=== PATIENT | female | born 1940 | race Caucasian/White ===

== ENCOUNTER 2024-12-28 11:28 | Emergency (ER) | payer MEDICARE, BC, SELFPAY ==
[2024-12-28 11:41] VITALS: BP 143/84; PULSE 68; RESP 22; TEMP 36.8; O2SAT 98; BMI 24.0
--- NOTE | 2024-12-28 11:47 | XR_ITS ---
Examination: CT brain head without contrast. 2-D sagittal coronal reconstructions Date and time of exam:December 28, 2024 1306 hrs. Indications: Patient fell out of bed yesterday with injury to the head, head pain CTDI: vol (mGy):4.47 DLP: (mGycm):870 Technique: Multiple CT axial sections of the brain have been obtained, 5 mm slice thickness. Contrast has not been administered. 2-D sagittal, coronal reconstructions have been obtained Low dose protocols were performed. One or more of the following dose reduction techniques were used; automated exposure control, adjustment of the mA and/or KV according to patient size, use of iterative reconstruction technique. Findings: No significant ventricular enlargement. 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 No mass effect or midline shift Basal cisterns are not remarkable. Fourth ventricle is midline. Cranial vault intact. 13 mm calcified mass contiguous with the right cerebellar tentorium, coronal image 39, axial image 29 Impression: Negative for acute hemorrhage, mass effect or midline shift 13 x 12 mm calcified mass contiguous with the right cerebellar tentorium, most consistent with meningioma Brain MRI follow-up, pre and postcontrast, would confirm this diagnosis
--- NOTE | 2024-12-28 11:47 | XR_ITS ---
Examination:Right hip AP, lateral, AP pelvis 3 views Technique: Hip AP lateral, AP pelvis, 3 views Exam date and time: December 28, 2024 1250 hrs. Indications: Patient fell today with injury to the right hip, right hip pain Findings: No right hip fracture or dislocation Left hip bones of the pelvis intact Impression: No acute right hip fracture or dislocation Repeat this study short-term as clinically warranted
--- NOTE | 2024-12-28 11:47 | EKG_ITS ---
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
--- NOTE | 2024-12-28 11:47 | XR_ITS ---
Examination: CT cervical spine without contrast 2-D sagittal reconstructions 2-D coronal reconstructions 3-D reconstructions. Exam date and time:December 28, 2024 at 1306 hrs. Indications: Patient fell out of bed yesterday with injury to the neck, neck pain CTDI:vol (mGy) 7.02 DLP: (mGycm) 140 Technique: Multiple 2 mm axial sections of the cervical spine have been obtained. The coronal and sagittal reconstructions have been obtained. 3-D reconstructions have been obtained. Low dose protocols were performed. One or more of the following dose reduction techniques were used; automated exposure control, adjustment of the mA and/or KV according to patient size, use of iterative reconstruction technique. Findings: Axial sections demonstrate intact base of the skull. Cervical fusion C5-C7 with anatomic alignment Moderate disc narrowing C7-T1 C1 exhibit satisfactory relationship to the odontoid. No acute cervical vertebral body fracture seen. Alignment posterior spinous processes satisfactory. Impression: No acute cervical fracture.
--- NOTE | 2024-12-28 11:48 | XR_ITS ---
Examination: AP chest single view Technique one AP portable upright chest single view Exam date and time: December 28, 2024 1221 hrs. Comparison 08/04/2017 Indications: Coughing shortness of breath today. Findings: Mild prominence left ventricle No pneumonia or pulmonary edema Prominent osteopenia Impression: No pneumonia or pulmonary edema
--- NOTE | 2024-12-28 11:49 | PD.EDRME ---
Rapid Medical Screening Exam RME Arrival date/time: 12/28/24 11:28 84-year-old female presents to the emergency department complains of generalized weakness patient reports recent fall hitting the side of her head patient reports that she cannot get up for more than 2 hours Chief Complaint: General Adult/Misc Complain Time Seen by Provider: 12/28/24 13:05 Vital signs: Vital Signs Temperature 98.2 F 12/28/24 11:41 Pulse Rate 68 12/28/24 11:41 Respiratory Rate 22 H 12/28/24 11:41 Blood Pressure 143/84 H 12/28/24 11:41 Pulse Oximetry (%) 98 12/28/24 11:41 Oxygen Delivery Method Room Air 12/28/24 11:41
[2024-12-28 12:28] LABS: Basophils % (Auto) 0 % (0-2.5); Eosinophils # (Auto) 0.1 Thou/mm3 (0.0-0.5); Eosinophils % (Auto) 1 % (0-10); Hematocrit 38.8 % (36.0-46.0); Hemoglobin 13.3 g/dL (12.0-16.0); Immature Granulocytes % (Auto) 0 % (0-0); Immature Granulocytes Auto 0.04 Thou/mm3 (0.00-0.00); Lymphocytes # (Auto) 1.2 Thou/mm3 (1.0-4.8); Lymphocytes % (Auto) 12 % (10-50); Mean Corpuscular HGB Conc 34.3 g/dl (31.0-37.0); Mean Corpuscular Hemoglobin 29.2 pg (25.0-35.0); Mean Corpuscular Volume 85 fL (80-100); Monocytes % (Auto) 10 % (0-12); Neutrophils # (Auto) 7.8 Thou/mm3 (1.8-7.7); Neutrophils % (Auto) 77 % (37-80); Nucleated Red Blood Cell % 0 /100 WBC (0); Platelet Count 230 Thou/mm3 (140-440); RDW Standard Deviation 41.1 fL (36.4-46.3); Red Blood Count 4.55 Miln/mm3 (4.00-5.20); White Blood Count 10.1 Thou/mm3 (3.6-11.0)
[2024-12-28 12:45] LABS: Partial Thromboplastin Time 27.1 Seconds (22.0-36.0); Prothrombin Time 10.7 Seconds (9.0-12.2)
[2024-12-28 12:48] LABS: B-Type Natriuretic Peptide 158 pg/mL (0-100)
[2024-12-28 12:50] LABS: Alanine Aminotransferase 35 U/L (10-49); Albumin, Serum 3.9 gm/dL (3.4-4.8); Albumin/Globulin Ratio 1.3 (1.2-2.2); Alkaline Phosphatase 83 U/L (46-116); Anion Gap 10 (7-16); Aspartate Amino Transferase 17 U/L (0-34); BUN/Creatinine Ratio 19 Ratio (12-20); Bilirubin,Total 0.9 mg/dL (0.3-1.2); Blood Urea Nitrogen 21 mg/dL (9-23); Calcium 9.6 mg/dL (8.3-10.6); Calcium (Corrected) 9.7 mg/dL (8.5-10.1); Carbon Dioxide 19.8 mMol/L (20.0-31.0); Chloride 99 mMol/L (98-107); Creatinine (Component) 1.1 mg/dL (0.6-1.3); Estimated Creatinine Clearance 30.4 mL/min (>60); Globulin 2.9 gm/dL (2.3-3.5); Glucose 364 mg/dL (74-106); Osmolality,Calculated 276 (275-295); Potassium 4.1 mMol/L (3.4-5.1); Sodium 129 mMol/L (136-145); Total Protein 6.8 gm/dL (5.7-8.2); Troponin I 0.031 ng/mL (0.0-0.045); eGFR 49 See Note
--- NOTE | 2024-12-28 13:26 | PD.EDADULT ---
ED General RME/HPI General Chief complaint: General Adult/Misc Complain Stated complaint: SOB, COLD, ABD PAIN Time Seen by Provider: 12/28/24 13:05 Arrival date/time: 12/28/24 11:28 This is an 84-year-old female that is brought in by family member with complaints of weakness and hitting head on dresser. Patient states that she fell after hitting her head on the dresser but reports that she did not pass out. Patient states she just felt weak. Patient has a history of diabetes, high blood pressure, hyperlipidemia, and depression. Patient denies fever chills, cough, runny nose, nausea, vomiting, diarrhea. Patient reports some back pain and some dysuria. Patient has had UTIs in the past. RME / HPI RME / HPI narrative: 12/28/24 11:28 84-year-old female presents to the emergency department complains of generalized weakness patient reports recent fall hitting the side of her head patient reports that she cannot get up for more than 2 hours Related Data Home Medications ?Medication ?Instructions ?Recorded ?Confirmed metoprolol succinate 25 mg 25 mg PO BID ##0 08/04/17 09/12/23 tablet,extended release 24 hr (Toprol XL) metformin 500 mg tablet 500 mg PO BID 03/28/23 09/12/23 donepezil 5 mg tablet 5 mg PO HS 09/12/23 09/12/23 pravastatin 10 mg tablet 10 mg PO DAILY 09/12/23 09/12/23 vitamin B complex-vitamin C-folic 1 tab PO DAILY 09/12/23 09/12/23 acid 0.8 mg tablet (Renuka-Casey) Previous Rx's ?Medication ?Instructions ?Recorded ondansetron 4 mg disintegrating 4 mg PO Q6H PRN nausea and 12/28/24 tablet vomiting #5 tabs Allergies Allergy/AdvReac Type Severity Reaction Status Date / Time No Known Allergies Allergy Verified 12/28/24 11:32 Review of Systems Review of Systems Systems Reviewed: All systems reviewed, normal except as documented Past Medical History Past Medical History Comments PMH COMMENT: see hpi ED Exam General General appearance: Present alert and in no apparent distress Head Head exam: Present atraumatic Eye Eye exam: Present normal appearance, PERRL and EOMI ENT ENT exam: Present normal exam, normal oropharynx and mucous membranes moist Neck Neck exam: Present normal inspection, full ROM and trachea midline Chest Chest inspection: Present normal inspection and symmetric chest wall rise Respiratory Respiratory exam: Present normal lung sounds bilaterally Cardiovascular Cardiovascular exam: Present regular rate, normal rhythm and normal heart sounds Abdominal Exam Abdominal exam: Present soft Extremities Exam Extremities exam: Present normal inspection and full ROM Back Exam Back exam: Present normal inspection and full ROM Neurological Exam Neurological exam: Present alert, oriented X3 and CN II-XII intact Psychiatric Psychiatric exam: Present normal affect and normal mood Skin Skin exam: Present warm, dry, intact and normal color Course Quality Measures none Orders Category Date Time Status Ambulate in Room PRN Care 12/28/24 16:05 Completed Bedside COVID-19 Antigen Test NOW Care 12/28/24 11:48 Completed Bedside Influenza A&B Antigen Test NOW Care 12/28/24 11:48 Completed EKG (ED ONLY) *Do not use* NOW Care 12/28/24 11:47 Completed Glucose [Bedside Blood Glucose] NOW Care 12/28/24 15:31 Completed IV [Insert IV] STAT Care 12/28/24 13:[address] cervical spine wo con Stat Exams 12/28/24 11:[address] head/brain wo con Stat Exams 12/28/24 11:47 Completed EKG (ED Only) Stat Exams 12/28/24 11:47 Draft XR chest 1V portable Stat Exams 12/28/24 11:48 Completed XR hip RT w pelvis 2-3V Stat Exams 12/28/24 11:47 Completed B-Type Natriuretic Peptide Stat Lab 12/28/24 12:02 Completed CBC Stat Lab 12/28/24 12:02 Completed Comprehensive Metabolic Panel Stat Lab 12/28/24 12:02 Completed Partial Thromboplastin Time Stat Lab 12/28/24 12:02 Completed Prothrombin Time with INR Stat Lab 12/28/24 12:02 Completed Troponin I Stat Lab 12/28/24 12:02 Completed UA, C/S IF [Urinalysis, C/S if Indicated] Stat Lab 12/28/24 14:34 Completed Urine Culture Stat Lab 12/28/24 14:34 Completed Acetaminophen Tab [Tylenol ES Tab] Med 12/28/24 16:34 Discontinued 1,000 mg PO X1 ONE Ibuprofen Tab [Motrin Tab] Med 12/28/24 16:34 Discontinued 600 mg PO X1 ONE Sodium Chloride 0.9% 250 ml [Ns] 250 ml Med 12/28/24 13:54 Discontinued IV 999 mls/hr cefTRIAXone [Rocephin] 1,000 mg Med 12/28/24 15:30 Discontinued Lidocaine 1% 20 ml [Xylocaine 1% 20 ML] 2.1 ml IM X1 Vital Signs Vital signs: Vital Signs Temperature 98.2 F 12/28/24 11:41 Pulse Rate 68 12/28/24 11:41 Respiratory Rate 22 H 12/28/24 11:41 Blood Pressure 143/84 H 12/28/24 11:41 Pulse Oximetry (%) 98 12/28/24 11:41 Oxygen Delivery Method Room Air 12/28/24 11:41 Procedures -ED EKG Interpretation #1: Date of EK12/28/24 Time of EK:49 Rate: 68 Interpretation: Interpreted by me (sinus rhythm ) EKG Impression: No ectopy, Normal QRS and Normal intervals MDM Patient data External records reviewed:: [facility] previous records Clinical information provided by:: patient Social determinants that could affect healthcare access:: none Patient has the following chronic illnesses:: see hpi How is presenting disease/condition affected by chronic disease/condition?: exacerbated by Evaluation data The following diagnostics were reviewed and interpreted by me:: lab results, radiology exam(s) and EKG tracing(s) Lab and/or radiology exams considered but not ordered:: none Interpretation Summary: see note Medications Medications considered but not ordered:: none Medication administrations:: Medication Administration History Discontinued Medications Acetaminophen (Acetaminophen 500 Mg Tablet) 1,000 mg PO X1 ONE Stop: 12/28/24 16:35 Last Admin: 12/28/24 16:41 Dose: 1,000 mg Documented By: AM Ceftriaxone Sodium 1,000 mg/ (Lidocaine HCl 2.1 ml) 0 mg IM X1 ONE Stop: 12/28/24 15:31 Last Admin: 12/28/24 15:42 Dose: 1,000 mg Documented By: AM Sodium Chloride (Ns) 250 mls @ 999 mls/hr IV .Q16M ONE Stop: 12/28/24 14:09 Last Infusion: 12/28/24 14:55 Dose: Infused Documented By: Admin: 12/28/24 14:23 Dose: 999 mls/hr Documented By: AM Ibuprofen (Ibuprofen Tab 600 Mg Tablet) 600 mg PO X1 ONE Stop: 12/28/24 16:35 Last Admin: 12/28/24 16:40 Dose: 600 mg Documented By: AM see mar Consultations Consultation(s) initiated? (list below): No Diagnosis Differential Diagnosis ED Complaint MDM: uti, brain bleed, dehydration, pneumonia Most likely diagnosis given after review of the tests above:: uti Admission Indicated Admission indicated?: not indicated Explain why admission is indicated or not indicated:: not needed Admission Request Was there a request for admission?: No Disposition Plan Disposition Plan: Discharge Discharge Attestation Discharge Attestation: The patient and all family members were given an opportunity to ask questions and understood the discharge instructions. Discharge instructions specifically effects, indications for sooner follow up or return to the emergency department, and the expected course of current diagnosis. Patient condition: Stable Medical Decision Making MDM Narrative MDM Narrative: CT neck Findings: Axial sections demonstrate intact base of the skull. Cervical fusion C5-C7 with anatomic alignment Moderate disc narrowing C7-T1 C1 exhibit satisfactory relationship to the odontoid. No acute cervical vertebral body fracture seen. Alignment posterior spinous processes satisfactory. Impression: No acute cervical fracture. ct head: Findings: No significant ventricular enlargement. 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 No mass effect or midline shift Basal cisterns are not remarkable. Fourth ventricle is midline. Cranial vault intact. 13 mm calcified mass contiguous with the right cerebellar tentorium, coronal image 39, axial image 29 Impression: Negative for acute hemorrhage, mass effect or midline shift 13 x 12 mm calcified mass contiguous with the right cerebellar tentorium, most consistent with meningioma Brain MRI follow-up, pre and postcontrast, would confirm this diagnosis Hip x ray: Findings: No right hip fracture or dislocation Left hip bones of the pelvis intact Impression: No acute right hip fracture or dislocation Repeat this study short-term as clinically warranted Chest x ray: Findings: Mild prominence left ventricle No pneumonia or pulmonary edema Prominent osteopenia Impression: No pneumonia or pulmonary edema Labs show: cbc unremarkable. CMP shows sodium of 129, bicarb 19.8, bnp 158, glucose 364, urine positive for uti. Will send a urine culture. Glucose rechecked and better. Pt given tylenol and ibuprofen for pain. Pt given IV fluids to help sodium and possible dehydration. Pt feels better. I spoke to patient about labs and radiology studies. I let her know about her menigioma. Pt told to follow up with primary provider in 1-2 days. Come back to ED if symptoms change or worsen. Pt given rocephin for uti and will place on antibiotics at home. Differential Diagnosis Differential Diagnosis: uti, brain bleed, dehydration, pneumonia Lab Data 12/28/24 12:02 12/28/24 12:02 Labs: Lab Results 12/28/24 12/28/24 Range/Units 12:02 14:34 WBC 10.1 (3.6-11.0) Thou/mm3 RBC 4.55 (4.00-5.20) Miln/mm3 Hgb 13.3 (12.0-16.0) g/dL Hct 38.8 (36.0-46.0) % MCV 85 (80-100) fL MCH 29.2 (25.0-35.0) pg MCHC 34.3 (31.0-37.0) g/dl RDW Std Deviation 41.1 (36.4-46.3) fL Plt Count 230 (140-440) Thou/mm3 Neut % (Auto) 77 (37-80) % Lymph % (Auto) 12 (10-50) % [place] % (Auto) 10 (0-12) % Eos % (Auto) 1 (0-10) % Baso % (Auto) 0 (0-2.5) % Neut # (Auto) 7.8 H (1.8-7.7) Thou/mm3 Lymph # (Auto) 1.2 (1.0-4.8) Thou/mm3 [place] # (Auto) 1.0 H (0.0-0.8) Thou/mm3 Eos # (Auto) 0.1 (0.0-0.5) Thou/mm3 Baso # (Auto) 0.0 (0.0-0.2) Thou/mm3 Immature Gran # (Auto) 0.04 H (0.00-0.00) Thou/mm3 Absolute Nucleated RBC 0.00 (0.00-0.00) Thou/mm3 Immature Gran % 0 (0-0) % Nucleated RBC % 0 (0) /100 WBC PT 10.7 (9.0-12.2) Seconds INR 1.0 (0.9-1.3) APTT 27.1 (22.0-36.0) Seconds Sodium 129 L (136-145) mMol/L Potassium 4.1 (3.4-5.1) mMol/L Chloride 99 (98-107) mMol/L Carbon Dioxide 19.8 L (20.0-31.0) mMol/L Anion Gap 10 (7-16) BUN 21 (9-23) mg/dL Creatinine 1.1 (0.6-1.3) mg/dL Estim Creat Clear Calc 30.4 L (>60) mL/min eGFR 49 L (60 - ) See Note BUN/Creatinine Ratio 19 (12-20) Ratio Glucose 364 H (74-106) mg/dL Calculated Osmolality 276 (275-295) Calcium 9.6 (8.3-10.6) mg/dL Corrected Calcium 9.7 (8.5-10.1) mg/dL Total Bilirubin 0.9 (0.3-1.2) mg/dL AST 17 (0-34) U/L ALT 35 (10-49) U/L Alkaline Phosphatase 83 (46-116) U/L Troponin I 0.031 (0.0-0.045) ng/mL B-Natriuretic Peptide 158 H (0-100) pg/mL Total Protein 6.8 (5.7-8.2) gm/dL Albumin 3.9 (3.4-4.8) gm/dL Globulin 2.9 (2.3-3.5) gm/dL Albumin/Globulin Ratio 1.3 (1.2-2.2) Ur Collection Type Clean Catch Urine Color Yellow (Lt Yel-Yel) Urine Clarity Turbid A (Clear/Hazy) Urine pH 6.0 (5.0-7.0) Ur Specific [place] 1.013 (1.001-1.035) Urine Protein 2+ A (Neg - Trace) Urine Glucose (UA) 3+ A (Negative) Urine Ketones 1+ A (Negative) Urine Blood 2+ A (Negative) Urine Nitrite Positive (Negative) Urine Bilirubin Negative (Negative) Urine Urobilinogen (Auto) Negative (0.0-1.0) mg/dL Ur Leukocyte Esterase Positive (Negative) Urine RBC 18 H (0-3) /hpf Urine WBC 2654 H (0-5) /hpf Ur Squamous Epith Cells 7 H (0-5) /hpf Urine Bacteria 4+ A (None) Ur Culture Indicated? Yes Discharge Plan Plan Patient Disposition: HOME (Self Care) Patient condition on transfer: Stable Prescriptions/Referrals Prescriptions/Med Rec: New ondansetron 4 mg tablet,disintegrating 4 mg PO Q6H PRN (Reason: nausea and vomiting) Qty: 5 0RF No Action metformin 500 mg tablet 500 mg PO BID metoprolol succinate [Toprol XL] 25 MG tablet extended release 24 hr 25 mg PO BID Qty: 0 donepezil 5 mg tablet 5 mg PO HS Patient Comments: TAKE 1 TABLET BY MOUTH EVERY DAY AT BEDTIME 30 DAYS pravastatin 10 mg tablet 10 mg PO DAILY Patient Comments: TAKE 1 TABLET BY MOUTH EVERY DAY Renuka-Casey 0.8 mg tablet 1 tab PO DAILY Patient Comments: TAKE 1 TABLET BY MOUTH EVERY DAY Referrals: Lissette Garcia MD [Primary Care Provider] - In 1 week Problem List Clinical Impression: Acute UTI, Weakness, Acute hyponatremia, Uncontrolled diabetes mellitus, Meningioma Patient/Caregiver Discharge Instructions Discharge Activity: activity as tolerated Education Materials: ED Hyponatremia, ED CYSTITIS Female Adult Additional Instructions: Please drink plenty of fluids. Take antibiotics as prescribed. Follow-up with primary provider in 1 to 2 days. Come back to the emergency room if symptoms change or worsen. Print Language: Venezuelan Stand Alone Forms: Letty Award Info., Patient Portal Info Letter ROWENA/TAMARA Supervising Physician ROWENA/TAMARA Supervising Physician: chaz
[2024-12-28] MEDS: SODIUM CHLORIDE 0.9% 250 ML 250 ML 999 ML IV (14:23)
[2024-12-28 14:39] VITALS: BP 179/64; PULSE 71; RESP 22; TEMP 36.9; O2SAT 98
[2024-12-28 15:08] LABS: Collection Type, Urine Clean Catch
[2024-12-28 15:16] LABS: Bacteria,Urine 4+; Bilirubin,Urine Negative (Negative); Blood,Urine 2+ (Negative); Glucose, Urine 3+ (Negative); Ketones,Urine 1+ (Negative); Leukocyte Esterase,Urine Positive (Negative); Nitrite,Urine Positive (Negative); Protein,Urine 2+ (Neg - Trace); RBC,Urine 18 /hpf (0-3); Specific Gravity,Urine 1.013 (1.001-1.035); Squamous Epithelial Cell,Urine 7 /hpf (0-5); Urobilinogen,Urine Negative mg/dL (0.0-1.0); WBC,Urine 2654 /hpf (0-5)
[2024-12-28 15:18] LABS: Clarity,Urine Turbid (Clear/Hazy); Color,Urine Yellow (Lt Yel-Yel); Culture Indicated,Urine Yes
[2024-12-28] MEDS: cefTRIAXone 1,000 MG, LIDOCAINE 1% 20 ML 2.1 ML IM (15:42)
[2024-12-28 16:37] VITALS: BP 222/101; PULSE 69; RESP 20; TEMP 36.9; O2SAT 99
[2024-12-28] MEDS: IBUPROFEN TAB 600 MG TABLET PO (16:40)
[2024-12-28] MEDS: ACETAMINOPHEN 500 MG TABLET 1000 MG PO (16:41)
[2024-12-28 17:38] VITALS: BP 165/77; PULSE 72; RESP 20; TEMP 36.7; O2SAT 100
== END 2024-12-28 17:41 | disposition home or self-care (01) ==
PROVIDERS: Nurse Practitioner Primary Care; Emergency Provider Emergency Medicine; PCP Family Medicine
DX: N39.0 Urinary tract infection, site not specified (principal); E87.1 Hypo-osmolality and hyponatremia; E11.65 Type 2 diabetes mellitus with hyperglycemia; D32.9 Benign neoplasm of meninges, unspecified
CPT/HCPCS: 36415; 70450; 71045; 72125; 73502; 80053; 81001; 83880; 84484; 85025; 85610; 85730; 87077; 87086; 87186; 87400; 87811; 93005; 96372; 99284; J0696; J3490; J7050; A9270

== ENCOUNTER 2025-02-17 16:11 | Inpatient (IN) | payer MEDICARE, BC, SELFPAY ==
[2025-02-17 16:26] VITALS: BP 91/59; PULSE 77; RESP 18; TEMP 36.4; O2SAT 95
--- NOTE | 2025-02-17 16:36 | EKG_ITS ---
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
--- NOTE | 2025-02-17 16:36 | XR_ITS ---
Examination: PA lateral chest 2 views TECHNIQUE: Upright PA lateral chest 2 views Exam date and time: February 17, 2025 1652 hours Comparison December 28, 2024 INDICATIONS: Onset chest pain today. FINDINGS: Normal heart size Accentuation basilar bronchovascular markings Ectatic thoracic aorta Lower cervical plate No lobar pneumonia IMPRESSION: Basilar bronchitis pattern
--- NOTE | 2025-02-17 16:37 | PD.EDRME ---
Rapid Medical Screening Exam [facility] Arrival date/time: 02/17/25 16:11 84-year-old female with a history of type 2 diabetes, hypertension, hyperlipidemia presents to the emergency room with a chief complaint of cough, fevers, lower abdominal pain. According to family member at bedside the patient is also not at her mental baseline. I have greeted and performed a focused initial assessment of this patient. A comprehensive ED assessment and evaluation of the patient, analysis of all test results, and completion of the medical decision making process will be conducted by additional ED providers. Chief Complaint: Shortness of Breath/Dyspnea Time Seen by Provider: 02/17/25 16:17 Vital signs: Vital Signs Temperature 97.6 F 02/17/25 16:26 Pulse Rate 77 02/17/25 16:26 Respiratory Rate 18 02/17/25 16:26 Blood Pressure 91/59 L 02/17/25 16:26 Pulse Oximetry (%) 95 02/17/25 16:26 Oxygen Delivery Method Room Air 02/17/25 16:26 Vital signs reviewed by provider: Yes
[2025-02-17 17:38] LABS: Basophils # (Auto) 0.1 Thou/mm3 (0.0-0.2); Basophils % (Auto) 1 % (0-2.5); Eosinophils % (Auto) 0 % (0-10); Hematocrit 44.6 % (36.0-46.0); Hemoglobin 14.6 g/dL (12.0-16.0); Immature Granulocytes % (Auto) 4 % (0-0); Immature Granulocytes Auto 1.25 Thou/mm3 (0.00-0.00); Lymphocytes # (Auto) 0.8 Thou/mm3 (1.0-4.8); Lymphocytes % (Auto) 3 % (10-50); Mean Corpuscular HGB Conc 32.7 g/dl (31.0-37.0); Mean Corpuscular Hemoglobin 28.7 pg (25.0-35.0); Mean Corpuscular Volume 88 fL (80-100); Monocytes # (Auto) 2.3 Thou/mm3 (0.0-0.8); Monocytes % (Auto) 8 % (0-12); Neutrophils # (Auto) 25.1 Thou/mm3 (1.8-7.7); Neutrophils % (Auto) 85 % (37-80); Nucleated Red Blood Cell % 0 /100 WBC (0); Platelet Count 134 Thou/mm3 (140-440); RDW Standard Deviation 42.9 fL (36.4-46.3); Red Blood Count 5.09 Miln/mm3 (4.00-5.20); White Blood Count 29.5 Thou/mm3 (3.6-11.0)
[2025-02-17 17:53] LABS: INR 1.2 (0.9-1.3); Partial Thromboplastin Time 33.1 Seconds (22.0-36.0); Prothrombin Time 12.7 Seconds (9.0-12.2)
[2025-02-17 17:58] LABS: Alanine Aminotransferase 49 U/L (10-49); Albumin, Serum 3.9 gm/dL (3.4-4.8); Albumin/Globulin Ratio 1.3 (1.2-2.2); Alkaline Phosphatase 131 U/L (46-116); Anion Gap 19 (7-16); Aspartate Amino Transferase 40 U/L (0-34); BUN/Creatinine Ratio 11 Ratio (12-20); Blood Urea Nitrogen 23 mg/dL (9-23); Calcium 9.3 mg/dL (8.3-10.6); Calcium (Corrected) 9.4 mg/dL (8.5-10.1); Chloride 99 mMol/L (98-107); Creatinine (Component) 2.1 mg/dL (0.6-1.3); Globulin 2.9 gm/dL (2.3-3.5); Glucose 239 mg/dL (74-106); Magnesium 1.7 mg/dL (1.6-2.6); Osmolality,Calculated 272 (275-295); Potassium 3.5 mMol/L (3.4-5.1); Sodium 130 mMol/L (136-145); Total Protein 6.8 gm/dL (5.7-8.2); Troponin I 0.022 ng/mL (0.0-0.045); eGFR 23 See Note
[2025-02-17 18:01] LABS: B-Type Natriuretic Peptide 901 pg/mL (0-100)
[2025-02-17 18:04] LABS: Carbon Dioxide 12.3 mMol/L (20.0-31.0)
--- NOTE | 2025-02-17 19:29 | EDNOTE_ITS ---
ED SOB =RME/HPI General Chief Complaint: Shortness of Breath/Dyspnea Stated Complaint: SOB, FEVER, LEG WEAKNESS, PAIN RLQ ABD SINCE AM Time Seen by Provider: 02/17/25 16:17 Arrival date/time: 02/17/25 16:11 RME / HPI RME / HPI Narrative: 02/17/25 16:11 84-year-old female with a history of type 2 diabetes, hypertension, hyperlipidemia presents to the emergency room with a chief complaint of cough, fevers, lower abdominal pain. According to family member at bedside the patient is also not at her mental baseline. I have greeted and performed a focused initial assessment of this patient. A comprehensive ED assessment and evaluation of the patient, analysis of all test results, and completion of the medical decision making process will be conducted by additional ED providers. This section includes all my notes and documentations, including HPI, PE, and ED course. Justen Guido MD HPI: 84-year-old female here to be evaluated with several days of generalized malaise and fatigue. And worsening confusion and disorientation compared to her baseline. Equivocal subjective fever and slight cough and lower abdominal pain. Daughter also noted breathing difficulty. No other complaints. ROS: All negative except as documented in HPI. Physical Exam: General: Alert and oriented X 1. Breathing difficulty noted. Eyes: Conjunctivae and lids clear. PERRL. EOMI. ENT: No nasal congestion. Neck: Supple. Heart: RRR. Lungs: Mild respiratory distress. Good air movement with bibasilar Rales. Abdomen: Soft and nontender. Legs: No clubbing, cyanosis, edema. Skin: Warm and dry. Neuro: Alert and oriented X 1. Cranial nerves II through XII grossly normal. No peripheral motor deficits. I reviewed all diagnostic test results. My interpretation of the EKG is sinus rhythm with no acute ST?T changes. My interpretation of the chest x-ray is no acute findings. My review of the head CT report is no acute findings. My review of the chest CT report is no PE. My review of the abdominal CT report is pyelonephritis. Blood tests remarkable for WBC 29.5, D-dimer > 3820, CO2 12.3, anion gap 19, Cr 2.1, lactic acid 7.1, CRP 23.6, BNP 901, procalcitonin 110.12. UA showed ketones, leukocyte esterase, WBC. At this point, diagnoses include sepsis, pyelonephritis, metabolic acidosis. Treatment here included IV fluid, Duoneb, Rocephin, and Solumedrol. Significant improvement not noted. I discussed the case with our hospitalist. About the presentation and exam and diagnostics and treatments here. And need of further care in the hospital. Will accept the patient. Justen Guido MD Related Data Home Medications ?Medication ?Instructions ?Recorded ?Confirmed metoprolol succinate 25 mg 25 mg PO BID ##0 08/04/17 1 tablet,extended release 24 hr (Toprol XL) metformin 500 mg tablet 500 mg PO BID 03/28/2309/12 donepezil 5 mg tablet 5 mg PO HS 09/12/23 09/12/23 pravastatin 10 mg tablet 10 mg PO DAILY 09/12/2308/27 vitamin B complex-vitamin C-folic 1 tab PO DAILY 09/1209/12/23 acid 0.8 mg tablet (Renuka-Casey) Previous Rx's ?Medication ?Instructions ?Recorded ondansetron 4 mg disintegrating 4 mg PO Q6H PRN nausea and 12/28/24 tablet vomiting #5 tabs Allergies Allergy/AdvReac Type Severity Reaction Status Date / Time No Known Allergies Allergy Verified 02/17/25 16:16 Review of Systems Review of Systems Systems Reviewed: All systems reviewed, normal except as documented Past Medical History Past Medical History NEUROLOGIC: Positive Dementia; Negative Neurological Disorders or Seizures CARDIAC: Positive Cardiac Disorders, Hypercholesterolemia and Hypertension; Negative Myocardial Infarction, Cardiac Arrhythmia, Atrial Fibrillation, Angina, Heart Murmur, Coronary Artery Disease, Atherosclerotic Heart Disease, Peripheral Vascular Disease, Aneurysm, Congestive Heart Failure, Congenital Heart Disease, Valvular Heart Disease, Rheumatic Fever, Cardiomyopathy, Edema, Pericarditis, Cellulitis, Deep Vein Thrombosis, Hypotension or Varicose Veins RESPIRATORY: Negative Chronic Obstructive Pulmonary Disease (COPD) or Asthma GASTROINTESTINAL: Positive Gastroesophageal Reflux Disease; Negative Gastrointestinal Disorders, Hepatitis, Cirrhosis, Pancreatitis, Celiac Disease, Gall Bladder Disease, Gastrointestinal Bleed, Esophageal Varices, Stern's Esophagus, Colitis, Ulcerative Colitis, Diverticulitis, Diverticulosis, Ulcer, Colorectal Cancer, Irritable Bowel, Crohn's Disease, Obstructive Bowel, Hiatal Hernia, Hemorrhoids or Obesity GENITOURINARY: Negative Genitourinary Disorders, Renal Disease or Prostate Cancer REPRODUCTIVE: Negative Breast Cancer, Endometriosis, Genital Herpes, Gonorrhea, Pelvic Inflammatory Disease, Previous Pregnancies, Syphilis, Testicular Cancer or Uterine Prolapse MUSCULOSKELETAL: Positive Musculoskeletal Disorders (fracture left ankle and surgery) and Fractures; Negative Muscular Dystrophy, Myasthenia Gravis, Marfan's Syndrome, Bone Cancer, Arthritis, Rheumatoid Arthritis, Osteoporosis, Degenerative Disk Disease, Gout, Scoliosis, Carpal Tunnel Syndrome, Fibromyalgia, Degenerative Joint Disease, Osteomyelitis or Poliovirus ENT: Negative Cataracts ENDOCRINE: Positive Diabetes Mellitus Type 2; Negative Endocrine Disorders or Diabetes Mellitus Type 1 HEMATOLOGIC: Negative Blood Disorders, Sickle Cell Disease or Clotting Problems OTHER HISTORY: Positive Hospitalization (when she had hysterectomy), Falls (last year, fx left ankle) and Chicken Pox; Negative Autoimmune Disease, Down Syndrome, Developmental Delay, Shingles, Blood Transfusions, Anesthesia Reactions, Organ Transplant, Chemotherapy, Radiation Therapy, Hyperbaric Therapy, MRSA, VRSA, Vancomycin-Resistant Enterococci, Human Immunodeficiency Virus (HIV), Measles, Mumps, Rubella (Swedish Measles), Pertussis, Clostridium Difficile, Breast Cancer, Cervical Cancer, Colorectal Cancer, Lung Cancer, Ovarian Cancer, Prostate Cancer or Testicular Cancer Family History FAMILY HISTORY: Positive Family Cardiac Disorders and Family Cancer (unknown); Negative Family Psychiatric Problems, Family Respiratory Disorders, Family Gastrointestinal Problems, Family Surgery or Family Anesthesia Reaction Surgical History SURGICAL: Positive Hysterectomy; Negative Cardiac Surgery, Open Heart Surgery, Coronary Artery Bypass Graft, Va lve Replacement, Vascular Surgery, Coronary Stent, Cardiac Catheterization, Pacemaker, Angiogram, Auto Implanted Cardiovert Defib, Carotid Endarterectomy, Endocrine Surgery, Thyroidectomy, Ear Surgery, Tympanostomy Tube, Eye Surgery, Nose Surgery, Oral Surgery, Tonsillectomy, Adenoidectomy, Cochlear Implant, Corneal Transplant, Throat Surgery, Abdominal Surgery, Tracheostomy, Gastric Bypass Surgery, Gastrostomy, Bowel Surgery, Nephrectomy, Transurethral Resection, Joint Replacement, Amputation, Open Reduction Internal Fixation, Arthroscopy, Neurologic Surgery, Brain Shunt, Mastectomy, Lumpectomy, Tubal Ligation, Section, Vasectomy or Organ Transplant Social History SMOKING STATUS: Never smoker SECOND HAND EXPOSURE: No SUBSTANCE USE: does not use ED Exam Narrative Physical exam: As noted in HPI. Course Course Course Narrative: CXR is ordered for determining the etiology of shortness of breath. Quality Measures none Orders Category Date Time Status Admit to Inpatient Status Routine Admission 02/18/25 04:03 Active Patient Condition Routine Admission 02/18/25 04:03 Ordered Activity as Tolerated Routine Care 02/18/25 04:04 Ordered Bedside Blood Glucose ACHS Care 02/18/25 04:06 Active Bedside COVID-19 Antigen Test NOW Care 02/17/25 19:41 Active Bedside Influenza A&B Antigen Test NOW Care 02/17/25 19:41 Completed COVID-19 Screening Questionnaire NOW Care 02/18/25 04:[address] Screening NOW Care 02/17/25 19:[address] Screening NOW Care 02/17/25 23:03 Completed Decision to Admit X1 Care 02/18/25 04:03 Active EKG (ED ONLY) *Do not use* NOW Care 02/17/25 16:36 Completed MRI Screening NOW Care 02/18/25 04:05 Active Notify provider NEEDED Care 02/18/25 04:03 Active Saline [Insert IV] NOW Care 02/17/25 19:41 Active Straight [In and Out Catheter] X1 Care 02/17/25 19:41 Completed Diet Carbohydrate Consistent Diet 02/18/25 Breakfast Active CA echo doppler complete Routine Exams 02/18/25 04:[address] abdomen pelvis w con Stat Exams 02/17/25 23:[address] angio chest Stat Exams 02/17/25 19:[address] head/brain wo con Stat Exams 02/17/25 19:44 Taken EKG (ED Only) Stat Exams 02/17/25 16:36 Draft MR head/brain wo con Routine Exams 02/18/25 04:05 Ordered US carotid duplex Routine Exams 02/18/25 04:05 Ordered XR chest 2V Stat Exams 02/17/25 16:36 Completed A1C [Glycohemoglobin w (eAG)] AM DRAW Lab 02/18/25 05:00 Ordered B-Type Natriuretic Peptide Stat Lab 02/17/25 16:53 Completed Basic Metabolic Panel AM DRAW Lab 02/18/25 05:00 Ordered Basic Metabolic Panel AM DRAW Lab 02/19/25 05:00 Ordered Basic Metabolic Panel AM DRAW Lab 02/20/25 05:00 Ordered Blood Culture (Lab) Stat Lab 02/17/25 19:50 Received CBC AM DRAW Lab 02/18/25 05:00 Ordered CBC AM DRAW Lab 02/19/25 05:00 Ordered CBC AM DRAW Lab 02/20/25 05:00 Ordered CBC Stat Lab 02/17/25 16:53 Completed CRP [C-Reactive Protein] Stat Lab 02/17/25 19:57 Completed Comprehensive Metabolic Panel Stat Lab 02/17/25 16:53 Completed D-Dimer Stat Lab 02/17/25 19:57 Completed ESR [Sed Rate (ESR)] Stat Lab 02/17/25 19:57 Completed Ketone [Beta Hydroxybutyrate] Stat Lab 02/17/25 22:30 Completed Lactic Acid [Lactate (Lactic Acid)] Stat Lab 02/17/25 22:30 Completed Lactic Acid, 3 HR Stat Lab 02/18/25 02:15 Completed Lipid Panel AM DRAW Lab 02/18/25 05:00 Ordered Magnesium Stat Lab 02/17/25 16:53 Completed Partial Thromboplastin Time Stat Lab 02/17/25 16:53 Completed Procalcitonin Stat Lab 02/17/25 19:57 Completed Prothrombin Time with INR Stat Lab 02/17/25 16:53 Completed RSV [Respiratory Syncytial Virus Ag] Stat Lab 02/17/25 19:45 Ordered TSH [Thyroid Stimulating Hormone] Stat Lab 02/17/25 19:57 Completed Troponin I Stat Lab 02/17/25 16:53 Completed UA, C/S IF [Urinalysis, C/S if Indicated] Stat Lab 02/17/25 23:38 Completed Urinalysis Stat Lab 02/17/25 16:36 Ordered Urine Culture Stat Lab 02/17/25 23:38 Received Acetaminophen Tab [Tylenol Tab] Med 02/18/25 04:03 Ordered 650 mg PO Q6H PRN Albuterol/Ipratr Rt Nicole [Duoneb Rt Nicole] Med 02/17/25 19:43 Discontinued 3 ml INH X1 ONE Aspirin [Ecotrin] Med 02/18/25 09:00 Ordered 81 mg PO QDAY Dextrose 50% Syr [D50w Syringe Abboject] Med 02/18/25 04:06 Ordered 25 ml IV Q15MIN PRN Dextrose 50% Syr [D50w Syringe Abboject] Med 02/18/25 04:06 Ordered 50 ml IV Q15MIN PRN Donepezil HCl [Aricept] Med 02/18/25 21:00 Ordered 5 mg PO HS Glucagon Inj Med 02/18/25 04:06 Ordered 1 mg IM Q15MIN PRN Heparin Inj Med 02/18/25 06:00 Ordered 5,000 unit SC Q8HR INSULIN LISPRO (AdmeLOG) [HumaLOG] Med 02/18/25 07:30 Ordered See Protocol SC AC MethylPREDNISolone.* [SoluMEDROL Inj] Med 02/17/25 19:43 Discontinued 125 mg IVP X1 ONE Pravastatin Sodium [Pravachol] Med 02/18/25 21:00 Ordered 10 mg PO HS Sodium Chloride 0.9% 1000 ml [Ns] 1,000 ml Med 02/17/25 23:15 Active IV 125 mls/hr Sodium Chloride 0.9% 1000 ml [Ns] 1,000 ml Med 02/18/25 04:15 Ordered IV 75 mls/hr Sodium Chloride 0.9% 1000 ml [Ns] 1,000 ml Med 02/18/25 04:02 Ordered IV 999 mls/hr cefTRIAXone [Rocephin] 1,000 mg Med 02/18/25 09:00 Ordered SODIUM CHLORIDE 0.9% (Popper) [Ns 0.9% (P)] 50 ml IV QDAY cefTRIAXone [Rocephin] 1,000 mg Med 02/17/25 19:44 Discontinued SODIUM CHLORIDE 0.9% (Popper) [Ns 0.9% (P)] 50 ml IV X1 Code Status Routine Oth 02/18/25 04:03 Ordered Vital Signs Vital signs: Vital Signs Temperature 97.6 F 02/17/25 16:26 Pulse Rate 77 02/17/25 16:26 Respiratory Rate 18 02/17/25 16:26 Blood Pressure 91/59 L 02/17/25 16:26 Pulse Oximetry (%) 95 02/17/25 16:26 Oxygen Delivery Method Room Air 02/17/25 16:26 Shortness of Breath / Dyspnea Patient data External records reviewed:: [facility] previous records (Per chart review, patient was seen here on 12/28/24 for UTI.) Clinical information provided by:: patient Social determinants that could affect healthcare access:: none Patient has the following chronic illnesses:: dementia, HTN, DM, GERD How is presenting disease/condition affected by chronic disease/condition?: uneffected by Evaluation data The following diagnostics were reviewed and interpreted by me:: lab results, rad iology exam(s) and EKG tracing(s) Lab and/or radiology exams considered but not ordered:: none Interpretation Summary: Sepsis, pyelonephritis, metabolic acidosis Medications / Prescriptions Medications or Prescriptions considered but not ordered:: none Medication administrations:: Medication Administration History Acetaminophen (Acetaminophen 325 Mg Tablet) 650 mg PO Q6H PRN PRN Reason: Fever >101.5 Stop: 03/20/25 04:02 Aspirin (Aspirin Ec 81 Mg Tabec) 81 mg PO QDAY [facility] Stop: 03/20/25 08:59 Dextrose (Dextrose 50%-Water Inj 50 Ml Syringe) 25 ml IV Q15MIN PRN PRN Reason: BG 50-70 responsive npo pt Stop: 03/20/25 04:05 Dextrose (Dextrose 50%-Water Inj 50 Ml Syringe) 50 ml IV Q15MIN PRN PRN Reason: BG <50 OR BG <70 & pt unresponsive Stop: 03/20/25 04:05 Donepezil HCl (Donepezil Hcl 5 Mg Tablet) 5 mg PO HS [facility] Stop: 03/20/25 20:59 Glucagon (Glucagon Inj 1 Mg Vial) 1 mg IM Q15MIN PRN PRN Reason: BG <70, and no IV access Heparin Sodium (Porcine) (Heparin Sod Inj 5000 Unit/Ml Vial) 5,000 unit SC Q8HR [facility] Stop: 03/04/25 05:59 Sodium Chloride (Ns) 1,000 mls @ 125 mls/hr IV .Q8H ONE Stop: 02/18/25 07:14 Last Admin: 02/18/25 00:03 Dose: 125 mls/hr Documented By: EF Sodium Chloride (Ns) 1,000 mls @ 999 mls/hr IV .Q1H1M ONE Stop: 02/18/25 05:02 Sodium Chloride (Ns) 1,000 mls @ 75 mls/hr IV .[id number] GERHARD Stop: 03/20/25 04:14 Ceftriaxone Sodium 1,000 mg/ (Sodium Chloride) 50 mls @ 100 mls/hr IV QDAY [facility] Stop: 02/25/25 08:59 Insulin Human Lispro (Insulin Lispro (Admelog) 1 Unit/0.01 Ml Unit) 0 unit SC AC [facility]; Protocol Stop: 03/20/25 07:29 Pravastatin Sodium (Pravastatin Sodium 10 Mg Tablet) 10 mg PO HS [facility] Stop: 03/20/25 20:59 Discontinued Medications Albuterol/Ipratropium (Albuterol/Ipratropium (Duoneb) Rt Nicole 3 Ml Nebu) 3 ml INH X1 ONE Stop: 02/17/25 19:44 Ceftriaxone Sodium 1,000 mg/ (Sodium Chloride) 50 mls @ 100 mls/hr IV X1 ONE Stop: 02/17/25 20:13 Last Infusion: 02/17/25 22:12 Dose: Infused Documented By: Admin: 02/17/25 21:42 Dose: 100 mls/hr Documented By: EF Methylprednisolone Sodium Succinate (Methylprednisolone Sod Succ 62.5 Mg/Ml 2ml Vial) 125 mg IVP X1 ONE Stop: 02/17/25 19:44 Last Admin: 02/17/25 21:41 Dose: 125 mg Documented By: EF Duoneb, Rocephin, Solumedrol, IV fluid Consultations Consultation(s) initiated? (list below): No Diagnosis Shortness of Breath Differential Diagnosis: acute exacerbation of chronic obstructive airways disease, congestive heart failure, community acquired pneumonia, asthma with exacerbation, pulmonary embolism and other (Sepsis, UTI, pyelonephritis, dehydration, electrolyte abnormalities) Most likely diagnosis given after review of the tests above:: Sepsis, pyelonephritis, metabolic acidosis Admission Indicated Admission indicated?: indicated Explain why admission is indicated or not indicated:: Sepsis, pyelonephritis, metabolic acidosis Admission Request Was there a request for admission?: Yes Admission Attestation Admission request attestation: Discussed case with Hospitalist service regarding admission. Discussed patients ED course, exam findings, labs, and radiology results. The Hospitalist [agrees] to accept the patient for admission. Disposition Plan Disposition Plan: Admit Critical Care Time Critical Care Time Critical Care Time: Yes Total Critical Care Time (min.): 35 Attestation: Due to a high probability of clinically significant, life threatening deterioration, the patient required my highest level of preparedness to intervene emergently and I personally spent this critical care time directly and personally managing the patient. This critical care time included obtaining a history; examining the patient; ordering and review of studies; arranging urgent treatment with development of a management plan; evaluation of patient's response to treatment; frequent reassessment; and discussions with family and other providers. It was exclusive of separately billable procedures and treating other patients and teaching time. Justen Guido MD Discharge Plan Plan Patient Disposition: Admit Acute Care w/in Hospital Prescriptions/Referrals Prescriptions/Med Rec: No Action metformin 500 mg tablet 500 mg PO BID metoprolol succinate [Toprol XL] 25 MG tablet extended release 24 hr 25 mg PO BID Qty: 0 donepezil 5 mg tablet 5 mg PO HS Patient Comments: TAKE 1 TABLET BY MOUTH EVERY DAY AT BEDTIME 30 DAYS pravastatin 10 mg tablet 10 mg PO DAILY Patient Comments: TAKE 1 TABLET BY MOUTH EVERY DAY Renuka-Casey 0.8 mg tablet 1 tab PO DAILY Patient Comments: TAKE 1 TABLET BY MOUTH EVERY DAY ondansetron 4 mg tablet,disintegrating 4 mg PO Q6H PRN (Reason: nausea and vomiting) Qty: 5 0RF Referrals: No Primary/Family,Physician [Primary Care Provider] - In 1 week Problem List Clinical Impression: Sepsis, Pyelonephritis, Metabolic acidosis Patient/Caregiver Discharge Instructions Print Language: Ecuadorean Stand Alone Forms: Letty Award Info., Patient Portal Info Letter
--- NOTE | 2025-02-17 19:44 | XR_ITS ---
Examination: CTA chest with intravenous contrast 2-D reconstructions 3-D reconstructions, vascular Date and time of exam: February 18, 2025 0227 hours INDICATIONS: Shortness of breath fever chest pain beginning today CTDI: vol (mGy) 9.23 DLP: (mGycm) 331 Technique: Multiple axial sections of the thorax have been obtained. 3 mm slice thickness, from below the hemidiaphragms to above the apices of the lungs. Mediastinal and lung density settings have been obtained. 2-D sagittal and coronal reconstructions. 3-D angiographic renderings, 3-D volume renderings, 3D post processing, vascular maximum intensity projections obtained. Contrast administered is 60 cc Isovue-300. Low dose protocols were performed. One or more of the following dose reduction techniques were used; automated exposure control, adjustment of the mA and/or KV according to patient size, use of iterative reconstruction technique. Findings: No thoracic aortic aneurysm dilatation No pulmonary artery filling defects Mild enlargement cardiac contour Atelectasis in the lower lung zones No pneumonia or pulmonary edema Liver is mildly irregular in contour Spleen is not enlarged Partial visualization 5 mm calculus right renal pelvis IMPRESSION: Negative for pulmonary artery emboli Bibasilar subsegmental atelectasis
--- NOTE | 2025-02-17 19:44 | XR_ITS ---
Examination: CT brain head without contrast. 2-D sagittal coronal reconstructions Date and time of exam:February 18, 2025 0224 hours Comparison December 28, 2024 INDICATIONS: Onset right lower abdominal pain beginning this morning CTDI: vol (mGy):44.2 DLP: (mGycm):835 Technique: Multiple CT axial sections of the brain have been obtained, 5 mm slice thickness. Contrast has not been administered. 2-D sagittal, coronal reconstructions have been obtained Low dose protocols were performed. One or more of the following dose reduction techniques were used; automated exposure control, adjustment of the mA and/or KV according to patient size, use of iterative reconstruction technique. Findings: No significant ventricular enlargement. Intra-axial or extra-axial hemorrhage density is not seen. No mass effect or midline shift Basal cisterns are not remarkable. Fourth ventricle is midline. Cranial vault intact. Again noted left basal ganglia infarcts, depicted on the December 28, 2024 exam Again noted calcified mass 14 mm contiguous with the right cerebellar tentorium consistent with meningioma Impression: Negative for acute hemorrhage, mass effect or midline shift Left basal ganglia infarcts, visualized on the December 28, 2024 exam However, brain MRI follow-up would best assess for acute ischemic change
[2025-02-17 20:47] LABS: D-Dimer > 3820 ng/mL (<600)
[2025-02-17 20:50] LABS: Sed Rate (ESR) 22 mm/hr (0-30)
[2025-02-17 21:13] VITALS: BP 93/45; PULSE 81; RESP 19; TEMP 36.4; O2SAT 94
[2025-02-17] MEDS: MethylPREDNISolone SOD SUCC 62.5 MG/ML 2ML VIAL 125 MG IVP (21:41)
[2025-02-17] MEDS: cefTRIAXone 1,000 MG in SODIUM CHLORIDE 0.9% (Popper) 50 ML 100 MG IV (21:42)
[2025-02-17 21:54] LABS: Procalcitonin 110.12 ng/ml (0.0-0.49); Thyroid Stimulating Hormone 3.39 uIU/mL (0.55-4.78)
[2025-02-17 22:20] LABS: C-Reactive Protein 23.6 mg/dL (0.0-0.9)
[2025-02-17 22:57] LABS: Beta Hydroxybutyrate 0.3 mmol/L (<0.6)
--- NOTE | 2025-02-17 23:03 | XR_ITS ---
Examination: CT abdomen with intravenous contrast CT pelvis with intravenous contrast 2-D coronal reconstructions 2-D sagittal reconstructions Date and time of exam:February 18, 2025 0227 hours Comparison 08/25/2022 INDICATIONS: Fever right lower abdominal pain today. CTDI: vol (mGy) 8.86 DLP: (mGycm) 5 Technique: Multiple axial sections of the abdomen and pelvis have been obtained. 64 slice high-resolution scanner used. 3 mm axial sections have been obtained, post intravenous injection 60 cc Isovue-370 2-D sagittal, coronal reconstructions obtained. Low dose protocols were performed. One or more of the following dose reduction techniques were used; automated exposure control, adjustment of the mA and/or KV according to patient size, use of iterative reconstruction technique. Findings: No focal liver or splenic lesions No gallstones No pancreatic mass 9 mm calculus in the right renal pelvis without significant hydronephrosis Wall thickening right ureter and right pelvicalyceal system with perinephric stranding No bowel obstruction Minimal thickening urinary bladder wall Moderate stool in the rectum Prominent osteopenia grade 1 anterolisthesis L3 on L4 IMPRESSION: Right pyelonephritis pattern 9 mm calculus in the right renal pelvis without significant hydronephrosis Cystitis pattern
[2025-02-17 23:12] LABS: Lactate (Lactic Acid) 7.7 mMol/L (0.4-2.0)
[2025-02-17 23:34] VITALS: BP 107/52; PULSE 90; RESP 18; TEMP 36.7; O2SAT 98
[2025-02-17 23:45] LABS: Collection Type, Urine Clean Catch
[2025-02-18] VITALS (11 sets, daily range): BP systolic 133–172; BP diastolic 68–118; PULSE 72–85; RESP 16–23; TEMP 36.3–37.2; O2SAT 92–99; BMI 20.5
[2025-02-18] MEDS: SODIUM CHLORIDE 0.9% 1000 ML 1,000 ML 125 ML IV (00:03)
[2025-02-18 00:39] LABS: Bacteria,Urine 4+; Bilirubin,Urine Negative (Negative); Blood,Urine 1+ (Negative); Clarity,Urine Turbid (Clear/Hazy); Color,Urine Yellow (Lt Yel-Yel); Culture Indicated,Urine Yes; Glucose, Urine 2+ (Negative); Ketones,Urine 1+ (Negative); Leukocyte Esterase,Urine Positive (Negative); Nitrite,Urine Negative (Negative); Protein,Urine 1+ (Neg - Trace); RBC,Urine 3 /hpf (0-3); Specific Gravity,Urine 1.013 (1.001-1.035); Squamous Epithelial Cell,Urine < 1 /hpf (0-5); Urobilinogen,Urine Negative mg/dL (0.0-1.0); WBC,Urine 23 /hpf (0-5)
[2025-02-18 01:43] LABS: Reflex Lactate? Y
[2025-02-18 02:43] LABS: Lactic Acid, 3 HR 4.7 mMol/L (0.4-2.0)
--- NOTE | 2025-02-18 03:16 | PRELIM_ITS ---
CT scan of the head without intravenous contrast (axial sections with sagittal and coronal reformats). February 18, 2025 0224 hours Clinical History: AMS Comparison: None Findings: There is a 1.6 similar calcified meningioma along the posterior fossa laterally on the right abutting the tentorium and the cerebellum. There is no intracranial hemorrhage, extra-axial collection, mass-effect or midline shift. Prior anterior left thalamic lacunar infarcts are noted, possibly old but exact age is indeterminate. There is moderate white matter disease within the cerebral hemispheres which is nonspecific but may represent chronic small vessel ischemic change. Old dorsal right cerebellar infarcts are noted. Old small dorsal of cerebellar infarct is also noted, unclear age. There is involutional atrophy of the cerebral hemispheres and cerebellum. Ventricles are not enlarged or effaced. There is atherosclerotic calcification along the carotid siphons. Visualized paranasal sinuses and tympanomastoid cavities are clear. The bony calvarium is intact. 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 Consider MRI of the head for further evaluation if clinically feasible. Report Electronically Signed By: Isaac Cruz 02/18/2025 3:16:02 AM [EST]
--- NOTE | 2025-02-18 03:39 | PRELIM_ITS ---
CT angiogram of the chest with intravenous contrast (axial sections with sagittal and coronal reformats) February 18, 2025 at 0227 hours Clinical History: Shortness of breath. Technique:Helical axial sections with sagittal and coronal reformats of the chest were obtained with intravenous contrast. Iterative reconstruction technique was employed to reduce patient radiation exposure. 3D/MIP reconstructed images were also provided. Comparison: No prior study is available for comparison. Findings: There is no filling defect within the pulmonary artery divisions to suggest pulmonary thromboembolism. The mediastinum demonstrates no evidence of mass. There are multiple prominent enlarged mediastinal lymph nodes. The thoracic aorta demonstrates atheromatous calcification without evidence of aneurysm. There is mild cardiomegaly. There is no pericardial effusion. Bibasilar dependent and streaky atelectasis is present. No evidence of pleural effusion or pneumothorax. Degenerative changes are identified in the spine. A small hiatal hernia is present. Impression: No CT evidence of pulmonary thromboembolism. No evidence of other acute pulmonary pathology. Other findings as described above. Please refer to the report on the Abdomen and Pelvis CT submitted separately. Report Electronically Signed By: Bella Burr 02/18/2025 3:39:17 AM [EST]
--- NOTE | 2025-02-18 03:59 | PRELIM_ITS ---
CT scan of the abdomen and pelvis with intravenous contrast (axial sections with sagittal and coronal reformats) February 18, 2025 at 0227 hours Clinical History: Abdominal pain. Comparison: No prior study is available for comparison. Findings: Bibasilar dependent and streaky atelectasis is present. There is heterogenous attenuation of the right kidney with perinephric fat stranding and fluid. There is mild right hydroureteronephrosis with a 9 x 7 mm nonobstructing pelviureteric junction calculus. There is dilation of the proximal and mid segments of the right ureter with zain-ureteric fat stranding and urothelial enhancement. The liver, gallbladder, pancreas, spleen and adrenals are unremarkable. A small hiatal hernia is present. No evidence of bowel obstruction. There are non-specific dilated bowel loops in the lower abdomen. The appendix is not visualized. There is rectal fecal impaction. The aorta and its branches demonstrate atheromatous calcification. There is an infrarenal chronic 2.1 x 1.2 cm left lateral saccular abdominal aortic aneurysm. There is no mesenteric or retroperitoneal adenopathy. The urinary bladder wall is thickened. The uterus is surgically absent. There is no free air. Degenerative changes are identified in the spine. There is scoliosis of the lumbar spine with convexity to the left. There is Grade I anterolisthesis of L3 on L4. Impression: Findings suggestive of urinary tract infection with cystitis and right pyeloureteritis and concern for acute right pyelonephritis. Recommend clinical and laboratory correlation. 9 x 7 mm nonobstructing right pelviureteric junction calculus Other findings as described above. Report Electronically Signed By: Bella Burr 02/18/2025 3:58:57 AM [EST]
--- NOTE | 2025-02-18 04:05 | XR_ITS ---
Examination: Carotid arterial duplex scan, ultrasound. Date and time of exam: February 18, 2025 0729 hours INDICATIONS: Headaches dizziness episodes this week Technique: Multiple sonographic images have been obtained of the carotid arteries and vertebral arteries, B-mode/grayscale imaging and Doppler spectral analysis and color flow Peak systolic and diastolic velocities have been recorded. Systolic diastolic ratios have been calculated. Findings: Right peak systolic velocities: Distal internal carotid artery peak systolic velocity is 0.5 M/sec Proximal internal carotid artery peak systolic velocity is 0.6 M/sec Carotid bifurcation peak systolic velocity is 0.5 M/sec External carotid artery peak systolic velocity is 0.8 M/sec Vertebral artery flow is antegrade. Left peak systolic velocities: Distal internal carotid artery peak systolic velocity is 0.6 M/sec Proximal internal carotid artery peak systolic velocity is 0.5 M/sec Carotid bifurcation peak systolic velocity is 0.6 M/sec External carotid artery peak systolic velocity is 0.8 M/sec Vertebral artery flow is antegrade Doppler waveform analysis demonstrates no spectral broadening Impression: Right internal carotid artery demonstrates 0-10% stenosis. Left internal carotid artery demonstrates 0-10% stenosis.
--- NOTE | 2025-02-18 04:05 | XR_ITS ---
Examination: MRI brain without intravenous contrast. Date and time of exam: February 18, 2025 0952 hours INDICATIONS: Altered mental status with leg weakness beginning yesterday Technique: Multiple axial and sagittal images of the brain obtained. Siemens high-resolution 1.5 Sarah short bore scanners utilized. Sagittal sections, T1-weighted, TR 500, TE 14, are performed. Axial sections proton-density and T2-weighted have been obtained. Inversion recovery axial images, TR 9, 260, TE 111, TI 2500. Diffusion weighted images, axial sections, TR 4800, TE 128, B value 1000 Axial sections, ADC map, TR 4800, TE 128 Findings: Enlargement of the sella turcica is not present. The optic chiasm and infundibular are not remarkable. Prepontine and interpeduncular cisterns are not enlarged. There is no localized enlargement of the medulla or yazmin. Fourth ventricle and cerebellar tonsils appear normal in position. No subacute area of hemorrhage density is seen. Mass in the cerebellopontine angle region is not evident. Globes symmetrical. Orbital musculature including medial lateral rectus muscles do not exhibit abnormality. Diffusion-weighted images demonstrate multiple foci restricted diffusion in the left cerebellar hemisphere. Increased white matter signal prominent, including old infarct right cerebellar hemisphere Mass effect upon the ventricular system is not identified. Impression: Multiple acute infarcts left cerebellar hemisphere
[2025-02-18] MEDS: SODIUM CHLORIDE 0.9% 1000 ML 1,000 ML 999 ML IV (04:26)
--- NOTE | 2025-02-18 04:41 | PD.RESHP ---
Documentation for date of: 02/18/25 HPI History of Present Illness History of present illness: HPI limited as patient is poor historian has dementia Shameka is a 84 y/o female with PMHx of previous ? CVA, ? Meningioma, hypertension, hyperlipidemia, non-insulin type 2 diabetes mellitus comes in for an evaluation of right back pain weakness and fatigue. Patient says that she does not experience pain when she urinates, however has been experiencing right back pain. She denies fever and chills. It was noted that she was brought in by her daughter who came to further evaluate the patient. Of note, came in last month in beginning of December for similar symptoms. She was not scanned, however she was discharged with a 7-day course of Keflex. ED course: She came into the ED with a temperature of 97.6, heart rate 77, respiratory 18, blood pressure 91/59 saturate 95% on room air. Patient was worked up was found to have a sodium of 130, potassium 3.5, BUN/creatinine of 23 and 2.1 respectively, bicarbonate of 12, glucose 239, white count of 29.5, hemoglobin of 15, D-dimer 3800, CRP 24, lactate 7.7, BNP of 961, troponin 0.02, Pro-Mitesh 110 and, urinalysis showed leukocyte esterase 23 white cells and +4 bacteria. Patient had several images including CT head which showed possible meningioma and age indeterminant lacunar infarcts, however appeared to be old, CT abdomen pelvis showed 9 x 7 mm nonobstructing stone in ureteropelvic junction with mild right hydronephrosis, CTA was negative for pulmonary embolus. Patient was given Rocephin x 1, started on normal saline 125 cc an hour, Rocephin x 1. Medicine was consulted and patient admitted to floors. PMHx: As above Surgeries: Hysterectomy Meds: Donezepil 10 mg at bedtime, metformin 500 mg twice daily, metoprolol XL 25 mg twice daily, pravastatin 10 mg, losartan 50 mg, Prozac 20 mg Allergies: No known allergies Family Hx: Limited Social Hx: Does not limited correction, denies smoking or IV/oral drug use, has never been a heavy drinker. Is able to walk with walker Review of Systems Review of Systems Narrative Review of Systems: Constitutional: No fever, chills, positive fatigue, positive weakness, weight loss HEENT: No eye pain, vision loss, ear pain, hearing loss, dysphagia, Cardiovascular: No chest pain, palpitations, edema, pain with walking Respiratory: No cough, shortness of breath, wheezing GI: No NVD, abdominal pain, constipation, blood in stool, loss of appetite, heartburn Extremities: No presence of pitting edema MSK: right-sided back pain, joint pain, joint swelling Neuro: No dizziness, numbness, weakness, headaches, seizures, tremors Psych: No anxiety, depression Exam Vital Signs Temp Pulse Resp BP Pulse Ox O2 Del Method 98.1 F 90 18 107/52 L 98 Nasal Cannula 02/17/25 23:34 02/17/25 23:34 02/17/25 23:34 02/17/25 23:34 02/17/25 23:34 02/17/25 23:34 Narrative Exam General: AAOx1, NAD, elderly, wearing glasses, does not look her age. HEENT: Dry mucous membranes, conjunctiva clear, EOMI, PERRLA, slightly poor dentition. Cardiovascular: S1, S2, radial pulses +2 bilat, RRR. Pulmonary: CTAB bilat no cough, no wheezing. GI: No tenderness to light or deep palpitation, no guarding, rigidity, rebound tenderness or distension. : +R sided costovertebral tenderness. Extremities: No presence of trace or pitting edema in lower extremities bilaterally, dorsalis pedis pulses +2 bilaterally. Neuro: AAOx1, no focal motor or sensory deficits in the UE or LE bilat. Psych: Slightly cooperative. Results: Labs 02/18/25 04:30 02/17/25 16:53 Labs: Short CBC 02/17/25 Range/Units 16:53 WBC 29.5 H (3.6-11.0) Thou/mm3 Hgb 14.6 (12.0-16.0) g/dL Hct 44.6 (36.0-46.0) % Plt Count 134 L (140-440) Thou/mm3 BMP 02/17/25 16:53 Sodium 130 L Potassium 3.5 Chloride 99 Carbon Dioxide 12.3 L* BUN 23 Creatinine 2.1 H Glucose 239 H Calcium 9.3 Cardiac Enzymes 02/17/25 Range/Units 16:53 Troponin I 0.022 (0.0-0.045) ng/mL Liver Function 02/17/25 Range/Units 16:53 Total Bilirubin 1.0 (0.3-1.2) mg/dL AST 40 H (0-34) U/L ALT 49 (10-49) U/L Alkaline Phosphatase 131 H (46-116) U/L Albumin 3.9 (3.4-4.8) gm/dL Urine 02/17/25 Range/Units 23:38 Urine Color Yellow (Lt Yel-Yel) Urine Clarity Turbid A (Clear/Hazy) Urine pH 5.0 (5.0-7.0) Ur Specific [place] 1.013 (1.001-1.035) Urine Protein 1+ A (Neg - Trace) Urine Glucose (UA) 2+ A (Negative) Quality Measures Quality Measures none Advance care planning discussed with:: patient and child Medications Home Medications and Allergies Home Medications ?Medication ?Instructions ?Recorded ?Confirmed ?Type metoprolol succinate 25 mg 25 mg PO BID ##0 08/04/17 09/12/23 History tablet,extended release 24 hr (Toprol XL) metformin 500 mg tablet 500 mg PO BID 03/28/23 09/12/23 History donepezil 5 mg tablet 5 mg PO HS 09/12/23 09/12/23 History pravastatin 10 mg tablet 10 mg PO DAILY 09/12/23 09/12/23 History vitamin B complex-vitamin C-folic 1 tab PO DAILY 09/12/23 09/12/23 History acid 0.8 mg tablet (Renuka-Casey) Allergies Allergy/AdvReac Type Severity Reaction Status Date / Time No Known Allergies Allergy Verified 02/17/25 16:16 Visit Medications Acetaminophen (Acetaminophen 325 Mg Tablet) 650 mg PO Q6H PRN PRN Reason: Fever >101.5 Stop: 03/20/25 04:02 Aspirin (Aspirin Ec 81 Mg Tabec) 81 mg PO QDAY GERHARD Stop: 03/20/25 08:59 Dextrose (Dextrose 50%-Water Inj 50 Ml Syringe) 25 ml IV Q15MIN PRN PRN Reason: BG 50-70 responsive npo pt Stop: 03/20/25 04:05 Dextrose (Dextrose 50%-Water Inj 50 Ml Syringe) 50 ml IV Q15MIN PRN PRN Reason: BG <50 OR BG <70 & pt unresponsive Stop: 03/20/25 04:05 Donepezil HCl (Donepezil Hcl 5 Mg Tablet) 5 mg PO HS GERHARD Stop: 03/20/25 20:59 Glucagon (Glucagon Inj 1 Mg Vial) 1 mg IM Q15MIN PRN PRN Reason: BG <70, and no IV access Heparin Sodium (Porcine) (Heparin Sod Inj 5000 Unit/Ml Vial) 5,000 unit SC Q8HR GERHARD Stop: 03/04/25 05:59 Sodium Chloride (Ns) 1,000 mls @ 125 mls/hr IV .Q8H ONE Stop: 02/18/25 07:14 Last Infusion: 02/18/25 04:22 Dose: 0 mls/hr Sodium Chloride (Ns) 1,000 mls @ 999 mls/hr IV .Q1H1M ONE Stop: 02/18/25 05:02 Last Admin: 02/18/25 04:26 Dose: 999 mls/hr Sodium Chloride (Ns) 1,000 mls @ 75 mls/hr IV .[id number] GERHARD Stop: 03/20/25 04:14 Ceftriaxone Sodium/Dextrose (Rocephin/D5w 1gm Iv Premix) 1 gm in 50 mls @ 100 mls/hr IV QDAY GERHARD Stop: 02/25/25 08:59 Insulin Human Lispro (Insulin Lispro (Admelog) 1 Unit/0.01 Ml Unit) 0 unit SC AC [facility]; Protocol Stop: 03/20/25 07:29 Pravastatin Sodium (Pravastatin Sodium 10 Mg Tablet) 10 mg PO HS GERHARD Stop: 03/20/25 20:59 Discontinued Medications Albuterol/Ipratropium (Albuterol/Ipratropium (Duoneb) Rt Nicole 3 Ml Nebu) 3 ml INH X1 ONE Stop: 02/17/25 19:44 Ceftriaxone Sodium 1,000 mg/ (Sodium Chloride) 50 mls @ 100 mls/hr IV X1 ONE Stop: 02/17/25 20:13 Last Infusion: 02/17/25 22:12 Dose: Infused Methylprednisolone Sodium Succinate (Methylprednisolone Sod Succ 62.5 Mg/Ml 2ml Vial) 125 mg IVP X1 ONE Stop: 02/17/25 19:44 Last Admin: 02/17/25 21:41 Dose: 125 mg Assessment & Plan Plan Assessment Shameka is a 84 y/o female with PMHx of previous ? CVA, ? Meningioma, hypertension, hyperlipidemia, non-insulin type 2 diabetes mellitus who was admitted for sepsis secondary to acute pyelonephritis. #Sepsis secondary to #Acute pyelonephritis #Lactic acidosis type B, improving Pt may not be tachycardic as she takes Beta blockers Lactate 7.7 -> 4.7 qSOFA: 1 points 2 out of 4 SIRS criteria Sepsis due to 2/4 SIRS criteria with acute sepsis-related organ dysfunction as evidence by MARGIE CT abdomen pelvis shows nonobstructing stone 9 x 7 mm and right ureteropelvic junction with mild hydronephrosis Plan: ? Rocephin 1g IV ? Follow-up urine cultures ? Follow-up blood cultures ? Trend lactate every 6 hours #Acute kidney injury on CKD stage IIIA DDx: Prerenal versus ATN versus obstructive Cr 1.1 -> 2.1 Could be due to poor oral intake Bun/Cr ratio below 20, could be obstructive Plan: ? NS 75 cc/hr ? Purewick ? Urine lytes and creatinine #? Previous CVA #Meningioma CT shows possible old lacunar infarcts, age indeterminant at this point Patient clinically does not appear to be having any active stroke like symptoms Meningioma seen on last CT in December 2024 Plan: ? Follow-up MRI ? Consider neurology consult #Elevated Transaminases Likely related to dehydration, shock liver Plan: ? Trend with CMP ? Avoid hepatotoxic agents ? Holding statin #Iwa-ibnctpi-uzokhxsoa type II diabetes mellitus A1c 6.2 today Plan: ? Sliding scale insulin ? Hypoglycemic protocol in place ? Blood sugar checks with meals #Hypertension #Hyperlipidemia Chronic Plan: ? Holding blood pressure medicines as blood pressures soft at this point ? Holding statin in setting of transaminases elevated ? Pending med rec #Health Maintenance Disposition: Telemetry DVT prophylaxis: Heparin q12h GI prophylaxis: Protonix Diet: Swallow eval, then carb consistent CODE STATUS: Full Patient seen and care discussed with my attending physician, Dr. Angel Luis Izaguirre, PGY-1 Attending Provider Attestation/Addendum Pt was evaluated and plan formulated together with the housestaff team. I have reviewed the residents note above and agree with most of its content. Please refer to the residents note for additional details. A 84-year-old female presented to the Emergency Department with the chief complaint of not feeling well. She reported fever, generalized weakness, right lower quadrant abdominal pain, and shortness of breath. The patient has a history of type 2 diabetes mellitus, hypertension, and hyperlipidemia. Surgical history includes appendectomy and hysterectomy. Social history includes a family history of colon cancer in her father in his 70s. In the ER, vital signs were: temperature 97.6, pulse rate 77, respiratory rate 18, and blood pressure 91/59. Laboratory results revealed a WBC of 29.5, hemoglobin 14.6, platelet count 134, sodium 130, carbon dioxide 12.3, anion gap 19, creatinine 2.1, glucose 239, BNP 901, lactic acid 7.7 decreasing to 4.7, and procalcitonin 110.12. Urinalysis showed white blood cells 23 and bacteria 4+. Per chart, last urine culture grew Escherichia coli in December, sensitive to ceftriaxone. CT of the head showed lacunar infarcts in the left thalamus and a small dorsal left cerebellar infarct of unclear age. CT of the chest showed no evidence of pulmonary thromboembolism or acute pulmonary pathology. CT of the abdomen revealed findings suggestive of urinary tract infection with cystitis and right pyeloureteritis, along with a 9 by 7 millimeter nonobstructing right pelviureteric junction calculus. A sepsis alert was initiated, and the patient is being admitted for further management.
[2025-02-18 04:49] LABS: Base Excess -6 (-3-3); HCO3 18 mEq/L (20-26); O2 Saturation 96 % (91-98); PCO2 29 mmHg (32.0-48.0); PO2 72 mmHg (83-108); pH, Arterial 7.39 (7.35-7.45)
[2025-02-18 04:51] LABS: Inspired O2, VO2 Liters 2 L/min
[2025-02-18 04:52] LABS: Allen Test Performed/OK; Puncture Site Right Radial
[2025-02-18 04:52] LABS: Basophils % (Auto) 0 % (0-2.5); Eosinophils % (Auto) 0 % (0-10); Hematocrit 36.4 % (36.0-46.0); Hemoglobin 12.4 g/dL (12.0-16.0); Immature Granulocytes % (Auto) 11 % (0-0); Immature Granulocytes Auto 2.61 Thou/mm3 (0.00-0.00); Lymphocytes # (Auto) 0.8 Thou/mm3 (1.0-4.8); Lymphocytes % (Auto) 3 % (10-50); Mean Corpuscular HGB Conc 34.1 g/dl (31.0-37.0); Mean Corpuscular Hemoglobin 29.1 pg (25.0-35.0); Mean Corpuscular Volume 85 fL (80-100); Monocytes # (Auto) 1.2 Thou/mm3 (0.0-0.8); Monocytes % (Auto) 5 % (0-12); Neutrophils # (Auto) 20.2 Thou/mm3 (1.8-7.7); Neutrophils % (Auto) 81 % (37-80); Nucleated Red Blood Cell % 0 /100 WBC (0); Platelet Count 104 Thou/mm3 (140-440); Red Blood Count 4.26 Miln/mm3 (4.00-5.20); White Blood Count 24.8 Thou/mm3 (3.6-11.0)
[2025-02-18 05:02] LABS: Glucose Estimated Average 131 mg/dL (80-131); Hemoglobin A1C 6.2 % Hgb (4.8-6.0)
[2025-02-18 05:24] LABS: Anion Gap 13 (7-16); BUN/Creatinine Ratio 21 Ratio (12-20); Blood Urea Nitrogen 37 mg/dL (9-23); Carbon Dioxide 20.2 mMol/L (20.0-31.0); Chloride 98 mMol/L (98-107); Creatinine (Component) 1.8 mg/dL (0.6-1.3); Estimated Creatinine Clearance 18.2 mL/min (>60); Glucose 190 mg/dL (74-106); Osmolality,Calculated 276 (275-295); Potassium 4.6 mMol/L (3.4-5.1); Sodium 131 mMol/L (136-145); eGFR 27 See Note
[2025-02-18 05:30] LABS: Respiratory Syncytial Virus Ag Negative (Negative)
[2025-02-18] MEDS: SODIUM CHLORIDE 0.9% 1000 ML 1,000 ML 75 ML IV ×2 (05:34→21:33)
[2025-02-18 06:13] LABS: Triglycerides 249 mg/dL (30-150)
[2025-02-18 06:15] LABS: Beta Hydroxybutyrate 0.3 mmol/L (<0.6)
[2025-02-18 06:16] LABS: Cardiac Risk Estimate 6.6 RATIO (3.7-5.6); Cholesterol 126 mg/dL (132-200); HDL Cholesterol 19 mg/dL (40-60); LDL Cholesterol,Calculated 57 mg/dL (0-130)
--- NOTE | 2025-02-18 06:39 | PC.NURSE ---
pt had bm, cleaned linen, zain care and brief changed.
[2025-02-18] MEDS: INSULIN LISPRO (AdmeLOG) 1 UNIT/0.01 ML UNIT SC ×3 (08:15→17:13)
--- NOTE | 2025-02-18 08:30 | CHAP ---
Stopped in her room to give a word of encouragement and prayer.
--- NOTE | 2025-02-18 08:40 | PC.NURSE ---
PATIENT HAD A LOOSE AND BROWN STOOL. PATIENT WAS CLEANED & NEW BRIEF WAS PLACED
--- NOTE | 2025-02-18 08:48 | PC.SS ---
Initial assessment: this is 84 year old female pending admission to med/tele. Information was provided by patient's daughter, Dianna Han. Patient is reported to live at home with son Kelby, confirmed home address from face sheet. Patient able to ambulate with assistance from rollator walker. Patient followed by Dr. Garcia for primary care. Patient's daughter, Dianna identified as emergency contact and alternate surrogate decsion maker. The discharge plan was discussed and patient to return home when medically stable, family is able to assist with transportation. caseworker protective services to follow up on further discharging needs. D/c plan: home Next of kin: daughterDianna
--- NOTE | 2025-02-18 08:58 | PC.LAC ---
Called MRI regarding scan, per tech, Keon will come to er for exam in approx. 30 min.
[2025-02-18] MEDS: HEPARIN SOD INJ 5000 UNIT/ML VIAL SC ×2 (09:35→21:04)
[2025-02-18] MEDS: cefTRIAXone/D5w 1gm IV premix 1 GM/50 ML BAG IV (09:35)
[2025-02-18] MEDS: PANTOPRAZOLE INJ 40 MG VIAL IVP (09:35)
[2025-02-18] MEDS: ASPIRIN EC 81 MG TABEC PO (09:35)
[2025-02-18] MEDS: FLUoxetine HCL 10 MG CAPSULE 20 MG PO (09:39)
--- NOTE | 2025-02-18 09:43 | PC.NURSE ---
Patient gone to MRI with Tech.
[2025-02-18 09:50] LABS: Lactate (Lactic Acid) 4.4 mMol/L (0.4-2.0)
--- NOTE | 2025-02-18 10:10 | PC.NURSE ---
ASSESSED PATIENT TO VOID. PATIENT VOICED 450Ml. URINE WAS A DARK ORANGE COLOR
--- NOTE | 2025-02-18 10:12 | PC.NURSE ---
PATIENT RETURNED BACK TO UNTIL FROM PROCEDURE
--- NOTE | 2025-02-18 10:12 | PC.NURSE ---
LAB CALLED WITH A PRELIMINARY RESULT OF GRAM (-) RODS BLOOD CULTURES
--- NOTE | 2025-02-18 11:32 | ESCONSULT_ITS ---
HPI Data of Consult Requesting Physician: Minesh Hein MD Admitting Provider: Minesh Hein MD Attending Provider: Minesh Hein MD Primary Care Provider: Physician No Primary/Family Consult Narrative History of present illness: Patient is a 84-year-old female with past medical history of meningioma, hypertension, hyperlipidemia, non-insulin type 2 diabetes mellitus comes in for an evaluation of right back pain weakness and fatigue. Imaging showed signs of stroke, and brain MRI showed multiple acute infarcts in the left cerebellar hemisphere. Neurology consulted for further management of stroke. cc:: cc: Minesh Hein MD Exam Vital Signs Temp Pulse Resp BP Pulse Ox O2 Del Method O2 Flow Rate 98.9 F 82 18 170/100 H 99 High Flow Nasal Cannula 2 02/18/25 10:50 02/18/25 10:50 02/18/25 10:50 02/18/25 10:50 02/18/25 10:50 02/18/25 08:23 02/18/25 08:23 Narrative Exam General: AAOx2, NAD, elderly, wearing glasses, does not look her age. HEENT: Dry mucous membranes, conjunctiva clear, EOMI, poor dentition. Cardiovascular: RRR, no M/R/G. Pulmonary: CTAB bilat no cough, no wheezing. GI: No tenderness to light or deep palpitation, no guarding, rigidity, rebound tenderness or distension. Extremities: No presence of trace or pitting edema in lower extremities bilaterally. Neuro: AAOx2, no focal motor or sensory deficits in the UE or LE. Equal strength 5/5 upper and lower extremities. Good finger to nose. Right sided nystagmus. Psych: Slightly cooperative. Results Labs 02/18/25 04:30 02/18/25 04:30 Labs: Short CBC 02/17/25 02/18/25 Range/Units 16:53 04:30 WBC 29.5 H 24.8 H (3.6-11.0) Thou/mm3 Hgb 14.6 12.4 D (12.0-16.0) g/dL Hct 44.6 36.4 (36.0-46.0) % Plt Count 134 L 104 L D (140-440) Thou/mm3 BMP 02/17/25 02/18/25 16:53 04:30 Sodium 130 L 131 L Potassium 3.5 4.6 D Chloride 99 98 Carbon Dioxide 12.3 L* 20.2 BUN 23 37 H Creatinine 2.1 H 1.8 H Glucose 239 H 190 H Calcium 9.3 9.0 Cardiac Enzymes 02/17/25 Range/Units 16:53 Troponin I 0.022 (0.0-0.045) ng/mL Liver Function 02/17/25 Range/Units 16:53 Total Bilirubin 1.0 (0.3-1.2) mg/dL AST 40 H (0-34) U/L ALT 49 (10-49) U/L Alkaline Phosphatase 131 H (46-116) U/L Albumin 3.9 (3.4-4.8) gm/dL Urine 02/17/25 Range/Units 23:38 Urine Color Yellow (Lt Yel-Yel) Urine Clarity Turbid A (Clear/Hazy) Urine pH 5.0 (5.0-7.0) Ur Specific [place] 1.013 (1.001-1.035) Urine Protein 1+ A (Neg - Trace) Urine Glucose (UA) 2+ A (Negative) ABG Interpretation ABG results: 02/18/25 04:45 ABG pH 7.39 ABG pCO2 29 L ABG pO2 72 L ABG HCO3 18 L ABG O2 Saturation 96 ABG Base Excess -6 L Quality Measures Quality Measures none Advance care planning discussed with:: patient Medications Home Medications and Allergies Home Medications ?Medication ?Instructions ?Recorded ?Confirmed ?Type metoprolol succinate 25 mg 25 mg PO BID ##0 08/04/17 0 02/18/25 History tablet,extended release 24 hr (Toprol XL) metformin 500 mg tablet 500 mg PO BID 03/28/2302/18 History donepezil 5 mg tablet 5 mg PO HS 09/12/23 02/18/25 History pravastatin 10 mg tablet 10 mg PO DAILY 09/12/2301/26 History vitamin B complex-vitamin C-folic 1 tab PO DAILY 09/1202/18/25 History acid 0.8 mg tablet (Renuka-Casey) fluoxetine 10 mg capsule 10 mg PO DAILY 02/18/2501/26 History oxybutynin chloride 5 mg tablet 5 mg PO Q12H 02/18/25 02/18/25 History Allergies Allergy/AdvReac Type Severity Reaction Status Date / Time No Known Allergies Allergy Verified 02/17/25 16:16 Visit Medications Acetaminophen (Acetaminophen 325 Mg Tablet) 650 mg PO Q6H PRN PRN Reason: Fever >101.5 Stop: 03/20/25 04:02 Aspirin (Aspirin Ec 81 Mg Tabec) 81 mg PO QDAY [facility] Stop: 03/20/25 08:59 Last Admin: 02/18/25 09:35 Dose: 81 mg Dextrose (Dextrose 50%-Water Inj 50 Ml Syringe) 25 ml IV Q15MIN PRN PRN Reason: BG 50-70 responsive npo pt Stop: 03/20/25 04:05 Dextrose (Dextrose 50%-Water Inj 50 Ml Syringe) 50 ml IV Q15MIN PRN PRN Reason: BG <50 OR BG <70 & pt unresponsive Stop: 03/20/25 04:05 Donepezil HCl (Donepezil Hcl 5 Mg Tablet) 5 mg PO HS [facility] Stop: 03/20/25 20:59 Fluoxetine HCl (Fluoxetine Hcl 10 Mg Capsule) 20 mg PO QDAY [facility] Stop: 03/20/25 08:59 Last Admin: 02/18/25 09:39 Dose: 20 mg Glucagon (Glucagon Inj 1 Mg Vial) 1 mg IM Q15MIN PRN PRN Reason: BG <70, and no IV access Heparin Sodium (Porcine) (Heparin Sod Inj 5000 Unit/Ml Vial) 5,000 unit SC Q12H [facility] Stop: 03/04/25 08:59 Last Admin: 02/18/25 09:35 Dose: 5,000 unit Sodium Chloride (Ns) 1,000 mls @ 75 mls/hr IV .[id number] [facility] Stop: 03/20/25 04:14 Last Admin: 02/18/25 05:34 Dose: 75 mls/hr Ceftriaxone Sodium/Dextrose (Rocephin/D5w 1gm Iv Premix) 1 gm in 50 mls @ 100 mls/hr IV QDAY [facility] Stop: 02/25/25 08:59 Last Admin: 02/18/25 09:35 Dose: 100 mls/hr Insulin Human Lispro (Insulin Lispro (Admelog) 1 Unit/0.01 Ml Unit) 0 unit SC [facility]; Protocol Stop: 03/20/25 07:29 Last Admin: 02/18/25 08:15 Dose: 1 unit Pantoprazole Sodium (Pantoprazole Inj 40 Mg Vial) 40 mg IVP QDAY [facility] Stop: 03/20/25 08:59 Last Admin: 02/18/25 09:35 Dose: 40 mg Pravastatin Sodium (Pravastatin Sodium 10 Mg Tablet) 10 mg PO HS [facility] Stop: 03/20/25 20:59 Discontinued Medications Albuterol/Ipratropium (Albuterol/Ipratropium (Duoneb) Rt Nicole 3 Ml Nebu) 3 ml INH X1 ONE Stop: 02/17/25 19:44 Last Admin: 02/18/25 05:57 Dose: Not Given Heparin Sodium (Porcine) (Heparin Sod Inj 5000 Unit/Ml Vial) 5,000 unit SC Q8HR [facility] Stop: 03/04/25 05:59 Ceftriaxone Sodium 1,000 mg/ (Sodium Chloride) 50 mls @ 100 mls/hr IV X1 ONE Stop: 02/17/25 20:13 Last Infusion: 02/17/25 22:12 Dose: Infused Sodium Chloride (Ns) 1,000 mls @ 125 mls/hr IV .Q8H [facility] Stop: 02/18/25 07:14 Last Infusion: 02/18/25 04:22 Dose: 0 mls/hr Sodium Chloride (Ns) 1,000 mls @ 999 mls/hr IV .Q1H1M ONE Stop: 02/18/25 05:02 Last Infusion: 02/18/25 05:27 Dose: Infused Methylprednisolone Sodium Succinate (Methylprednisolone Sod Succ 62.5 Mg/Ml 2ml Vial) 125 mg IVP X1 [facility] Stop: 02/17/25 19:44 Last Admin: 02/17/25 21:41 Dose: 125 mg Assessment & Plan Plan #Acute left cerebellar hemisphere infarcts. MRI showing multiple acute left cerebellar hemisphere infarcts CT of the head showing no acute hemorrhage Likely embolic in nature given multiple areas of infarct. Carotid ultrasound shows no severe stenosis Pending cardiac echo with bubble study PT evaluation pending Recommend speech eval evaluation Start patient on aspirin and Plavix for dual antiplatelet for 21 days and then transition to single antiplatelet medication Recommend to increase home statin medication dose #Diabetes mellitus #Hypertension #Sepsis #Pyelonephritis #Hyperlipidemia Continue management per primary team Case discussed with attending Dr Jannet Reeves MD PGY3 Attending Provider Attestation/Addendum I independently reviewed the patient's chart and agreed with resident's findings, assessment and plan of care. Patient does have gait ataxia but no extremity involvement, no significant ataxia or dysmetria. Will follow-up with transesophageal echo/DIMPLE with bubble study to evaluate for cardiac sources of emboli as the MRI showed multiple acute infarcts in the cerebellar hemisphere. Continue with aspirin Plavix and statin
[2025-02-18] MEDS: ACETAMINOPHEN 325 MG TABLET 650 MG PO (11:59)
--- NOTE | 2025-02-18 12:04 | PC.NURSE ---
PATIENT VOIDED 250ml WITH DARK YELLO URINE.
[2025-02-18 12:40] LABS: Reflex Lactate? Y
[2025-02-18 12:53] LABS: Lactic Acid, 3 HR 3.8 mMol/L (0.4-2.0)
--- NOTE | 2025-02-18 13:43 | ESPR_ITS ---
<Statement entered by Maritza Lo MD - 02/19/25 22:12> Patient was seen and examined by me personally. I have directly supervised and reviewed documentation by the team resident and agree with its findings with any exceptions or additional findings as below. Plan of care was discussed with the attending, Dr. Pena. Patient is an overnight admission. 84-year-old female with history of meningioma, dementia, hypertension, hyperlipidemia, type 2 diabetes and possible CVA in the past who presented to the ED with fever/chills and back pain. Patient was admitted for pyelonephritis and started on IV antibiotics and IV fluids for MARGIE on CKD. CT head had shown age indeterminate infarcts and follow up MRI had been ordered which showed multiple acute cerebellar infarcts. However, the patient does not have any symptoms and cannot seem to recall a point in time when she had symptoms if at all. Neuro was consulted to follow the patient and will complete stroke work up. Maritza Lo, PGY-2 Documentation for date of: 02/18/25 Subjective Subjective Interval history: 02/18/2025: Overnight admission for an 84-year-old female with history of meningioma, dementia, hypertension, hyperlipidemia, type 2 diabetes and possible CVA in the past who presented to the ED with fever/chills and back pain. Patient was admitted for pyelonephritis and started on IV antibiotics but upon further imaging studies and MRI there was confirmed multiple acute infarcts in the left cerebellar hemisphere. Neurology has been consulted, appreciate recommendations. On examination, patient's remains at current baseline alert oriented x 1 to person with no gross motor or sensory deficits noted. Will continue to monitor the patient's blood pressure and restart home medication when appropriate. Exam Vital Signs Temp Pulse Resp BP Pulse Ox O2 Del Method O2 Flow Rate 98.9 F 80 20 172/93 H 98 High Flow Nasal Cannula 2 02/18/25 10:50 02/18/25 12:10 02/18/25 11:46 02/18/25 11:46 02/18/25 11:46 02/18/25 08:23 02/18/25 08:23 Narrative Exam General: AAOx1, NAD, elderly, wearing glasses, does not look her age. HEENT: Dry mucous membranes, conjunctiva clear, EOMI, PERRLA, slightly poor dentition. Cardiovascular: S1, S2, radial pulses +2 bilat, RRR. Pulmonary: CTAB bilat no cough, no wheezing. GI: No tenderness to light or deep palpitation, no guarding, rigidity, rebound tenderness or distension. : +R sided costovertebral tenderness. Extremities: No presence of trace or pitting edema in lower extremities bilaterally, dorsalis pedis pulses +2 bilaterally. Neuro: AAOx1, no focal motor or sensory deficits in the UE or LE bilat. Psych: Slightly cooperative. Objective Labs 02/19/25 05:28 02/19/25 05:28 Labs: Laboratory Results - last 24 hr 02/17/25 02/17/25 02/17/25 16:53 19:57 22:30 WBC 29.5 H RBC 5.09 Hgb 14.6 Hct 44.6 MCV 88 MCH 28.7 MCHC 32.7 RDW Std Deviation 42.9 Plt Count 134 L Neut % (Auto) 85 H Lymph % (Auto) 3 L Morgan % (Auto) 8 Eos % (Auto) 0 Baso % (Auto) 1 Neut # (Auto) 25.1 H Lymph # (Auto) 0.8 L Morgan # (Auto) 2.3 H Eos # (Auto) 0.0 Baso # (Auto) 0.1 Immature Gran # (Auto) 1.25 H Absolute Nucleated RBC 0.00 Immature Gran % 4 H Nucleated RBC % 0 ESR 22 PT 12.7 H INR 1.2 APTT 33.1 D-Dimer > 3820 H Puncture Site ABG pH ABG pCO2 ABG pO2 ABG HCO3 ABG O2 Saturation ABG Base Excess Oxygen Liter Flow Sodium 130 L Potassium 3.5 Chloride 99 Carbon Dioxide 12.3 L* Anion Gap 19 H BUN 23 Creatinine 2.1 H Estim Creat Clear Calc Not Performed. eGFR 23 L BUN/Creatinine Ratio 11 L Glucose [address] Glu mg/dL Hemoglobin A1c Calculated Osmolality 272 L Lactic Acid 7.7 H* Calcium 9.3 Corrected Calcium 9.4 Magnesium 1.7 Total Bilirubin 1.0 AST 40 H ALT 49 Alkaline Phosphatase 131 H Troponin I 0.022 C-Reactive Prot, Quant 23.6 H B-Natriuretic Peptide 901 H* Total Protein 6.8 Albumin 3.9 Globulin 2.9 Albumin/Globulin Ratio 1.3 Triglycerides Cholesterol LDL Cholesterol, Calc HDL Cholesterol Cholesterol/HDL Ratio Beta-Hydroxybutyrate/Acetoacetate 0.3 Procalcitonin 110.12 H TSH 3.39 Ur Collection Type Urine Color Urine Clarity Urine pH Ur Specific [place] Urine Protein Urine Glucose (UA) Urine Ketones Urine Blood Urine Nitrite Urine Bilirubin Urine Urobilinogen (Auto) Ur Leukocyte Esterase Urine RBC Urine WBC Ur Squamous Epith Cells Urine Bacteria Ur Culture Indicated? RSV Rapid 02/17/25 02/18/25 02/18/25 23:38 02:15 04:30 WBC 24.8 H RBC 4.26 Hgb 12.4 D Hct 36.4 MCV 85 MCH 29.1 MCHC 34.1 RDW Std Deviation 42.0 Plt Count 104 L D Neut % (Auto) 81 H Lymph % (Auto) 3 L Morgan % (Auto) 5 Eos % (Auto) 0 Baso % (Auto) 0 Neut # (Auto) 20.2 H Lymph # (Auto) 0.8 L Morgan # (Auto) 1.2 H Eos # (Auto) 0.0 Baso # (Auto) 0.0 Immature Gran # (Auto) 2.61 H Absolute Nucleated RBC 0.00 Immature Gran % 11 H Nucleated RBC % 0 ESR PT INR APTT D-Dimer Puncture Site ABG pH ABG pCO2 ABG pO2 ABG HCO3 ABG O2 Saturation ABG Base Excess Oxygen Liter Flow Sodium 131 L Potassium 4.6 D Chloride 98 Carbon Dioxide 20.2 Anion Gap 13 BUN 37 H Creatinine 1.8 H Estim Creat Clear Calc 18.2 L eGFR 27 L BUN/Creatinine Ratio 21 H Glucose [address] Glu mg/dL 131 Hemoglobin A1c 6.2 H Calculated Osmolality 276 Lactic Acid 4.7 H* Calcium 9.0 Corrected Calcium Magnesium Total Bilirubin AST ALT Alkaline Phosphatase Troponin I C-Reactive Prot, Quant B-Natriuretic Peptide Total Protein Albumin Globulin Albumin/Globulin Ratio Triglycerides 249 H Cholesterol 126 L LDL Cholesterol, Calc 57 HDL Cholesterol 19 L Cholesterol/HDL Ratio 6.6 H Beta-Hydroxybutyrate/Acetoacetate Procalcitonin TSH Ur Collection Type Clean Catch Urine Color Yellow Urine Clarity Turbid A Urine pH 5.0 Ur Specific [place] 1.013 Urine Protein 1+ A Urine Glucose (UA) 2+ A Urine Ketones 1+ A Urine Blood 1+ A Urine Nitrite Negative Urine Bilirubin Negative Urine Urobilinogen (Auto) Negative Ur Leukocyte Esterase Positive Urine RBC 3 Urine WBC 23 H Ur Squamous Epith Cells < 1 Urine Bacteria 4+ A Ur Culture Indicated? Yes RSV Rapid Negative 02/18/25 02/18/25 02/18/25 04:45 06:10 09:30 WBC RBC Hgb Hct MCV MCH MCHC RDW Std Deviation Plt Count Neut % (Auto) Lymph % (Auto) Morgan % (Auto) Eos % (Auto) Baso % (Auto) Neut # (Auto) Lymph # (Auto) Morgan # (Auto) Eos # (Auto) Baso # (Auto) Immature Gran # (Auto) Absolute Nucleated RBC Immature Gran % Nucleated RBC % ESR PT INR APTT D-Dimer Puncture Site Right Radial ABG pH 7.39 ABG pCO2 29 L ABG pO2 72 L ABG HCO3 18 L ABG O2 Saturation 96 ABG Base Excess -6 L Oxygen Liter Flow 2 Sodium Potassium Chloride Carbon Dioxide Anion Gap BUN Creatinine Estim Creat Clear Calc eGFR BUN/Creatinine Ratio Glucose Estimated Ave Glu mg/dL Hemoglobin A1c Calculated Osmolality Lactic Acid 4.4 H* Calcium Corrected Calcium Magnesium Total Bilirubin AST ALT Alkaline Phosphatase Troponin I C-Reactive Prot, Quant B-Natriuretic Peptide Total Protein Albumin Globulin Albumin/Globulin Ratio Triglycerides Cholesterol LDL Cholesterol, Calc HDL Cholesterol Cholesterol/HDL Ratio Beta-Hydroxybutyrate/Acetoacetate 0.3 Procalcitonin TSH Ur Collection Type Urine Color Urine Clarity Urine pH Ur Specific [place] Urine Protein Urine Glucose (UA) Urine Ketones Urine Blood Urine Nitrite Urine Bilirubin Urine Urobilinogen (Auto) Ur Leukocyte Esterase Urine RBC Urine WBC Ur Squamous Epith Cells Urine Bacteria Ur Culture Indicated? RSV Rapid 02/18/25 12:46 WBC RBC Hgb Hct MCV MCH MCHC RDW Std Deviation Plt Count Neut % (Auto) Lymph % (Auto) Morgan % (Auto) Eos % (Auto) Baso % (Auto) Neut # (Auto) Lymph # (Auto) Morgan # (Auto) Eos # (Auto) Baso # (Auto) Immature Gran # (Auto) Absolute Nucleated RBC Immature Gran % Nucleated RBC % ESR PT INR APTT D-Dimer Puncture Site ABG pH ABG pCO2 ABG pO2 ABG HCO3 ABG O2 Saturation ABG Base Excess Oxygen Liter Flow Sodium Potassium Chloride Carbon Dioxide Anion Gap BUN Creatinine Estim Creat Clear Calc eGFR BUN/Creatinine Ratio Glucose Estimated Ave Glu mg/dL Hemoglobin A1c Calculated Osmolality Lactic Acid 3.8 H Calcium Corrected Calcium Magnesium Total Bilirubin AST ALT Alkaline Phosphatase Troponin I C-Reactive Prot, Quant B-Natriuretic Peptide Total Protein Albumin Globulin Albumin/Globulin Ratio Triglycerides Cholesterol LDL Cholesterol, Calc HDL Cholesterol Cholesterol/HDL Ratio Beta-Hydroxybutyrate/Acetoacetate Procalcitonin TSH Ur Collection Type Urine Color Urine Clarity Urine pH Ur Specific [place] Urine Protein Urine Glucose (UA) Urine Ketones Urine Blood Urine Nitrite Urine Bilirubin Urine Urobilinogen (Auto) Ur Leukocyte Esterase Urine RBC Urine WBC Ur Squamous Epith Cells Urine Bacteria Ur Culture Indicated? RSV Rapid ABG Interpretation ABG results: 02/18/25 04:45 ABG pH 7.39 ABG pCO2 29 L ABG pO2 72 L ABG HCO3 18 L ABG O2 Saturation 96 ABG Base Excess -6 L Quality Measures Quality Measures none Advance care planning discussed with:: child (Daughter) Assessment & Plan Assessment Current Active Medications: Generic Name Dose Route Start Last Admin Trade Name Freq PRN Reason Stop Dose Admin Acetaminophen 650 mg 02/18/25 04:03 02/18/25 11:59 Acetaminophen 325 Mg Tablet PO 03/20/25 04:02 650 mg Q6H PRN Administration Fever >101.5 Aspirin 81 mg 02/18/25 09:00 02/18/25 09:35 Aspirin Ec 81 Mg Tabec PO 03/20/25 08:59 81 mg QDAY [facility] Administration Dextrose 25 ml 02/18/25 04:06 Dextrose 50%-Water Inj 50 Ml Syringe IV 03/20/25 04:05 Q15MIN PRN BG 50-70 responsive npo pt Dextrose 50 ml 02/18/25 04:06 Dextrose 50%-Water Inj 50 Ml Syringe IV 03/20/25 04:05 Q15MIN PRN BG <50 OR BG <70 & pt unresponsive Donepezil HCl 5 mg 02/18/25 21:00 Donepezil Hcl 5 Mg Tablet PO 03/20/25 20:59 HS [facility] Fluoxetine HCl 20 mg 02/18/25 09:00 02/18/25 09:39 Fluoxetine Hcl 10 Mg Capsule PO 03/20/25 08:59 20 mg QDAY [facility] Administration Glucagon 1 mg 02/18/25 04:06 Glucagon Inj 1 Mg Vial IM Q15MIN PRN BG <70, and no IV access Heparin Sodium (Porcine) 5,000 unit 02/18/25 09:00 02/18/25 09:35 Heparin Sod Inj 5000 Unit/Ml Vial SC 03/04/25 08:59 5,000 unit Q12H [facility] Administration Sodium Chloride 1,000 mls @ 75 mls/hr 02/18/25 04:15 02/18/25 05:34 Ns IV 03/20/25 04:14 75 mls/hr .[id number] [facility] Administration Ceftriaxone Sodium/Dextrose 1 gm in 50 mls @ 100 mls/hr 02/18/25 09:00 02/18/25 10:05 Rocephin/D5w 1gm Iv Premix IV 02/25/25 08:59 Infused QDAY [facility] Infusion Insulin Human Lispro 0 unit 02/18/25 07:30 02/18/25 12:34 Insulin Lispro (Admelog) 1 Unit/0.01 Ml Unit SC 03/20/25 07:29 2 unit AC [facility] Administration Protocol Pantoprazole Sodium 40 mg 02/18/25 09:00 02/18/25 09:35 Pantoprazole Inj 40 Mg Vial IVP 03/20/25 08:59 40 mg QDAY [facility] Administration Pravastatin Sodium 10 mg 02/18/25 21:00 Pravastatin Sodium 10 Mg Tablet PO 03/20/25 20:59 HS [facility] Plan 84-year-old female with past medical history of meningioma, dementia, hypertension, hyperlipidemia, type 2 diabetes and possible CVA who was admitted for sepsis secondary to acute pyelonephritis; moreover, later found to have confirmed acute left cerebellar infarcts on MRI. #Acute left cerebellar infarct #Meningioma Patient presented to the ED with lower back pain and fevers; moreover, at her current mental status baseline On examination patient is alert oriented x 1 to person and there are no gross motor or sensory deficits noted Patient clinically did not appear to have any strokelike symptoms CT shows possible old lacunar infarcts, age indeterminant at this point Meningioma seen on last CT in December 2024 Carotid ultrasound shows no degree of stenosis of both internal carotid arteries Brain MRI shows multiple acute infarcts left cerebellar hemisphere Plan: Neurology consulted, appreciate recommendations PT and speech evaluation pending Will start patient on aspirin and Plavix for dual antiplatelet for 21 days and then transition to single antiplatelet medication Will consider increasing home statin medication #Acute pyelonephritis #Lactic acidosis type B, improving Pt may not be tachycardic as she takes Beta blockers Lactate 7.7 -> 4.7 qSOFA: 1 points 2 out of 4 SIRS criteria Sepsis due to 2/4 SIRS criteria with acute sepsis-related organ dysfunction as evidence by MARGIE CT abdomen pelvis shows nonobstructing stone 9 x 7 mm and right ureteropelvic junction with mild hydronephrosis Blood cultures from first set aerobic bottle grew GPC and second set aerobic bottle grew GNR Plan: Continue Rocephin 1g IV Follow-up urine cultures Lactic acid every 6 hours #Acute kidney injury on CKD stage IIIA, improving DDx: Prerenal versus ATN versus obstructive Cr 1.1 -> 2.1 Could be due to poor oral intake Bun/Cr ratio below 20, could be obstructive Plan: Continue NS 75 cc/hr Monitor with morning labs Avoid nephrotoxic agents #Elevated liver enzymes Likely related to dehydration, shock liver CT abdomen pelvis shows no focal liver or splenic lesions Plan: Monitor with morning labs Avoid hepatotoxic agents Will resume statin when appropriate #[id number] type II diabetes mellitus A1c 6.2 Plan: SSI #Dementia Patient has longstanding history of dementia with home donepezil 5mg po hs Patient also recently started on fluoxetine 20mg by PCP Plan: Restarted home medication Will hold fluoxetine due to interaction with Plavix #Hypertension #Hyperlipidemia Chronic medical conditions Plan: Holding blood pressure medicines Restarted statin home dose, will increase as above if appropriate Pending med rec Hospital Management: Lines: PIV Diet: Carb consistent Bowel: Senna GI prophylaxis: Not needed DVT prophylaxis: SCD Dispo: Pending neurology recommendations regarding the cerebellar infarct, physical therapy, IV antibiotics for pyelo Patient seen and examined with attending Dr. Jeffers and resident Dr. Wally Ruiz, PGY-1 Attending Provider Attestation/Addendum I, Ibis Pena DO, attest that I was physically present for the garza portions of the service and evaluated the patient with the resident and I reviewed and discussed the case with the resident and agree with the resident's findings and plans of care as documented above Patient seen and evaluated in ED this AM. Patient states she was unable to get up from bed yesterday and reported heaviness in b/l LE. Patient also reports having dysuria and hematuria that started a few days prior as well. Pt noted to have right pyelonephritis on CT and 9mm calculus in right renal calculus versus UPJ. There also appears to be a possible calculus in the urethra upon my review of CT scan. Urology called to review imaging and further recommendations. Will obtain Ucx and continue with IV rocephin. Patient does endorse having frequent UTI. Will continue with IV fluid hydration due to lactic acidosis that has been improving. An MRI was done showing multiple acute infarcts in left cerebellar hemisphere. No focal neurological deficits noted on exam. Pendign echo, will f/u with neurology recommendations. Patient denies any back pain. f/u with final cutlures and sensitvities to further narrow abx coverage.
[2025-02-18 19:28] LABS: Lactate (Lactic Acid) 3.9 mMol/L (0.4-2.0)
[2025-02-18] MEDS: DONEPEZIL HCL 5 MG TABLET PO (21:04)
[2025-02-18] MEDS: PRAVASTATIN SODIUM 10 MG TABLET PO (21:04)
[2025-02-18 22:01] LABS: Reflex Lactate? Y
[2025-02-18 22:45] LABS: Lactic Acid, 3 HR 3.3 mMol/L (0.4-2.0)
[2025-02-19] VITALS (9 sets, daily range): BP systolic 144–176; BP diastolic 81–96; PULSE 65–87; RESP 16–21; TEMP 36.3–36.9; O2SAT 94–99; BMI 20.6; BMI 13.0
[2025-02-19 01:26] LABS: Lactate (Lactic Acid) 2.4 mMol/L (0.4-2.0)
--- NOTE | 2025-02-19 04:05 | ECHO_ITS ---
Transthoracic Echo Report Ht (in): 63 Wt (lb): 116 Exam Location: Echo Lab Status: Inpatient Coffee Urn Attendant: Indications: Procedure Performed: BP: 132 / 74 HR: 74 Rhythm: Sinus Technical Quality: Fair MEASUREMENTS (Male / Female) Normal Values 2D ECHO LV Diastolic Diameter PLAX 4.1 cm 4.2 - 5.9 / 3.9 - 5.3 cm LV Systolic Diameter PLAX 2.7 cm IVS Diastolic Thickness 0.6 cm 0.6 - 1.0 / 0.6 - 0.9 cm LVPW Diastolic Thickness 0.8 cm 0.6 - 1.0 / 0.6 - 0.9 cm LV Relative Wall Thickness 0.3 LVOT Diameter 1.3 cm Aortic Root Diameter 3.0 cm LA Systolic Diameter LX 2.7 cm 3.0 - 4.0 / 2.7 - 3.8 cm LA Volume Index 33.5 cm?/m? 16 - 28 cm?/m? Ascending Aorta Diameter 2.7 cm DOPPLER AV Peak Velocity 172.7 cm/s AV Peak Gradient 11.9 mmHg AV Mean Gradient 7.0 mmHg AV Velocity Time Integral 37.8 cm LVOT Peak Velocity 75.4 cm/s LVOT Peak Gradient 2.3 mmHg LVOT Velocity Time Integral 23.5 cm LVOT Cardiac Index 1509.9 cm?/min?m? AV Area Cont Eq vti 0.8 cm? AV Area Cont Eq pk 0.6 cm? MV Area PHT 4.3 cm? MR Peak Velocity 448.0 cm/s MR Peak Gradient 80.3 mmHg Mitral E Point Velocity 98.4 cm/s Mitral A Point Velocity 97.0 cm/s Mitral E to A Ratio 1.0 LV E' Lateral Velocity 8.6 cm/s Mitral E to LV E' Lateral Ratio 11.5 LV E' Septal Velocity 6.3 cm/s Mitral E to LV E' Septal Ratio 15.7 TR Peak Velocity 250.0 cm/s TR Peak Gradient 25.0 mmHg PV Peak Velocity 105.0 cm/s PV Peak Gradient 4.4 mmHg RVOT Peak Velocity 34.0 cm/s FINDINGS Left Ventricle Normal left ventricular size, wall thickness, systolic function with no obvious regional wall motion abnormalities. There is grade II diastolic dysfunction of the left ventricle (pseudonormal filling pattern). The left ventricular ejection fraction is normal, estimated at 60-65%. Right Ventricle The right ventricle is normal in size and systolic function. The estimated right ventricular systolic pressure, 25 mmHg. Left Atrium The left atrium is normal by two-dimensional, color flow and Doppler imaging with no structural abnormalities, no thrombus formation present. Right Atrium The right atrium is normal by two-dimensional imaging, color flow and Doppler imaging with no structural abnormalities, no thrombus formation present. Atrial Septum The interatrial septum is normal to color flow Doppler and agitated saline imaging. Aorta The aorta is normal by two-dimensional, color flow and Doppler interrogation. Mitral Valve Gciy-pq-jawjsiqt mitral regurgitation. Mild mitral annular calcification. Aortic Valve Diffuse calcification of the aortic valve. Aortic valve sclerosis. Tricuspid Valve There is mild tricuspid valve regurgitation. Pulmonic Valve The pulmonic valve is not well visualized. There is no significant pulmonic valve regurgitation. Vessels The pulmonary artery appears normal. The inferior vena cava pulmonary and hepatic veins appear normal. Pericardium The pericardium is normal by two-dimensional imaging. There is no significant pericardial effusion. CONCLUSIONS Indication: CVA w/ Bubble Normal LV size and function with an estimated EF of 60 to 65%. Stage I diastolic dysfunction. Normal RV size and function. Estimated RVSP is normal at 30 mmHg. Moderate aortic valve sclerosis without stenosis. V-max 2 m/s. Mild mitral valve thickening with trace MR and mild TR. Mildly dilated left atrium. Normal IVC no pericardial effusion Lester Mayer (Electronically Signed) Final Date: 19 February 2025 13:43
[2025-02-19 04:21] LABS: Reflex Lactate? Y
[2025-02-19 05:45] LABS: Lactic Acid, 3 HR 2.2 mMol/L (0.4-2.0)
[2025-02-19 05:49] LABS: Basophils # (Auto) 0.1 Thou/mm3 (0.0-0.2); Basophils % (Auto) 1 % (0-2.5); Eosinophils % (Auto) 0 % (0-10); Hematocrit 36.1 % (36.0-46.0); Hemoglobin 12.2 g/dL (12.0-16.0); Immature Granulocytes % (Auto) 15 % (0-0); Immature Granulocytes Auto 2.68 Thou/mm3 (0.00-0.00); Lymphocytes # (Auto) 1.2 Thou/mm3 (1.0-4.8); Lymphocytes % (Auto) 6 % (10-50); Mean Corpuscular HGB Conc 33.8 g/dl (31.0-37.0); Mean Corpuscular Hemoglobin 28.6 pg (25.0-35.0); Mean Corpuscular Volume 85 fL (80-100); Monocytes % (Auto) 6 % (0-12); Neutrophils # (Auto) 13.3 Thou/mm3 (1.8-7.7); Neutrophils % (Auto) 73 % (37-80); Nucleated Red Blood Cell % 0 /100 WBC (0); RDW Standard Deviation 42.2 fL (36.4-46.3); Red Blood Count 4.27 Miln/mm3 (4.00-5.20); White Blood Count 18.4 Thou/mm3 (3.6-11.0)
[2025-02-19 06:26] LABS: Alanine Aminotransferase 70 U/L (10-49); Albumin, Serum 3.2 gm/dL (3.4-4.8); Albumin/Globulin Ratio 1.2 (1.2-2.2); Alkaline Phosphatase 130 U/L (46-116); Anion Gap 9 (7-16); Aspartate Amino Transferase 67 U/L (0-34); BUN/Creatinine Ratio 32 Ratio (12-20); Bilirubin,Total 0.4 mg/dL (0.3-1.2); Blood Urea Nitrogen 35 mg/dL (9-23); Calcium (Corrected) 9.6 mg/dL (8.5-10.1); Carbon Dioxide 21.2 mMol/L (20.0-31.0); Chloride 105 mMol/L (98-107); Creatinine (Component) 1.1 mg/dL (0.6-1.3); Estimated Creatinine Clearance 30.4 mL/min (>60); Globulin 2.6 gm/dL (2.3-3.5); Glucose 174 mg/dL (74-106); Osmolality,Calculated 282 (275-295); Potassium 4.2 mMol/L (3.4-5.1); Sodium 135 mMol/L (136-145); Total Protein 5.8 gm/dL (5.7-8.2); eGFR 49 See Note
[2025-02-19] MEDS: INSULIN LISPRO (AdmeLOG) 1 UNIT/0.01 ML UNIT SC ×2 (07:28→11:38)
[2025-02-19 08:27] LABS: Lactate (Lactic Acid) 2.1 mMol/L (0.4-2.0)
[2025-02-19] MEDS: ASPIRIN EC 81 MG TABEC PO (08:32)
[2025-02-19] MEDS: CLOPIDOGREL BISULFATE 75 MG TABLET PO (08:32)
[2025-02-19] MEDS: METOPROLOL TARTRATE 25 MG TABLET PO ×2 (08:32→20:36)
[2025-02-19] MEDS: cefTRIAXone/D5w 1gm IV premix 1 GM/50 ML BAG IV ×2 (08:32→11:09)
[2025-02-19 08:35] LABS: Platelet Count 77 Thou/mm3 (140-440)
--- NOTE | 2025-02-19 08:37 | PC.NURSE ---
Notified Dr. Ruiz of platelet count 77 in downtrending pattern from 104. Received order to hold Heparin dose and continue to give Aspirin and Plavix.
[2025-02-19 10:48] LABS: Slide Review Platelets confirmed
--- NOTE | 2025-02-19 10:56 | ESCONSULT_ITS ---
RE: GISELA DALE : 1940 DATE OF CONSULTATION: 02/19/2025 REASON FOR CONSULTATION: A 9 mm stone, right renal pelvis, nonobstructive. ESTABLISHED DIAGNOSES: 1. Hypertension. 2. Hyperlipidemia. 3. Zub-ffmeegg-ezohgesbk diabetes mellitus. 4. Meningioma. 5. Past history of cerebrovascular accident. DIAGNOSES AT TIME OF ADMISSION: 1. Acute kidney disease, stage IIIA. 2. Previous history of cerebrovascular accident. 3. Uzb-zanvxuw-exdzptkeu diabetes mellitus. HISTORY OF PRESENT ILLNESS: This is an 84-year-old female. She is admitted in the hospital through the emergency room. This patient had a history of right-sided abdominal pain. She had similar pain 2 weeks ago and she was discharged home on antibiotics. She has no fever, chills, and gross hematuria. Denies any history of stone disease or urinary tract infection before. PAST SURGICAL HISTORY: Hysterectomy PAST MEDICAL HISTORY: Hypertension and diabetes. ALLERGY: NO KNOWN ALLERGY. REVIEW OF SYSTEMS: Narrative review of the system. CONSTITUTIONAL: No fever or chills. Positive fatigue. Positive weakness and weight loss. HEENT: No eye pain or vision. CARDIOVASCULAR: No chest pain. RESPIRATORY: No cough. GASTROINTESTINAL: No abdominal pain, constipation. EXTREMITIES: No pitting edema. PHYSICAL EXAMINATION: GENERAL: Condition is satisfactory, orientation x3. The patient is not in acute distress. VITAL SIGNS: Stable. They are in HPI in EMR. VARIOUS LABS: BUN is 23, creatinine is 2. 1 WBC is 29.5, hemoglobin is 14.6. CAT scan of the abdomen and pelvis is reviewed by me. She has 9 mm nonobstructive stone in the right renal pelvis. IMPRESSION: 1. Sepsis secondary to acute pyelonephritis, lactic acidosis, the patient is improving. 2. Acute kidney injury, chronic kidney disease, stage IIIA. 3. Cqo-zcjzhzk-tqgohndhl diabetes mellitus. 4. Hyperlipidemia and hypertension. The patient is on Plavix. 5. A 9 mm nonobstructive stone and pyelonephritis. RECOMMENDATION: 1. IV fluids. 2. Treat with antibiotics, urine for culture and sensitivity. 3. Follow-up appointment in urology office. For this 9 mm nonobstructive stone, she does not need any surgical treatment at this time. The patient is stable and she is seen by me in urology office. She will be scheduled for elective surgery, which will be a cysto-retrograde ureteroscope, laser stone fragmentation, stone basketing. All above wishes were discussed with the patient and she will be followed in urology office. DT: 10:05:52 TT: 10:55:00 Ref: [id number] - TID: [id number] MTDD
[2025-02-19 11:24] LABS: Reflex Lactate? Y
[2025-02-19] MEDS: ACETAMINOPHEN 325 MG TABLET 650 MG PO ×2 (11:39→18:43)
--- NOTE | 2025-02-19 11:45 | ESPR_ITS ---
Documentation for date of: 02/19/25 Subjective Subjective Interval history: Patient seen and assessed at bedside. Patient states to be feeling slight headache due to elevated BP. Patient otherwise feeling well and slightly anxious for being in the hospital. Pending cardiac echo. Patient will require DIMPLE, which unfortunately is currently unavailable due to equipment malfunction. Exam Vital Signs Temp Pulse Resp BP Pulse Ox O2 Del Method O2 Flow Rate 97.9 F 72 20 176/90 H 98 Nasal Cannula 2 02/19/25 08:00 02/19/25 08:32 02/19/25 08:00 02/19/25 08:32 02/19/25 08:00 02/19/25 08:00 02/19/25 08:00 Narrative Exam General: AAOx2, NAD, elderly, wearing glasses, does not look her age. HEENT: Dry mucous membranes, conjunctiva clear, EOMI, poor dentition. Cardiovascular: Regular rate and rhythm, no M/R/G. Pulmonary: Chest clear to auscultation bilaterally no cough, no wheezing. GI: No tenderness to light or deep palpitation, no guarding, rigidity, rebound tenderness or distension. Extremities: No presence of trace or pitting edema in lower extremities bilaterally. Neuro: AAOx2, no focal motor or sensory deficits. Equal strength 5/5 upper and lower extremities. Psych: Appropriate mood and affect. Cooperative. Objective Labs 02/20/25 05:22 02/19/25 05:28 Labs: Laboratory Results - last 24 hr 02/18/25 02/18/25 02/18/25 12:46 18:50 22:35 WBC RBC Hgb Hct MCV MCH MCHC RDW Std Deviation Plt Count Neut % (Auto) Lymph % (Auto) [place] % (Auto) Eos % (Auto) Baso % (Auto) Neut # (Auto) Lymph # (Auto) [place] # (Auto) Eos # (Auto) Baso # (Auto) Immature Gran # (Auto) Absolute Nucleated RBC Immature Gran % Nucleated RBC % Sodium Potassium Chloride Carbon Dioxide Anion Gap BUN Creatinine Estim Creat Clear Calc eGFR BUN/Creatinine Ratio Glucose Calculated Osmolality Lactic Acid 3.8 H 3.9 H 3.3 H Calcium Corrected Calcium Total Bilirubin AST ALT Alkaline Phosphatase Total Protein Albumin Globulin Albumin/Globulin Ratio Misc Test Result 02/19/25 02/19/25 02/19/25 01:14 05:28 08:15 WBC 18.4 H D RBC 4.27 Hgb 12.2 Hct 36.1 MCV 85 MCH 28.6 MCHC 33.8 RDW Std Deviation 42.2 Plt Count 77 L D Neut % (Auto) 73 Lymph % (Auto) 6 L [place] % (Auto) 6 Eos % (Auto) 0 Baso % (Auto) 1 Neut # (Auto) 13.3 H Lymph # (Auto) 1.2 [place] # (Auto) 1.0 H Eos # (Auto) 0.0 Baso # (Auto) 0.1 Immature Gran # (Auto) 2.68 H Absolute Nucleated RBC 0.00 Immature Gran % 15 H Nucleated RBC % 0 Sodium 135 L Potassium 4.2 Chloride 105 Carbon Dioxide 21.2 Anion Gap 9 BUN 35 H Creatinine 1.1 D Estim Creat Clear Calc 30.4 L eGFR 49 L BUN/Creatinine Ratio 32 H Glucose 174 H Calculated Osmolality 282 Lactic Acid 2.4 H 2.2 H 2.1 H Calcium 9.0 Corrected Calcium 9.6 Total Bilirubin 0.4 D AST 67 H ALT 70 H Alkaline Phosphatase 130 H Total Protein 5.8 Albumin 3.2 L D Globulin 2.6 Albumin/Globulin Ratio 1.2 Misc Test Result Platelets confirmed ABG Interpretation ABG results: 02/18/25 04:45 ABG pH 7.39 ABG pCO2 29 L ABG pO2 72 L ABG HCO3 18 L ABG O2 Saturation 96 ABG Base Excess -6 L Quality Measures Quality Measures none Advance care planning discussed with:: patient Assessment & Plan Assessment Current Active Medications: Generic Name Dose Route Start Last Admin Trade Name Freq PRN Reason Stop Dose Admin Acetaminophen 650 mg 02/18/25 04:03 02/19/25 11:39 Acetaminophen 325 Mg Tablet PO 03/20/25 04:02 650 mg Q6H PRN Administration Fever >101.5 Aspirin 81 mg 02/18/25 09:00 02/19/25 08:32 Aspirin Ec 81 Mg Tabec PO 03/20/25 08:59 81 mg QDAY GERHARD Administration Clopidogrel Bisulfate 75 mg 02/19/25 09:00 02/19/25 08:32 Clopidogrel Bisulfate 75 Mg Tablet PO 03/21/25 08:59 75 mg QDAY GERHARD Administration Dextrose 25 ml 02/18/25 04:06 Dextrose 50%-Water Inj 50 Ml Syringe IV 03/20/25 04:05 Q15MIN PRN BG 50-70 responsive npo pt Dextrose 50 ml 02/18/25 04:06 Dextrose 50%-Water Inj 50 Ml Syringe IV 03/20/25 04:05 Q15MIN PRN BG <50 OR BG <70 & pt unresponsive Donepezil HCl 5 mg 02/18/25 21:00 02/18/25 21:04 Donepezil Hcl 5 Mg Tablet PO 03/20/25 20:59 5 mg HS GERHARD Administration Fluoxetine HCl 20 mg 02/18/25 09:00 02/18/25 09:39 Fluoxetine Hcl 10 Mg Capsule PO 03/20/25 08:59 20 mg QDAY GERHARD Administration Glucagon 1 mg 02/18/25 04:06 Glucagon Inj 1 Mg Vial IM Q15MIN PRN BG <70, and no IV access Heparin Sodium (Porcine) 5,000 unit 02/18/25 09:00 02/19/25 08:39 Heparin Sod Inj 5000 Unit/Ml Vial SC 03/04/25 08:59 Not Given Q12H GERHARD Sodium Chloride 1,000 mls @ 75 mls/hr 02/18/25 04:15 02/18/25 21:33 Ns IV 03/20/25 04:14 75 mls/hr .[id number] GERHARD Administration Ceftriaxone Sodium 2 gm/ 50 mls @ 100 mls/hr 02/20/25 09:00 Sodium Chloride IV 02/27/25 08:59 QDAY GERHARD Insulin Human Lispro 0 unit 02/18/25 07:30 02/19/25 11:38 Insulin Lispro (Admelog) 1 Unit/0.01 Ml Unit SC 03/20/25 07:29 2 unit AC GERHARD Administration Protocol Metoprolol Tartrate 25 mg 02/19/25 09:00 02/19/25 08:32 Metoprolol Tartrate 25 Mg Tablet PO 03/21/25 08:59 25 mg BID GERHARD Administration Pravastatin Sodium 10 mg 02/18/25 21:00 02/18/25 21:04 Pravastatin Sodium 10 Mg Tablet PO 03/20/25 20:59 10 mg HS GERHARD Administration Plan #Acute left cerebellar hemisphere infarcts. MRI showing multiple acute left cerebellar hemisphere infarcts CT of the head showing no acute hemorrhage Likely embolic in nature given multiple areas of infarct. Carotid ultrasound shows no severe stenosis Pending cardiac echo with bubble study Recommend speech eval evaluation Start patient on aspirin and Plavix for dual antiplatelet for 21 days and then transition to single antiplatelet medication Recommend to increase home statin medication dose Patient requires DIMPLE given multiple infarcts noted on MRI. #Diabetes mellitus #Hypertension #Sepsis #Pyelonephritis #Hyperlipidemia Continue management per primary team Case discussed with attending Dr Jannet Reeves MD PGY3 Attending Provider Attestation/Addendum I personally have seen and examined the patient at the bedside and acted with residents findings, assessment and plan of care. Patient did ambulate with a walker. She does not have any focal neurological deficit especially with regards to cerebellar dysfunction. Transthoracic echocardiogram with a bubble study: Resulted negative. She does not need transesophageal echocardiogram. Continue with the current management with dual antiplatelet agent therapy and statin.
[2025-02-19 11:56] LABS: Lactic Acid, 3 HR 2.3 mMol/L (0.4-2.0)
--- NOTE | 2025-02-19 12:00 | XR_ITS ---
Examination: Retroperitoneal ultrasound, complete Technique: Multiple high resolution grayscale images of the retroperitoneum obtained, including kidneys and bladder. Exam date and time:February 19, 2025 at 1313 hours INDICATIONS: Right flank pain beginning 6 months ago FINDINGS: Right kidney 8.2 cm cortex 1.3 cm 8mm upper pole calculus Left kidney 10.6 cm renal cortex 1.6 cm Mild bilateral renal parenchymal scar formation No bladder mass Bladder prevoid volume 203 cc IMPRESSION: Bilateral renal cortical thinning Small right kidney Mild bilateral renal parenchymal scar formation 8mm nonobstructing right renal calculus No hydronephrosis
[2025-02-19] MEDS: SENNA TABLET 1 TAB PO (14:07)
[2025-02-19] MEDS: POLYETHYLENE GLYCOL 17 GM PACKET PO (14:07)
--- NOTE | 2025-02-19 14:31 | ESPR_ITS ---
<Statement entered by Maritza Lo MD - 02/20/25 08:31> Patient was seen and examined by me personally. I have directly supervised and reviewed documentation by the team resident and agree with its findings with any exceptions or additional findings as below. Plan of care was discussed with the attending, Dr. Stokes. Maritza Lo, PGY-2 Documentation for date of: 02/19/25 Subjective Subjective Interval history: 02/19/2025: No acute overnight events to report. Patient seen and examined in hospital bed reports feeling unwell and states that she has some right flank pain. Patient does have some CVA tenderness as noted along with diffuse abdominal tenderness on palpation. Added bowel regimen and suspicion is that the patient is probably experiencing withdrawals from the fluoxetine which was held due to potential reaction with the Plavix. Patient had a repeat renal ultrasound which does not show any obstructing renal calculi but some cortical thinning is noted in the small right kidney. Echocardiogram read by the wiener packer shows EF of 60 to 65% with stage I diastolic dysfunction but no PFO and there is no mention of thrombus. Neurology is following the patient and their concern was possible cardiac thrombi versus embolization as the patient has multiple infarcts of the left cerebellar region. Restarted the patient's blood pressure medications and added an as needed medication for severely elevated readings. Urology was also able to see the patient and the recommendation is that the patient will require follow-up outpatient for elective surgery. Exam Vital Signs Temp Pulse Resp BP Pulse Ox O2 Del Method O2 Flow Rate 98.5 F 73 20 176/83 H 96 Nasal Cannula 2 02/19/25 12:02/19/25 12:02/19/25 12:02/19/25 12:02/19/25 12:02/19/25 12:02/19/25 12:00 Narrative Exam Physical Exam: General: AAOx2, NAD, elderly, wearing glasses, does not look her age. HEENT: Dry mucous membranes, conjunctiva clear, EOMI, poor dentition. Cardiovascular: Regular rate and rhythm, no M/R/G. Pulmonary: Chest clear to auscultation bilaterally no cough, no wheezing. GI: Tenderness to palpation all 4 quadrants, CVA tenderness, no guarding, rigidity, rebound tenderness or distension. Extremities: No presence of trace or pitting edema in lower extremities bilaterally. Neuro: AAOx2, no focal motor or sensory deficits. Equal strength 5/5 upper and lower extremities. Objective Labs 02/19/25 05:28 02/19/25 05:28 Labs: Laboratory Results - last 24 hr 02/18/25 02/18/25 02/19/25 18:50 22:35 01:14 WBC RBC Hgb Hct MCV MCH MCHC RDW Std Deviation Plt Count Neut % (Auto) Lymph % (Auto) [place] % (Auto) Eos % (Auto) Baso % (Auto) Neut # (Auto) Lymph # (Auto) [place] # (Auto) Eos # (Auto) Baso # (Auto) Immature Gran # (Auto) Absolute Nucleated RBC Immature Gran % Nucleated RBC % Sodium Potassium Chloride Carbon Dioxide Anion Gap BUN Creatinine Estim Creat Clear Calc eGFR BUN/Creatinine Ratio Glucose Calculated Osmolality Lactic Acid 3.9 H 3.3 H 2.4 H Calcium Corrected Calcium Total Bilirubin AST ALT Alkaline Phosphatase Total Protein Albumin Globulin Albumin/Globulin Ratio Misc Test Result 02/19/25 02/19/25 02/19/25 05:28 08:15 11:50 WBC 18.4 H D RBC 4.27 Hgb 12.2 Hct 36.1 MCV 85 MCH 28.6 MCHC 33.8 RDW Std Deviation 42.2 Plt Count 77 L D Neut % (Auto) 73 Lymph % (Auto) 6 L [place] % (Auto) 6 Eos % (Auto) 0 Baso % (Auto) 1 Neut # (Auto) 13.3 H Lymph # (Auto) 1.2 [place] # (Auto) 1.0 H Eos # (Auto) 0.0 Baso # (Auto) 0.1 Immature Gran # (Auto) 2.68 H Absolute Nucleated RBC 0.00 Immature Gran % 15 H Nucleated RBC % 0 Sodium 135 L Potassium 4.2 Chloride 105 Carbon Dioxide 21.2 Anion Gap 9 BUN 35 H Creatinine 1.1 D Estim Creat Clear Calc 30.4 L eGFR 49 L BUN/Creatinine Ratio 32 H Glucose 174 H Calculated Osmolality 282 Lactic Acid 2.2 H 2.1 H 2.3 H Calcium 9.0 Corrected Calcium 9.6 Total Bilirubin 0.4 D AST 67 H ALT 70 H Alkaline Phosphatase 130 H Total Protein 5.8 Albumin 3.2 L D Globulin 2.6 Albumin/Globulin Ratio 1.2 Misc Test Result Platelets confirmed ABG Interpretation ABG results: 02/18/25 04:45 ABG pH 7.39 ABG pCO2 29 L ABG pO2 72 L ABG HCO3 18 L ABG O2 Saturation 96 ABG Base Excess -6 L Quality Measures Quality Measures none Advance care planning discussed with:: patient Assessment & Plan Assessment Current Active Medications: Generic Name Dose Route Start Last Admin Trade Name Freq PRN Reason Stop Dose Admin Acetaminophen 650 mg 02/18/25 04:03 02/19/25 11:39 Acetaminophen 325 Mg Tablet PO 03/20/25 04:02 650 mg Q6H PRN Administration Fever >101.5 Aspirin 81 mg 02/18/25 09:00 02/19/25 08:32 Aspirin Ec 81 Mg Tabec PO 03/20/25 08:59 81 mg QDAY GERHARD Administration Clopidogrel Bisulfate 75 mg 02/19/25 09:00 02/19/25 08:32 Clopidogrel Bisulfate 75 Mg Tablet PO 03/21/25 08:59 75 mg QDAY GERHARD Administration Dextrose 25 ml 02/18/25 04:06 Dextrose 50%-Water Inj 50 Ml Syringe IV 03/20/25 04:05 Q15MIN PRN BG 50-70 responsive npo pt Dextrose 50 ml 02/18/25 04:06 Dextrose 50%-Water Inj 50 Ml Syringe IV 03/20/25 04:05 Q15MIN PRN BG <50 OR BG <70 & pt unresponsive Donepezil HCl 5 mg 02/18/25 21:00 02/18/25 21:04 Donepezil Hcl 5 Mg Tablet PO 03/20/25 20:59 5 mg HS GERHARD Administration Fluoxetine HCl 20 mg 02/18/25 09:00 02/18/25 09:39 Fluoxetine Hcl 10 Mg Capsule PO 03/20/25 08:59 20 mg QDAY GEHRARD Administration Glucagon 1 mg 02/18/25 04:06 Glucagon Inj 1 Mg Vial IM Q15MIN PRN BG <70, and no IV access Heparin Sodium (Porcine) 5,000 unit 02/18/25 09:00 02/19/25 08:39 Heparin Sod Inj 5000 Unit/Ml Vial SC 03/04/25 08:59 Not Given Q12H GERHARD Hydralazine HCl 10 mg 02/19/25 12:04 Hydralazine Inj 20 Mg/Ml Vial IV 03/21/25 12:03 Q6H PRN Systolic >180 Sodium Chloride 1,000 mls @ 75 mls/hr 02/18/25 04:15 02/18/25 21:33 Ns IV 03/20/25 04:14 75 mls/hr .[id number] GERHARD Administration Ceftriaxone Sodium 2 gm/ 50 mls @ 100 mls/hr 02/20/25 09:00 Sodium Chloride IV 02/27/25 08:59 QDAY GERHARD Insulin Human Lispro 0 unit 02/18/25 07:30 02/19/25 11:38 Insulin Lispro (Admelog) 1 Unit/0.01 Ml Unit SC 03/20/25 07:29 2 unit AC GERHARD Administration Protocol Metoprolol Tartrate 25 mg 02/19/25 09:00 02/19/25 08:32 Metoprolol Tartrate 25 Mg Tablet PO 03/21/25 08:59 25 mg BID GERHARD Administration Pravastatin Sodium 10 mg 02/18/25 21:00 02/18/25 21:04 Pravastatin Sodium 10 Mg Tablet PO 03/20/25 20:59 10 mg HS GERHARD Administration Sennosides 1 tab 02/19/25 12:15 02/19/25 14:07 Senna Tablet PO 03/21/25 12:14 1 tab QDAY GERHARD Administration Protocol Plan 84-year-old female with past medical history of meningioma, dementia, hypertension, hyperlipidemia, type 2 diabetes and possible CVA who was admitted for sepsis secondary to acute pyelonephritis; moreover, later found to have confirmed acute left cerebellar infarcts on MRI. #Acute left cerebellar infarct #Meningioma Patient presented to the ED with lower back pain and fevers; moreover, at her current mental status baseline On examination patient is alert oriented x 1 to person and there are no gross motor or sensory deficits noted Patient clinically did not appear to have any strokelike symptoms CT shows possible old lacunar infarcts, age indeterminant at this point Meningioma seen on last CT in December 2024 Carotid ultrasound shows no degree of stenosis of both internal carotid arteries Brain MRI shows multiple acute infarcts left cerebellar hemisphere Speech eval passed TTE shows no PFO, EF 60 to 65% with grade 1 diastolic dysfunction, no mention of thrombus Plan: Neurology consulted, appreciate recommendations PT evaluation pending Continue on aspirin and Plavix for dual antiplatelet for 21 days and then transition to single antiplatelet medication Continue pravastatin 40 mg #Acute pyelonephritis #Lactic acidosis type B, improving Pt may not be tachycardic as she takes Beta blockers Lactate 7.7 -> 4.7 qSOFA: 1 points 2 out of 4 SIRS criteria Sepsis due to 2/4 SIRS criteria with acute sepsis-related organ dysfunction as evidence by MARGIE CT abdomen pelvis shows nonobstructing stone 9 x 7 mm and right ureteropelvic junction with mild hydronephrosis Blood cultures growing GNR as confirmed by laboratory Urine cultures positive for GNR Plan: Continue Rocephin 1g IV Lactic acid every 6 hours, next one at 5 PM 02/19 #Acute kidney injury on CKD stage IIIA, improving DDx: Prerenal versus ATN versus obstructive Cr 1.1 -> 2.1 Could be due to poor oral intake Bun/Cr ratio below 20, could be obstructive Renal ultrasound shows Bilateral renal cortical thinning, small right kidney, Mild bilateral renal parenchymal scar formation, 8mm nonobstructing right renal calculus, No hydronephrosis Plan: Stopped NS 75 cc/hr Monitor with morning labs Avoid nephrotoxic agents #Elevated liver enzymes Likely related to dehydration, shock liver CT abdomen pelvis shows no focal liver or splenic lesions Plan: Monitor with morning labs Avoid hepatotoxic agents #Sld-[id number] type II diabetes mellitus A1c 6.2 Plan: SSI #Grade 1 diastolic dysfunction Echo shows on 02/19: Normal LV size and function with an estimated EF of 60 to 65%. Stage I diastolic dysfunction. Normal RV size and function. Estimated RVSP is normal at 30 mmHg. Moderate aortic valve sclerosis without stenosis. V-max 2 m/s. Mild mitral valve thickening with trace MR and mild TR. Mildly dilated left atrium. Normal IVC no pericardial effusion Plan: Monitor for any acute changes, patient is not an active decompensation #Dementia Patient has longstanding history of dementia with home donepezil 5mg po hs Patient also recently started on fluoxetine 20mg by PCP Plan: Restarted home medication, donepezil Will hold fluoxetine due to interaction with Plavix Will consult pharmacy regarding possibly continuing the antidepressant as it has a reaction with the Plavix #Hypertension Patient on home metoprolol tartrate 25 mg p.o. twice daily Apparently patient's been having some headaches and has been hypertensive on 02/19 with systolic blood pressure in the 170s Plan: Continue home medication, Metropol tartrate 25 mg p.o. twice daily Give amlodipine 5 mg p.o. x 1 will consider adding as a scheduled medication Stopped maintenance IV fluids As needed hydralazine every 6 for systolic greater than 180 #Hyperlipidemia Chronic medical conditions Patient on home pravastatin 10 mg Plan: Increased home pravastatin to 40 mg at bedtime Hospital Management: Lines: PIV Diet: Carb consistent Bowel: Senna GI prophylaxis: Not needed DVT prophylaxis: SCD Dispo: Pending neurology recommendations regarding the cerebellar infarct, physical therapy, IV antibiotics for pyelo Patient seen and examined with attending Dr. Stokes and resident Dr. Wally Ruiz, PGY-1 Attending Provider Attestation/Addendum I attest that I was physically present for the evaluation, physical examination, lab and imaging review of the patient with the residents. I discussed the case with the residents and agree with the findings and plans of care as documented above. At bedside today, patient states she is not feeling well, complains of right flank pain. Has tenderness over her whole abdomen, more on the epigastric region on palpation. She has been passing gas but has not had any bowel movement. We will start her on bowel regimen. Obtained renal ultrasound, which did not show any obstructing renal calculi, only showed cortical thinning. Echocardiography showed EF of 60 to 65% with stage I diastolic dysfunction but no PFO and did not mention about the thrombus. Continues to be on statin and dual antiplatelets, neurology following. Continues to be on IV Rocephin for pyelonephritis. Lactic acid level improving, continues to be on gentle IV hydration. Blood culture grew gram-negative rods. Urology following, stated no surgical intervention at this time, patient will need outpatient urologic procedure, appreciate recommendations. Continues to be on sliding scale for diabetes. Continues to be on metoprolol for hypertension, added amlodipine 5 mg daily. Komal Stokes MD
[2025-02-19] MEDS: amLODIPine BESYLATE 5 MG TABLET PO (15:39)
--- NOTE | 2025-02-19 16:06 | PC.SS ---
Rounding Note: Patient receiving antibiotics. Possible DIMPLE. Discharge within 1-2 days.
[2025-02-19 17:13] LABS: Lactate (Lactic Acid) 1.6 mMol/L (0.4-2.0)
[2025-02-19] MEDS: PRAVASTATIN SODIUM 10 MG TABLET 40 MG PO (20:36)
[2025-02-19] MEDS: DONEPEZIL HCL 5 MG TABLET PO (20:39)
[2025-02-19] MEDS: HEPARIN SOD INJ 5000 UNIT/ML VIAL SC (20:39)
[2025-02-19 23:32] LABS: Lactate (Lactic Acid) 1.6 mMol/L (0.4-2.0)
[2025-02-20] VITALS (9 sets, daily range): BP systolic 149–160; BP diastolic 76–99; PULSE 61–90; RESP 17–21; TEMP 36.7–37.1; O2SAT 94–97; BMI 20.3
[2025-02-20 05:42] LABS: Basophils # (Auto) 0.1 Thou/mm3 (0.0-0.2); Basophils % (Auto) 1 % (0-2.5); Eosinophils # (Auto) 0.1 Thou/mm3 (0.0-0.5); Eosinophils % (Auto) 1 % (0-10); Hematocrit 37.8 % (36.0-46.0); Hemoglobin 12.9 g/dL (12.0-16.0); Immature Granulocytes % (Auto) 1 % (0-0); Immature Granulocytes Auto 0.06 Thou/mm3 (0.00-0.00); Lymphocytes # (Auto) 1.1 Thou/mm3 (1.0-4.8); Lymphocytes % (Auto) 9 % (10-50); Mean Corpuscular HGB Conc 34.1 g/dl (31.0-37.0); Mean Corpuscular Hemoglobin 28.6 pg (25.0-35.0); Mean Corpuscular Volume 84 fL (80-100); Monocytes % (Auto) 8 % (0-12); Neutrophils # (Auto) 9.9 Thou/mm3 (1.8-7.7); Neutrophils % (Auto) 80 % (37-80); Nucleated Red Blood Cell % 0 /100 WBC (0); Platelet Count 98 Thou/mm3 (140-440); RDW Standard Deviation 40.7 fL (36.4-46.3); Red Blood Count 4.51 Miln/mm3 (4.00-5.20); White Blood Count 12.3 Thou/mm3 (3.6-11.0)
[2025-02-20 06:32] LABS: Alanine Aminotransferase 134 U/L (10-49); Albumin, Serum 3.3 gm/dL (3.4-4.8); Albumin/Globulin Ratio 1.2 (1.2-2.2); Alkaline Phosphatase 172 U/L (46-116); Anion Gap 9 (7-16); Aspartate Amino Transferase 69 U/L (0-34); BUN/Creatinine Ratio 28 Ratio (12-20); Bilirubin,Total 0.9 mg/dL (0.3-1.2); Blood Urea Nitrogen 25 mg/dL (9-23); Calcium 9.1 mg/dL (8.3-10.6); Calcium (Corrected) 9.7 mg/dL (8.5-10.1); Carbon Dioxide 23.7 mMol/L (20.0-31.0); Chloride 104 mMol/L (98-107); Creatinine (Component) 0.9 mg/dL (0.6-1.3); Estimated Creatinine Clearance 36.9 mL/min (>60); Globulin 2.7 gm/dL (2.3-3.5); Glucose 158 mg/dL (74-106); Osmolality,Calculated 281 (275-295); Sodium 137 mMol/L (136-145); eGFR > 60 See Note
[2025-02-20] MEDS: INSULIN LISPRO (AdmeLOG) 1 UNIT/0.01 ML UNIT SC ×3 (07:36→16:43)
[2025-02-20] MEDS: METOPROLOL TARTRATE 25 MG TABLET PO ×2 (08:04→20:07)
[2025-02-20] MEDS: ASPIRIN EC 81 MG TABEC PO (08:04)
[2025-02-20] MEDS: CLOPIDOGREL BISULFATE 75 MG TABLET PO (08:04)
[2025-02-20] MEDS: SENNA TABLET 1 TAB PO (08:04)
[2025-02-20] MEDS: cefTRIAXone 2 GM in SODIUM CHLORIDE 0.9% (Popper) 50 ML IV (08:05)
[2025-02-20] MEDS: HEPARIN SOD INJ 5000 UNIT/ML VIAL SC ×2 (08:06→20:07)
--- NOTE | 2025-02-20 09:49 | PC.NURSE ---
PATIENT OXYGEN SATURATION 85% ON ROOM AIR AT REST. ON 2 LITER OXYGEN VIA NC OXYGEN SATURATION 94%.
[2025-02-20] MEDS: amLODIPine BESYLATE 5 MG TABLET PO (10:30)
[2025-02-20] MEDS: bisacodyL 10 MG SUPP PR (10:30)
--- NOTE | 2025-02-20 12:13 | PC.NURSE ---
Patinet oxygen saturation on ambulation on room air 87%, placed 2 liters nasal cannula oxygen saturation 93%.
--- NOTE | 2025-02-20 14:19 | ESPR_ITS ---
<Statement entered by Maritza Lo MD - 02/21/25 07:45> Patient was seen and examined by me personally. I have directly supervised and reviewed documentation by the team resident and agree with its findings with any exceptions or additional findings as below. Plan of care was discussed with the attending, Dr. Stokes. Maritza Lo, PGY-2 Documentation for date of: 02/20/25 Subjective Subjective Interval history: 02/20/2025: No acute overnight events to report. Patient seen and examined in hospital bed states that she feels much better than she did the previous day. Patient denies having any chest pain, headache, vision changes, weakness; however, the patient does feel short of breath. Walk test was implemented and the patient's unfortunately desaturated to 87; however, patient does not have a respiratory diagnosis or any diagnosis for requiring oxygen at this time. Patient's abdominal pain noted previously is improving but is still persistent. Will initiate stronger bowel regimen so that the patient can have a bowel movement; moreover, we will continue to monitor the patient's vitals and expect discharge within the next 24 hours. Neurology recommendations regarding the patient's cerebellar infarct and to continue DAPT plus statin and to follow-up outpatient. Patient's urine cultures are positive for pansensitive E. coli and she will be transition to oral antibiotics on discharge. Exam Vital Signs Temp Pulse Resp BP Pulse Ox O2 Del Method O2 Flow Rate 98.4 F 67 21 H 156/79 H 96 Room Air 2 02/20/25 12:02/20/25 12:02/20/25 12:02/20/25 12:02/20/25 12:02/20/25 12:02/20/25 08:00 Narrative Exam Physical Exam: General: Awake, elderly, wearing glasses, appears younger than stated age HEENT: Dry mucous membranes, conjunctiva clear, EOMI, poor dentition. Cardiovascular: Regular rate and rhythm, no M/R/G. Pulmonary: Chest clear to auscultation bilaterally no cough, no wheezing. GI: Mild tenderness to palpation all 4 quadrants, CVA tenderness, no guarding, rigidity, rebound tenderness or distension. Extremities: No presence of trace or pitting edema in lower extremities bilaterally. Neuro: AAOx2, no focal motor or sensory deficits. Equal strength 5/5 upper and lower extremities. Objective Labs 02/20/25 05:22 02/20/25 05:22 Labs: Laboratory Results - last 24 hr 02/19/25 02/19/25 02/20/25 17:05 23:19 05:22 WBC 12.3 H D RBC 4.51 Hgb 12.9 Hct 37.8 MCV 84 MCH 28.6 MCHC 34.1 RDW Std Deviation 40.7 Plt Count 98 L D Neut % (Auto) 80 Lymph % (Auto) 9 L [place] % (Auto) 8 Eos % (Auto) 1 Baso % (Auto) 1 Neut # (Auto) 9.9 H Lymph # (Auto) 1.1 [place] # (Auto) 1.0 H Eos # (Auto) 0.1 Baso # (Auto) 0.1 Immature Gran # (Auto) 0.06 H Absolute Nucleated RBC 0.00 Immature Gran % 1 H Nucleated RBC % 0 Sodium 137 Potassium 4.0 Chloride 104 Carbon Dioxide 23.7 Anion Gap 9 BUN 25 H Creatinine 0.9 Estim Creat Clear Calc 36.9 L eGFR > 60 BUN/Creatinine Ratio 28 H Glucose 158 H Calculated Osmolality 281 Lactic Acid 1.6 1.6 1.0 Calcium 9.1 Corrected Calcium 9.7 Total Bilirubin 0.9 D AST 69 H ALT 134 H Alkaline Phosphatase 172 H D Total Protein 6.0 Albumin 3.3 L Globulin 2.7 Albumin/Globulin Ratio 1.2 ABG Interpretation ABG results: 02/18/25 04:45 ABG pH 7.39 ABG pCO2 29 L ABG pO2 72 L ABG HCO3 18 L ABG O2 Saturation 96 ABG Base Excess -6 L Quality Measures Quality Measures none Advance care planning discussed with:: patient and child Assessment & Plan Assessment Current Active Medications: Generic Name Dose Route Start Last Admin Trade Name Freq PRN Reason Stop Dose Admin Acetaminophen 650 mg 02/18/25 04:03 02/19/25 18:43 Acetaminophen 325 Mg Tablet PO 03/20/25 04:02 650 mg Q6H PRN Administration Fever >101.5 Amlodipine Besylate 5 mg 02/20/25 09:00 02/20/25 10:30 Amlodipine Besylate 5 Mg Tablet PO 03/22/25 08:59 5 mg QDAY GERHARD Administration Aspirin 81 mg 02/18/25 09:00 02/20/25 08:04 Aspirin Ec 81 Mg Tabec PO 03/20/25 08:59 81 mg QDAY GERHARD Administration Clopidogrel Bisulfate 75 mg 02/19/25 09:00 02/20/25 08:04 Clopidogrel Bisulfate 75 Mg Tablet PO 03/21/25 08:59 75 mg QDAY GERHARD Administration Dextrose 25 ml 02/18/25 04:06 Dextrose 50%-Water Inj 50 Ml Syringe IV 03/20/25 04:05 Q15MIN PRN BG 50-70 responsive npo pt Dextrose 50 ml 02/18/25 04:06 Dextrose 50%-Water Inj 50 Ml Syringe IV 03/20/25 04:05 Q15MIN PRN BG <50 OR BG <70 & pt unresponsive Donepezil HCl 5 mg 02/18/25 21:00 02/19/25 20:39 Donepezil Hcl 5 Mg Tablet PO 03/20/25 20:59 5 mg HS GERHARD Administration Fluoxetine HCl 20 mg 02/18/25 09:00 02/18/25 09:39 Fluoxetine Hcl 10 Mg Capsule PO 03/20/25 08:59 20 mg QDAY GERHARD Administration Glucagon 1 mg 02/18/25 04:06 Glucagon Inj 1 Mg Vial IM Q15MIN PRN BG <70, and no IV access Heparin Sodium (Porcine) 5,000 unit 02/18/25 09:00 02/20/25 08:06 Heparin Sod Inj 5000 Unit/Ml Vial SC 03/04/25 08:59 5,000 unit Q12H GERHARD Administration Hydralazine HCl 10 mg 02/19/25 12:04 Hydralazine Inj 20 Mg/Ml Vial IV 03/21/25 12:03 Q6H PRN Systolic >180 Sodium Chloride 1,000 mls @ 75 mls/hr 02/18/25 04:15 02/19/25 19:14 Ns IV 03/20/25 04:14 Infused .[id number] GERHARD Infusion Ceftriaxone Sodium 2 gm/ 50 mls @ 100 mls/hr 02/20/25 09:00 02/20/25 08:05 Sodium Chloride IV 02/27/25 08:59 100 mls/hr QDAY GERHARD Administration Insulin Human Lispro 0 unit 02/18/25 07:30 02/20/25 11:23 Insulin Lispro (Admelog) 1 Unit/0.01 Ml Unit SC 03/20/25 07:29 1 unit AC GERHARD Administration Protocol Metoprolol Tartrate 25 mg 02/19/25 09:00 02/20/25 08:04 Metoprolol Tartrate 25 Mg Tablet PO 03/21/25 08:59 25 mg BID GERHARD Administration Pravastatin Sodium 40 mg 02/19/25 21:00 02/19/25 20:36 Pravastatin Sodium 10 Mg Tablet PO 03/21/25 20:59 40 mg HS GERHARD Administration Sennosides 1 tab 02/19/25 12:15 02/20/25 08:04 Senna Tablet PO 03/21/25 12:14 1 tab QDAY GERHARD Administration Protocol Plan 84-year-old female with past medical history of meningioma, dementia, hypertension, hyperlipidemia, type 2 diabetes and possible CVA who was admitted for sepsis secondary to acute pyelonephritis; moreover, later found to have confirmed acute left cerebellar infarcts on MRI. #Acute left cerebellar infarct #Meningioma Patient presented to the ED with lower back pain and fevers; moreover, at her current mental status baseline On examination patient is alert oriented x 1 to person and there are no gross motor or sensory deficits noted Patient clinically did not appear to have any strokelike symptoms CT shows possible old lacunar infarcts, age indeterminant at this point Meningioma seen on last CT in December 2024 Carotid ultrasound shows no degree of stenosis of both internal carotid arteries Brain MRI shows multiple acute infarcts left cerebellar hemisphere Speech eval passed TTE shows no PFO, EF 60 to 65% with grade 1 diastolic dysfunction, no mention of thrombus Plan: Neurology consulted, appreciate recommendations PT evaluation pending Continue on aspirin and Plavix for dual antiplatelet for 21 days and then transition to single antiplatelet medication Continue pravastatin 40 mg #Acute pyelonephritis #Lactic acidosis type B, resolved Pt may not be tachycardic as she takes Beta blockers Lactate 7.7 -> 4.7 qSOFA: 1 points 2 out of 4 SIRS criteria Sepsis due to 2/4 SIRS criteria with acute sepsis-related organ dysfunction as evidence by MARGIE CT abdomen pelvis shows nonobstructing stone 9 x 7 mm and right ureteropelvic junction with mild hydronephrosis Blood cultures growing GNR as confirmed by laboratory Urine cultures positive for GNR Plan: Continue Rocephin 1g IV, will transition to oral antibiotics on discharge #Acute kidney injury on CKD stage IIIA, resolved Initially DDx: Prerenal versus ATN versus obstructive Likely secondary to poor oral intake, Bun/Cr ratio below 20, could be obstructive Renal ultrasound shows Bilateral renal cortical thinning, small right kidney, Mild bilateral renal parenchymal scar formation, 8mm nonobstructing right renal calculus, No hydronephrosis Patient's kidney function has returned back to baseline with improvement infection and volume status Plan: Monitor with morning labs Avoid nephrotoxic agents #Hypoxia Patient does not have any pulmonary disease Patient has required 2 L of nasal cannula oxygen set supplementation to saturate greater than 94 Walk test was failed when she desaturated to 87 without any oxygen supplementation CT of the chest on 02/17 showed: Bibasilar subsegmental atelectasis Differentials include: Secondary to sepsis and deconditioning versus CT findings/atelectasis versus constipation Plan: Wean oxygen as tolerated If the patient is unable to wean off oxygen on 02/21, will consider obtaining chest x-ray #Elevated liver enzymes Likely related to dehydration, shock liver CT abdomen pelvis shows no focal liver or splenic lesions Plan: Monitor with morning labs Avoid hepatotoxic agents #Zev-[id number] type II diabetes mellitus A1c 6.2 Plan: SSI #Grade 1 diastolic dysfunction Echo shows on 02/19: Normal LV size and function with an estimated EF of 60 to 65%. Stage I diastolic dysfunction. Normal RV size and function. Estimated RVSP is normal at 30 mmHg. Moderate aortic valve sclerosis without stenosis. V-max 2 m/s. Mild mitral valve thickening with trace MR and mild TR. Mildly dilated left atrium. Normal IVC no pericardial effusion Plan: Monitor for any acute changes, patient is not an active decompensation #Dementia Patient has longstanding history of dementia with home donepezil 5mg po hs Patient also recently started on fluoxetine 20mg by PCP Plan: Restarted home medication, donepezil Will hold fluoxetine due to interaction with Plavix Will consult pharmacy regarding possibly continuing the antidepressant as it has a reaction with the Plavix #Hypertension Patient on home metoprolol tartrate 25 mg p.o. twice daily Apparently patient's been having some headaches and has been hypertensive on 02/19 with systolic blood pressure in the 170s Plan: Continue home medication, Metropol tartrate 25 mg p.o. twice daily Continue amlodipine 5 mg p.o. daily As needed hydralazine every 6 for systolic greater than 180 #Hyperlipidemia Chronic medical conditions Patient on home pravastatin 10 mg Plan: Continue pravastatin to 40 mg at bedtime Hospital Management: Lines: PIV Diet: Carb consistent Bowel: Senna GI prophylaxis: Not needed DVT prophylaxis: SCD Dispo: Weaning off oxygen Code: Full Patient seen and examined with attending Dr. Stokes and resident Dr. Wally Ruiz, PGY-1 Attending Provider Attestation/Addendum I attest that I was physically present for the evaluation, physical examination, lab and imaging review of the patient with the residents. I discussed the case with the residents and agree with the findings and plans of care as documented above. At bedside today, patient states she is feeling well and does not have any new complaints. Saturating well on 2 L nasal cannula. Tried to walk patient without oxygen but her oxygen saturation dropped down to 87%. We will continue to monitor her inpatient and try to wean down her oxygen. Underwent PT, recommended home health physical therapy. Blood pressure continues to be high, 160/83 this morning. We will increase amlodipine to 10 mg daily. Continues to be on Rocephin for pyelonephritis. Blood and urine culture grew pansensitive E. coli. Continues to be on dual antiplatelets and statin. Plan to discharge once patient is able to saturate well on room air. Komal Stokes MD
--- NOTE | 2025-02-20 17:09 | PD.RESPRO ---
Documentation for date of: 02/20/25 Subjective Subjective Interval history: Patient seen and assessed at bedside. Patient resting comfortably in bed. Exam Vital Signs Temp Pulse Resp BP Pulse Ox O2 Del Method O2 Flow Rate 98.8 F 70 21 H 159/84 H 94 L Room Air 2 02/20/25 16:00 02/20/25 16:00 02/20/25 16:00 02/20/25 16:00 02/20/25 16:00 02/20/25 16:00 02/20/25 08:00 Narrative Exam General: AAOx2, NAD, elderly lady resting comfortably in bed. Cardiovascular: Regular rate and rhythm, no M/R/G. Pulmonary: Chest clear to auscultation bilaterally no cough, no wheezing. GI: Mild tenderness palpation. Extremities: No edema. Neuro: AAOx2, no focal motor or sensory deficits. Equal strength 5/5 upper and lower extremities. Psych: Appropriate mood and affect. Cooperative. Objective Labs 02/20/25 05:22 02/20/25 05:22 Labs: Laboratory Results - last 24 hr 02/19/25 02/19/25 02/20/25 17:05 23:19 05:22 WBC 12.3 H D RBC 4.51 Hgb 12.9 Hct 37.8 MCV 84 MCH 28.6 MCHC 34.1 RDW Std Deviation 40.7 Plt Count 98 L D Neut % (Auto) 80 Lymph % (Auto) 9 L [place] % (Auto) 8 Eos % (Auto) 1 Baso % (Auto) 1 Neut # (Auto) 9.9 H Lymph # (Auto) 1.1 [place] # (Auto) 1.0 H Eos # (Auto) 0.1 Baso # (Auto) 0.1 Immature Gran # (Auto) 0.06 H Absolute Nucleated RBC 0.00 Immature Gran % 1 H Nucleated RBC % 0 Sodium 137 Potassium 4.0 Chloride 104 Carbon Dioxide 23.7 Anion Gap 9 BUN 25 H Creatinine 0.9 Estim Creat Clear Calc 36.9 L eGFR > 60 BUN/Creatinine Ratio 28 H Glucose 158 H Calculated Osmolality 281 Lactic Acid 1.6 1.6 1.0 Calcium 9.1 Corrected Calcium 9.7 Total Bilirubin 0.9 D AST 69 H ALT 134 H Alkaline Phosphatase 172 H D Total Protein 6.0 Albumin 3.3 L Globulin 2.7 Albumin/Globulin Ratio 1.2 ABG Interpretation ABG results: 02/18/25 04:45 ABG pH 7.39 ABG pCO2 29 L ABG pO2 72 L ABG HCO3 18 L ABG O2 Saturation 96 ABG Base Excess -6 L Quality Measures Quality Measures none Advance care planning discussed with:: patient Assessment & Plan Assessment Current Active Medications: Generic Name Dose Route Start Last Admin Trade Name Rolandq PRN Reason Stop Dose Admin Acetaminophen 650 mg 02/18/25 04:03 02/19/25 18:43 Acetaminophen 325 Mg Tablet PO 03/20/25 04:02 650 mg Q6H PRN Administration Fever >101.5 Amlodipine Besylate 10 mg 02/21/25 09:00 Amlodipine Besylate 5 Mg Tablet PO 03/23/25 08:59 QDAY GERHARD Aspirin 81 mg 02/18/25 09:00 02/20/25 08:04 Aspirin Ec 81 Mg Tabec PO 03/20/25 08:59 81 mg QDAY GERHARD Administration Clopidogrel Bisulfate 75 mg 02/19/25 09:00 02/20/25 08:04 Clopidogrel Bisulfate 75 Mg Tablet PO 03/21/25 08:59 75 mg QDAY GERHARD Administration Dextrose 25 ml 02/18/25 04:06 Dextrose 50%-Water Inj 50 Ml Syringe IV 03/20/25 04:05 Q15MIN PRN BG 50-70 responsive npo pt Dextrose 50 ml 02/18/25 04:06 Dextrose 50%-Water Inj 50 Ml Syringe IV 03/20/25 04:05 Q15MIN PRN BG <50 OR BG <70 & pt unresponsive Donepezil HCl 5 mg 02/18/25 21:00 02/19/25 20:39 Donepezil Hcl 5 Mg Tablet PO 03/20/25 20:59 5 mg HS GERHARD Administration Fluoxetine HCl 20 mg 02/18/25 09:00 02/18/25 09:39 Fluoxetine Hcl 10 Mg Capsule PO 03/20/25 08:59 20 mg QDAY GERHARD Administration Glucagon 1 mg 02/18/25 04:06 Glucagon Inj 1 Mg Vial IM Q15MIN PRN BG <70, and no IV access Heparin Sodium (Porcine) 5,000 unit 02/18/25 09:00 02/20/25 08:06 Heparin Sod Inj 5000 Unit/Ml Vial SC 03/04/25 08:59 5,000 unit Q12H GERHARD Administration Hydralazine HCl 10 mg 02/19/25 12:04 Hydralazine Inj 20 Mg/Ml Vial IV 03/21/25 12:03 Q6H PRN Systolic >180 Sodium Chloride 1,000 mls @ 75 mls/hr 02/18/25 04:15 02/19/25 19:14 Ns IV 03/20/25 04:14 Infused .[id number] GERHARD Infusion Ceftriaxone Sodium 2 gm/ 50 mls @ 100 mls/hr 02/20/25 09:00 02/20/25 08:05 Sodium Chloride IV 02/27/25 08:59 100 mls/hr QDAY GERHARD Administration Insulin Human Lispro 0 unit 02/18/25 07:30 02/20/25 16:43 Insulin Lispro (Admelog) 1 Unit/0.01 Ml Unit SC 03/20/25 07:29 2 unit AC GERHARD Administration Protocol Metoprolol Tartrate 25 mg 02/19/25 09:00 02/20/25 08:04 Metoprolol Tartrate 25 Mg Tablet PO 03/21/25 08:59 25 mg BID GERHARD Administration Pravastatin Sodium 40 mg 02/19/25 21:00 02/19/25 20:36 Pravastatin Sodium 10 Mg Tablet PO 03/21/25 20:59 40 mg HS GERHARD Administration Sennosides 1 tab 02/19/25 12:15 02/20/25 08:04 Senna Tablet PO 03/21/25 12:14 1 tab QDAY GERHARD Administration Protocol Plan #Acute left cerebellar hemisphere infarcts. MRI showing multiple acute left cerebellar hemisphere infarcts CT of the head showing no acute hemorrhage Likely embolic in nature given multiple areas of infarct. Carotid ultrasound shows no severe stenosis Cardiac echo studies shows no PFO. continue on aspirin and Plavix for dual antiplatelet for 21 days and then transition to single antiplatelet medication Continue statin medication. #Diabetes mellitus #Hypertension #Sepsis #Pyelonephritis #Hyperlipidemia Continue management per primary team Case discussed with attending Dr Jannet Reeves MD PGY3
[2025-02-20] MEDS: PRAVASTATIN SODIUM 10 MG TABLET 40 MG PO (20:07)
[2025-02-20] MEDS: DONEPEZIL HCL 5 MG TABLET PO (20:07)
[2025-02-20] MEDS: lorataDINE 10 MG TABLET PO (20:13)
[2025-02-21] VITALS (8 sets, daily range): BP systolic 126–162; BP diastolic 64–77; PULSE 60–70; RESP 15–23; TEMP 36–36.7; O2SAT 91–96
[2025-02-21 05:56] LABS: Basophils # (Auto) 0.1 Thou/mm3 (0.0-0.2); Basophils % (Auto) 1 % (0-2.5); Eosinophils # (Auto) 0.3 Thou/mm3 (0.0-0.5); Eosinophils % (Auto) 3 % (0-10); Hematocrit 36.5 % (36.0-46.0); Hemoglobin 12.7 g/dL (12.0-16.0); Immature Granulocytes % (Auto) 6 % (0-0); Immature Granulocytes Auto 0.57 Thou/mm3 (0.00-0.00); Lymphocytes # (Auto) 1.4 Thou/mm3 (1.0-4.8); Lymphocytes % (Auto) 16 % (10-50); Mean Corpuscular HGB Conc 34.8 g/dl (31.0-37.0); Mean Corpuscular Hemoglobin 28.9 pg (25.0-35.0); Mean Corpuscular Volume 83 fL (80-100); Monocytes # (Auto) 1.7 Thou/mm3 (0.0-0.8); Monocytes % (Auto) 19 % (0-12); Neutrophils % (Auto) 55 % (37-80); Nucleated Red Blood Cell % 0 /100 WBC (0); Platelet Count 91 Thou/mm3 (140-440); RDW Standard Deviation 39.8 fL (36.4-46.3)
[2025-02-21 06:35] LABS: Alanine Aminotransferase 129 U/L (10-49); Albumin, Serum 3.2 gm/dL (3.4-4.8); Albumin/Globulin Ratio 1.2 (1.2-2.2); Alkaline Phosphatase 218 U/L (46-116); Anion Gap 12 (7-16); Aspartate Amino Transferase 48 U/L (0-34); BUN/Creatinine Ratio 27 Ratio (12-20); Bilirubin,Total 0.9 mg/dL (0.3-1.2); Blood Urea Nitrogen 24 mg/dL (9-23); Calcium 8.8 mg/dL (8.3-10.6); Calcium (Corrected) 9.4 mg/dL (8.5-10.1); Carbon Dioxide 24.7 mMol/L (20.0-31.0); Chloride 99 mMol/L (98-107); Creatinine (Component) 0.9 mg/dL (0.6-1.3); Estimated Creatinine Clearance 36.3 mL/min (>60); Globulin 2.6 gm/dL (2.3-3.5); Glucose 173 mg/dL (74-106); Osmolality,Calculated 279 (275-295); Potassium 3.8 mMol/L (3.4-5.1); Sodium 136 mMol/L (136-145); Total Protein 5.8 gm/dL (5.7-8.2); eGFR > 60 See Note
[2025-02-21] MEDS: INSULIN LISPRO (AdmeLOG) 1 UNIT/0.01 ML UNIT SC (07:33)
[2025-02-21] MEDS: METOPROLOL TARTRATE 25 MG TABLET PO (08:33)
[2025-02-21] MEDS: cefTRIAXone 2 GM in SODIUM CHLORIDE 0.9% (Popper) 50 ML IV (08:34)
[2025-02-21] MEDS: ASPIRIN EC 81 MG TABEC PO (08:34)
[2025-02-21] MEDS: amLODIPine BESYLATE 5 MG TABLET 10 MG PO (08:34)
[2025-02-21] MEDS: CLOPIDOGREL BISULFATE 75 MG TABLET PO (08:34)
[2025-02-21] MEDS: HEPARIN SOD INJ 5000 UNIT/ML VIAL SC (08:35)
[2025-02-21] MEDS: SENNA TABLET 1 TAB PO (08:40)
--- NOTE | 2025-02-21 10:10 | XR_ITS ---
Examination: Abdomen sonogram, complete Date and time of exam: February 21, 2025 1104 hours INDICATIONS: Right upper abdominal pain beginning 4 days ago with elevated liver enzymes on laboratory examination today. Technique: Multiple real-time grayscale transabdominal sonographic images of the abdomen have been obtained. Findings: Normal gallbladder Normal common bile duct 0.4 cm Pancreatic head 2.3 cm Aorta not enlarged Liver 13.2 cm irregular contour mild ascites Normal hepatopedal portal venous flow Patent IVC Right kidney 8.1 cm cortex 1.4 cm 9 mm upper pole calculus Left kidney 10.6 cm renal cortex 1.6 cm Moderate bilateral renal cortical scar formation Spleen 8.4 cm IMPRESSION: Cirrhosis versus primary hepatocellular disease Mild ascites Small kidneys with bilateral renal cortical thinning 9 mm upper pole right renal calculus Moderate bilateral renal parenchymal scar formation
--- NOTE | 2025-02-21 12:00 | CHAP ---
Patient was visited by the Spiritual Care Volunteer who prayed for them. (Volunteer was in the hospital from 10:00-12:00)
--- NOTE | 2025-02-21 14:00 | PC.NURSE ---
PATIENT OXYGEN SATURATION ON ROOM AIR 93%, AMBULATED PATEINT, OXGYEN SATURATION REMAIN BETWEEN 90%-93%. PATIENT DENIES SHORTNESS OF BREATH.
--- NOTE | 2025-02-21 14:21 | ESDS_ITS ---
<Statement entered by Maritza Lo MD - 02/21/25 17:52> Patient was seen and examined by me personally. I have reviewed the below documentation by the team resident and agree with its findings with any exceptions as below. Discharge plan was discussed with the attending, Dr. Stokes. Patient seen this morning saturating well on room air. She did continue to complain of some generalized abdominal pain, therefore abdominal US was ordered, which was negative for acute findings, it showed cirrhosis with mild ascites and stable 9 mm non-obstructing stone in the right kidney. Patient was advised to take aspirin, statin, and clopidogrel for acute cerebellar stroke findings found this admission. Patient was stable for discharge home with home health. Maritza Lo, PGY-2 Planned Discharge Date 02/21/25 DS: Providers Provider Date of admission: 02/18/25 04:03 Primary care physician: Physician No Primary/Family Admitting Provider: Minesh Hein MD Attending Provider on Admission: Komal tSokes MD Consults: 02/18/25 11:24 Consult to Neurology / Tele-Neurology Routine Comment: Acute ischemic stroke Consulting Provider: Ulysses Power 02/18/25 11:38 Consult to Urology Routine Comment: nephrolithiasis Consulting Provider: Wesley Cao 02/18/25 14:36 Referral Physical Therapy Routine Comment: Physician Instructions: Referral Speech Therapy Routine Comment: 02/19/25 10:00 Referral - DECK BUILDER Sales Account Director Routine Comment: myriam Nelson Attending Provider on DC: Ceferino Ruiz MD Discharging Provider: Ceferino Ruiz MD DS: Diagnosis Problem List Completed Was Problem List Reviewed/Reconciled?: Yes Hospital Course Hospital Course Hospital course: 84-year-old female with past medical history of CVA, history of meningioma, hypertension, hyperlipidemia, [id number] type 2 diabetes presented for right back pain, weakness and fatigue. In the ED, patient was afebrile, no rmal heart rate, normal respiratory rate, mildly hypotensive but saturating 95 on room air. Workup indicated presence of acute pyelonephritis with lactic acid along with acute kidney injury and a right nonobstructing ureteropelvic junction kidney stone. Patient was admitted and started on IV antibiotics with blood and urine cultures ordered. CT scan was ordered which showed possible old lacunar infarcts; thus, follow-up MRI was ordered which showed multiple acute infarcts in the left cerebellar hemisphere. Neurology was consulted for recommendations. Patient did not have any neurologic deficits; however, recommendations were for the patient to start on dual antiplatelet therapy along with high intensity statin. Urology was also consulted for the kidney stone and recommendation was outpatient follow-up. ECHO with bubble study was negative for PFO but there was noted Stage I diastolic dysfunction and EF was 60-65%. Patient did have some right upper quadrant tenderness but ultrasound abdomen was negative for any acute findings. Patient was somewhat hypoxic likely secondary to acutely ill status and required 2 L nasal cannula; however, the following day patient did not require supplemental oxygenation and was symptomatically much improved. Patient will be discharged with the following strict instructions. Please take Aspirin 81mg by mouth daily and Clopidogrel (Plavix) 75mg by mouth daily for Cerebellar infarction/stroke Please take Keflex 500mg by mouth twice a day for 7 days for UTI Please take Lisinopril 10mg by mouth daily for blood pressure Please increase your Pravastatin (cholesterol-lowering) medication to 40mg by mouth nightly Continue taking all your home medications as prescribed Follow-up with Dr. Power (neurology) within 1 week Follow-up with your PCP within 1-2 weeks - Ask for repeat liver function tests Follow-up with Dr. Cao (urology) within 1-2 weeks for 9mm non-obstructive stone in your kidney If your symptoms worsen or if you develop new chest pain, shortness of breath, dizziness or severe headaches - please come back to the ED immediately. Hospital Diagnosis: #Acute left cerebellar infarct # History of meningioma #Acute pyelonephritis #Lactic acidosis type B, resolved #Acute kidney injury on CKD stage IIIA, resolved #Hypoxia, resolved #Elevated liver enzymes #Oja-jcjxzrf-qhwgzztrp type II diabetes mellitus #Grade 1 diastolic dysfunction #Dementia #Hypertension #Hyperlipidemia Ceferino Ruiz, PGY-1 Status at Discharge Overall status at discharge: patient is progressing back to baseline Time Spent with Patient Time attestation: Total time spent providing and/or coordinating discharge services: 45 minutes Time spent: Less than 30 minutes Home Health Home Health Referral Orders: 02/20/25 07:59 Home Health Referral Routine Reason For Exam: CVA Home-Bound The patient must either because of illness or injury, need the aid of supportive devices such as crutches, canes, wheelchairs, and walkers; the use of special transportation; or the assistance of another person in order to leave their place of residence; OR have a condition such that leaving his or her home is medically contraindicated. In addition, the patient also meets the following criteria: patient is normally unable to leave the home and leaving home requires considerable taxing effort. Addendum to Home Health Certification Practitioner's Certification: I certify that the patient has been under my care in the hospital and the care of attending physician (see below). We had a stsg-[id number] encounter on (see date below). My clinical findings indicate that the patient is home bound per the above criteria and the Home Health Services noted in these orders are medically necessary. The primary reason for the iupk-pj-[id number] encounter is related to the fact that the patient requires home health services. Date Certifying Mkgu-gz-Ekzp Physician Encounter: 02/18/25 Physician's Name who will Assume Oversight for Services: Lissette Garcia Physician's Phone No.who will Assume Oversight for Service: SECURITY BUSINESS ANALYST - Community Resources: No PT to Evaluate: Yes PT to evaluate and provide a treatmnet plan to increase patient's mobility and strength. Wound Care: No IV Therapy: No RN Safety Evaluation: Yes RN to evaluate and create a plan of care that will produce positive outcomes. Palliative Treatment: No Palliative treatment and evaluate the need for hospice. Home Health Aide - Personal Care: No Home Health Aide to assist with any ADL's. Exam Vital Signs Temp Pulse Resp BP Pulse Ox O2 Del Method O2 Flow Rate 98.1 F 65 18 140/70 H 91 L Room Air 2 02/21/25 12:02/21/25 12:02/21/25 12:02/21/25 12:02/21/25 12:02/21/25 12:02/21/25 04:00 Narrative Exam Physical Exam: General: Awake, elderly, wearing glasses, appears younger than stated age HEENT: Dry mucous membranes, conjunctiva clear, EOMI, poor dentition. Cardiovascular: Regular rate and rhythm, no M/R/G. Pulmonary: Chest clear to auscultation bilaterally no cough, no wheezing. GI: Mild tenderness to palpation all 4 quadrants, no guarding, rigidity, rebound tenderness or distension. Extremities: No presence of trace or pitting edema in lower extremities bilaterally. Neuro: AAOx2, no focal motor or sensory deficits. Equal strength 5/5 upper and lower extremities. Discharge Plan Plan Patient Disposition: Home w/HOME HEALTH Patient condition on transfer: Stable Care Plan Goals: Please take Aspirin 81mg by mouth daily and Clopidogrel (Plavix) 75mg by mouth daily for Cerebellar infarction/stroke Please take Keflex 500mg by mouth twice a day for 7 days for UTI Please take Lisinopril 10mg by mouth daily for blood pressure Please increase your Pravastatin (cholesterol-lowering) medication to 40mg by mouth nightly Continue taking all your home medications as prescribed Follow-up with Dr. Power (neurology) within 1 week Follow-up with your PCP within 1-2 weeks - Ask for repeat liver function tests Follow-up with Dr. Cao (urology) within 1-2 weeks for 9mm non-obstructive stone in your kidney If your symptoms worsen or if you develop new chest pain, shortness of breath, dizziness or severe headaches - please come back to the ED immediately. Prescriptions/Referrals Prescriptions/Med Rec: New aspirin [Ecotrin Low Strength] 81 mg Tablet,Delayed Release (Dr/Ec) 81 mg PO QDAY 21 Days Qty: 21 0RF clopidogrel 75 mg Tablet 75 mg PO QDAY 21 Days Qty: 21 0RF pravastatin 10 mg Tablet 40 mg PO HS 30 Days Qty: 120 0RF cephalexin 500 mg capsule 500 mg PO BID 7 Days Qty: 14 0RF lisinopril 10 mg tablet 10 mg PO QDAY 30 Days Qty: 30 0RF Continued metformin 500 mg tablet 500 mg PO BID metoprolol succinate [Toprol XL] 25 MG tablet extended release 24 hr 25 mg PO BID Qty: 0 donepezil 5 mg tablet 5 mg PO HS Patient Comments: TAKE 1 TABLET BY MOUTH EVERY DAY AT BEDTIME 30 DAYS Renuka-Casey 0.8 mg tablet 1 tab PO DAILY Patient Comments: TAKE 1 TABLET BY MOUTH EVERY DAY oxybutynin chloride 5 mg tablet 5 mg PO Q12H Patient Comments: TAKE 1 TABLET BY MOUTH TWICE A DAY FOR 90 DAYS fluoxetine 10 mg capsule 10 mg PO DAILY Patient Comments: TAKE 1 CAPSULE BY MOUTH EVERY DAY FOR 30 DAYS Discontinued pravastatin 10 mg tablet 10 mg PO DAILY Patient Comments: TAKE 1 TABLET BY MOUTH EVERY DAY Referrals: Wesley Cao MD [Physician] - No Primary/Family,Physician [Primary Care Provider] - Ulysses Power MD [Physician] - Patient/Caregiver Discharge Instructions Education Materials: Preparing Your Home After Stroke, Understanding Urinary Tract ..., Hypertension Stroke Link, Discharge Instructions for Stroke, Healthy Lifestyle to Prevent ... Print Language: Vietnamese Stand Alone Forms: Letty Award Info., Patient Portal Info Letter Discharge Order Discharge Orders: Discharge (Routine); Ordered 02/21/25 Ordered By: Ceferino Ruiz Quality Discharge Quality Measures VTE prophylaxis MD Attestestation MD Attestation I attest that I was physically present for the evaluation, physical examination, lab and imaging review of the patient with the residents. I discussed the case with the residents and agree with the findings and plans of care as documented above. Komal Stokes MD
--- NOTE | 2025-02-21 16:10 | PC.SS ---
Follow up note: Wean off O2. Pt will return home upon dc.
--- NOTE | 2025-02-21 19:37 | PD.NEUROPROG ---
Documentation for date of: 02/21/25 Exam - Neurology Vital Signs Temp Pulse Resp BP Pulse Ox O2 Del Method O2 Flow Rate 96.8 F 63 15 137/73 H 95 Room Air 2 02/21/25 16:30 02/21/25 16:30 02/21/25 16:30 02/21/25 16:30 02/21/25 16:30 02/21/25 16:30 02/21/25 04:00 Objective Labs 02/21/25 04:37 02/21/25 04:37 Labs: Laboratory Results - last 24 hr 02/21/25 04:37 WBC 9.0 RBC 4.40 Hgb 12.7 Hct 36.5 MCV 83 MCH 28.9 MCHC 34.8 RDW Std Deviation 39.8 Plt Count 91 L Neut % (Auto) 55 Lymph % (Auto) 16 [place] % (Auto) 19 H Eos % (Auto) 3 Baso % (Auto) 1 Neut # (Auto) 5.0 Lymph # (Auto) 1.4 [place] # (Auto) 1.7 H Eos # (Auto) 0.3 Baso # (Auto) 0.1 Immature Gran # (Auto) 0.57 H Absolute Nucleated RBC 0.00 Immature Gran % 6 H Nucleated RBC % 0 Sodium 136 Potassium 3.8 Chloride 99 Carbon Dioxide 24.7 Anion Gap 12 BUN 24 H Creatinine 0.9 Estim Creat Clear Calc 36.3 L eGFR > 60 BUN/Creatinine Ratio 27 H Glucose 173 H Calculated Osmolality 279 Calcium 8.8 Corrected Calcium 9.4 Total Bilirubin 0.9 AST 48 H ALT 129 H Alkaline Phosphatase 218 H D Total Protein 5.8 Albumin 3.2 L Globulin 2.6 Albumin/Globulin Ratio 1.2 ABG Interpretation ABG results: 02/18/25 04:45 ABG pH 7.39 ABG pCO2 29 L ABG pO2 72 L ABG HCO3 18 L ABG O2 Saturation 96 ABG Base Excess -6 L
--- NOTE | 2025-02-22 10:01 | PC.CM ---
Addendum entered by Cortney Castrejon RN 02/22/25 15:28: Kareem will open patient on 02/25. Original Note: I did not see a preference for home health agency so I sent to [facility].
== END 2025-02-21 16:40 | disposition home health service (06) | DRG 871 ==
LOC: SERX 02-18 04:03 → SERHOLD 02-18 04:37 → S2NX 02-18 15:55
PROVIDERS: Nurse Practitioner Family; Admitting Provider Internal Medicine; Emergency Provider Emergency Medicine; Visit Provider Student in an Organized Health Care Education/Training Program
DX: A41.51 Sepsis due to Escherichia coli [E. coli] (principal); I63.542 Cerebral infarction due to unspecified occlusion or stenosis of left cerebellar artery; N10 Acute pyelonephritis; N17.9 Acute kidney failure, unspecified; N12 Tubulo-interstitial nephritis, not specified as acute or chronic; E87.20 Acidosis, unspecified; R18.8 Other ascites; J98.11 Atelectasis; R65.20 Severe sepsis without septic shock; N18.31 Chronic kidney disease, stage 3a; E11.22 Type 2 diabetes mellitus with diabetic chronic kidney disease; R09.02 Hypoxemia; I12.9 Hypertensive chronic kidney disease with stage 1 through stage 4 chronic kidney disease, or unspecified chronic kidney disease; E78.5 Hyperlipidemia, unspecified; F03.90 Unspecified dementia, unspecified severity, without behavioral disturbance, psychotic disturbance, mood disturbance, and anxiety; I35.8 Other nonrheumatic aortic valve disorders; D32.9 Benign neoplasm of meninges, unspecified; N20.0 Calculus of kidney; Z79.84 Long term (current) use of oral hypoglycemic drugs; Z79.899 Other long term (current) drug therapy; Z90.710 Acquired absence of both cervix and uterus; Z90.49 Acquired absence of other specified parts of digestive tract; Z87.440 Personal history of urinary (tract) infections
CPT/HCPCS: 36415; 36600; 70450; 70551; 71046; 71275; 74177; 76700; 76770; 80048; 80053; 80061; 81001; 82010; 82803; 83036; 83605; 83735; 83880; 84145; 84443; 84484; 85025; 85379; 85610; 85652; 85730; 86140; 87040; 87077; 87086; 87186; 87400; 87634; 87811; 92610; 93005; 93306; 93880; 96361; 96365; 96367; 96372; 96375; 99291; A4649; J0696; J1643; J1815; J2470; J2919; J7030; J7050; Q9967; A9270

== ENCOUNTER → 2025-03-05 | Outpatient (CLI) | payer MEDICARE, BC, SELFPAY ==
[2025-03-05 17:11] LABS: Collection Type, Urine Clean Catch
[2025-03-05 17:50] LABS: Amorphous Crystals,Urine Present (Absent); Bacteria,Urine Rare; Bilirubin,Urine Negative (Negative); Blood,Urine Trace (Negative); Clarity,Urine Hazy (Clear/Hazy); Color,Urine Lt-Yellow (Lt Yel-Yel); Culture Indicated,Urine Yes; Glucose, Urine Negative (Negative); Ketones,Urine Negative (Negative); Leukocyte Esterase,Urine Positive (Negative); Nitrite,Urine Negative (Negative); PH,Urine 6.5 (5.0-7.0); Protein,Urine Negative (Neg - Trace); RBC,Urine 7 /hpf (0-3); Specific Gravity,Urine 1.006 (1.001-1.035); Squamous Epithelial Cell,Urine 1 /hpf (0-5); Urobilinogen,Urine Negative mg/dL (0.0-1.0); WBC,Urine 87 /hpf (0-5)
== END | disposition home or self-care (01) ==
PROVIDERS: PCP Family Medicine; Referring Provider Family Medicine; Visit Provider Family Medicine
DX: R30.0 Dysuria (principal); R35.0 Frequency of micturition
CPT/HCPCS: 81001; 87086

== ENCOUNTER → 2025-03-11 | Outpatient (CLI) | payer MEDICARE, BC, SELFPAY ==
[2025-03-11 17:27] LABS: Basophils # (Auto) 0.1 Thou/mm3 (0.0-0.2); Basophils % (Auto) 1 % (0-2.5); Eosinophils # (Auto) 0.7 Thou/mm3 (0.0-0.5); Eosinophils % (Auto) 8 % (0-10); Hematocrit 38.3 % (36.0-46.0); Hemoglobin 12.7 g/dL (12.0-16.0); Immature Granulocytes % (Auto) 1 % (0-0); Immature Granulocytes Auto 0.12 Thou/mm3 (0.00-0.00); Lymphocytes # (Auto) 2.2 Thou/mm3 (1.0-4.8); Lymphocytes % (Auto) 26 % (10-50); Mean Corpuscular HGB Conc 33.2 g/dl (31.0-37.0); Mean Corpuscular Volume 85 fL (80-100); Monocytes # (Auto) 0.9 Thou/mm3 (0.0-0.8); Monocytes % (Auto) 11 % (0-12); Neutrophils # (Auto) 4.4 Thou/mm3 (1.8-7.7); Neutrophils % (Auto) 53 % (37-80); Nucleated Red Blood Cell % 0 /100 WBC (0); Platelet Count 444 Thou/mm3 (140-440); RDW Standard Deviation 42.6 fL (36.4-46.3); Red Blood Count 4.53 Miln/mm3 (4.00-5.20); White Blood Count 8.4 Thou/mm3 (3.6-11.0)
[2025-03-11 17:52] LABS: Alanine Aminotransferase 17 U/L (10-49); Albumin/Globulin Ratio 1.3 (1.2-2.2); Alkaline Phosphatase 94 U/L (46-116); Anion Gap 9 (7-16); Aspartate Amino Transferase 18 U/L (0-34); BUN/Creatinine Ratio 13 Ratio (12-20); Bilirubin,Total 0.4 mg/dL (0.3-1.2); Blood Urea Nitrogen 13 mg/dL (9-23); Calcium 9.4 mg/dL (8.3-10.6); Calcium (Corrected) 9.4 mg/dL (8.5-10.1); Carbon Dioxide 24.6 mMol/L (20.0-31.0); Chloride 100 mMol/L (98-107); Glucose 128 mg/dL (74-106); Osmolality,Calculated 270 (275-295); Potassium 4.4 mMol/L (3.4-5.1); Sodium 134 mMol/L (136-145); eGFR 55 See Note
[2025-03-11 17:59] LABS: Glucose Estimated Average 137 mg/dL (80-131); Hemoglobin A1C 6.4 % Hgb (4.8-6.0)
== END | disposition home or self-care (01) ==
LOC: COPL 16:26
PROVIDERS: PCP Family Medicine; Referring Provider Family Medicine; Visit Provider Family Medicine
DX: I10 Essential (primary) hypertension (principal); I63.9 Cerebral infarction, unspecified; N17.9 Acute kidney failure, unspecified
CPT/HCPCS: 36415; 80053; 83036; 85025

== ENCOUNTER → 2025-03-17 | Outpatient (CLI) | payer MEDICARE, BC, SELFPAY ==
--- NOTE | 2025-03-17 14:14 | XR_ITS ---
Examination: PA lateral chest 2 views TECHNIQUE: Upright PA lateral chest 2 views Exam date and time: March 17, 2025 1447 hours Comparison February 17, 2025 INDICATIONS: Shortness of breath beginning 2 weeks ago. FINDINGS: Moderate hyperexpansion Normal heart size Scarring versus mild pneumonia lingular segment left upper lobe Prominent osteopenia IMPRESSION: Scarring versus mild pneumonia lingular segment left upper lobe, clinical correlation advised and follow-up recommended
== END | disposition home or self-care (01) ==
LOC: CDIM 14:08
PROVIDERS: PCP Family Medicine; Referring Provider Family Medicine; Visit Provider Family Medicine
DX: R91.8 Other nonspecific abnormal finding of lung field (principal)
CPT/HCPCS: 71046

== ENCOUNTER → 2025-04-10 | Outpatient (CLI) | payer MEDICARE, BC, SELFPAY ==
[2025-04-10 09:19] LABS: Collection Type, Urine Clean Catch
[2025-04-10 11:00] LABS: Bacteria,Urine Rare; Bilirubin,Urine Negative (Negative); Blood,Urine Trace (Negative); Color,Urine Lt-Yellow (Lt Yel-Yel); Glucose, Urine Negative (Negative); Ketones,Urine Negative (Negative); Leukocyte Esterase,Urine Positive (Negative); Nitrite,Urine Negative (Negative); Protein,Urine Negative (Neg - Trace); RBC,Urine 20 /hpf (0-3); Specific Gravity,Urine 1.007 (1.001-1.035); Squamous Epithelial Cell,Urine < 1 /hpf (0-5); Urobilinogen,Urine Negative mg/dL (0.0-1.0); WBC,Urine 91 /hpf (0-5)
[2025-04-10 11:09] LABS: Clarity,Urine Hazy (Clear/Hazy); Culture Indicated,Urine Yes
== END | disposition home or self-care (01) ==
LOC: SLDO 09:12
PROVIDERS: Referring Provider Family Medicine; Visit Provider Family Medicine
DX: R35.0 Frequency of micturition (principal)
CPT/HCPCS: 81001; 87077; 87086; 87186

== ENCOUNTER → 2025-05-23 | Outpatient (BNVA) | payer MEDICARE, BC, SELFPAY | END | disposition home or self-care (01) | PROVIDERS: PCP Family Medicine; Referring Provider Family Medicine; Visit Provider Urology | DX: N20.0 Calculus of kidney (principal); N28.9 Disorder of kidney and ureter, unspecified; E78.5 Hyperlipidemia, unspecified; I12.9 Hypertensive chronic kidney disease with stage 1 through stage 4 chronic kidney disease, or unspecified chronic kidney disease; N18.31 Chronic kidney disease, stage 3a; Z86.73 Personal history of transient ischemic attack (TIA), and cerebral infarction without residual deficits; K21.9 Gastro-esophageal reflux disease without esophagitis | CPT/HCPCS: 81003; 99212; G0463 ==

== ENCOUNTER 2025-05-28 09:56 | Inpatient (IN) | payer MEDICARE, BC, SELFPAY ==
[2025-05-28 09:56] VITALS: BMI 21.0
[2025-05-28 10:09] VITALS: BP 138/81; PULSE 66; RESP 18; TEMP 36.9; O2SAT 99
--- NOTE | 2025-05-28 10:14 | EKG_ITS ---
[facility] Test Date: 2025-05-28 Pat Name: GISELA DALE Department: Room: - Gender: Female Campground Caretaker: : 1940 Requested By: Gopal Diane Order Number: [id number] Reading MD: Gopal Diane Measurements Intervals [place] Rate: 66 P: 54 MN: 144 QRS: -40 QRSD: 78 T: 70 QT: 399 QTc: 421 Interpretive Statements SINUS RHYTHM LEFT AXIS DEVIATION [QRS AXIS < -30] MINIMAL ST DEPRESSION [0.025+ mV ST DEPRESSION] Compared to ECG 02/17/2025 16:42:23 Left-axis deviation now present ST (T wave) deviation now present /store/S0/[id number]/ecg/[id number].pdf
--- NOTE | 2025-05-28 10:14 | XR_ITS ---
Examination: CT abdomen and pelvis without contrast. Coronal 3-D reconstructions. Sagittal 2-D reconstructions. Date and time of exam:May 28, 2025 1019 hours Comparison February 18, 2025 INDICATIONS: Right lower abdominal pain nausea vomiting today, history 9 mm calculus in the right renal pelvis on CT study February 18, 2025 CTDI: vol (mGy): 5.60 DLP: (mGycm): 298 Technique: Axial images of the abdomen have been obtained, 3 mm slice thickness Intravenous contrast material has not been administered. Low dose protocols were performed. One or more of the following dose reduction techniques were used; automated exposure control, adjustment of the mA and/or KV according to patient size, use of iterative reconstruction technique. Findings: No focal liver or splenic lesions No gallstones No pancreatic mass Moderate right hydronephrosis, 6 mm mid right ureteral calculus Heavy abdominal aortic calcification No bowel obstruction No pericecal inflammatory change No bladder mass or bladder calculi IMPRESSION: Moderate right hydronephrosis, 6 mm mid right ureteral calculus
--- NOTE | 2025-05-28 10:14 | XR_ITS ---
Examination: PA lateral chest 2 views TECHNIQUE: Upright PA lateral chest 2 views Date and time: May 28, 2025 1031 hours Comparison March 17, 2025 INDICATIONS: Shortness of breath today. FINDINGS: Normal heart size No lobar pneumonia or pulmonary edema Mild accentuation bronchovascular markings IMPRESSION: Bronchitis pattern
--- NOTE | 2025-05-28 10:15 | PD.EDRME ---
Rapid Medical Screening Exam E Arrival date/time: 05/28/25 09:56 84-year-old female with a history of hypertension, type 2 diabetes, hyperlipidemia presents to the emergency room with a chief complaint of right sided flank pain and right lower quadrant abdominal pain that is a 10 out of 10 in severity. Patient is having shortness of breath, nausea. I have greeted and performed a focused initial assessment of this patient. A comprehensive ED assessment and evaluation of the patient, analysis of all test results, and completion of the medical decision making process will be conducted by additional ED providers. Chief Complaint: Nausea/Vomiting/Diarrhea Vital signs: Vital Signs Temperature 98.5 F 05/28/25 10:09 Pulse Rate 66 05/28/25 10:09 Respiratory Rate 18 05/28/25 10:09 Blood Pressure 138/81 H 05/28/25 10:09 Pulse Oximetry (%) 99 05/28/25 10:09 Oxygen Delivery Method Room Air 05/28/25 10:09 Vital signs reviewed by provider: Yes
[2025-05-28 11:05] LABS: Basophils # (Auto) 0.1 Thou/mm3 (0.0-0.2); Basophils % (Auto) 0 % (0-2.5); Eosinophils # (Auto) 0.0 Thou/mm3 (0.0-0.5); Eosinophils % (Auto) 0 % (0-10); Hematocrit 44.5 % (36.0-46.0); Hemoglobin 15.6 g/dL (12.0-16.0); Immature Granulocytes Auto 0.11 Thou/mm3 (0.00-0.00); Lymphocytes # (Auto) 0.9 Thou/mm3 (1.0-4.8); Lymphocytes % (Auto) 5 % (10-50); Mean Corpuscular HGB Conc 35.1 g/dl (31.0-37.0); Mean Corpuscular Hemoglobin 29.0 pg (25.0-35.0); Mean Corpuscular Volume 83 fL (80-100); Monocytes # (Auto) 1.2 Thou/mm3 (0.0-0.8); Monocytes % (Auto) 6 % (0-12); Neutrophils # (Auto) 17.0 Thou/mm3 (1.8-7.7); Neutrophils % (Auto) 88 % (37-80); Nucleated Red Blood Cell # 0.00 Thou/mm3 (0.00-0.00); Nucleated Red Blood Cell % 0 /100 WBC (0); Platelet Count 244 Thou/mm3 (140-440); RDW Standard Deviation 41.5 fL (36.4-46.3); Red Blood Count 5.38 Miln/mm3 (4.00-5.20); White Blood Count 19.3 Thou/mm3 (3.6-11.0)
[2025-05-28 11:22] LABS: B-Type Natriuretic Peptide 198 pg/mL (0-100)
[2025-05-28 11:25] LABS: Alanine Aminotransferase 19 U/L (10-49); Albumin, Serum 4.4 gm/dL (3.4-4.8); Albumin/Globulin Ratio 1.3 (1.2-2.2); Alkaline Phosphatase 70 U/L (46-116); Anion Gap 15 (7-16); Aspartate Amino Transferase 47 U/L (0-34); BUN/Creatinine Ratio 12 Ratio (12-20); Bilirubin,Total 1.3 mg/dL (0.3-1.2); Blood Urea Nitrogen 14 mg/dL (9-23); Calcium 9.5 mg/dL (8.3-10.6); Calcium (Corrected) 9.5 mg/dL (8.5-10.1); Carbon Dioxide 18.1 mMol/L (20.0-31.0); Chloride 92 mMol/L (98-107); Creatinine (Component) 1.2 mg/dL (0.6-1.3); Estimated Creatinine Clearance 26.6 mL/min (>60); Globulin 3.4 gm/dL (2.3-3.5); Glucose 214 mg/dL (74-106); Lipase 48 U/L (12-53); Osmolality,Calculated 258 (275-295); Potassium 5.0 mMol/L (3.4-5.1); Sodium 125 mMol/L (136-145); Total Protein 7.8 gm/dL (5.7-8.2); Troponin I < 0.002 ng/mL (0.0-0.045); eGFR 44 See Note
[2025-05-28] MEDS: KETOROLAC INJ 30 MG/ML VIAL IM (11:31)
[2025-05-28 11:39] LABS: Collection Type, Urine Clean Catch
[2025-05-28 11:51] LABS: Bacteria,Urine 1+; Bilirubin,Urine Negative (Negative); Blood,Urine 1+ (Negative); Color,Urine Yellow (Lt Yel-Yel); Glucose, Urine Negative (Negative); Ketones,Urine 1+ (Negative); Leukocyte Esterase,Urine Positive (Negative); Nitrite,Urine Negative (Negative); PH,Urine 6.5 (5.0-7.0); Protein,Urine 2+ (Neg - Trace); RBC,Urine 61 /hpf (0-3); Specific Gravity,Urine 1.013 (1.001-1.035); Squamous Epithelial Cell,Urine 6 /hpf (0-5); Urobilinogen,Urine Negative mg/dL (0.0-1.0); WBC,Urine 826 /hpf (0-5)
[2025-05-28 12:01] LABS: Clarity,Urine Cloudy (Clear/Hazy)
[2025-05-28 14:47] VITALS: BP 133/69; PULSE 69; RESP 16; TEMP 36.9; O2SAT 97
--- NOTE | 2025-05-28 15:44 | EDNOTE_ITS ---
ED Abdominal Pain RME/HPI General Chief Complaint: Nausea/Vomiting/Diarrhea Stated complaint: VOMITING, PAIN ABD RLQ Arrival date/time: 05/28/25 09:56 RME / HPI RME / HPI narrative: 05/28/25 09:56 84-year-old female with a history of hypertension, type 2 diabetes, hyperlipidemia presents to the emergency room with a chief complaint of right sided flank pain and right lower quadrant abdominal pain that is a 10 out of 10 in severity. Patient is having shortness of breath, nausea. I have greeted and performed a focused initial assessment of this patient. A comprehensive ED assessment and evaluation of the patient, analysis of all test results, and completion of the medical decision making process will be conducted by additional ED providers. DR. SHANNON MAIN ED EVALUATION 84 year old female with history of CVA, meningioma, hypertension, diabetes, hyperlipidemia presents to the ED for evaluation of right flank pain today. Describes the pain as colicky in nature, beginning in the right flank and radiat ing to the right lower abdomen. Rated as 8/10 in severity and is associated with nausea and vomiting. Patient reports a recent diagnosis of a right-sided kidney stone and was seen by urologist Dr. Cao three days ago. She is scheduled to undergo lithotripsy next week. In the meantime, she was prescribed Macrobid. Daughter states that the patient was scheduled to follow up with a under trimmer today for pre-procedure clearance but missed the appointment due to worsening pain. Patent denies fevers, chills, or night sweats. Denies chest pain, cough, or shortness of breath. No diarrhea or constipation reported. Related Data Home Medications ?Medication ?Instructions ?Recorded ?Confirmed metoprolol succinate 25 mg 25 mg PO BID ##0 08/04/17 0 05/23/25 tablet,extended release 24 hr (Toprol XL) metformin 500 mg tablet 500 mg PO BID 03/28/2305/23 donepezil 5 mg tablet 5 mg PO HS 09/12/23 05/23/25 vitamin B complex-vitamin C-folic 1 tab PO DAILY 09/1205/23/25 acid 0.8 mg tablet (Renuka-Casey) fluoxetine 10 mg capsule 10 mg PO DAILY 02/18/2504/28 oxybutynin chloride 5 mg tablet 5 mg PO Q12H 02/18/25 05/23/25 amlodipine 5 mg tablet 5 mg PO QDAY 05/23/25 aspirin 81 mg tablet 81 mg PO QDAY 05/23/2505/23 clopidogrel 75 mg tablet 75 mg PO QDAY 05/23/2505/23 lisinopril 10 mg tablet 10 mg PO QDAY 05/23/2505/23 nitrofurantoin macrocrystal 50 mg 50 mg PO QDAY 05/23/25 capsule pravastatin 40 mg tablet 40 mg PO QDAY 05/23/2505/23 Allergies Allergy/AdvReac Type Severity Reaction Status Date / Time No Known Allergies Allergy Verified 05/28/25 09:58 Review of Systems Review of Systems Systems Reviewed: All systems reviewed, normal except as documented Past Medical History Past Medical History NEUROLOGIC: Positive Dementia CARDIAC: Positive Cardiac Disorders, Hypercholesterolemia and Hypertension GASTROINTESTINAL: Positive Gastroesophageal Reflux Disease MUSCULOSKELETAL: Positive Musculoskeletal Disorders, Arthritis and Fractures ENDOCRINE: Positive Diabetes Mellitus Type 2 PSYCHO/SOCIAL: Positive Depression OTHER HISTORY: Positive Hospitalization, Falls and Chicken Pox Family History FAMILY HISTORY: Positive Family Cardiac Disorders and Family Cancer Surgical History SURGICAL: Positive Hysterectomy Social History SMOKING STATUS: Never smoker SECOND HAND EXPOSURE: No SUBSTANCE USE: does not use ED Exam Narrative Physical exam: GENERAL APPEARANCE: alert and oriented x 4, well-developed, well-nourished, no acute distress HEENT: Normocephalic, atraumatic; pupils equal, round, reactive to light; EOMI; mucous membranes pink, moist; oropharynx clear NECK: Supple LUNGS: CTABL; no wheezes, no rales, no rhonchi HEART: Regular rate, regular rhythm; normal S1, S2; no murmurs ABDOMEN: non distended; normal BS; soft, right flank tenderness, no guarding, no rebound; no masses, no organomegaly, no hernia BACK: no CVA tenderness EXTREMITIES: atraumatic; no edema NEUROLOGIC: awake; alert and oriented x4; cranial nerves II-XII grossly intact; no focal sensory or motor deficits PSYCHIATRIC: appropriate mood and affect SKIN: warm, dry, normal color; no rashes Course Quality Measures Current suspected stage: sepsis Possible source: genitourinary Blood cultures ordered: completed in ED Antibiotic ordered: Yes Pertinent labs: 05/28/25 15:56 Lactic Acid 5.7 H* mMol/L (0.4-2.0) Procalcitonin 5.83 H ng/ml (0.0-0.49) sepsis Orders Category Date Time Status EKG (ED ONLY) *Do not use* NOW Care 05/28/25 10:14 Completed Consult to Urology Stat Cons 05/28/25 16:01 Active Referral - [employer] Operator Stat Cons 05/28/25 15:[address] abdomen pelvis wo con Stat Exams 05/28/25 10:14 Completed EKG (ED Only) Stat Exams 05/28/25 10:14 Draft IR nephrostomy Stat Exams 05/28/25 Ordered XR chest 2V Stat Exams 05/28/25 10:14 Completed BNP [B-Type Natriuretic Peptide] Stat Lab 05/28/25 10:53 Completed Blood Culture (Lab) Stat Lab 05/28/25 16:02 Received CBC Stat Lab 05/28/25 10:53 Completed CMP [Comprehensive Metabolic Panel] Stat Lab 05/28/25 10:53 Completed Lactate (Lactic Acid) Stat Lab 05/28/25 15:56 Results Lipase Stat Lab 05/28/25 10:53 Completed Procalcitonin Stat Lab 05/28/25 15:56 Completed Troponin I Stat Lab 05/28/25 10:53 Completed UA [Urinalysis] Stat Lab 05/28/25 11:20 Completed Urine Culture Stat Lab 05/28/25 11:20 Received Ketorolac Inj [Toradol Inj] Med 05/28/25 10:14 Discontinued 30 mg IM X1 ONE Sodium Chloride 0.9% 1000 ml [Ns] 1,000 ml Med 05/28/25 16:02 Discontinued IV 999 mls/hr cefTRIAXone/D5w 1gm IV premix [Rocephin/D5w 1gm IV Med 05/28/25 15:31 Discontinued premix] 1 gm in 50 ml IV X1 Vital Signs Vital signs: Vital Signs Temperature 98.5 F 05/28/25 10:09 Pulse Rate 66 05/28/25 10:09 Respiratory Rate 18 05/28/25 10:09 Blood Pressure 138/81 H 05/28/25 10:09 Pulse Oximetry (%) 99 05/28/25 10:09 Oxygen Delivery Method Room Air 05/28/25 10:09 Pulse ox is 99% on room air which is adequate. Abdominal Pain MDM MDM Narrative MDM Narrative:: I, Arlene Barrera, am scribing for and in the presence of Dr. Shannon. Patient data External records reviewed:: [facility] previous records (I reviewed admission from 02/18/2025 through 02/21/2025) Clinical information provided by:: patient Social determinants that could affect healthcare access:: none Patient has the following chronic illnesses:: CVA, meningioma, hypertension, diabetes, hyperlipidemia How is presenting disease/condition affected by chronic disease/condition?: exacerbated by Evaluation data The following diagnostics were reviewed and interpreted by me:: lab results, radiology exam(s) and EKG tracing(s) Lab and/or radiology exams considered but not ordered:: None Interpretation Summary: Ordering Physician: Gopal Gaviria Date of Service: 05/28/25 Procedure(s): CT abdomen pelvis wo con Accession Number(s): [id number] cc: Gopal Gaviria; Keenan Harrison MD; NO PRIMARY/FAMILY,PHYSICIAN~ Examination: CT abdomen and pelvis without contrast. Coronal 3-D reconstructions. Sagittal 2-D reconstructions. Date and time of exam:May 28, 2025 1019 hours Comparison February 18, 2025 INDICATIONS: Right lower abdominal pain nausea vomiting today, history 9 mm calculus in the right renal pelvis on CT study February 18, 2025 CTDI: vol (mGy): 5.60 DLP: (mGycm): 298 Technique: Axial images of the abdomen have been obtained, 3 mm slice thickness Intravenous contrast material has not been administered. Low dose protocols were performed. One or more of the following dose reduction techniques were used; automated exposure control, adjustment of the mA and/or KV according to patient size, use of iterative reconstruction technique. Findings: No focal liver or splenic lesions No gallstones No pancreatic mass Moderate right hydronephrosis, 6 mm mid right ureteral calculus Heavy abdominal aortic calcification No bowel obstruction No pericecal inflammatory change No bladder mass or bladder calculi IMPRESSION: Moderate right hydronephrosis, 6 mm mid right ureteral calculus Dictated By: Keenan Harrison MD Signed By: <Electronically signed by Keenan Harrison MD in [place]> 05/28/25 1132 Ordering Physician: Gopal Gaviria Date of Service: 05/28/25 Procedure(s): XR chest 2V Accession Number(s): [id number] cc: Gopal Gaviria; Keenan Harrison MD; NO PRIMARY/FAMILY,PHYSICIAN~ Examination: PA lateral chest 2 views TECHNIQUE: Upright PA lateral chest 2 views Date and time: May 28, 2025 1031 hours Comparison March 17, 2025 INDICATIONS: Shortness of breath today. FINDINGS: Normal heart size No lobar pneumonia or pulmonary edema Mild accentuation bronchovascular markings IMPRESSION: Bronchitis pattern Dictated By: Keenan Harrison MD Signed By: <Electronically signed by Keenan Harrison MD in [place]> 05/28/25 1113 Medications / Prescriptions Medications or Prescriptions considered but not ordered:: None Medication administrations:: Medication Administration History Acetaminophen (Acetaminophen 325 Mg Tablet) 650 mg PO Q6H PRN PRN Reason: Mild Pain 1-3 or Fever >100.3 Stop: 06/27/25 16:29 Hydrocodone Bitart/Acetaminophen (Hydrocodone/Apap 5/325 Tablet) 1 tab PO Q4HR PRN PRN Reason: PAIN SCALE 4-6 (Moderate Stop: 06/02/25 16:34 Dextrose (Dextrose 50%-Water Inj 50 Ml Syringe) 25 ml IV Q15MIN PRN PRN Reason: BG 50-70 responsive npo pt Stop: 06/27/25 16:34 Dextrose (Dextrose 50%-Water Inj 50 Ml Syringe) 50 ml IV Q15MIN PRN PRN Reason: BG <50 OR BG <70 & pt unresponsive Stop: 06/27/25 16:34 Glucagon (Glucagon Inj 1 Mg Vial) 1 mg IM Q15MIN PRN PRN Reason: BG <70, and no IV access Piperacillin/Tazobactam/Dextrose (Zosyn) 3.375 gm in 50 mls @ 12.5 mls/hr IV Q8HR [facility] [place] Stop: 06/04/25 21:59 Insulin Human Lispro (Insulin Lispro (Admelog) 1 Unit/0.01 Ml Unit) 0 unit SC Q6HR GERHARD; Protocol Stop: 06/27/25 17:59 Morphine Sulfate (Morphine Sulf Inj 10 Mg/Ml Vial) 2 mg IVP Q2H PRN PRN Reason: PAIN SCALE 7-10 (Severe Stop: 06/02/25 16:34 Ondansetron HCl (Ondansetron Inj 2 Mg/Ml Inj 2 Ml) 4 mg IVP Q6H PRN; Protocol PRN Reason: NAUSEA OR VOMITING Stop: 06/27/25 16:34 Pantoprazole Sodium (Pantoprazole Inj 40 Mg Vial) 40 mg IVP QDAY [facility] [place] Stop: 06/27/25 17:59 Pharmacy Consult (Pharmacy To Consult Patient) 1 each XX PRN PRN PRN Reason: CONSULT Stop: 06/27/25 16:42 Discontinued Medications Ceftriaxone Sodium/Dextrose (Rocephin/D5w 1gm Iv Premix) 1 gm in 50 mls @ 100 mls/hr IV X1 ONE Stop: 05/28/25 16:00 Last Infusion: 05/28/25 17:00 Dose: Infused Documented By: Admin: 05/28/25 16:27 Dose: 100 mls/hr Documented By: ASHLY Sodium Chloride (Ns) 1,000 mls @ 999 mls/hr IV .Q1H1M ONE Stop: 05/28/25 17:02 Last Infusion: 05/28/25 17:30 Dose: Infused Documented By: Admin: 05/28/25 16:27 Dose: 999 mls/hr Documented By: ASHLY Sodium Chloride (Ns) 1,000 mls @ 75 mls/hr IV .[id number] [facility] [place] Stop: 06/27/25 18:59 Lactated Ringer's (Lactated Ringers) 1,000 mls @ 999 mls/hr IV .Q1H1M ONE Stop: 05/28/25 17:42 Piperacillin/Tazobactam/Dextrose (Zosyn) 3.375 gm in 50 mls @ 100 mls/hr IV X1 ONE Stop: 05/28/25 17:29 Ketorolac Tromethamine (Ketorolac Inj 30 Mg/Ml Vial) 30 mg IM X1 ONE Stop: 05/28/25 10:15 Last Admin: 05/28/25 11:31 Dose: 30 mg Documented By: GM See above Consultations Consultation(s) initiated? (list below): Yes Consultation #1 (Physician, Specialty, Details): I spoke with patients urologist Dr. Cao. Discussed patients PMHx, HPI, ED course, exam findings, labs, and radiology results. Requesting IR to place a percutaneous nephrostomy tube and he agrees to consult. States he will see the patient tomorrow. Time: 15:50 Consultation #2 (Physician, Specialty, Details): I spoke with IR Dr. Harrison. Discussed patients PMHx, HPI, ED course, radiology results and Dr. Cao request for percutaneous nephrostomy. States he is able to place nephrostomy tube. Time: 15:53 Diagnosis Differential diagnosis abdominal pain: abdominal pain, calculus of kidney and other (UTI, pyelonephritis ) Most likely diagnosis given after review of the tests above:: Hydronephrosis Admission Indicated Admission indicated?: indicated Admission Request Was there a request for admission?: Yes Admission Attestation Admission request attestation: Discussed case with [] from Hospitalist service regarding admission. Discussed patients ED course, exam findings, labs, and radiology results. The Hospitalist [agrees,declines] to accept the patient for admission. Disposition Plan Disposition Plan: Admit Discharge Plan Plan Patient Disposition: Admit Acute Care w/in Hospital Problem List Clinical Impression: Hydronephrosis
--- NOTE | 2025-05-28 16:17 | PC.CM ---
1600 ED charge nurse let me know during our bed meeting the transfer has been canceled. 1530 I received a referral to transfer patient for urology services for hydronephrosis.
[2025-05-28 16:20] LABS: Lactate (Lactic Acid) 5.7 mMol/L (0.4-2.0)
[2025-05-28] MEDS: cefTRIAXone/D5w 1gm IV premix 1 GM/50 ML BAG IV (16:27)
[2025-05-28] MEDS: SODIUM CHLORIDE 0.9% 1000 ML 1,000 ML 999 ML IV (16:27)
[2025-05-28 16:41] LABS: Procalcitonin 5.83 ng/ml (0.0-0.49)
[2025-05-28 17:05] VITALS: BP 109/47; PULSE 709; RESP 18; TEMP 37.5; O2SAT 94
[2025-05-28 17:20] VITALS: PULSE 79; RESP 22; RESP 94
--- NOTE | 2025-05-28 18:00 | PD.RESHP ---
Documentation for date of: 05/28/25 [facility] History of Present Illness History of present illness: cc: vomting Patient is an 84-year-old female with history of CVA-acute left cerebellar infarct, history of meningioma, hypertension, hyperlipidemia, diabetes mellitus type 2 [id number], grade 1 diastolic dysfunction and dementia. Patient to the emergency room with chieft complain of nausea and emsis. Right lower quadrant pain. Pain is sharp 10/10 and radiates to the lower back. Complaining of flank pain and costoverterbral angle tenderness.Denied fever or chills at home. Denied hematuria. Patient recently followed up with Dr. Cao in the outpatient setting to discuss cystoscopy retrograded uteroscope with lithotripsy. ER Course: Vitals: BP 138/81, HR 66, RR 18 WBC 19.3 Na 125, chloride 92, bicarbo 18.1, anion gap 15 BUN 14, Cr 1.2, GFR 44 (CKD ?) Lactic Acid 5.7 UA cloudy, RBC 61, WBC 826, positive esterase medication: ceftriaxone, NS 1 (ER) & LR bolus after admission LR @ 75 after admission PMHx: As above Surgeries: Hysterectomy Meds: Donezepil 10 mg at bedtime, metformin 500 mg twice daily, metoprolol tartrate 25 mg twice daily, pravastatin 10 mg, losartan 50 mg, Allergies: No known allergies Family Hx: Limited Social Hx: NO smoking or IV/oral drug use. denied alcohol use Review of Systems Review of Systems Narrative Review of Systems: General appearance: NO weight change, NO fatigue, NO weakness, NO fever, NO chills, NO night sweats, No cough Skin: NO rash, NO itching, NO sores, NO moles HEENT: NO Trauma, NO nausea, NO vomiting, NO visual changes, NO blurry vision, NO double vision, NO tinnitus, NO vertigo, NO ear discharge, NO rhinorrhea, NO stuffiness, NO sneezing, NO allergy, NO epistaxis. NO Hoarseness, NO sore throat, NO swollen neck. Cardiac: NO Palpitations, NO dyspnea on exertion, NO orthopnea, NO paroxysmal nocturnal dyspnea, NO edema Respiratory: NO Shortness of Breath, NO Wheezing, NO Cough, NO Sputum, NO hemoptysis GI:NO appetite, YES nausea, YES vomiting, NO dysphagia, NO changes in bowel frequency, NO stool color, NO diarrhea, NO constipation, NO hemetemesis, NO hemorrhoids, NO melena, NO hematechezia, NO abdominal pain, NO jaundice Renal: Dysuria, NO frequency, NO hesitancy, NO urgency, NO hematuria, NO nocturia, YES incontinence but history of incontinence, Flank pain MSK: NO muscle weakness, NO gout, NO arthritis, NO muscle stiffness Neuro: NO headaches, NO tremors, NO weakness, NO paralysis, NO seizures, NO loss of consciousness, NO numbness. Hem: NO anemia, NO easy bruising/bleeding, NO petechiae, NO purpura Endo: NO heat/cold intolerance, NO excessive sweating, NO polyuria, NO polydipsia, NO polyphagia, NO thyroid problems, yES diabetes Pysch: NO mood, NO anxiety, NO depression Exam Vital Signs Temp Pulse Resp BP Pulse Ox O2 Del Method 98.2 F 77 22 H 113/56 L 92 L Room Air 05/29/25 00:00 05/29/25 04:00 05/29/25 03:05/29/25 00:00 05/29/25 00:00 05/29/25 00:00 Narrative Exam General Appearance: Alert & Oriented X3, well-nourished female who is lying in bed in mild discomfort secondary to flank pain. HEENT: Skull symmetrical and atraumatic. Conjunctivae pink and moist. Pupils equal, round, reactive to light and accommodation (PERRL). External ear without lesion or discharge. Straight, nares patient, mucosa pink, no discharge. No thyroid nodule appreciated. No cervical lymphadenopathy. Cardio: Normal Rate and Rhythm with S1 and S2 heart sounds. possible murmur noted on mitral area. No bruits on carotid auscultation. No peripheral edema or cyanosis. Lungs: Symmetric with good expansion. Breath sounds vesicular without crackles, wheezing or rhonchi Abdomen: Non-tender, Non-distended, Normal Reactive Bowel Sounds. Denied supra-pubic tenderness, costovertebral tenderness, worse on right side. Neuro: Alert, cooperative, oriented to person, place, and time. Speech clear. CN grossly intact. Upper motor strength 5/5 and Lower motor strength 5/5. Sensation intact. Results: Labs 05/28/25 10:53 05/28/25 10:53 Labs: Short CBC 05/28/25 Range/Units 10:53 WBC 19.3 H (3.6-11.0) Thou/mm3 Hgb 15.6 (12.0-16.0) g/dL Hct 44.5 (36.0-46.0) % Plt Count 244 (140-440) Thou/mm3 BMP 05/28/25 10:53 Sodium 125 L Potassium 5.0 Chloride 92 L Carbon Dioxide 18.1 L BUN 14 Creatinine 1.2 Glucose 214 H Calcium 9.5 Cardiac Enzymes 05/28/25 Range/Units 10:53 Troponin I < 0.002 (0.0-0.045) ng/mL Liver Function 05/28/25 Range/Units 10:53 Total Bilirubin 1.3 H (0.3-1.2) mg/dL AST 47 H (0-34) U/L ALT 19 (10-49) U/L Alkaline Phosphatase 70 (46-116) U/L Albumin 4.4 (3.4-4.8) gm/dL Urine 05/28/25 Range/Units 11:20 Urine Color Yellow (Lt Yel-Yel) Urine Clarity Cloudy A (Clear/Hazy) Urine pH 6.5 (5.0-7.0) Ur Specific [place] 1.013 (1.001-1.035) Urine Protein 2+ A (Neg - Trace) Urine Glucose (UA) Negative (Negative) ABG Interpretation ABG results: 05/28/25 20:17 ABG pH 7.39 ABG pCO2 21 L ABG pO2 78 L ABG HCO3 13 L ABG O2 Saturation 97 ABG Base Excess -10 L Quality Measures Quality Measures VTE prophylaxis (SCDs only) Advance care planning discussed with:: patient and child Medications Home Medications and Allergies Home Medications ?Medication ?Instructions ?Recorded ?Confirmed ?Type metformin 500 mg tablet 1,000 mg PO QDAY 03/28/23 05/28/25 History donepezil 5 mg tablet 5 mg PO HS 09/12/23 05/28/25 History vitamin B complex-vitamin C-folic 1 tab PO DAILY 09/12/23 05/28/25 History acid 0.8 mg tablet (Renuka-Casey) fluoxetine 10 mg capsule 20 mg PO DAILY 02/18/25 05/28/25 History oxybutynin chloride 5 mg tablet 5 mg PO QDAY 02/18/25 05/28/25 History amlodipine 5 mg tablet 5 mg PO QDAY 05/23/25 05/28/25 History aspirin 81 mg tablet 81 mg PO QDAY 05/23/25 05/28/25 History clopidogrel 75 mg tablet 75 mg PO QDAY 05/23/25 05/28/25 History lisinopril 10 mg tablet 10 mg PO QDAY 05/23/25 05/28/25 History nitrofurantoin macrocrystal 50 mg 50 mg PO QDAY 05/23/25 05/28/25 History capsule pravastatin 40 mg tablet 40 mg PO QDAY 05/23/25 05/28/25 History metoprolol tartrate 25 mg tablet 25 mg PO QDAY 05/28/25 05/28/25 History Allergies Allergy/AdvReac Type Severity Reaction Status Date / Time No Known Allergies Allergy Verified 05/28/25 09:58 Visit Medications Acetaminophen (Acetaminophen 325 Mg Tablet) 650 mg PO Q6H PRN PRN Reason: Mild Pain 1-3 or Fever >100.3 Stop: 06/27/25 16:29 Hydrocodone Bitart/Acetaminophen (Hydrocodone/Apap 5/325 Tablet) 1 tab PO Q4HR PRN PRN Reason: PAIN SCALE 4-6 (Moderate Stop: 06/02/25 16:34 Amlodipine Besylate (Amlodipine Besylate 5 Mg Tablet) 5 mg PO QDAY [facility] Stop: 06/28/25 08:59 Dextrose (Dextrose 50%-Water Inj 50 Ml Syringe) 25 ml IV Q15MIN PRN PRN Reason: BG 50-70 responsive npo pt Stop: 06/27/25 16:34 Dextrose (Dextrose 50%-Water Inj 50 Ml Syringe) 50 ml IV Q15MIN PRN PRN Reason: BG <50 OR BG <70 & pt unresponsive Stop: 06/27/25 16:34 Docusate Sodium (Docusate Sod 100 Mg Capsule) 100 mg PO QDAY [facility]; Protocol Stop: 06/28/25 08:59 Donepezil HCl (Donepezil Hcl 5 Mg Tablet) 5 mg PO [facility] Stop: 06/28/25 20:59 Fluoxetine HCl (Fluoxetine Hcl 10 Mg Capsule) 20 mg PO QDAY [facility] Stop: 06/28/25 08:59 Glucagon (Glucagon Inj 1 Mg Vial) 1 mg IM Q15MIN PRN PRN Reason: BG <70, and no IV access Ceftriaxone Sodium/Dextrose (Rocephin/D5w 1gm Iv Premix) 1 gm in 50 mls @ 100 mls/hr IV QDAY [facility] Stop: 06/05/25 08:59 Sodium Chloride (Ns) 1,000 mls @ 75 mls/hr IV .[id number] ONE Stop: 05/29/25 09:21 Insulin Human Lispro (Insulin Lispro (Admelog) 1 Unit/0.01 Ml Unit) 0 unit SC Q6HR [facility]; Protocol Stop: 06/27/25 17:59 Last Admin: 05/29/25 00:05 Dose: Not Given Lisinopril (Lisinopril 2.5 Mg Tablet) 10 mg PO QDAY [facility] Stop: 06/28/25 08:59 Metoprolol Tartrate (Metoprolol Tartrate 25 Mg Tablet) 25 mg PO DAILY [facility] Stop: 06/28/25 08:59 Morphine Sulfate (Morphine Sulf Inj 10 Mg/Ml Vial) 2 mg IVP Q2H PRN PRN Reason: PAIN SCALE 7-10 (Severe Stop: 06/02/25 16:34 Last Admin: 05/28/25 18:27 Dose: 2 mg Ondansetron HCl (Ondansetron Inj 2 Mg/Ml Inj 2 Ml) 4 mg IVP Q6H PRN; Protocol PRN Reason: NAUSEA OR VOMITING Stop: 06/27/25 16:34 Pantoprazole Sodium (Pantoprazole Inj 40 Mg Vial) 40 mg IVP QDAY [facility] Stop: 06/27/25 17:59 Last Admin: 05/28/25 18:28 Dose: 40 mg Pharmacy Consult (Pharmacy To Consult Patient) 1 each XX PRN PRN PRN Reason: CONSULT Stop: 06/27/25 16:42 Pravastatin Sodium (Pravastatin Sodium 10 Mg Tablet) 40 mg PO DAILY [facility] Stop: 06/28/25 08:59 Tamsulosin HCl (Tamsulosin Hcl 0.4 Mg Capsule) 0.4 mg PO QDAY [facility] Stop: 06/27/25 19:59 Last Admin: 05/28/25 21:18 Dose: 0.4 mg Discontinued Medications Ceftriaxone Sodium/Dextrose (Rocephin/D5w 1gm Iv Premix) 1 gm in 50 mls @ 100 mls/hr IV X1 ONE Stop: 05/28/25 16:00 Last Infusion: 05/28/25 17:00 Dose: Infused Sodium Chloride (Ns) 1,000 mls @ 999 mls/hr IV .Q1H1M ONE Stop: 05/28/25 17:02 Last Infusion: 05/28/25 17:30 Dose: Infused Sodium Chloride (Ns) 1,000 mls @ 75 mls/hr IV .[id number] [facility] Stop: 06/27/25 18:59 Lactated Ringer's (Lactated Ringers) 1,000 mls @ 999 mls/hr IV .Q1H1M ONE Stop: 05/28/25 17:42 Last Admin: 05/28/25 18:27 Dose: 999 mls/hr Piperacillin/Tazobactam/Dextrose (Zosyn) 3.375 gm in 50 mls @ 12.5 mls/hr IV Q8HR [facility] Stop: 06/04/25 21:59 Piperacillin/Tazobactam/Dextrose (Zosyn) 3.375 gm in 50 mls @ 100 mls/hr IV X1 ONE Stop: 05/28/25 17:29 Last Admin: 05/28/25 18:31 Dose: 100 mls/hr Sodium Chloride (Ns) 1,000 mls @ 100 mls/hr IV .Q10H ONE Stop: 05/29/25 06:01 Last Admin: 05/28/25 21:16 Dose: 100 mls/hr Sodium Chloride (Ns) 500 mls @ 999 mls/hr IV .Q31M ONE Stop: 05/28/25 22:32 Last Admin: 05/28/25 22:15 Dose: 999 mls/hr Ketorolac Tromethamine (Ketorolac Inj 30 Mg/Ml Vial) 30 mg IM X1 ONE Stop: 05/28/25 10:15 Last Admin: 05/28/25 11:31 Dose: 30 mg Assessment & Plan Plan Patient is an 84-year-old female with history of CVA-acute left cerebellar infarct, history of meningioma, hypertension, hyperlipidemia, diabetes mellitus type 2 [id number], grade 1 diastolic dysfunction and dementia. Mitchell was admitted on 05/28/2025 for pyelonephrititis with hydronephrosis secondary to nephrolithiasis and metabolic acidosis for nephrostomy tubes. #Pyelonephritis #Hydronephrosis secondary to nephrolithiais #UTI, complicated Patient presented with renal calculi 6 mm, moderate right hydronpehrosis with nausea and costovertebral angle tenderness. QSOFA 0 CT abdomen: Moderate right hydronephrosis, 6 mm mid right ureteral calculus UA: cloudy, RBC 61 H, WBC 826, bacteria 1+ Plan -Nephrostomy tubes AM -Tamsulosin -strain urine -NS bolus X 1 (ER) and LR X 1 after admission -LR 75 cc per hour -Blood culture -Urine cultures -Urology consulted -Hold Asprin and Plavix #MARGIE on CKD #Metabolic Acidosis, anion gap Patient presented with MARGIE likely obstructive given hydronephrosis and neprholithiais and hydronephrosis vs MARGIE on CKD as previous councern of CKD vs pre-renal. Plan -Strict Ins and outs -Avoid nephrotoxins -renally dose medication -trend lactic acid -1 bolus of NS in ER & LR bolus X 1 -LR @75 cc #Hypertension Patient has a past medical history of hypertension. Patient home medication of hypertension includin Lisinoprile, amlodpine, and metoprolol tartrate. Plan -Patient is currently normal-tensive, holding off BP medication #Diabetes Mellitus type II Patient has a past medical history of diabetes mellitus type II on metformin 500 mg bid. Plan -Sliding Scale -A1c AM -Hypoglycemic protocals #Hyperlipidiemia Home medicaiton of pravastatin 40 mg PO HS Plan -start Atorvastatin 40 mg HS #History of acute left cerebellar hemisphere infarct Past medical history of acute left cerebellar hemisphere. Patient following Dr. Power. Patient continues to take Plavix and Aspirin. Plan -Hold Aspirin and Plavix for nephrostomy tube. #Dementia Patient has a past medical history of dementia, home mediation on donepezil and fluoxetine Plan -resume Donepzil #Grade I Diastolic Dysfucntion Health Maintenance: Disp: Pt is currently admitted to floors for further management of pyelonephritis , awaiting blood cultures and nephrostomy tubes. FEN: NPO for nephrostomy tubes DVT: compression device Code: Full Code - The patient's plan was discussed with attending Dr. Dolores Barker MD PGY2 Internal Medicine
[2025-05-28] MEDS: INSULIN LISPRO (AdmeLOG) 1 UNIT/0.01 ML UNIT SC (18:26)
[2025-05-28] MEDS: MORPHINE SULF INJ 10 MG/ML VIAL 2 MG IVP (18:27)
[2025-05-28] MEDS: RINGERS LACTATED 1000 ML 1,000 ML 999 ML IV (18:27)
[2025-05-28] MEDS: PIPER/TAZO 3.375 GM PREMIX 3.375 GM/50 ML BAG IV (18:31)
[2025-05-28 18:58] VITALS: BP 108/51; PULSE 93; RESP 19; TEMP 36.9; O2SAT 94
[2025-05-28 19:07] LABS: Reflex Lactate? Y
--- NOTE | 2025-05-28 19:27 | PC.LAC ---
Report given Will DIAMOND at [facility] via telephone.
[2025-05-28 19:42] LABS: Lactic Acid, 3 HR 9.0 mMol/L (0.4-2.0)
[2025-05-28 19:54] VITALS: BMI 21.3
[2025-05-28 20:00] VITALS: BP 154/66; PULSE 87; RESP 18; TEMP 36.6; O2SAT 94
[2025-05-28 20:31] LABS: Base Excess -10 (-3-3); HCO3 13 mEq/L (20-26); Inspired Oxygen, FIO2 21 %; O2 Saturation 97 % (91-98); PCO2 21 mmHg (32.0-48.0); PO2 78 mmHg (83-108); pH, Arterial 7.39 (7.35-7.45)
[2025-05-28 20:36] LABS: Allen Test Performed/OK; Puncture Site Right Radial
[2025-05-28] MEDS: SODIUM CHLORIDE 0.9% 1000 ML 1,000 ML 100 ML IV (21:16)
[2025-05-28] MEDS: TAMSULOSIN HCL 0.4 MG CAPSULE PO (21:18)
[2025-05-28] MEDS: SODIUM CHLORIDE 0.9% 500 ML 500 ML 999 ML IV (22:15)
[2025-05-28 22:35] LABS: Lactate (Lactic Acid) 7.3 mMol/L (0.4-2.0)
--- NOTE | 2025-05-28 23:53 | PD.HHHP ---
Documentation for date of: 05/28/25 HPI - Hospitalist History of Present Illness History of present illness: CC: Nausea, vomiting, diarrhea, right-sided flank pain HPI: The patient is an 84-year-old female with a significant past medical history of CKD 3A, recurrent UTIs, CVA, meningioma, hyperlipidemia, DM2, hypertension who presented to the ED earlier today for worsening right-sided flank pain and abdominal pain which she rated as a 9/10 in severity. Patient also has associated shortness of breath, nausea and nonbilious, nonbloody vomiting. Apparently the patient has known nephrolithiasis, specifically the right sided renal stone and follows urologist, Dr. Cao, she was originally scheduled for lithotripsy next week and was scheduled today for cardiac clearance however was unable to make that appointment due to worsening right-sided flank and abdominal pain. The patient presently denies any chest pain, headache, palpitations, diarrhea, fever, chills. In the ED, vital signs were stable, patient was afebrile on arrival, significant labs included WBC of 19.3, normal hemoglobin, sodium 125, chloride 92, potassium 5, bicarb 18, lactic acid 7.3, T. bili 1.3, BNP 198, procalcitonin 5.83. UA was positive consisting of 826 WBCs, leukocyte Estrace positive nitrite negative, 1+ blood, [address] abdomen and pelvis was obtained demonstrated moderate right-sided hydronephrosis and a 6 mm mid right ureteral calculus. Chest x-ray demonstrated bronchitis, EKG demonstrated NSR with a rate of 66. The patient was given ceftriaxone and 1 L of NS. Urology, Dr. Cao was consulted who advised admitting the patient and ordering a nephrostomy tube by IR tomorrow. Urologist, Dr. Cao would see the patient tomorrow for further evaluation. ROS: As stated in HPI PAST MEDICAL HISTORY CKD 3 yea Recurrent UTI CVA, January 2025 Meningioma Hypertension HLD NIDDM HFpEF Dementia GERD Depression PSH: Hysterectomy ALLERGIES NKDA MEDICATIONS: (awaiting final reconciliation) Amlodipine 5 mg daily Aspirin 81 mg daily ?Plavix 75 mg daily -last dose 05/27 Donepezil 5 mg at bedtime Fluoxetine 20 mg daily Lisinopril 10 mg daily Metformin 1000 mg daily Metoprolol tartrate 25 mg daily Macrobid, recently prescribed 50 mg daily for prophylaxis Oxybutynin 5 mg daily Pravastatin 40 mg daily Renuka-Casey 1 tab daily FAMILY HISTORY: Noncontributory SOCIAL HISTORY: Denies tobacco, illicit substance and only occasional alcohol use in the past. Meds Home Medications and Allergies Home Medications ?Medication ?Instructions ?Recorded ?Confirmed ?Type metformin 500 mg tablet 1,000 mg PO QDAY 03/28/23 05/28/25 History donepezil 5 mg tablet 5 mg PO HS 09/12/23 05/28/25 History vitamin B complex-vitamin C-folic 1 tab PO DAILY 09/12/23 05/28/25 History acid 0.8 mg tablet (Renuka-Casey) fluoxetine 10 mg capsule 20 mg PO DAILY 02/18/25 05/28/25 History oxybutynin chloride 5 mg tablet 5 mg PO QDAY 02/18/25 05/28/25 History amlodipine 5 mg tablet 5 mg PO QDAY 05/23/25 05/28/25 History aspirin 81 mg tablet 81 mg PO QDAY 05/23/25 05/28/25 History clopidogrel 75 mg tablet 75 mg PO QDAY 05/23/25 05/28/25 History lisinopril 10 mg tablet 10 mg PO QDAY 05/23/25 05/28/25 History nitrofurantoin macrocrystal 50 mg 50 mg PO QDAY 05/23/25 05/28/25 History capsule pravastatin 40 mg tablet 40 mg PO QDAY 05/23/25 05/28/25 History metoprolol tartrate 25 mg tablet 25 mg PO QDAY 05/28/25 05/28/25 History Allergies Allergy/AdvReac Type Severity Reaction Status Date / Time No Known Allergies Allergy Verified 05/28/25 09:58 Exam Vital Signs Temp Pulse Resp BP Pulse Ox O2 Del Method 97.8 F 87 18 154/66 H 94 L Room Air 05/28/25 20:00 05/28/25 20:00 05/28/25 20:00 05/28/25 20:05/28/25 20:05/28/25 20:00 Narrative GENERAL APPEARANCE: NAD, resting comfortably HEENT: Normocephalic, atraumatic, extraocular movements intact. Pupils: Equal reacting to light and accommodation NECK: Supple, no JVD or bruits. CARDIOVASULAR: NSR, S1, S2 heard without S3-S4 or murmur no rubs or gallops. LUNGS/CHEST: CTA bilaterally, no wheezing, rhonchi or rales heard ABDOMEN: TTP in right quadrants, right flank pain present on palpation, NABS x 4 quadrants EXTREMITIES: No edema, clubbing or cyanosis. NEURO: Alert, awake and oriented x3, Cranial nerves II through VII grossly intact, no obvious focal deficits Results - Hospitalist Labs Diagrams: 05/28/25 10:53 05/28/25 10:53 Labs: Short CBC 05/28/25 Range/Units 10:53 WBC 19.3 H (3.6-11.0) Thou/mm3 Hgb 15.6 (12.0-16.0) g/dL Hct 44.5 (36.0-46.0) % Plt Count 244 (140-440) Thou/mm3 BMP 05/28/25 10:53 Sodium 125 L Potassium 5.0 Chloride 92 L Carbon Dioxide 18.1 L BUN 14 Creatinine 1.2 Glucose 214 H Calcium 9.5 Cardiac Enzymes 05/28/25 Range/Units 10:53 Troponin I < 0.002 (0.0-0.045) ng/mL Liver Function 05/28/25 Range/Units 10:53 Total Bilirubin 1.3 H (0.3-1.2) mg/dL AST 47 H (0-34) U/L ALT 19 (10-49) U/L Alkaline Phosphatase 70 (46-116) U/L Albumin 4.4 (3.4-4.8) gm/dL Urine 05/28/25 Range/Units 11:20 Urine Color Yellow (Lt Yel-Yel) Urine Clarity Cloudy A (Clear/Hazy) Urine pH 6.5 (5.0-7.0) Ur Specific [place] 1.013 (1.001-1.035) Urine Protein 2+ A (Neg - Trace) Urine Glucose (UA) Negative (Negative) ABG Interpretation ABG results: 05/28/25 20:17 ABG pH 7.39 ABG pCO2 21 L ABG pO2 78 L ABG HCO3 13 L ABG O2 Saturation 97 ABG Base Excess -10 L Assessment & Plan -Hospitalist Patient Synopsis In short, 84-year-old female with significant past medical history of CKD 3A, dementia, recurrent UTIs, CVA, meningioma, hypertension, hyperlipidemia, NIDDM and known nephrolithiasis, presented to the ED for abdominal pain and right flank pain, subsequently admitted for obstructing urolithiasis w/ metabilc derangments and UTI. ASSESSMENT: #Urolithiasis, 6 mm mid right ureteral calculus #Moderate right hydronephrosis #Urinary tract infection #Primary anion gap metabolic acidosis w/ secondary resp alkalosis, secondary to elevated lactic acid -Urology consulted, Dr. Cao, will assess patient tomorrow -Order for IR placement of nephrostomy tube ordered. Patient's last dose of Plavix was yesterday 05/27 -Ceftriaxone started -f/u with blood and urine cultures -Follow-up with repeat lactic acid -IVF -Pain control -Restart home meds as appropriate however will hold aspirin and Plavix for now until nephrostomy tube is placed -Labs: BMP, CBC, U. lytes, A1c. Lipid Panel -As needed Zofran and Dilaudid -Replete electrolytes as needed -Will consider cardiology consult tomorrow for possible cardiac clearance if any urological procedure is to be performed #Hyponatremia, sodium 125 on admission possibly secondary to SIADH versus vomiting -IVF -CTM #Elevated T-bili, mild, 1 T. bili 1.3 on arrival -CTM Chronic: #CVA #Recurrent UTIs #Meningioma #Hyperlipidemia #Hypertension #NIDDM Antimicrobials: Ceftriaxone start 05/28 Fluids: NS 75ml/h Feeding: N.p.o. Analgesic: Tylenol, Toradol and [place] Sedation: None Thromboprophylaxis: SCDs Ulcer PPx: None Glycemic Cntrl: Lispro SSI Bowel Regime: Colace Indwelling Catheter: None CODE STAUS: FULL DISPO: Likely discharge in 1 to 2 days pending specialist recommendations and possible lithotripsy Quality Measures Quality Measures VTE prophylaxis (SCDs only) Advance care planning discussed with:: child
[2025-05-29] VITALS (22 sets, daily range): BP systolic 89–127; BP diastolic 48–104; PULSE 60–106; RESP 14–98; TEMP 36–36.8; O2SAT 90–100
--- NOTE | 2025-05-29 | XR_ITS ---
Examination: Right nephrostomy tube insertion, attempted Fluoroscopy AP abdomen single view INDICATIONS: Right hydronephrosis right ureteral calculus on CT abdomen pelvis May 28, 2025 Date and time: May 29, 2025 0943 hours TECHNIQUE AND FINDINGS: Informed consent provided. Timeout performed. Skin prepped over the right flank and sterile drape applied, maximum sterile barrier technique hand hygiene ultrasound sterile technique 1% lidocaine utilized for local anesthesia Unsuccessful needle access with ultrasonographic guidance IMPRESSION: Unsuccessful ultrasound-guided needle access right renal collecting system Fluoroscopy 3 minutes radiation dose 19.40 milligray 1 spot fluoroscopic abdomen films
[2025-05-29 01:26] LABS: Reflex Lactate? Y
[2025-05-29 02:50] LABS: Lactate (Lactic Acid) 5.7 mMol/L (0.4-2.0)
[2025-05-29 04:09] LABS: Reflex Lactate? Y
[2025-05-29 06:00] LABS: Lactate (Lactic Acid) 5.5 mMol/L (0.4-2.0)
[2025-05-29 06:15] LABS: Basophils # (Auto) 0.1 Thou/mm3 (0.0-0.2); Basophils % (Auto) 0 % (0-2.5); Eosinophils # (Auto) 0.1 Thou/mm3 (0.0-0.5); Eosinophils % (Auto) 1 % (0-10); Hematocrit 32.5 % (36.0-46.0); Hemoglobin 11.2 g/dL (12.0-16.0); Immature Granulocytes Auto 0.80 Thou/mm3 (0.00-0.00); Lymphocytes # (Auto) 0.4 Thou/mm3 (1.0-4.8); Lymphocytes % (Auto) 2 % (10-50); Mean Corpuscular HGB Conc 34.5 g/dl (31.0-37.0); Mean Corpuscular Hemoglobin 29.6 pg (25.0-35.0); Mean Corpuscular Volume 86 fL (80-100); Monocytes # (Auto) 1.6 Thou/mm3 (0.0-0.8); Monocytes % (Auto) 8 % (0-12); Neutrophils # (Auto) 16.9 Thou/mm3 (1.8-7.7); Neutrophils % (Auto) 85 % (37-80); Nucleated Red Blood Cell # 0.00 Thou/mm3 (0.00-0.00); Nucleated Red Blood Cell % 0 /100 WBC (0); Platelet Count 129 Thou/mm3 (140-440); RDW Standard Deviation 44.7 fL (36.4-46.3); Red Blood Count 3.78 Miln/mm3 (4.00-5.20); White Blood Count 19.9 Thou/mm3 (3.6-11.0)
[2025-05-29 06:20] LABS: INR 1.2 (0.9-1.3); Partial Thromboplastin Time 33.0 Seconds (22.0-36.0); Prothrombin Time 12.9 Seconds (9.0-12.2)
[2025-05-29] MEDS: SODIUM CHLORIDE 0.9% 1000 ML 1,000 ML 75 ML IV (06:27)
[2025-05-29 06:40] LABS: Alanine Aminotransferase 15 U/L (10-49); Albumin, Serum 3.0 gm/dL (3.4-4.8); Albumin/Globulin Ratio 1.4 (1.2-2.2); Alkaline Phosphatase 71 U/L (46-116); Anion Gap 14 (7-16); Aspartate Amino Transferase 21 U/L (0-34); BUN/Creatinine Ratio 17 Ratio (12-20); Bilirubin,Total 1.0 mg/dL (0.3-1.2); Blood Urea Nitrogen 25 mg/dL (9-23); Calcium 7.8 mg/dL (8.3-10.6); Calcium (Corrected) 8.6 mg/dL (8.5-10.1); Carbon Dioxide 16.5 mMol/L (20.0-31.0); Chloride 101 mMol/L (98-107); Creatinine (Component) 1.5 mg/dL (0.6-1.3); Estimated Creatinine Clearance 20.3 mL/min (>60); Globulin 2.1 gm/dL (2.3-3.5); Glucose 133 mg/dL (74-106); Magnesium 1.3 mg/dL (1.6-2.6); Osmolality,Calculated 269 (275-295); Phosphorous 2.4 mg/dL (2.4-5.1); Potassium 3.7 mMol/L (3.4-5.1); Sodium 131 mMol/L (136-145); Total Protein 5.1 gm/dL (5.7-8.2); eGFR 34 See Note
[2025-05-29 06:53] LABS: Glucose Estimated Average 111 mg/dL (80-131); Hemoglobin A1C 5.5 % Hgb (4.8-6.0)
[2025-05-29 09:00] LABS: Reflex Lactate? Y
[2025-05-29] MEDS: PRAVASTATIN SODIUM 10 MG TABLET 40 MG PO (09:28)
[2025-05-29] MEDS: TAMSULOSIN HCL 0.4 MG CAPSULE PO (09:29)
[2025-05-29] MEDS: cefTRIAXone/D5w 1gm IV premix 1 GM/50 ML BAG IV ×2 (09:30→11:56)
--- NOTE | 2025-05-29 09:45 | PC.NURSE ---
SHAR RN AT BEDSIDE TO DEPLOYMENT SPECIALIST PATIENT FOR [employer] PROCEDURE, PT TOOK MEDICATIONS WITH SIP OF WATER, SHE IS ALERT AND ORIENTED X4. PATIENT TRANSFER VIA GURNEY.
[2025-05-29 09:47] LABS: Lactate (Lactic Acid) 5.2 mMol/L (0.4-2.0)
--- NOTE | 2025-05-29 09:47 | XR_ITS ---
Examination: Attempted right nephrostogram Ultrasound right kidney Fluoroscopy Date and time: May 29, 2025 1003 hours INDICATIONS: Right hydronephrosis 6 mm mid right ureteral calculus on CT abdomen study May 28, 2025 Technique an findings: Informed consent provided Timeout performed. Skin prepped over the right flank and sterile drape applied, maximum sterile barrier technique hand hygiene ultrasound sterile technique 1% lidocaine administered for local anesthesia. No successful ultrasound-guided needle access right renal collecting system IMPRESSION: No successful ultrasound-guided needle access right renal collecting system
[2025-05-29] MEDS: fentaNYL CIT INJ 50 mCg/ML AMP 2ML 37.5 MCG IVP (10:25)
[2025-05-29] MEDS: LIDOCAINE INJ PF 1% 30 ML VIAL 5 ML INFL (10:35)
--- NOTE | 2025-05-29 11:47 | PC.CC ---
Addendum entered by Nena Quijano RN 05/29/25 16:16: Spoke to Dr. Barker, she states transfer is cancelled Dr. Cao was able to place nephrostomy, [facility] made aware Addendum entered by Nena Quijano RN 05/29/25 14:51: [facility] and updated her that Dr. Cao is taking patient to surgery. Requested to keep case open until surgery is done, Nabila agreed, taylor update after surgery Addendum entered by Nena Quijano RN 05/29/25 13:26: Araseli from [facility] caled back and stated that Dr. Cao should be able to manage this patient and place a stent, [facility] urologist is requesting clarification from Dr. Cao, Dr. Barker made aware Original Note: 1141-Spoke to Barbara at [facility], images pushed, chart faxed will wait for call back 1138- Spoke to Geraldine at [facility] who states they do not have service available and are at capacity 1135- Dr. Barker called to initiate transfer, patient has hydronephrosis with pyelonephritis due to stone, patient had failed nephrosotomy this am. Patient needs urology/ IR.
[2025-05-29] MEDS: RINGERS LACTATED 1000 ML 1,000 ML 999 ML IV ×2 (11:56→17:20)
--- NOTE | 2025-05-29 12:00 | PD.RESEVENT ---
Documentation for date of: 05/29/25 Event Note Event Note: Rapid Response called at approximately 12:00 PM Rapid Response called for MAP <65. Prior to rapid patient has LR bolus ordered. Adminstered during rapid. Lactic Acid continues to be trended. Renal ordered as serum bicarb remains low at 12. NO bicarb administered at this moment. Follow up with renal panel. Improved MAP after bolus and Lactic acid from 7.4 to 5.1. Continue to trend. - The patient's plan was discussed with attending Dr. Anabell Barker MD PGY2 Internal Medicine
[2025-05-29] MEDS: HYDROcodone/APAP 5/325 TABLET 1 TAB PO (12:01)
[2025-05-29] MEDS: MORPHINE SULF INJ 10 MG/ML VIAL 2 MG IVP (12:13)
--- NOTE | 2025-05-29 12:20 | PC.NURSE ---
ADMINISTER MORPHINE 2 MG IV PUSH PER DOCTOR QURISH VERBAL ORDER, ORDER READ BACK, CARRIED OUT.
[2025-05-29 12:32] LABS: Lactate (Lactic Acid) 7.4 mMol/L (0.4-2.0)
[2025-05-29 12:33] LABS: Reflex Lactate? Y
[2025-05-29 14:45] LABS: Albumin, Serum 3.0 gm/dL (3.4-4.8); Anion Gap 15 (7-16); BUN/Creatinine Ratio 14 Ratio (12-20); Blood Urea Nitrogen 22 mg/dL (9-23); Calcium 7.6 mg/dL (8.3-10.6); Calcium (Corrected) 8.4 mg/dL (8.5-10.1); Chloride 102 mMol/L (98-107); Creatinine (Component) 1.6 mg/dL (0.6-1.3); Estimated Creatinine Clearance 19.0 mL/min (>60); Glucose 137 mg/dL (74-106); Osmolality,Calculated 266 (275-295); Phosphorous 4.4 mg/dL (2.4-5.1); Potassium 3.8 mMol/L (3.4-5.1); Sodium 130 mMol/L (136-145); eGFR 31 See Note
[2025-05-29 14:56] LABS: Carbon Dioxide 12.8 mMol/L (20.0-31.0)
[2025-05-29 15:02] LABS: Allen Test Performed/OK; Base Excess -10 (-3-3); HCO3 15 mEq/L (20-26); Inspired Oxygen, FIO2 21 %; O2 Saturation 91 % (91-98); PCO2 27 mmHg (32.0-48.0); Puncture Site Right Radial; pH, Arterial 7.34 (7.35-7.45)
[2025-05-29 15:03] LABS: PO2 58 mmHg (83-108)
--- NOTE | 2025-05-29 15:08 | XR_ITS ---
Examination: Retrograde pyelogram right with without KUB Fluoroscopy 3 spot fluoroscopic films of the abdomen Date and time: May 29, 2025 1625 hours INDICATIONS: Right flank pain moderate right hydronephrosis 6 mm right ureteral calculus on CT stone study May 28, 2025 TECHNIQUE AND FINDINGS: 3 spot abdomen films show mild opacification and dilatation of the renal collecting system Right ureteral stent satisfactory position Fluoroscopy 34 seconds radiation dose 4.69 milligray IMPRESSION: Right retrograde pyelogram as above
[2025-05-29 15:27] LABS: Reflex Lactate? Y
--- NOTE | 2025-05-29 15:46 | PC.SS ---
SS attempted to meet with pt 2X but was unsuccessful. Pt is having surgery.
--- NOTE | 2025-05-29 16:12 | ESOP_ITS ---
Date of Procedure 05/29/25 Pre Op Diagnosis 6 to 7 mm stone right mid ureter, right hydronephrosis, pyelonephritis, failed placement of percutaneous nephrostomy Post Op Diagnosis Same plus large capacity bladder plus hydronephrotic right kidney tortuous right ureter Procedure Cystoscopic examination right retrograde pyelogram right ureteroscopy stone manipulation placement of right ureteral stent in a retrograde fashion under fluoroscopic examination Findings Right hydroureteronephrosis right pyelonephrosis right mid ureteral stone large capacity bladder Procedure Description Indication for the procedure this is a 84-year-old female she is a diabetic she was admitted in the hospital through the emergency room with fever chills right flank pain she was found to have a right mid ureteral stone 6 to 7 mm with hydronephrosis and urosepsis. Attempt to place percutaneous nephrostomy has failed twice she was recommended above procedure procedure and complications were discussed with the patient and family in great detail informed consent is obtained Procedure patient was brought to the operating room in a satisfactory condition after appropriate premedication was put on the operating table in a spine position she was appropriately identified by the surgeon operating room staff site scope and indications of the procedure were reconfirmed with the patient next general anesthesia was given uneventfully patient was positioned in a dorsal lithotomy position at this time patient received perioperative antibiotics 20 mg of Lasix IV was given for diuresis and prevention of pyelocalyceal infectious complication. 21 cystoscope was used to disease cystourethroscopy examination of bladder revealed more than 1 L of cloudy urine urine for culture sensitivity was obtained she has changes of cystitis right ureteral orifice was identified there was no urine coming out of the right ureteral orifice left ureteral orifice was effluxing clear urine I passed a open-ended Pollick catheter into the right ureteral orifice there was a gush of cloudy urine coming out of the right ureteral orifice. I advanced the open- ended Pollick catheter retrograde pyelogram was performed she has very tortuous right ureter I drained a lot of cloudy urine from the right collecting system just with the open-ended Pollick catheter. Again retrograde pyelogram revealed a hydronephrotic right kidney. Through the open-ended Pollick catheter I passed safety wire which was curling back at the junction of the mid and upper ureter. I did ureteroscopic examination and I was able to manipulate this stone it apparently passed into the kidney and I was able to place a safety wire into the upper pole calyx ureteroscope was withdrawn over the safety wire I was able to place 26 cm long 6 double-J stent in a retrograde fashion under fluoroscopic examination. Instrument was withdrawn gently #16 Calixto catheter was inserted patient after having tolerated the procedure well was sent to recovery room in a satisfactory condition Patient disposition after she is discharged she will see me in the office Anesthesia GETA Pathology / specimen None Estimated Blood Loss 1.0 Condition Stable Disposition PACU Surgeon Wesley Cao MD Surgical Staff Operation Date: 05/29/25 14:45 Case Staff Anesthesiologist: Danilo Becerra
--- NOTE | 2025-05-29 16:24 | SUR.PHASEI ---
1612 To PACU able to lift head off of pillow, following simple commands continue to monitor pt vital signs and status.
--- NOTE | 2025-05-29 17:06 | SUR.PHASEI ---
1625 Family at bedside talking with pt , no complaints no s/s of distress noted continue to monitor pt vital signs and status. 1700 Transfer to room 376 in stable condition, no complaints no s/s of distress noted.
--- NOTE | 2025-05-29 17:13 | PC.NURSE ---
PATIENT IN THE ROOM ALERT AND ORIENTED X2, RESTING IN BED, NO COMPLAINS, FAMILY AT BEDSIDE
--- NOTE | 2025-05-29 17:27 | ESCONSULT_ITS ---
RE: GISELA DALE : 1940 DATE OF CONSULTATION: 05/28/2025 CHIEF COMPLAINT: Right-sided abdominal pain with nausea, vomiting, and diarrhea. ESTABLISHED DIAGNOSES: 1. Chronic kidney disease, stage III. 2. Recurrent UTI. 3. Status post CVA. 4. Meningioma. 5. Hyperlipidemia. 6. Diabetes mellitus. HISTORY OF PRESENT ILLNESS: This is an 84-year-old female. She presented to the emergency room with a history of right-sided abdominal pain rated as 9/10 in severity. She had shortness of breath, nausea, non-bilious non-bloody vomitus. The patient has a history of stone disease in the past. The patient had a CAT scan of the abdomen and pelvis done. This showed stone in the mid ureter 7 to 8 mm with obstruction and I got a call from the emergency room that the patient has sepsis with the stone and obstruction and possible pyelonephritis. I had recommended placement of percutaneous nephrostomy tube first. In the emergency room, vital signs are stable. The patient is afebrile. WBC is 19.3, sodium is 125, chloride 92, potassium is 5, bicarb is 18, lactic acid is 7.3. She had CAT scan of the abdomen and pelvis done. This revealed moderate right hydronephrosis with a stone in the mid ureter. X-ray chest had demonstrated bronchitis. The patient was given ceftriaxone and 1 liter of normal saline. PAST MEDICAL HISTORY: Status post hysterectomy. Other comorbid condition. 1. Depression. 2. GERD. 3. Dementia. VARIOUS MEDICATIONS: She is on amlodipine 5 mg, aspirin 81 mg, lisinopril 10 mg, metformin 1000 daily, and she is on Macrobid b.i.d. as a prophylaxis. PHYSICAL EXAMINATION: General: Condition is satisfactory. Orientation x3. HEENT: Normocephalic and atraumatic. Eyes, no anemia or jaundice. Neck: Supple. Trachea is central. Thyroid is not enlarged. Extremities: Reveal no edema, cyanosis or clubbing. Vital Signs: Stable. They are in HPI, in EMR. Chest: Symmetrical. Heart: Regular rate and rhythm. Abdomen: Obese. No masses. Liver, spleen, kidney not palpable. No CVA tenderness. ASSESSMENT: 1. Pyelonephritis. 2. A 6 mm stone right mid ureter. Moderate right hydronephrosis. 3. Primary anion gap metabolic acidosis/secondary respiratory alkalosis. RECOMMENDATION: Placement of percutaneous nephrostomy tube. Attempt made twice by the IR was unsuccessful. Hospitalist and transfer nurse has tried to transfer the patient for placement of IR at different Hospital, nobody is accepting her. At the last resort, I had a long discussion with the family and Dr. Hung and I explained to them I can try doing a cysto retrograde and placement of right ureteral stent. If I am successful, then at a different time, she can come for laser stone fragmentation. If unable to pass a stent if stone is impacted, then it will be difficult because I do not have a backup IR, then we may need to transfer the patient to some other facility where she can have a placement of percutaneous nephrostomy. This was discussed with the family in great detail and they all agreed for me to try to put a stent up. Again, procedure and complications were discussed in great detail with the family and consent is obtained. DT: 15:17:00 TT: 17:25:00 Ref: [id number] - TID: [id number]
[2025-05-29] MEDS: PIPER/TAZO 3.375 GM PREMIX 3.375 GM/50 ML BAG IV (17:46)
--- NOTE | 2025-05-29 18:08 | PD.RESPRO ---
Documentation for date of: 05/29/25 Subjective Subjective Interval history: cc: [place] Patient is an 84-year-old female with history of CVA-acute left cerebellar infarct, history of meningioma, hypertension, hyperlipidemia, diabetes mellitus type 2 [id number], grade 1 diastolic dysfunction and dementia. Patient to the emergency room with chieft complain of nausea and emsis. Right lower quadrant pain. Pain is sharp 10/10 and radiates to the lower back. Complaining of flank pain and costoverterbral angle tenderness.Denied fever or chills at home. Denied hematuria. Patient recently followed up with Dr. Cao in the outpatient setting to discuss cystoscopy retrograded uteroscope with lithotripsy. 05/29/2025: Overnight, patient's lactic acid was 5.7 trended upwards towards 5.5. Patient received 1 L bolus in the ER followed by lactated Ringer's after admission and started on maintenance fluid. Despite fluid resuscitation plain patient's lactic acid increased. Additional 2 L bolus administered. Given patient's septic picture, antibiotics escalated from ceftriaxone to Zosyn and vancomycin added as blood cultures 1 out of 2 showing GPC. Placement of percutaneous nephrostomy tube failed to place. Patient and family at bedside discussed surgical intervention of stent placement. Patient is high risk for stent placement given multiple co-morbidities including history of CVA and dementia. Patient and family aware and decision was made to proceed with stent placement. Cystoscopic examination a right retrograde pyelogram right uroscopy stone manipulation placement of right ureteral stent in the retrograde fashion. Exam Vital Signs Temp Pulse Resp BP Pulse Ox O2 Del Method O2 Flow Rate 978 F H 87 19 112/55 L 97 Room Air 3 05/29/25 16:50 05/29/25 16:50 05/29/25 16:50 05/29/25 16:50 05/29/25 16:50 05/29/25 12:00 05/29/25 16:50 Narrative Exam General Appearance: Alert & Oriented X3, well-nourished female who is lying in bed in mild discomfort secondary to flank pain. HEENT: Skull symmetrical and atraumatic. Conjunctivae pink and moist. Pupils equal, round, reactive to light and accommodation (PERRL). External ear without lesion or discharge. Straight, nares patient, mucosa pink, no discharge. No thyroid nodule appreciated. No cervical lymphadenopathy. Cardio: Normal Rate and Rhythm with S1 and S2 heart sounds. possible murmur noted on mitral area. No bruits on carotid auscultation. No peripheral edema or cyanosis. Lungs: Symmetric with good expansion. Breath sounds vesicular without crackles, wheezing or rhonchi Abdomen: Non-tender, Non-distended, Normal Reactive Bowel Sounds. Denied supra-pubic tenderness, costovertebral tenderness, worse on right side. Neuro: Alert, cooperative, oriented to person, place, and time. Speech clear. CN grossly intact. Upper motor strength 5/5 and Lower motor strength 5/5. Sensation intact. Objective Labs 05/30/25 06:15 05/30/25 06:15 Labs: Laboratory Results - last 24 hr 05/28/25 05/28/25 05/28/25 19:26 20:17 22:14 WBC RBC Hgb Hct MCV MCH MCHC RDW Std Deviation Plt Count Neut % (Auto) Lymph % (Auto) [place] % (Auto) Eos % (Auto) Baso % (Auto) Neut # (Auto) Lymph # (Auto) [place] # (Auto) Eos # (Auto) Baso # (Auto) Immature Gran # (Auto) Absolute Nucleated RBC Immature Gran % Nucleated RBC % PT INR APTT Puncture Site Right Radial ABG pH 7.39 ABG pCO2 21 L ABG pO2 78 L ABG HCO3 13 L ABG O2 Saturation 97 ABG Base Excess -10 L FiO2 21 Sodium Potassium Chloride Carbon Dioxide Anion Gap BUN Creatinine Estim Creat Clear Calc eGFR BUN/Creatinine Ratio Glucose Estimated Ave Glu mg/dL Hemoglobin A1c Calculated Osmolality Lactic Acid 9.0 H* 7.3 H* Calcium Corrected Calcium Phosphorus Magnesium Total Bilirubin AST ALT Alkaline Phosphatase Total Protein Albumin Globulin Albumin/Globulin Ratio 05/29/25 05/29/25 05/29/25 00:55 04:00 05:44 WBC 19.9 H RBC 3.78 L Hgb 11.2 L D Hct 32.5 L D MCV 86 MCH 29.6 MCHC 34.5 RDW Std Deviation 44.7 Plt Count 129 L D Neut % (Auto) 85 H Lymph % (Auto) [address] [place] % (Auto) 8 Eos % (Auto) 1 Baso % (Auto) 0 Neut # (Auto) 16.9 H Lymph # (Auto) 0.[address] [place] # (Auto) 1.6 H Eos # (Auto) 0.1 Baso # (Auto) 0.1 Immature Gran # (Auto) 0.80 H Absolute Nucleated RBC 0.00 Immature Gran % 4 H Nucleated RBC % 0 PT 12.9 H INR 1.2 APTT 33.0 Puncture Site ABG pH ABG pCO2 ABG pO2 ABG HCO3 ABG O2 Saturation ABG Base Excess FiO2 Sodium 131 L Potassium 3.7 D Chloride 101 Carbon Dioxide 16.5 L Anion Gap 14 BUN 25 H Creatinine 1.5 H Estim Creat Clear Calc 20.3 L eGFR 34 L BUN/Creatinine Ratio 17 Glucose [address] Glu mg/dL 111 Hemoglobin A1c 5.5 Calculated Osmolality 269 L Lactic Acid 5.7 H* 5.5 H* Calcium 7.8 L D Corrected Calcium 8.6 Phosphorus 2.4 Magnesium 1.3 L Total Bilirubin 1.0 AST 21 ALT 15 Alkaline Phosphatase 71 Total Protein 5.1 L Albumin 3.0 L D Globulin 2.1 L Albumin/Globulin Ratio 1.4 05/29/25 05/29/25 05/29/25 09:17 12:22 14:40 WBC RBC Hgb Hct MCV MCH MCHC RDW Std Deviation Plt Count Neut % (Auto) Lymph % (Auto) [place] % (Auto) Eos % (Auto) Baso % (Auto) Neut # (Auto) Lymph # (Auto) [place] # (Auto) Eos # (Auto) Baso # (Auto) Immature Gran # (Auto) Absolute Nucleated RBC Immature Gran % Nucleated RBC % PT INR APTT Puncture Site Right Radial ABG pH 7.34 L ABG pCO2 27 L ABG pO2 58 L* D ABG HCO3 15 L ABG O2 Saturation 91 ABG Base Excess -10 L FiO2 21 Sodium 130 L Potassium 3.8 Chloride 102 Carbon Dioxide 12.8 L* Anion Gap 15 BUN 22 Creatinine 1.6 H Estim Creat Clear Calc 19.0 L eGFR 31 L BUN/Creatinine Ratio [address] Glu mg/dL Hemoglobin A1c Calculated Osmolality 266 L Lactic Acid 5.2 H* 7.4 H* Calcium 7.6 L Corrected Calcium 8.4 L Phosphorus 4.4 Magnesium Total Bilirubin AST ALT Alkaline Phosphatase Total Protein Albumin 3.0 L Globulin Albumin/Globulin Ratio ABG Interpretation ABG results: 05/28/25 05/29/25 20:17 14:40 ABG pH 7.39 7.34 L ABG pCO2 21 L 27 L ABG pO2 78 L 58 L* D ABG HCO3 13 L 15 L ABG O2 Saturation 97 91 ABG Base Excess -10 L -10 L Quality Measures Quality Measures VTE prophylaxis (SCDs only) Advance care planning discussed with:: patient Assessment & Plan Assessment Current Active Medications: Generic Name Dose Route Start Last Admin Trade Name Freq PRN Reason Stop Dose Admin Acetaminophen 650 mg 05/28/25 16:30 Acetaminophen 325 Mg Tablet PO 06/27/25 16:29 Q6H PRN Mild Pain 1-3 or Fever >100.3 Hydrocodone Bitart/Acetaminophen 1 tab 05/28/25 16:35 05/29/25 12:01 Hydrocodone/Apap 5/325 Tablet PO 06/02/25 16:34 1 tab Q4HR PRN Administration PAIN SCALE 4-6 (Moderate Amlodipine Besylate 5 mg 05/29/25 09:00 05/29/25 09:32 Amlodipine Besylate 5 Mg Tablet PO 06/28/25 08:59 Not Given QDAY GER[facility]ARD Dextrose 25 ml 05/28/25 16:35 Dextrose 50%-Water Inj 50 Ml Syringe IV 06/27/25 16:34 Q15MIN PRN BG 50-70 responsive npo pt Dextrose 50 ml 05/28/25 16:35 Dextrose 50%-Water Inj 50 Ml Syringe IV 06/27/25 16:34 Q15MIN PRN BG <50 OR BG <70 & pt unresponsive Docusate Sodium 100 mg 05/29/25 09:00 05/29/25 09:41 Docusate Sod 100 Mg Capsule PO 06/28/25 08:59 Not Given QDAY [facility] Protocol Donepezil HCl 5 mg 05/29/25 21:00 Donepezil Hcl 5 Mg Tablet PO 06/28/25 20:59 HS GERHARD Fluoxetine HCl 20 mg 05/29/25 09:00 05/29/25 09:28 Fluoxetine Hcl 10 Mg Capsule PO 06/28/25 08:59 20 mg QDAY GERHARD Administration Glucagon 1 mg 05/28/25 16:35 Glucagon Inj 1 Mg Vial IM Q15MIN PRN BG <70, and no IV access Acetaminophen 1,000 mg in 100 mls @ 250 mls/hr 05/29/25 16:00 Ofirmev Inj IV 05/30/25 06:23 Q6HR GERHARD Vancomycin/Sodium Chloride 200 mls @ 120 mls/hr 05/29/25 16:45 Vancomycin/Ns 1 Gm Ivpb IV 05/29/25 18:24 X1 ONE Piperacillin/Tazobactam/Dextrose 3.375 gm in 50 mls @ 12.5 mls/hr 05/30/25 09:00 Zosyn IV 06/06/25 08:59 Q12HR [facility] Insulin Human Lispro 0 unit 05/29/25 17:00 05/29/25 17:08 Insulin Lispro (Admelog) 1 Unit/0.01 Ml Unit SC 06/28/25 16:59 Not Given ACHS [facility] Protocol Lisinopril 10 mg 05/29/25 09:00 Lisinopril 2.5 Mg Tablet PO 06/28/25 08:59 QDAY GERHARD Metoprolol Tartrate 25 mg 05/29/25 09:00 05/29/25 09:32 Metoprolol Tartrate 25 Mg Tablet PO 06/28/25 08:59 Not Given DAILY GERHARD Morphine Sulfate 2 mg 05/28/25 16:35 05/28/25 18:27 Morphine Sulf Inj 10 Mg/Ml Vial IVP 06/02/25 16:34 2 mg Q2H PRN Administration PAIN SCALE 7-10 (Severe Ondansetron HCl 4 mg 05/28/25 16:35 Ondansetron Inj 2 Mg/Ml Inj 2 Ml IVP 06/27/25 16:34 Q6H PRN NAUSEA OR VOMITING Protocol Pantoprazole Sodium 40 mg 05/28/25 18:00 05/29/25 09:30 Pantoprazole Inj 40 Mg Vial IVP 06/27/25 17:59 40 mg QDAY GERHARD Administration Pharmacy Consult 1 each 05/28/25 16:43 Pharmacy To Consult Patient XX 06/27/25 16:42 PRN PRN CONSULT Pharmacy Consult 1 each 05/29/25 16:30 Vancomycin Pharmacy To Dose 1 Each Each IV 06/28/25 16:29 QDAY PRN CONSULT Pharmacy Consult 1 each 05/29/25 17:09 Pharmacy Renal Dose Adjustment 1 Ea XX 06/28/25 17:08 PRN PRN CONSULT Pravastatin Sodium 40 mg 05/29/25 09:00 05/29/25 09:28 Pravastatin Sodium 10 Mg Tablet PO 06/28/25 08:59 40 mg DAILY GERHARD Administration Tamsulosin HCl 0.4 mg 05/28/25 20:00 05/29/25 09:29 Tamsulosin Hcl 0.4 Mg Capsule PO 06/27/25 19:59 0.4 mg QDAY GERHARD Administration Plan Patient is an 84-year-old female with history of CVA-acute left cerebellar infarct, history of meningioma, hypertension, hyperlipidemia, diabetes mellitus type 2 [id number], grade 1 diastolic dysfunction and dementia. Mitchell was admitted on 05/28/2025 for pyelonephrititis with hydronephrosis secondary to nephrolithiasis and metabolic acidosis for nephrostomy tubes. #Urosepsis secondary to hydronephrosis & Nephrolithias s/p r. stent #Bacteremia, GPC #Pyelonephritis #Hydronephrosis secondary to nephrolithiais #UTI, complicated Patient presented with renal calculi 6 mm, moderate right hydronephrosis with nausea and costovertebral angle tenderness indicating pydelonephritis. End organ damaged noted within increase total bibili, ,decreased platlets,rise in Cr, and MAP <70. Improving metabolic acidosis with serum bicarb 17.3 anion gap 12, continue to treat underlying condition. Ceftriaxone stopped. QSOFA 0-->SOFA 6 point 33% mortality Blood Cultures GPC. Urine culture pending. CT abdomen: Moderate right hydronephrosis, 6 mm mid right ureteral calculus UA: cloudy, RBC 61 H, WBC 826, bacteria 1+ Plan -Zosyn and Vancomycin (05/29/2025) -Tamsulosin -strain urine -LR 75 cc per hour started on -Urology consulted, appreciate recommendations. #MARGIE on CKD #Metabolic Acidosis, high anion gap Patient presented with MARGIE likely obstructive given hydronephrosis and neprholithiais and hydronephrosis vs MARGIE on CKD as previous concern of CKD vs pre-renal. Elevate lactic acid, improving, concern for sepsis. Plan -Continue to trend Lactic Acid. -Strict Ins and outs -Avoid nephrotoxins -renally dose medication -1 bolus LR x 2 (05/29/2025) -LR @75 cc #Hypertension Patient has a past medical history of hypertension. Patient home medication of hypertension including Lisinopril, amlodpine, and metoprolol tartrate. Plan -Given septic picture and soft blood pressure, holding any anti-hypertensive medication. #Diabetes Mellitus type II Patient has a past medical history of diabetes mellitus type II on metformin 500 mg bid. Plan -Sliding Scale -A1c AM -Hypoglycemic per protocol #Hyperlipidiemia Home medication of pravastatin 40 mg PO HS Plan -start Atorvastatin 40 mg HS #History of acute left cerebellar hemisphere infarct Past medical history of acute left cerebellar hemisphere. Patient following Dr. Power. Patient continues to take Plavix and Aspirin. Plan -Hold Aspirin and Plavix for nephrostomy tube. #Dementia Patient has a past medical history of dementia, home mediation on donepezil and fluoxetine Plan -resume Donepzil #Grade I Diastolic Dysfucntion Health Maintenance: Disp: Pt is currently admitted to floors for further management of pyelonephritis , awaiting blood cultures and nephrostomy tubes. FEN: NPO for nephrostomy tubes DVT: compression device Code: Full Code - The patient's plan was discussed with attending Dr. Dolores Barker MD PGY2 Internal Medicine Attending Provider Attestation/Addendum 84-year-old female with multiple comorbidities including hypertension, type 2 diabetes mellitus, hyperlipidemia with subsequent CKD stage IIIa and history of meningioma who presented to the ER on 05/28/2025 with right flank pain found to have urolithiasis with evidence of 6 mm right ureteral calculus causing moderate right-sided hydronephrosis. ER discussed case with urology who recommended admitting the patient for IR nephrostomy. Patient underwent IR nephrostomy placement however despite multiple attempts was unsuccessful. Discussed case with urology regarding need for stent placement as patient noted to have worsening sepsis with source likely being acute pyelonephritis and noted to have significant lactic acidosis with lactic acid of 7.4. Initially, attempted to transfer the patient however was unsuccessful and urology will take patient to the OR. As of now, continue IV antibiotic therapy, IV fluids and awaiting OR.I reviewed above note and agree with findings and plans. I have also personally examined the patient with medicine team and went over assessment and plan with medical team including financial services internship and resident physician.
[2025-05-29] MEDS: ACETAMINOPHEN IVPB 1,000 MG/100 ML VIAL 250 MG IV (18:10)
[2025-05-29] MEDS: VANCOMYCIN/NS 1 GM IVPB 200 ML IV (18:34)
[2025-05-29 18:44] LABS: Lactate (Lactic Acid) 5.1 mMol/L (0.4-2.0)
[2025-05-29 18:58] LABS: Albumin, Serum 2.5 gm/dL (3.4-4.8); Anion Gap 12 (7-16); BUN/Creatinine Ratio 18 Ratio (12-20); Blood Urea Nitrogen 25 mg/dL (9-23); Calcium 7.0 mg/dL (8.3-10.6); Calcium (Corrected) 8.2 mg/dL (8.5-10.1); Carbon Dioxide 17.3 mMol/L (20.0-31.0); Chloride 102 mMol/L (98-107); Creatinine (Component) 1.4 mg/dL (0.6-1.3); Estimated Creatinine Clearance 21.8 mL/min (>60); Glucose 213 mg/dL (74-106); Osmolality,Calculated 273 (275-295); Phosphorous 4.0 mg/dL (2.4-5.1); Potassium 4.1 mMol/L (3.4-5.1); Sodium 131 mMol/L (136-145); eGFR 37 See Note
[2025-05-29] MEDS: DONEPEZIL HCL 5 MG TABLET PO (20:17)
[2025-05-29] MEDS: INSULIN LISPRO (AdmeLOG) 1 UNIT/0.01 ML UNIT SC (20:21)
[2025-05-29] MEDS: RINGERS LACTATED 1000 ML 1,000 ML 75 ML IV (20:28)
[2025-05-29 21:26] LABS: Lactate (Lactic Acid) 4.5 mMol/L (0.4-2.0)
[2025-05-29 21:35] LABS: Reflex Lactate? Y
[2025-05-30] VITALS (8 sets, daily range): BP systolic 97–152; BP diastolic 57–81; PULSE 70–97; RESP 15–23; TEMP 36.1–36.7; O2SAT 91–99
[2025-05-30] MEDS: ACETAMINOPHEN IVPB 1,000 MG/100 ML VIAL 250 MG IV ×2 (00:10→05:15)
[2025-05-30 00:13] LABS: Reflex Lactate? Y
[2025-05-30 00:58] LABS: Lactic Acid, 3 HR 3.4 mMol/L (0.4-2.0)
[2025-05-30 06:29] LABS: Lactate (Lactic Acid) 2.9 mMol/L (0.4-2.0)
[2025-05-30 06:34] LABS: Reflex Lactate? Y
[2025-05-30 06:40] LABS: Basophils # (Auto) 0.1 Thou/mm3 (0.0-0.2); Basophils % (Auto) 1 % (0-2.5); Eosinophils # (Auto) 0.0 Thou/mm3 (0.0-0.5); Eosinophils % (Auto) 0 % (0-10); Hematocrit 28.6 % (36.0-46.0); Hemoglobin 9.7 g/dL (12.0-16.0); Immature Granulocytes Auto 2.58 Thou/mm3 (0.00-0.00); Lymphocytes # (Auto) 0.6 Thou/mm3 (1.0-4.8); Lymphocytes % (Auto) 3 % (10-50); Mean Corpuscular HGB Conc 33.9 g/dl (31.0-37.0); Mean Corpuscular Hemoglobin 29.0 pg (25.0-35.0); Mean Corpuscular Volume 86 fL (80-100); Monocytes # (Auto) 1.2 Thou/mm3 (0.0-0.8); Monocytes % (Auto) 8 % (0-12); Neutrophils # (Auto) 11.8 Thou/mm3 (1.8-7.7); Neutrophils % (Auto) 73 % (37-80); Nucleated Red Blood Cell # 0.00 Thou/mm3 (0.00-0.00); Nucleated Red Blood Cell % 0 /100 WBC (0); Platelet Count 84 Thou/mm3 (140-440); RDW Standard Deviation 45.9 fL (36.4-46.3); Red Blood Count 3.34 Miln/mm3 (4.00-5.20); White Blood Count 16.3 Thou/mm3 (3.6-11.0)
[2025-05-30 06:57] LABS: Path Review Blood Smear Sent to Pathologist
[2025-05-30 07:09] LABS: Alanine Aminotransferase 17 U/L (10-49); Albumin, Serum 2.8 gm/dL (3.4-4.8); Albumin/Globulin Ratio 1.3 (1.2-2.2); Alkaline Phosphatase 83 U/L (46-116); Anion Gap 10 (7-16); Aspartate Amino Transferase 25 U/L (0-34); BUN/Creatinine Ratio 20 Ratio (12-20); Bilirubin,Total 0.4 mg/dL (0.3-1.2); Blood Urea Nitrogen 28 mg/dL (9-23); Calcium 7.4 mg/dL (8.3-10.6); Calcium (Corrected) 8.4 mg/dL (8.5-10.1); Carbon Dioxide 16.7 mMol/L (20.0-31.0); Chloride 101 mMol/L (98-107); Creatinine (Component) 1.4 mg/dL (0.6-1.3); Estimated Creatinine Clearance 21.8 mL/min (>60); Globulin 2.2 gm/dL (2.3-3.5); Glucose 180 mg/dL (74-106); Magnesium 1.5 mg/dL (1.6-2.6); Osmolality,Calculated 267 (275-295); Phosphorous 4.2 mg/dL (2.4-5.1); Potassium 4.3 mMol/L (3.4-5.1); Sodium 128 mMol/L (136-145); Total Protein 5.0 gm/dL (5.7-8.2); eGFR 37 See Note
[2025-05-30] MEDS: INSULIN LISPRO (AdmeLOG) 1 UNIT/0.01 ML UNIT SC ×3 (07:57→21:23)
[2025-05-30 08:03] LABS: Vancomycin,Random 13.5 mcg/mL
[2025-05-30] MEDS: TAMSULOSIN HCL 0.4 MG CAPSULE PO (08:15)
[2025-05-30] MEDS: DOCUSATE SOD 100 MG CAPSULE PO (08:15)
[2025-05-30] MEDS: PRAVASTATIN SODIUM 10 MG TABLET 40 MG PO (08:15)
[2025-05-30] MEDS: PIPER/TAZO 3.375 GM PREMIX 3.375 GM/50 ML BAG IV ×2 (08:15→21:29)
[2025-05-30] MEDS: Magnesium Sulfate 2 GM Ivpb 2 GM/50 ML BAG IV (09:28)
[2025-05-30 10:36] LABS: Lactate (Lactic Acid) 3.5 mMol/L (0.4-2.0)
[2025-05-30] MEDS: RINGERS LACTATED 1000 ML 1,000 ML 75 ML IV (10:46)
[2025-05-30] MEDS: HYDROcodone/APAP 5/325 TABLET 1 TAB PO ×2 (11:33→16:47)
[2025-05-30 13:33] LABS: Reflex Lactate? Y
[2025-05-30 13:39] LABS: Lactate (Lactic Acid) 2.9 mMol/L (0.4-2.0)
[2025-05-30 13:58] LABS: Albumin, Serum 2.8 gm/dL (3.4-4.8); Anion Gap 9 (7-16); BUN/Creatinine Ratio 24 Ratio (12-20); Blood Urea Nitrogen 31 mg/dL (9-23); Calcium 7.8 mg/dL (8.3-10.6); Calcium (Corrected) 8.8 mg/dL (8.5-10.1); Carbon Dioxide 19.5 mMol/L (20.0-31.0); Chloride 102 mMol/L (98-107); Creatinine (Component) 1.3 mg/dL (0.6-1.3); Estimated Creatinine Clearance 23.4 mL/min (>60); Glucose 156 mg/dL (74-106); Osmolality,Calculated 270 (275-295); Phosphorous 3.0 mg/dL (2.4-5.1); Potassium 4.0 mMol/L (3.4-5.1); Sodium 130 mMol/L (136-145); eGFR 40 See Note
[2025-05-30] MEDS: RINGERS LACTATED 1000 ML 1,000 ML 150 ML IV (14:11)
--- NOTE | 2025-05-30 14:15 | ESPR_ITS ---
<Statement entered by Loni Hung MD - 06/05/25 14:55> I reviewed above note and agree with findings and plans. I have also personally examined the patient with medicine team and went over assessment and plan with medical team including campus recruiting intern and resident physician. Documentation for date of: 05/30/25 Subjective Subjective Interval history: Patient is an 84-year-old female with history of CVA-acute left cerebellar infarct, history of meningioma, hypertension, hyperlipidemia, diabetes mellitus type 2 [id number], grade 1 diastolic dysfunction and dementia. Patient to the emergency room with chieft complain of nausea and emsis. Right lower quadrant pain. Pain is sharp 10/10 and radiates to the lower back. Complaining of flank pain and costoverterbral angle tenderness.Denied fever or chills at home. Denied hematuria. Patient recently followed up with Dr. Cao in the outpatient setting to discuss cystoscopy retrograded uteroscope with lithotripsy. 05/29/2025: Overnight, patient's lactic acid was 5.7 trended upwards towards 5.5. Patient received 1 L bolus in the ER followed by lactated Ringer's after admission and started on maintenance fluid. Despite fluid resuscitation plain patient's lactic acid increased. Additional 2 L bolus administered. Given patient's septic picture, antibiotics escalated from ceftriaxone to Zosyn and vancomycin added as blood cultures 1 out of 2 showing GPC. Placement of percutaneous nephrostomy tube failed to place. Patient and family at bedside discussed surgical intervention of stent placement. Patient is high risk for stent placement given multiple co-morbidities including history of CVA and dementia. Patient and family aware and decision was made to proceed with stent placement. Cystoscopic examination a right retrograde pyelogram right uroscopy stone manipulation placement of right ureteral stent in the retrograde fashion. 05/31/2025: Patient examined at bedside. Patient is currently on NS 75->Increased to 150 Patiented hannah ricardo. sob, Patient resumed all labs. Pending final blood culture read (11/28), may be possible conamination. Continue antibiotics. Exam Vital Signs Temp Pulse Resp BP Pulse Ox O2 Del Method O2 Flow Rate 98.1 F 85 18 152/81 H 91 L Nasal Cannula 1 05/30/25 20:00 05/30/25 20:00 05/30/25 20:00 05/30/25 20:00 05/30/25 20:00 05/30/25 20:00 05/30/25 20:00 Narrative Exam General Appearance: Alert & Oriented X3, well-nourished female who is lying in bed in mild discomfort secondary to flank pain. HEENT: Skull symmetrical and atraumatic. Conjunctivae pink and moist. Pupils equal, round, reactive to light and accommodation (PERRL). External ear without lesion or discharge. Straight, nares patient, mucosa pink, no discharge. No thyroid nodule appreciated. No cervical lymphadenopathy. Cardio: Normal Rate and Rhythm with S1 and S2 heart sounds. possible murmur noted on mitral area. No bruits on carotid auscultation. No peripheral edema or cyanosis. Lungs: Symmetric with good expansion. Breath sounds vesicular without crackles, wheezing or rhonchi Abdomen: Non-tender, Non-distended, Normal Reactive Bowel Sounds. Denied supra- pubic tenderness, costovertebral tenderness, worse on right side. Neuro: Alert, cooperative, oriented to person, place, and time. Speech clear. CN grossly intact. Upper motor strength 5/5 and Lower motor strength 5/5. Sensation intact. Objective Labs 05/31/25 06:09 05/31/25 06:09 Labs: Laboratory Results - last 24 hr 05/29/25 05/30/25 05/30/25 21:06 00:32 06:15 WBC 16.3 H RBC 3.34 L Hgb 9.7 L Hct 28.6 L MCV 86 MCH 29.0 MCHC 33.9 RDW Std Deviation 45.9 Plt Count 84 L D Neut % (Auto) 73 Lymph % (Auto) 3 L Whitley % (Auto) 8 Eos % (Auto) 0 Baso % (Auto) 1 Neut # (Auto) 11.8 H Lymph # (Auto) 0.6 L Whitley # (Auto) 1.2 H Eos # (Auto) 0.0 Baso # (Auto) 0.1 Immature Gran # (Auto) 2.58 H Absolute Nucleated RBC 0.00 Immature Gran % 16 H Nucleated RBC % 0 Smear Path Review Sent to Pathologist Sodium 128 L Potassium 4.3 Chloride 101 Carbon Dioxide 16.7 L Anion Gap 10 BUN 28 H Creatinine 1.4 H Estim Creat Clear Calc 21.8 L eGFR 37 L BUN/Creatinine Ratio 20 Glucose 180 H Calculated Osmolality 267 L Lactic Acid 4.5 H* 3.4 H 2.9 H Calcium 7.4 L Corrected Calcium 8.4 L Phosphorus 4.2 Magnesium 1.5 L Total Bilirubin 0.4 D AST 25 ALT 17 Alkaline Phosphatase 83 Total Protein 5.0 L Albumin 2.8 L Globulin 2.2 L Albumin/Globulin Ratio 1.3 Random Vancomycin 13.5 05/30/25 05/30/25 05/30/25 10:20 13:26 17:09 WBC RBC Hgb Hct MCV MCH MCHC RDW Std Deviation Plt Count Neut % (Auto) Lymph % (Auto) Whitley % (Auto) Eos % (Auto) Baso % (Auto) Neut # (Auto) Lymph # (Auto) Whitley # (Auto) Eos # (Auto) Baso # (Auto) Immature Gran # (Auto) Absolute Nucleated RBC Immature Gran % Nucleated RBC % Smear Path Review Sodium 130 L Potassium 4.0 Chloride 102 Carbon Dioxide 19.5 L Anion Gap 9 BUN 31 H Creatinine 1.3 Estim Creat Clear Calc 23.4 L eGFR 40 L BUN/Creatinine Ratio 24 H Glucose 156 H Calculated Osmolality 270 L Lactic Acid 3.5 H 2.9 H 2.5 H Calcium 7.8 L Corrected Calcium 8.8 Phosphorus 3.0 Magnesium Total Bilirubin AST ALT Alkaline Phosphatase Total Protein Albumin 2.8 L Globulin Albumin/Globulin Ratio Random Vancomycin ABG Interpretation ABG results: 05/28/25 05/29/25 20:17 14:40 ABG pH 7.39 7.34 L ABG pCO2 21 L 27 L ABG pO2 78 L 58 L* D ABG HCO3 13 L 15 L ABG O2 Saturation 97 91 ABG Base Excess -10 L -10 L Quality Measures Quality Measures VTE prophylaxis (SCDs only) Advance care planning discussed with:: patient and child Assessment & Plan Assessment Current Active Medications: Generic Name Dose Route Start Last Admin Trade Name Freq PRN Reason Stop Dose Admin Acetaminophen 650 mg 05/28/25 16:30 Acetaminophen 325 Mg Tablet PO 06/27/25 16:29 Q6H PRN Mild Pain 1-3 or Fever >100.3 Hydrocodone Bitart/Acetaminophen 1 tab 05/28/25 16:35 05/30/25 16:47 Hydrocodone/Apap 5/325 Tablet PO 06/02/25 16:34 1 tab Q4HR PRN Administration PAIN SCALE 4-6 (Moderate Amlodipine Besylate 5 mg 07/03/25 09:00 05/29/25 09:32 Amlodipine Besylate 5 Mg Tablet PO 06/28/25 08:59 Not Given QDAY GERHARD Dextrose 25 ml 05/28/25 16:35 Dextrose 50%-Water Inj 50 Ml Syringe IV 06/27/25 16:34 Q15MIN PRN BG 50-70 responsive npo pt Dextrose 50 ml 05/28/25 16:35 Dextrose 50%-Water Inj 50 Ml Syringe IV 06/27/25 16:34 Q15MIN PRN BG <50 OR BG <70 & pt unresponsive Docusate Sodium 100 mg 05/29/25 09:00 05/30/25 08:15 Docusate Sod 100 Mg Capsule PO 06/28/25 08:59 100 mg QDAY GERHARD Administration Protocol Donepezil HCl 5 mg 05/29/25 21:00 05/29/25 20:17 Donepezil Hcl 5 Mg Tablet PO 06/28/25 20:59 5 mg HS GERHARD Administration Fluoxetine HCl 20 mg 05/29/25 09:00 05/30/25 08:15 Fluoxetine Hcl 10 Mg Capsule PO 06/28/25 08:59 20 mg QDAY GERHARD Administration Glucagon 1 mg 05/28/25 16:35 Glucagon Inj 1 Mg Vial IM Q15MIN PRN BG <70, and no IV access Piperacillin/Tazobactam/Dextrose 3.375 gm in 50 mls @ 12.5 mls/hr 05/30/25 09:00 05/30/25 08:15 Zosyn IV 06/06/25 08:59 12.5 mls/hr Q12HR GERHARD Administration Lactated Ringer's 1,000 mls @ 150 mls/hr 05/30/25 14:05 05/30/25 14:11 Lactated Ringers IV 06/29/25 14:04 150 mls/hr .Q6H40M GERHARD Administration Insulin Human Lispro 0 unit 05/29/25 17:00 05/30/25 17:19 Insulin Lispro (Admelog) 1 Unit/0.01 Ml Unit SC 06/28/25 16:59 Not Given ACHS GERHARD Protocol Lisinopril 10 mg 05/29/25 09:00 Lisinopril 2.5 Mg Tablet PO 06/28/25 08:59 QDAY GERHARD Metoprolol Tartrate 25 mg 05/29/25 09:00 05/29/25 09:32 Metoprolol Tartrate 25 Mg Tablet PO 06/28/25 08:59 Not Given DAILY GERHARD Morphine Sulfate 2 mg 05/28/25 16:35 05/28/25 18:27 Morphine Sulf Inj 10 Mg/Ml Vial IVP 06/02/25 16:34 2 mg Q2H PRN Administration PAIN SCALE 7-10 (Severe Ondansetron HCl 4 mg 05/28/25 16:35 Ondansetron Inj 2 Mg/Ml Inj 2 Ml IVP 06/27/25 16:34 Q6H PRN NAUSEA OR VOMITING Protocol Pantoprazole Sodium 40 mg 05/28/25 18:00 05/30/25 08:14 Pantoprazole Inj 40 Mg Vial IVP 06/27/25 17:59 40 mg QDAY GERHARD Administration Pharmacy Consult 1 each 05/28/25 16:43 Pharmacy To Consult Patient XX 06/27/25 16:42 PRN PRN CONSULT Pharmacy Consult 1 each 05/29/25 17:09 Pharmacy Renal Dose Adjustment 1 Ea XX 06/28/25 17:08 PRN PRN CONSULT Pravastatin Sodium 40 mg 05/29/25 09:00 05/30/25 08:15 Pravastatin Sodium 10 Mg Tablet PO 06/28/25 08:59 40 mg DAILY GERHARD Administration Tamsulosin HCl 0.4 mg 05/28/25 20:00 05/30/25 08:15 Tamsulosin Hcl 0.4 Mg Capsule PO 06/27/25 19:59 0.4 mg QDAY GERHARD Administration Plan Patient is an 84-year-old female with history of CVA-acute left cerebellar infarct, history of meningioma, hypertension, hyperlipidemia, diabetes mellitus type 2 [id number], grade 1 diastolic dysfunction and dementia. Mitchell was admitted on 05/28/2025 for pyelonephrititis with hydronephrosis secondary to nephrolithiasis and metabolic acidosis for nephrostomy tubes. #Sepsis from Urinary Source, secondary to hydronephrosis & Nephrolithias s/p r. stent #Bacteremia, GPC #Pyelonephritis #Hydronephrosis secondary to nephrolithiais #UTI, complicated Patient presented with renal calculi 6 mm, moderate right hydronephrosis with nausea and costovertebral angle tenderness indicating pydelonephritis. End organ damaged noted within increase total bibili, ,decreased platlets,rise in Cr, and MAP <70. Improving metabolic acidosis with serum bicarb 17.3 anion gap 12, continue to treat underlying condition. Ceftriaxone stopped. QSOFA 0-->SOFA 6 point 33% mortality Blood Cultures GPC. Urine culture pending. CT abdomen: Moderate right hydronephrosis, 6 mm mid right ureteral calculus UA: cloudy, RBC 61 H, WBC 826, bacteria 1+ Plan -Zosyn and Vancomycin (05/29/2025) -Tamsulosin -strain urine -LR 75 cc per hour started on -->LR increased to 150 as to continue to decrease levels of lactic acid -Urology consulted, appreciate recommendations. #MARGIE on CKD #Metabolic Acidosis, high anion gap Patient presented with MARGIE likely obstructive given hydronephrosis and neprholithiais and hydronephrosis vs MARGIE on CKD as previous concern of CKD vs pre-renal. Elevate lactic acid, improving, concern for sepsis. Plan -Continue to trend Lactic Acid. -Strict Ins and outs -Avoid nephrotoxins -renally dose medication -1 bolus LR x 2 (05/29/2025) -LR @75 cc #Hypertension Patient has a past medical history of hypertension. Patient home medication of hypertension including Lisinopril, amlodpine, and metoprolol tartrate. Plan -Given septic picture and soft blood pressure, holding any anti-hypertensive medication. #Diabetes Mellitus type II Patient has a past medical history of diabetes mellitus type II on metformin 500 mg bid. Plan -Sliding Scale -A1c AM -Hypoglycemic per protocol #Hyperlipidiemia Home medication of pravastatin 40 mg PO HS Plan -start Atorvastatin 40 mg HS #History of acute left cerebellar hemisphere infarct Past medical history of acute left cerebellar hemisphere. Patient following Dr. Power. Patient continues to take Plavix and Aspirin. Plan -Hold Aspirin and Plavix for nephrostomy tube. #Dementia Patient has a past medical history of dementia, home mediation on donepezil and fluoxetine Plan -resume Donepzil #Grade I Diastolic Dysfucntion Health Maintenance: Disp: Pt is currently admitted to floors for further management of pyelonephritis , awaiting blood cultures and nephrostomy tubes. FEN: NPO for nephrostomy tubes DVT: compression device Code: Full Code - The patient's plan was discussed with attending Dr. Anabell Barker MD PGY2 Internal Medicine
[2025-05-30 16:36] LABS: Reflex Lactate? Y
[2025-05-30 17:16] LABS: Lactic Acid, 3 HR 2.5 mMol/L (0.4-2.0)
[2025-05-30] MEDS: DONEPEZIL HCL 5 MG TABLET PO (21:22)
[2025-05-30 22:12] LABS: Lactate (Lactic Acid) 2.7 mMol/L (0.4-2.0)
[2025-05-31] VITALS (18 sets, daily range): BP systolic 137–189; BP diastolic 71–88; PULSE 81–122; RESP 17–35; TEMP 36.4–37.6; O2SAT 91–99; BMI 21.3
[2025-05-31 01:08] LABS: Reflex Lactate? Y
--- NOTE | 2025-05-31 01:15 | XR_ITS ---
Examination: AP chest single view FINDINGS: AP portable upright chest single view Date and time: May 31, 2025, 0130 hours Comparison May 28, 2025 INDICATIONS: Shortness of breath chest pain today. FINDINGS: Moderate CHF. Mild enlargement cardiac contour. Prominent vascular congestion. Perihilar edema. Prominent osteopenia. IMPRESSION: Moderate CHF
--- NOTE | 2025-05-31 01:25 | PC.NURSE ---
Coarse crackles and expiratory wheezy audible to bilateral lung field. RT at bedside. will do treatment as ordered.
[2025-05-31] MEDS: LEVALBUTEROL RT 0.63 MG/3 ML NEBU INH (01:27)
[2025-05-31] MEDS: IPRATROPIUM RT 0.5 MG/ 2.5 ML NEBU INH (01:27)
--- NOTE | 2025-05-31 01:34 | PC.NURSE ---
Dr Page at bedside assessing patient, breathing more labored, wheezy more pronounced, HOB up to 45degree. Will place orders.
[2025-05-31 01:37] LABS: Lactic Acid, 3 HR 2.6 mMol/L (0.4-2.0)
--- NOTE | 2025-05-31 01:39 | PC.NURSE ---
X-ray at bedside completed.
[2025-05-31] MEDS: FUROSEMIDE INJ 10 MG/ML 4ML VIAL 40 MG IVP ×3 (01:54→17:04)
[2025-05-31] MEDS: ACETAMINOPHEN 325 MG TABLET 650 MG PO ×2 (01:55→10:06)
--- NOTE | 2025-05-31 01:57 | PC.NURSE ---
O2 change to High Flow at 20L at 100%.
[2025-05-31 02:13] LABS: Base Excess -4 (-3-3); HCO3 19 mEq/L (20-26); Inspired Oxygen, FIO2 100 %; O2 Saturation 97 % (91-98); PCO2 29 mmHg (32.0-48.0); PO2 75 mmHg (83-108); pH, Arterial 7.43 (7.35-7.45)
[2025-05-31 02:14] LABS: Allen Test Performed/OK; Puncture Site Right Radial
--- NOTE | 2025-05-31 02:14 | EKG_ITS ---
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[employer] : 1940 Requested By: Ellen Craven Order Number: [id number] Reading MD: Ellen Craven Measurements Intervals [place] Rate: 120 P: 48 AK: 149 QRS: 3 QRSD: 74 T: 30 QT: 314 QTc: 444 Interpretive Statements SINUS TACHYCARDIA INDETERMINATE AXIS LOW QRS VOLTAGE IN PRECORDIAL LEADS POSSIBLE ANTERIOR MYOCARDIAL INFARCTION , PROBABLY OLD ABNORMAL RHYTHM ECG Compared to ECG 05/28/2025 10:18:22 Indeterminate axis now present Low QRS voltage now present Myocardial infarct finding now present Sinus rhythm no longer present Left-axis deviation no longer present ST (T wave) deviation no longer present /store/S0/[id number].pdf
--- NOTE | 2025-05-31 02:14 | XR_ITS ---
Examination: CTA chest with intravenous contrast 2-D reconstructions 3-D reconstructions, vascular Date and time of exam: May 31, 2025, 0819 hrs. Indications: Shortness of breath chest pain beginning several days ago, clinical diagnosis pulmonary emboli CTDI: vol (mGy) 14.1 DLP: (mGycm) 243 Technique: Multiple axial sections of the thorax have been obtained. 3 mm slice thickness, from below the hemidiaphragms to above the apices of the lungs. Mediastinal and lung density settings have been obtained. 2-D sagittal and coronal reconstructions. 3-D angiographic renderings, 3-D volume renderings, 3D post processing, vascular maximum intensity projections obtained. Contrast administered is 100 cc Isovue-370 intravenous. Low dose protocols were performed. One or more of the following dose reduction techniques were used; automated exposure control, adjustment of the mA and/or KV according to patient size, use of iterative reconstruction technique. Findings: Heavy thoracic aortic calcification No pulmonary artery filling defects Moderate heart failure pattern with moderate enlargement cardiac contour, prominent vascular congestion and perihilar edema. Consider superimposed pneumonia at the lung bases Large right moderate left pleural effusions No visualized liver or splenic lesion Impression: Moderate heart failure Negative for pulmonary artery emboli Probable superimposed pneumonia at the lung bases
--- NOTE | 2025-05-31 02:26 | PD.RESEVENT ---
Documentation for date of: 05/31/25 Event Note Event Note: A rapid response was initiated due to the patient's hypertension and hypoxia. Earlier today, the nurse notified the team that the patient's blood pressure was elevated and oxygen requirements had increased. Initially, the patient was placed on high-flow oxygen, fluids was held, Lasix was administered, and a chest x-ray was ordered. At 02;15, the rapid response was called due to worsening hypoxia and hypertension. The chest x-ray, reviewed by the team, was concerning for pulmonary edema. Although the patient had already received Lasix, the plan is to apply a nitropatch to decrease preload, which should help improve both oxygen saturation and blood pressure. Additional EKG, troponin, and BNP was ordered, which will be followed up for results. There is also concern for pulmonary embolism, as the patient is not currently on chemical anticoagulation due to the recent plan for nephrostomy tube placement and ongoing hematuria. To evaluate this, a CTA has been ordered, and will f/u once results are available. An ABG has also been ordered. Plan: Continue current management with Lasix to address pulmonary edema and hypoxia. Hold fluids for now Administer nitropatch to reduce preload and improve hemodynamics. Notify day team, patient might need to restart home antihypertensive medication which was held by primary team Follow-up with EKG, troponin, and BNP to assess for potential cardiac involvement. Ruling out pulmonary embolism with CTA and following up with results.( renal function appears to be improving) Monitor ABG results for further assessment of the patient?s oxygenation and ventilation. Patient care was discussed with attending physician Dr. Chandan Craven MD PGY-3 I have carefully reviewed this document. Due to imperfections in the voice software, there could be grammatical errors including phonetic/typographic errors. This in no way compromises the medical care the patient is receiving
--- NOTE | 2025-05-31 02:38 | PD.RESEVENT ---
Documentation for date of: 05/31/25
[2025-05-31 02:39] LABS: Lactate (Lactic Acid) 2.2 mMol/L (0.4-2.0)
[2025-05-31] MEDS: NITROGLYCERIN OINT 2% 1 INCH PACKET TOP (03:04)
[2025-05-31 03:11] LABS: B-Type Natriuretic Peptide 667 pg/mL (0-100)
[2025-05-31 03:28] LABS: Troponin I 0.132 ng/mL (0.0-0.045)
[2025-05-31 05:37] LABS: Reflex Lactate? Y
[2025-05-31 06:19] LABS: Lactic Acid, 3 HR 1.7 mMol/L (0.4-2.0)
[2025-05-31 06:22] LABS: Basophils # (Auto) 0.1 Thou/mm3 (0.0-0.2); Basophils % (Auto) 1 % (0-2.5); Eosinophils # (Auto) 0.0 Thou/mm3 (0.0-0.5); Eosinophils % (Auto) 0 % (0-10); Hematocrit 31.8 % (36.0-46.0); Hemoglobin 10.9 g/dL (12.0-16.0); Immature Granulocytes Auto 0.19 Thou/mm3 (0.00-0.00); Lymphocytes # (Auto) 0.5 Thou/mm3 (1.0-4.8); Lymphocytes % (Auto) 3 % (10-50); Mean Corpuscular HGB Conc 34.3 g/dl (31.0-37.0); Mean Corpuscular Hemoglobin 29.1 pg (25.0-35.0); Mean Corpuscular Volume 85 fL (80-100); Monocytes # (Auto) 1.1 Thou/mm3 (0.0-0.8); Monocytes % (Auto) 8 % (0-12); Neutrophils # (Auto) 12.1 Thou/mm3 (1.8-7.7); Neutrophils % (Auto) 87 % (37-80); Nucleated Red Blood Cell # 0.02 Thou/mm3 (0.00-0.00); Nucleated Red Blood Cell % 0 /100 WBC (0); Platelet Count 85 Thou/mm3 (140-440); RDW Standard Deviation 45.3 fL (36.4-46.3); Red Blood Count 3.74 Miln/mm3 (4.00-5.20); White Blood Count 14.0 Thou/mm3 (3.6-11.0)
[2025-05-31 06:43] LABS: Alanine Aminotransferase 19 U/L (10-49); Albumin, Serum 3.0 gm/dL (3.4-4.8); Albumin/Globulin Ratio 1.3 (1.2-2.2); Alkaline Phosphatase 142 U/L (46-116); Anion Gap 12 (7-16); Aspartate Amino Transferase 20 U/L (0-34); BUN/Creatinine Ratio 21 Ratio (12-20); Bilirubin,Total 0.8 mg/dL (0.3-1.2); Blood Urea Nitrogen 27 mg/dL (9-23); Calcium 8.2 mg/dL (8.3-10.6); Calcium (Corrected) 9.0 mg/dL (8.5-10.1); Carbon Dioxide 21.2 mMol/L (20.0-31.0); Chloride 100 mMol/L (98-107); Creatinine (Component) 1.3 mg/dL (0.6-1.3); Estimated Creatinine Clearance 23.4 mL/min (>60); Globulin 2.4 gm/dL (2.3-3.5); Glucose 192 mg/dL (74-106); Magnesium 1.8 mg/dL (1.6-2.6); Osmolality,Calculated 276 (275-295); Phosphorous 1.9 mg/dL (2.4-5.1); Potassium 3.6 mMol/L (3.4-5.1); Sodium 133 mMol/L (136-145); Total Protein 5.4 gm/dL (5.7-8.2); Vancomycin,Random 7.6 mcg/mL; eGFR 40 See Note
[2025-05-31] MEDS: INSULIN LISPRO (AdmeLOG) 1 UNIT/0.01 ML UNIT SC ×3 (07:36→20:00)
[2025-05-31 08:47] LABS: Troponin I 0.169 ng/mL (0.0-0.045)
[2025-05-31 09:36] LABS: Partial Thromboplastin Time 27.2 Seconds (22.0-36.0)
[2025-05-31] MEDS: PIPER/TAZO 3.375 GM PREMIX 3.375 GM/50 ML BAG IV ×2 (09:50→20:00)
[2025-05-31] MEDS: FLUCONAZOLE/NS 400 MG IVPB 400 MG/200 ML BAG 100 MG IV (09:51)
[2025-05-31] MEDS: TAMSULOSIN HCL 0.4 MG CAPSULE PO (09:52)
[2025-05-31] MEDS: PRAVASTATIN SODIUM 10 MG TABLET 40 MG PO (09:52)
[2025-05-31] MEDS: DOCUSATE SOD 100 MG CAPSULE PO (09:52)
--- NOTE | 2025-05-31 09:54 | XR_ITS ---
Examination: Venous duplex lower extremity sonogram, bilateral. Date and time of exam: May 31, 2025 0905 hrs. Indications: Bilateral leg pain beginning 6 months ago Technique: Multiple sonographic images of the deep venous system have been obtained. B-mode/2-D grayscale imaging of vascular structures and Doppler spectral analysis (waveforms) and color performed Both legs are examined. Findings: Deep venous systems do not demonstrate abnormal echogenicity. All visualized deep veins exhibit compressibility. All visualized deep veins exhibit augmentation. Impression: Negative for deep vein thrombosis
[2025-05-31] MEDS: POTASSIUM PHOS 22.5 MMOL in SODIUM CHLORIDE 0.9% 500 ML 500 ML 82.778 MMOL IV (09:55)
--- NOTE | 2025-05-31 10:00 | ECHO_ITS ---
Transthoracic Echo Report Ht (in): 61 Wt (lb): 116 Exam Location: Echo Lab Status: Inpatient Wash Tank Tender: Lucie Carreon Indications: Procedure Performed: BP: 122 / 93 HR: 151 Technical Quality: Technically difficult study MEASUREMENTS (Male / Female) Normal Values 2D ECHO LV Diastolic Diameter PLAX 3.8 cm 4.2 - 5.9 / 3.9 - 5.3 cm LV Systolic Diameter PLAX 2.6 cm IVS Diastolic Thickness 0.7 cm 0.6 - 1.0 / 0.6 - 0.9 cm LVPW Diastolic Thickness 1.0 cm 0.6 - 1.0 / 0.6 - 0.9 cm LV Relative Wall Thickness 0.4 LVOT Diameter 1.4 cm LV Ejection Fraction MOD BP 54.1 % >= 55 % LV Cardiac Index MOD BP 2761.3 cm?/min?m? LV Ejection Fraction MOD 4C 56.0 % LV Cardiac Index MOD 4C 3091.4 cm?/min?m? LV Ejection Fraction 4C AL 56.5 % LV Cardiac Index 4C AL 3239.4 cm?/min?m? LV Ejection Fraction MOD 2C 50.3 % LV Cardiac Index MOD 2C 2261.1 cm?/min?m? LV Ejection Fraction 2C AL 47.5 % LV Cardiac Index 2C AL 2156.2 cm?/min?m? LA Volume Index 22.2 cm?/m? 16 - 28 cm?/m? M-MODE Aortic Root Diameter MM 2.1 cm LA Systolic Diameter MM 2.6 cm LA Ao Ratio MM 1.2 AV Cusp Separation MM 1.0 cm DOPPLER AV Peak Velocity 170.5 cm/s AV Peak Gradient 11.6 mmHg AV Mean Gradient 5.7 mmHg AV Velocity Time Integral 37.7 cm LVOT Peak Velocity 93.8 cm/s LVOT Peak Gradient 3.5 mmHg LVOT Velocity Time Integral 22.4 cm LVOT Cardiac Index 3449.8 cm?/min?m? AV Area Cont Eq vti 0.9 cm? AV Area Cont Eq pk 0.8 cm? MV Area PHT 3.5 cm? MR Peak Velocity 278.0 cm/s MR Peak Gradient 30.9 mmHg Mitral E Point Velocity 99.0 cm/s Mitral A Point Velocity 83.4 cm/s Mitral E to A Ratio 1.2 LV E' Lateral Velocity 6.0 cm/s Mitral E to LV E' Lateral Ratio 16.6 LV E' Septal Velocity 7.3 cm/s Mitral E to LV E' Septal Ratio 13.6 PV Peak Velocity 74.7 cm/s PV Peak Gradient 2.2 mmHg FINDINGS Left Ventricle Normal left ventricular size, wall thickness, systolic function with no obvious regional wall motion abnormalities. Normal left ventricular diastolic filling pattern for age. The ejection fraction is visually estimated at 60-65%. Right Ventricle The right ventricle is normal in size and systolic function. Left Atrium The left atrium is normal by two-dimensional, color flow and Doppler imaging with no structural abnormalities, no thrombus formation present. Right Atrium The right atrium is normal by two-dimensional imaging, color flow and Doppler imaging with no structural abnormalities, no thrombus formation present. Atrial Septum The interatrial septum appears normal with no evidence of a shunt. Aorta The aorta is normal by two-dimensional, color flow and Doppler interrogation. Mitral Valve The mitral valve is normal by two-dimensional, color flow and Doppler interrogation. Mild mitral regurgitation. Aortic Valve Moderate aortic valve sclerosis without stenosis. Tricuspid Valve The tricuspid valve is normal by two-dimensional, color flow and Doppler interrogation.There is trace tricuspid valve regurgitation. Pulmonic Valve The pulmonic valve is not well visualized. There is no significant pulmonic valve regurgitation. Vessels The pulmonary artery appears normal. The inferior vena cava pulmonary and hepatic veins appear normal. Pericardium The pericardium is normal by two-dimensional imaging. There is no significant pericardial effusion. CONCLUSIONS Indication: CHF Normal LV size, wall thickness. Normal left ventricular diastolic filling pattern for age. Estimated EF at 60- 65%. The RV is normal in size and systolic function. Moderate aortic valve sclerosis without stenosis. Mild MR. Trace TR. Sol Winters (Electronically Signed) Final Date: 01 June 2025 14:55
--- NOTE | 2025-05-31 10:53 | PD.RESPRO ---
Documentation for date of: 05/31/25 Subjective Subjective Interval history: The patient is evaluated at the bedside, currently seen saturating well on 5 L nasal, oxygen, pain well-managed. Daughter is present at bedside, questions and concerns answered. Patient did have rapid response overnight for hypoxia, requiring 10 to 11 L oxygen via oxime mask, chest x-ray showed worsening infiltrates on x-ray, likely fluid overload versus pneumonia. CT angiogram was ordered as patient's D-dimer levels were elevated > 3000. Negative CT angiogram in the morning, negative bilateral duplex venous ultrasound, holding off on heparin drip. Discontinued IV fluids, due to concern for volume overload, patient does have prior echocardiogram that shows HFpEF. Continue with diuresis, Lasix 40 mg twice daily. Currently being managed with IV vancomycin and Zosyn, GPC 1/2 pending speciation, started on Diflucan as blood culture positive for yeast on 05/30/2025. Repeat blood cultures ordered. Noted improvement in patient's clinical condition and labs following source control by urology and stent placement. Lactic acid downtrending, renal function improving. Noted large right-sided pleural effusion, moderate left-sided pleural effusion, bedside ultrasound was done which failed to identify safe pocket for thoracentesis. Will continue with IV diuresis, furosemide 40 mg twice daily. Exam Vital Signs Temp Pulse Resp BP Pulse Ox O2 Del Method O2 Flow Rate 98.1 F 93 18 138/71 H 99 Oxy Mask 11 05/31/25 08:00 05/31/25 08:00 05/31/25 08:00 05/31/25 08:00 05/31/25 08:00 05/31/25 08:00 05/31/25 08:00 FiO2 55 05/31/25 08:00 Narrative Exam General Appearance: Alert & Oriented X3, hard of hearing patient, in no acute discomfort, saturating well on 5 L, low oxygen. HEENT: Skull symmetrical and atraumatic. Conjunctivae pink and moist. Pupils equal, round, reactive to light and accommodation (PERRL). External ear without lesion or discharge. Straight, nares patient, mucosa pink, no discharge. No thyroid nodule appreciated. No cervical lymphadenopathy. Cardio: Normal Rate and Rhythm with S1 and S2 heart sounds. possible murmur noted on mitral area. No bruits on carotid auscultation. No peripheral edema or cyanosis. Lungs: Symmetric with good expansion. Decreased breath sounds on the right side, likely pleural effusion. Abdomen: Non-tender, Non-distended, Normal Reactive Bowel Sounds. Denied supra-pubic tenderness, costovertebral tenderness, worse on right side. Neuro: Alert, cooperative, oriented to person, place, and time. Speech clear. CN grossly intact. Upper motor strength 5/5 and Lower motor strength 5/5. Sensation intact. Objective Labs 06/01/25 05:19 06/01/25 05:19 Labs: Laboratory Results - last 24 hr 05/30/25 05/30/25 05/30/25 10:20 13:26 17:09 WBC RBC Hgb Hct MCV MCH MCHC RDW Std Deviation Plt Count Neut % (Auto) Lymph % (Auto) [place] % (Auto) Eos % (Auto) Baso % (Auto) Neut # (Auto) Lymph # (Auto) [place] # (Auto) Eos # (Auto) Baso # (Auto) Immature Gran # (Auto) Absolute Nucleated RBC Immature Gran % Nucleated RBC % APTT Puncture Site ABG pH ABG pCO2 ABG pO2 ABG HCO3 ABG O2 Saturation ABG Base Excess FiO2 Sodium 130 L Potassium 4.0 Chloride 102 Carbon Dioxide 19.5 L Anion Gap 9 BUN 31 H Creatinine 1.3 Estim Creat Clear Calc 23.4 L eGFR 40 L BUN/Creatinine Ratio 24 H Glucose 156 H Calculated Osmolality 270 L Lactic Acid 3.5 H 2.9 H 2.5 H Calcium 7.8 L Corrected Calcium 8.8 Phosphorus 3.0 Magnesium Total Bilirubin AST ALT Alkaline Phosphatase Troponin I B-Natriuretic Peptide Total Protein Albumin 2.8 L Globulin Albumin/Globulin Ratio Random Vancomycin 05/30/25 05/31/25 05/31/25 21:53 01:32 02:05 WBC RBC Hgb Hct MCV MCH MCHC RDW Std Deviation Plt Count Neut % (Auto) Lymph % (Auto) [place] % (Auto) Eos % (Auto) Baso % (Auto) Neut # (Auto) Lymph # (Auto) [place] # (Auto) Eos # (Auto) Baso # (Auto) Immature Gran # (Auto) Absolute Nucleated RBC Immature Gran % Nucleated RBC % APTT Puncture Site Right Radial ABG pH 7.43 ABG pCO2 29 L ABG pO2 75 L ABG HCO3 19 L ABG O2 Saturation 97 ABG Base Excess -4 L FiO2 100 Sodium Potassium Chloride Carbon Dioxide Anion Gap BUN Creatinine Estim Creat Clear Calc eGFR BUN/Creatinine Ratio Glucose Calculated Osmolality Lactic Acid 2.7 H 2.6 H Calcium Corrected Calcium Phosphorus Magnesium Total Bilirubin AST ALT Alkaline Phosphatase Troponin I B-Natriuretic Peptide Total Protein Albumin Globulin Albumin/Globulin Ratio Random Vancomycin 05/31/25 05/31/25 05/31/25 02:21 06:05 06:09 WBC 14.0 H RBC 3.74 L Hgb 10.9 L Hct 31.8 L MCV 85 MCH 29.1 MCHC 34.3 RDW Std Deviation 45.3 Plt Count 85 L Neut % (Auto) 87 H Lymph % (Auto) 3 L [place] % (Auto) 8 Eos % (Auto) 0 Baso % (Auto) 1 Neut # (Auto) 12.1 H Lymph # (Auto) 0.5 L [place] # (Auto) 1.1 H Eos # (Auto) 0.0 Baso # (Auto) 0.1 Immature Gran # (Auto) 0.19 H Absolute Nucleated RBC 0.02 H Immature Gran % 1 H Nucleated RBC % 0 APTT 27.2 Puncture Site ABG pH ABG pCO2 ABG pO2 ABG HCO3 ABG O2 Saturation ABG Base Excess FiO2 Sodium 133 L Potassium 3.6 Chloride 100 Carbon Dioxide 21.2 Anion Gap 12 BUN 27 H Creatinine 1.3 Estim Creat Clear Calc 23.4 L eGFR 40 L BUN/Creatinine Ratio 21 H Glucose 192 H Calculated Osmolality 276 Lactic Acid 2.2 H 1.7 Calcium 8.2 L Corrected Calcium 9.0 Phosphorus 1.9 L Magnesium 1.8 Total Bilirubin 0.8 AST 20 ALT 19 Alkaline Phosphatase 142 H D Troponin I 0.132 H* B-Natriuretic Peptide 667 H* Total Protein 5.4 L Albumin 3.0 L Globulin 2.4 Albumin/Globulin Ratio 1.3 Random Vancomycin 7.6 05/31/25 07:50 WBC RBC Hgb Hct MCV MCH MCHC RDW Std Deviation Plt Count Neut % (Auto) Lymph % (Auto) [place] % (Auto) Eos % (Auto) Baso % (Auto) Neut # (Auto) Lymph # (Auto) [place] # (Auto) Eos # (Auto) Baso # (Auto) Immature Gran # (Auto) Absolute Nucleated RBC Immature Gran % Nucleated RBC % APTT Puncture Site ABG pH ABG pCO2 ABG pO2 ABG HCO3 ABG O2 Saturation ABG Base Excess FiO2 Sodium Potassium Chloride Carbon Dioxide Anion Gap BUN Creatinine Estim Creat Clear Calc eGFR BUN/Creatinine Ratio Glucose Calculated Osmolality Lactic Acid Calcium Corrected Calcium Phosphorus Magnesium Total Bilirubin AST ALT Alkaline Phosphatase Troponin I 0.169 H* B-Natriuretic Peptide Total Protein Albumin Globulin Albumin/Globulin Ratio Random Vancomycin ABG Interpretation ABG results: 05/28/25 05/29/25 05/31/25 20:17 14:40 02:05 ABG pH 7.39 7.34 L 7.43 ABG pCO2 21 L 27 L 29 L ABG pO2 78 L 58 L* D 75 L ABG HCO3 13 L 15 L 19 L ABG O2 Saturation 97 91 97 ABG Base Excess -10 L -10 L -4 L Quality Measures Quality Measures VTE prophylaxis (SCDs only) Advance care planning discussed with:: patient Assessment & Plan Assessment Current Active Medications: Generic Name Dose Route Start Last Admin Trade Name Freq PRN Reason Stop Dose Admin Acetaminophen 650 mg 05/28/25 16:30 05/31/25 10:06 Acetaminophen 325 Mg Tablet PO 06/27/25 16:29 650 mg Q6H PRN Administration Mild Pain 1-3 or Fever >100.3 Hydrocodone Bitart/Acetaminophen 1 tab 05/28/25 16:35 05/30/25 16:47 Hydrocodone/Apap 5/325 Tablet PO 06/02/25 16:34 1 tab Q4HR PRN Administration PAIN SCALE 4-6 (Moderate Amlodipine Besylate 5 mg 05/29/25 09:00 05/29/25 09:32 Amlodipine Besylate 5 Mg Tablet PO 06/28/25 08:59 Not Given QDAY GERHARD Dextrose 25 ml 05/28/25 16:35 Dextrose 50%-Water Inj 50 Ml Syringe IV 06/27/25 16:34 Q15MIN PRN BG 50-70 responsive npo pt Dextrose 50 ml 05/28/25 16:35 Dextrose 50%-Water Inj 50 Ml Syringe IV 06/27/25 16:34 Q15MIN PRN BG <50 OR BG <70 & pt unresponsive Docusate Sodium 100 mg 05/29/25 09:00 05/31/25 09:52 Docusate Sod 100 Mg Capsule PO 06/28/25 08:59 100 mg QDAY GERHARD Administration Protocol Donepezil HCl 5 mg 05/29/25 21:00 05/30/25 21:22 Donepezil Hcl 5 Mg Tablet PO 06/28/25 20:59 5 mg HS GERHARD Administration Fluoxetine HCl 20 mg 05/29/25 09:00 05/31/25 09:53 Fluoxetine Hcl 10 Mg Capsule PO 06/28/25 08:59 20 mg QDAY GERHARD Administration Furosemide 40 mg 05/31/25 01:45 05/31/25 06:37 Furosemide Inj 10 Mg/Ml 4ml Vial IVP 06/30/25 01:44 40 mg BIDD GERHARD Administration Glucagon 1 mg 05/28/25 16:35 Glucagon Inj 1 Mg Vial IM Q15MIN PRN BG <70, and no IV access Piperacillin/Tazobactam/Dextrose 3.375 gm in 50 mls @ 12.5 mls/hr 05/30/25 09:00 05/31/25 09:50 Zosyn IV 06/06/25 08:59 12.5 mls/hr Q12HR GERHARD Administration Fluconazole 200 mg in 100 mls @ 100 mls/hr 06/01/25 09:00 Diflucan/Ns Ivpb IV 06/08/25 08:59 QDAY GERHARD Potassium Phosphate 22.5 mmol/ 507.5 mls @ 82.778 mls/hr 05/31/25 08:00 05/31/25 09:55 Sodium Chloride IV 05/31/25 14:07 82.778 mls/hr X1 ONE Administration Insulin Human Lispro 0 unit 05/29/25 17:00 05/31/25 07:36 Insulin Lispro (Admelog) 1 Unit/0.01 Ml Unit SC 06/28/25 16:59 1 unit ACHS GERHARD Administration Protocol Lisinopril 10 mg 05/29/25 09:00 Lisinopril 2.5 Mg Tablet PO 06/28/25 08:59 QDAY GERHARD Metoprolol Tartrate 25 mg 05/29/25 09:00 05/29/25 09:32 Metoprolol Tartrate 25 Mg Tablet PO 06/28/25 08:59 Not Given DAILY GERHARD Morphine Sulfate 2 mg 05/31/25 07:42 Morphine Sulf Inj 10 Mg/Ml Vial IVP 06/02/25 16:34 Q4H PRN PAIN SCALE 7-10 (Severe Ondansetron HCl 4 mg 05/28/25 16:35 Ondansetron Inj 2 Mg/Ml Inj 2 Ml IVP 06/27/25 16:34 Q6H PRN NAUSEA OR VOMITING Protocol Pantoprazole Sodium 40 mg 05/28/25 18:00 05/31/25 09:53 Pantoprazole Inj 40 Mg Vial IVP 06/27/25 17:59 40 mg QDAY GERHARD Administration Pharmacy Consult 1 each 05/28/25 16:43 Pharmacy To Consult Patient XX 06/27/25 16:42 PRN PRN CONSULT Pharmacy Consult 1 each 05/29/25 17:09 Pharmacy Renal Dose Adjustment 1 Ea XX 06/28/25 17:08 PRN PRN CONSULT Pravastatin Sodium 40 mg 05/29/25 09:00 05/31/25 09:52 Pravastatin Sodium 10 Mg Tablet PO 06/28/25 08:59 40 mg DAILY GERHARD Administration Tamsulosin HCl 0.4 mg 05/28/25 20:00 05/31/25 09:52 Tamsulosin Hcl 0.4 Mg Capsule PO 06/27/25 19:59 0.4 mg QDAY GERHARD Administration Plan Patient is an 84-year-old female with history of CVA-acute left cerebellar infarct, history of meningioma, hypertension, hyperlipidemia, diabetes mellitus type 2 [id number], grade 1 diastolic dysfunction and dementia. Mitchell was admitted on 05/28/2025 for pyelonephrititis with hydronephrosis secondary to nephrolithiasis and metabolic acidosis for nephrostomy tubes. #Sepsis secondary to pyelonephritis #Right hydroureter and nephrolithiasis s/p right ureteral stent and ureteroscopy #GPC bacteremia #Fungemia Patient presented with renal calculi 6 mm, moderate right hydronephrosis with nausea and costovertebral angle tenderness indicating pydelonephritis. CT abdomen: Moderate right hydronephrosis, 6 mm mid right ureteral calculus; UA: cloudy, RBC 61 H, WBC 826, bacteria 1+ . End organ damaged noted within increase total bibili, ,decreased platlets,rise in Cr, and MAP <70. Improving metabolic acidosis with serum bicarb 17.3 anion gap 12, continue to treat underlying condition. Ceftriaxone stopped. QSOFA 0-->SOFA 6 point 33% mortality on the following day of admission. Complicated UTI in the presence of kidney stones, possible polymicrobial infection, leading to yeast and GPC in blood. Blood culture from 05/28/2025 grew GPC in 1/2 bottles, blood culture from 05/30/2025 grew yeast, urine culture from 05/28/2025 showed mixed soraida possible contamination. No growth on repeat urine culture. Repeat blood cultures ordered 05/31/2025. Plan ? IV antibiotics vancomycin and Zosyn started 05/29/2025? ? IV Diflucan 400 mg x 1, continue fluconazole 200 mg daily based on creatinine clearance. Started 05/31/2025? ? Tamsulosin 0.4 mg daily ? Urology consulted Dr. Cao orders placed, appreciate recommendations, per urology ? Found to have right hydroureteronephrosis, right pyelonephrosis, postprocedure cloudy urine was drained out of right ureteral collecting system. Stone was extracted and the double-J stent was placed under fluoroscopic examination. Per urology recommendations, patient will require laser stone fragmentation at a later time after discharge. #Acute hypoxic respiratory failure #Ruled out pulmonary embolism #Concern for volume overload secondary to CHF Patient did have rapid response overnight for hypoxia, requiring 10 to 11 L oxygen via oxime mask, chest x-ray showed worsening infiltrates on x-ray, likely fluid overload versus pneumonia. CT angiogram was ordered as patient's D-dimer levels were elevated > 3000. ? Negative CT angiogram in the morning, negative bilateral duplex venous ultrasound, holding off on heparin drip. ? Discontinued IV fluids, due to concern for volume overload, patient does have prior echocardiogram that shows HFpEF. Continue with diuresis, Lasix 40 mg twice daily. #Pleural effusion Noted large right-sided pleural effusion, moderate left-sided pleural effusion, bedside ultrasound was done which failed to identify safe pocket for thoracentesis. Will consider IR guided thoracentesis if pt symptomatic ? Will continue with IV diuresis, furosemide 40 mg twice daily. #MARGIE on CKD, likely postrenal- resolved #Metabolic Acidosis, high anion gap Patient presented with MARGIE likely obstructive given hydronephrosis and neprholithiais and hydronephrosis vs MARGIE on CKD as previous concern of CKD vs pre-renal. Elevate lactic acid, improving, concern for sepsis. Plan -Strict Ins and outs -Avoid nephrotoxins -renally dose medication #Hypertension Patient has a past medical history of hypertension. Patient home medication of hypertension including Lisinopril, amlodpine, and metoprolol tartrate. Plan -Given septic picture and soft blood pressure, holding any anti-hypertensive medication. #Diabetes Mellitus type II Patient has a past medical history of diabetes mellitus type II on metformin 500 mg bid. Plan -Sliding Scale -A1c AM -Hypoglycemic per protocol #Hyperlipidiemia Home medication of pravastatin 40 mg PO HS Plan -continue home med #History of acute left cerebellar hemisphere infarct Past medical history of acute left cerebellar hemisphere. Patient following Dr. Power. Patient continues to take Plavix and Aspirin. Plan -resume Aspirin and Plavix post procedure #Dementia Patient has a past medical history of dementia, home mediation on donepezil and fluoxetine Plan -Hold Donepzil due to risk for multiple drug interactions, risk for arrythmia #Grade I Diastolic Dysfucntion Health Maintenance: Disp: Pt is currently admitted to floors for further management of pyelonephritis , awaiting blood cultures and nephrostomy tubes. FEN: NPO for nephrostomy tubes DVT: compression device Code: Full Code - The patient's plan was discussed with attending Dr. Anabell Hussein PGY3
[2025-05-31 14:46] LABS: Troponin I 0.110 ng/mL (0.0-0.045)
[2025-05-31] MEDS: DONEPEZIL HCL 5 MG TABLET PO (20:00)
[2025-05-31 20:46] LABS: Troponin I 0.096 ng/mL (0.0-0.045)
[2025-06-01] VITALS (16 sets, daily range): BP systolic 122–158; BP diastolic 61–95; PULSE 66–160; RESP 15–24; TEMP 36.1–36.6; O2SAT 93–98
--- NOTE | 2025-06-01 04:32 | PC.NURSE ---
accessed patient's chart for main nurse.
[2025-06-01] MEDS: METOPROLOL TARTRATE 25 MG TABLET PO (04:36)
--- NOTE | 2025-06-01 04:49 | EKG_ITS ---
[facility] Test Date: 2025-06-01 Pat Name: GISELA DALE Department: Room: S263A Gender: Female Rn Lab: [facility] : 1940 Requested By: Sabas Page Order Number: [id number] Reading MD: Sabas Page Measurements Intervals [place] Rate: 133 P: LA: QRS: -12 QRSD: 79 T: 34 QT: 312 QTc: 465 Interpretive Statements ATRIAL FIBRILLATION WITH RAPID VENTRICULAR RESPONSE LOW QRS VOLTAGE IN PRECORDIAL LEADS POSSIBLE ANTERIOR MYOCARDIAL INFARCTION , PROBABLY OLD ABNORMAL RHYTHM ECG Compared to ECG 05/31/2025 02:24:03 Sinus tachycardia no longer present Indeterminate axis no longer present Myocardial infarct finding still present /store/S0/[id number].pdf
[2025-06-01] MEDS: METOPROLOL TARTRATE INJ 1 MG/ML AMP 5 ML 2.5 MG IVP ×2 (05:03→05:25)
[2025-06-01] MEDS: Magnesium Sulfate 4 GM Ivpb 4 GM/50 ML BAG IV (05:05)
--- NOTE | 2025-06-01 05:22 | PD.RESEVENT ---
Documentation for date of: 06/01/25 Event Note Event Note: Rapid response called at approximately 5 AM for heart rate in 150s to 160s. Upon arrival, patient stated that she felt slight short of breath, mild palpitations, and some chest discomfort but that did not radiate anywhere. BP 158/95, saturating 95% on 4 L nasal cannula. EKG was obtained and showed A-fib with RVR with heart rate of 133 but was obtained after already being given metoprolol tartrate 25 mg p.o. Heart rate remained elevated in 140s 150s and was given a total of 5 mg IV metoprolol tartrate and heart rate continued to trend downwards into the 120s, blood pressure remained stable. Will obtain repeat troponin although troponins were obtained previously and noted slightly elevated. K 3.6 and repleted with 40 mEq and magnesium 1.8 and repleted with 4 g. ----- Plan discussed with attending physician Dr. Radha Page MD PGY-2 Internal Medicine
[2025-06-01] MEDS: FUROSEMIDE INJ 10 MG/ML 4ML VIAL 20 MG IVP (05:26)
[2025-06-01 05:57] LABS: Basophils # (Auto) 0.1 Thou/mm3 (0.0-0.2); Basophils % (Auto) 1 % (0-2.5); Eosinophils # (Auto) 0.4 Thou/mm3 (0.0-0.5); Eosinophils % (Auto) 5 % (0-10); Hematocrit 32.2 % (36.0-46.0); Hemoglobin 11.3 g/dL (12.0-16.0); Immature Granulocytes Auto 0.34 Thou/mm3 (0.00-0.00); Lymphocytes # (Auto) 1.1 Thou/mm3 (1.0-4.8); Lymphocytes % (Auto) 13 % (10-50); Mean Corpuscular HGB Conc 35.1 g/dl (31.0-37.0); Mean Corpuscular Hemoglobin 29.4 pg (25.0-35.0); Mean Corpuscular Volume 84 fL (80-100); Monocytes # (Auto) 1.6 Thou/mm3 (0.0-0.8); Monocytes % (Auto) 18 % (0-12); Neutrophils # (Auto) 5.5 Thou/mm3 (1.8-7.7); Neutrophils % (Auto) 61 % (37-80); Nucleated Red Blood Cell # 0.00 Thou/mm3 (0.00-0.00); Nucleated Red Blood Cell % 0 /100 WBC (0); Platelet Count 86 Thou/mm3 (140-440); RDW Standard Deviation 44.4 fL (36.4-46.3); Red Blood Count 3.85 Miln/mm3 (4.00-5.20); White Blood Count 9.1 Thou/mm3 (3.6-11.0)
[2025-06-01 06:26] LABS: Alanine Aminotransferase 30 U/L (10-49); Albumin, Serum 3.2 gm/dL (3.4-4.8); Albumin/Globulin Ratio 1.2 (1.2-2.2); Alkaline Phosphatase 171 U/L (46-116); Anion Gap 12 (7-16); Aspartate Amino Transferase 30 U/L (0-34); BUN/Creatinine Ratio 17 Ratio (12-20); Bilirubin,Total 0.9 mg/dL (0.3-1.2); Blood Urea Nitrogen 22 mg/dL (9-23); Calcium 8.4 mg/dL (8.3-10.6); Calcium (Corrected) 9.0 mg/dL (8.5-10.1); Carbon Dioxide 26.2 mMol/L (20.0-31.0); Chloride 94 mMol/L (98-107); Creatinine (Component) 1.3 mg/dL (0.6-1.3); Estimated Creatinine Clearance 23.4 mL/min (>60); Globulin 2.6 gm/dL (2.3-3.5); Glucose 141 mg/dL (74-106); Magnesium 1.9 mg/dL (1.6-2.6); Osmolality,Calculated 269 (275-295); Phosphorous 2.9 mg/dL (2.4-5.1); Potassium 3.4 mMol/L (3.4-5.1); Sodium 132 mMol/L (136-145); Thyroid Stimulating Hormone 2.41 uIU/mL (0.55-4.78); Total Protein 5.8 gm/dL (5.7-8.2); eGFR 40 See Note
[2025-06-01 06:27] LABS: Troponin I 0.081 ng/mL (0.0-0.045)
--- NOTE | 2025-06-01 07:53 | XR_ITS ---
Examination: AP chest single view Technique one AP portable upright chest single view Date and time: June 01, 2025, 0813 hrs. Comparison May 31, 2025 Indications: Difficulty breathing today. Findings: Mild to moderate CHF Enlarged cardiac contour with vascular congestion and perihilar edema Impression: Mild to moderate CHF
[2025-06-01] MEDS: FLUCONAZOLE/NS 200 MG IVPB 200 MG/100 ML BAG 100 MG IV (08:21)
[2025-06-01] MEDS: METOPROLOL SUCCINATE XL 25 MG TABCR 12.5 MG PO (08:23)
[2025-06-01] MEDS: PANTOPRAZOLE 40 MG TABLET PO (08:23)
[2025-06-01] MEDS: PRAVASTATIN SODIUM 10 MG TABLET 40 MG PO (08:23)
[2025-06-01] MEDS: DOCUSATE SOD 100 MG CAPSULE PO (08:24)
[2025-06-01] MEDS: CLOPIDOGREL BISULFATE 75 MG TABLET PO (08:24)
[2025-06-01] MEDS: ASPIRIN EC 81 MG TABEC PO (08:24)
[2025-06-01] MEDS: PIPER/TAZO 3.375 GM PREMIX 3.375 GM/50 ML BAG IV ×3 (08:25→23:34)
[2025-06-01] MEDS: TAMSULOSIN HCL 0.4 MG CAPSULE PO (08:25)
--- NOTE | 2025-06-01 10:00 | CHAP ---
Patient was visited by the Spiritual Care Volunteer from whom they received communion. (Volunteer was in the hospital from 09:13-10:00)
[2025-06-01] MEDS: INSULIN LISPRO (AdmeLOG) 1 UNIT/0.01 ML UNIT SC ×2 (11:39→20:29)
--- NOTE | 2025-06-01 15:42 | ESCONSULT_ITS ---
<Statement entered by Tonya Tipton MD - 06/01/25 19:30> I personally examined evaluated this patient and alert with the resident physician PGY 2 Dr. Nena Hawley MD recommend continuing medical management patient was on aspirin Plavix because history of stroke but not known to have A- fib clearly she has A-fib with paroxysmal A-fib episode suggesting that there hide [id number] score of 7 recommended to be an Eliquis 2.5 mg twice daily adjusted body weight and her age but triple therapy is not indicated since she did not have any coronary stents recommend aspirin low-dose along with Eliquis for anticoagulation regimen. Also rate control with A-fib and current antiarrhythmic drug therapy patient continues to be in sinus rhythm currently. I evaluated the patient's in detail condition and all the essential components of the exam consultation report reviewed by me agree with the treatment plan recommendation as documented and recommended by PGY 2 resident physician. HPI Data of Consult Requesting Physician: Loni Hung MD Admitting Provider: Leonel Bernal DO Attending Provider: Loni Hung MD Primary Care Provider: Physician No Primary/Family Consult Narrative History of present illness: Ms. Roland is a 84-year-old female with past medical history significant for CVA (acute left cerebellar infarct). history of meningioma, hypertension, hyperlipidemia, eid-bwkpugb-oylrkcyng type 2 diabetes, HFpEF and dementia presented to the ED 05/28/2025 complaining of nausea/vomiting and right flank pain and tenderness. Patient was found to have complicated UTI, pyelonephritis and hydronephrosis secondary to nephrolithiasis. Urologist Dr. Cao was consulted patient was recommended to undergo a nephrostomy tube placement however two unsuccessful attempts for nephrostomy placement were made by IR and decision was made to attempt right retrograde pyelogram right ureteroscopy stent placement by the urologist. Patient underwent right retrograde pyelogram right ureteroscopy stone manipulation placement of right ureteral stent by the urologist on 05/29/2025. Pt has multiple rapid responses called for hpoxia, hypertension and CTA was ordered to rule out pulmonary embolism. Initially patient's blood cultures were positive for GPC 1 out of 2 bottles which was likely due to contamination and then patient was started on Diflucan due to blood cultures being positive for yeast on 05/30/2025. Patient was also noted to have large right sided pleural effusions and decision was made to not undergo thoracentesis due to no safe pocket. Therefore patient was continued on IV diuresis with furosemide 40 mg twice daily. Overnight on 06/01/2025 another rapid response was called for heart rate in 150s to 160. EKG showed A-fib with RVR patient was given metoprolol tartrate by the overnight team. Pt denies any prior known cardiac history. Pt denies any chest pain, chest pressure, shortness of breath Cardiology is consulted due to recommendations regarding anticoagulation in the setting of paroxysmal A-fib as patient is currently on aspirin and Plavix due to history of CVA PMH: CVA (acute left cerebellar infarct). history of meningioma, hypertension, hyperlipidemia, nwg-vwrvspb-gwgrcykmy type 2 diabetes, HFpEF and dementia PSH: Hysterectomy SH: NO smoking or IV/oral drug use. denied alcohol use Home Meds: Donezepil 10 mg at bedtime, metformin 500 mg twice daily, metoprolol tartrate 25 mg twice daily, pravastatin 10 mg, losartan 50 mg cc:: cc: Loni Hung MD Review of Systems Review of Systems Systems Reviewed: All systems reviewed, normal except as documented Exam Vital Signs Temp Pulse Resp BP Pulse Ox O2 Del Method O2 Flow Rate 97.8 F 72 17 133/71 H 93 L Nasal Cannula 2 06/01/25 12:00 06/01/25 12:00 06/01/25 12:00 06/01/25 12:00 06/01/25 12:00 06/01/25 12:00 06/01/25 12:00 FiO2 55 05/31/25 16:00 Narrative Exam GENERAL: A&Ox3 elderly female, well groomed, Not in acute distress NEURO: no focal neurological deficits HEENT: Atraumatic, Normocephalic. mucous membranes moist. Eyes open, symmetrical, & clear HEART: Normal Heart Sounds LUNGS: Clear to auscultation with no wheezing or crackles. ABDOMEN: soft, non-distended, non-tender, bowel sounds heard, no guarding or rebound tenderness SKIN: No Rash or ecchymoses EXTREMITIES: No edema, tenderness, able to move all 4 extremities, pedal pulses palpated Results Labs 06/01/25 05:19 06/01/25 05:19 Labs: Short CBC 06/01/25 Range/Units 05:19 WBC 9.1 (3.6-11.0) Thou/mm3 Hgb 11.3 L (12.0-16.0) g/dL Hct 32.2 L (36.0-46.0) % Plt Count 86 L (140-440) Thou/mm3 BMP 06/01/25 05:19 Sodium 132 L Potassium 3.4 Chloride 94 L Carbon Dioxide 26.2 BUN 22 Creatinine 1.3 Glucose 141 H D Calcium 8.4 Cardiac Enzymes 05/31/25 06/01/25 Range/Units 19:51 05:19 Troponin I 0.096 H* 0.081 H* (0.0-0.045) ng/mL Liver Function 06/01/25 Range/Units 05:19 Total Bilirubin 0.9 (0.3-1.2) mg/dL AST 30 (0-34) U/L ALT 30 (10-49) U/L Alkaline Phosphatase 171 H D (46-116) U/L Albumin 3.2 L (3.4-4.8) gm/dL ABG Interpretation ABG results: 05/28/25 05/29/25 05/31/25 20:17 14:40 02:05 ABG pH 7.39 7.34 L 7.43 ABG pCO2 21 L 27 L 29 L ABG pO2 78 L 58 L* D 75 L ABG HCO3 13 L 15 L 19 L ABG O2 Saturation 97 91 97 ABG Base Excess -10 L -10 L -4 L Quality Measures Quality Measures VTE prophylaxis (SCDs only) Advance care planning discussed with:: patient and child Medications Home Medications and Allergies Home Medications ?Medication ?Instructions ?Recorded ?Confirmed ?Type metformin 500 mg tablet 1,000 mg PO QDAY 03/28/23 History donepezil 5 mg tablet 5 mg PO HS 09/12/23 05/28/25 History vitamin B complex-vitamin C-folic 1 tab PO DAILY 09/1205/28/25 History acid 0.8 mg tablet (Renuka-Casey) fluoxetine 10 mg capsule 20 mg PO DAILY 02/18/25 0701/21 History oxybutynin chloride 5 mg tablet 5 mg PO QDAY 02/18/25 05/28/25 History amlodipine 5 mg tablet 5 mg PO QDAY 05/23/25 History aspirin 81 mg tablet 81 mg PO QDAY 05/23/2505/28 History clopidogrel 75 mg tablet 75 mg PO QDAY 05/23/2505/28 History lisinopril 10 mg tablet 10 mg PO QDAY 05/23/2505/28 History nitrofurantoin macrocrystal 50 mg 50 mg PO QDAY 05/28/25 History capsule pravastatin 40 mg tablet 40 mg PO QDAY 05/23/2505/28 History metoprolol tartrate 25 mg tablet 25 mg PO QDAY 5 05/28/25 History Allergies Allergy/AdvReac Type Severity Reaction Status Date / Time No Known Allergies Allergy Verified 05/28/25 09:58 Visit Medications Acetaminophen (Acetaminophen 325 Mg Tablet) 650 mg PO Q6H PRN PRN Reason: Mild Pain 1-3 or Fever >100.3 Stop: 06/27/25 16:29 Last Admin: 05/31/25 10:06 Dose: 650 mg Hydrocodone Bitart/Acetaminophen (Hydrocodone/Apap 5/325 Tablet) 1 tab PO Q4HR PRN PRN Reason: PAIN SCALE 4-6 (Moderate Stop: 06/02/25 16:34 Last Admin: 05/30/25 16:47 Dose: 1 tab Amlodipine Besylate (Amlodipine Besylate 5 Mg Tablet) 5 mg PO QDAY [facility] Stop: 06/28/25 08:59 Last Admin: 05/29/25 09:32 Dose: Not Given Apixaban (Apixaban 2.5 Mg Tablet) 2.5 mg PO BID [facility] Stop: 07/01/25 20:59 Aspirin (Aspirin Ec 81 Mg Tabec) 81 mg PO DAILY [facility] Stop: 07/01/25 08:59 Last Admin: 06/01/25 08:24 Dose: 81 mg Dextrose (Dextrose 50%-Water Inj 50 Ml Syringe) 25 ml IV Q15MIN PRN PRN Reason: BG 50-70 responsive npo pt Stop: 06/27/25 16:34 Dextrose (Dextrose 50%-Water Inj 50 Ml Syringe) 50 ml IV Q15MIN PRN PRN Reason: BG <50 OR BG <70 & pt unresponsive Stop: 06/27/25 16:34 Docusate Sodium (Docusate Sod 100 Mg Capsule) 100 mg PO QDAY [facility]; Protocol Stop: 06/28/25 08:59 Last Admin: 06/01/25 08:24 Dose: 100 mg Donepezil HCl (Donepezil Hcl 5 Mg Tablet) 5 mg PO [facility] Stop: 06/28/25 20:59 Last Admin: 05/31/25 20:00 Dose: 5 mg Fluoxetine HCl (Fluoxetine Hcl 10 Mg Capsule) 20 mg PO QDAY [facility] Stop: 06/28/25 08:59 Last Admin: 06/01/25 08:24 Dose: 20 mg Glucagon (Glucagon Inj 1 Mg Vial) 1 mg IM Q15MIN PRN PRN Reason: BG <70, and no IV access Fluconazole (Diflucan/Ns Ivpb) 200 mg in 100 mls @ 100 mls/hr IV QDAY [facility] Stop: 06/08/25 08:59 Last Admin: 06/01/25 08:21 Dose: 100 mls/hr Piperacillin/Tazobactam/Dextrose (Zosyn) 3.375 gm in 50 mls @ 12.5 mls/hr IV Q8H [facility] Stop: 06/08/25 07:59 Last Admin: 06/01/25 08:25 Dose: 12.5 mls/hr Insulin Glargine (Insulin Glargine (Lantus) 5 Unit/0.05 Ml (Per 5 Units)) 5 unit SC [facility] Stop: 07/01/25 20:59 Insulin Human Lispro (Insulin Lispro (Admelog) 1 Unit/0.01 Ml Unit) 0 unit SC [facility]; Protocol Stop: 06/28/25 16:59 Last Admin: 06/01/25 11:39 Dose: 2 unit Lisinopril (Lisinopril 2.5 Mg Tablet) 10 mg PO QDAY [facility] Stop: 06/28/25 08:59 Metoprolol Succinate (Metoprolol Succinate Xl 25 Mg Tabcr) 12.5 mg PO QDAY [facility] Stop: 07/01/25 08:59 Last Admin: 06/01/25 08:23 Dose: 12.5 mg Morphine Sulfate (Morphine Sulf Inj 10 Mg/Ml Vial) 2 mg IVP Q4H PRN PRN Reason: PAIN SCALE 7-10 (Severe Stop: 06/02/25 16:34 Ondansetron HCl (Ondansetron Inj 2 Mg/Ml Inj 2 Ml) 4 mg IVP Q6H PRN; Protocol PRN Reason: NAUSEA OR VOMITING Stop: 06/27/25 16:34 Pantoprazole Sodium (Pantoprazole 40 Mg Tablet) 40 mg PO QDAY [facility]; Protocol Stop: 07/01/25 08:59 Last Admin: 06/01/25 08:23 Dose: 40 mg Pharmacy Consult (Pharmacy To Consult Patient) 1 each XX PRN PRN PRN Reason: CONSULT Stop: 06/27/25 16:42 Pharmacy Consult (Pharmacy Renal Dose Adjustment 1 Ea) 1 each XX PRN PRN PRN Reason: CONSULT Stop: 06/28/25 17:08 Pravastatin Sodium (Pravastatin Sodium 10 Mg Tablet) 40 mg PO DAILY [facility] Stop: 06/28/25 08:59 Last Admin: 06/01/25 08:23 Dose: 40 mg Tamsulosin HCl (Tamsulosin Hcl 0.4 Mg Capsule) 0.4 mg PO QDAY [facility] Stop: 06/27/25 19:59 Last Admin: 06/01/25 08:25 Dose: 0.4 mg Discontinued Medications Albuterol/Ipratropium (Albuterol/Ipratropium (Duoneb) Rt Nicole 3 Ml Nebu) 3 ml INH X1 ONE Stop: 05/31/25 01:17 Last Admin: 05/31/25 19:12 Dose: Not Given Clopidogrel Bisulfate (Clopidogrel Bisulfate 75 Mg Tablet) 75 mg PO QDAY [facility] Stop: 07/01/25 08:59 Last Admin: 06/01/25 08:24 Dose: 75 mg Fentanyl Citrate (Fentanyl Cit Inj 50 Mcg/Ml Amp 2ml) 37.5 mcg IVP X1 ONE Stop: 05/29/25 10:11 Last Admin: 05/29/25 10:25 Dose: 37.5 mcg Fentanyl Citrate (Fentanyl Cit Inj 50 Mcg/Ml Amp 2ml) 25 mcg IVP Q5M PRN PRN Reason: PAIN SCALE 1-3 (mild Stop: 05/29/25 17:59 Furosemide (Furosemide Inj 10 Mg/Ml 4ml Vial) 40 mg IVP BIDD [facility] Stop: 06/30/25 01:44 Last Admin: 05/31/25 17:04 Dose: 40 mg Furosemide (Furosemide Inj 10 Mg/Ml 4ml Vial) 20 mg IVP BIDD [facility] Stop: 07/01/25 05:59 Last Admin: 06/01/25 05:26 Dose: 20 mg Heparin Sodium (Porcine) (Heparin Sod Inj 5000 Unit/Ml Vial) 4,200 unit 80 unit/kg (4200 unit) IV X1 ONE; Protocol Stop: 05/31/25 07:48 Last Admin: 05/31/25 19:12 Dose: Not Given Hydromorphone HCl (Hydromorphone Inj 2 Mg/Ml Vial) 0.4 mg IVP Q5M PRN PRN Reason: PAIN SCALE 7-10 (Severe Stop: 05/29/25 17:59 Ceftriaxone Sodium/Dextrose (Rocephin/D5w 1gm Iv Premix) 1 gm in 50 mls @ 100 mls/hr IV X1 ONE Stop: 05/28/25 16:00 Last Infusion: 05/28/25 17:00 Dose: Infused Sodium Chloride (Ns) 1,000 mls @ 999 mls/hr IV .Q1H1M ONE Stop: 05/28/25 17:02 Last Infusion: 05/28/25 17:30 Dose: Infused Sodium Chloride (Ns) 1,000 mls @ 75 mls/hr IV .[id number] [facility] Stop: 06/27/25 18:59 Lactated Ringer's (Lactated Ringers) 1,000 mls @ 999 mls/hr IV .Q1H1M ONE Stop: 05/28/25 17:42 Last Admin: 05/28/25 18:27 Dose: 999 mls/hr Piperacillin/Tazobactam/Dextrose (Zosyn) 3.375 gm in 50 mls @ 12.5 mls/hr IV Q8HR [facility] Stop: 06/04/25 21:59 Piperacillin/Tazobactam/Dextrose (Zosyn) 3.375 gm in 50 mls @ 100 mls/hr IV X1 ONE Stop: 05/28/25 17:29 Last Admin: 05/28/25 18:31 Dose: 100 mls/hr Ceftriaxone Sodium/Dextrose (Rocephin/D5w 1gm Iv Premix) 1 gm in 50 mls @ 100 mls/hr IV QDAY [facility] Stop: 06/05/25 08:59 Last Admin: 05/29/25 09:30 Dose: 100 mls/hr Sodium Chloride (Ns) 1,000 mls @ 100 mls/hr IV .Q10H ONE Stop: 05/29/25 06:01 Last Admin: 05/28/25 21:16 Dose: 100 mls/hr Sodium Chloride (Ns) 500 mls @ 999 mls/hr IV .Q31M ONE Stop: 05/28/25 22:32 Last Admin: 05/28/25 22:15 Dose: 999 mls/hr Sodium Chloride (Ns) 1,000 mls @ 75 mls/hr IV .[id number] ONE Stop: 05/29/25 09:21 Last Admin: 05/29/25 06:27 Dose: 75 mls/hr Lactated Ringer's (Lactated Ringers) 1,000 mls @ 999 mls/hr IV .Q1H1M ONE Stop: 05/29/25 12:19 Last Admin: 05/29/25 11:56 Dose: 999 mls/hr Ceftriaxone Sodium/Dextrose (Rocephin/D5w 1gm Iv Premix) 1 gm in 50 mls @ 100 mls/hr IV X1 ONE Stop: 05/29/25 11:59 Last Admin: 05/29/25 11:56 Dose: 100 mls/hr Ceftriaxone Sodium/Dextrose (Rocephin/D5w 2gm) 2 gm in 50 mls @ 100 mls/hr IV QDAY [facility] Stop: 06/06/25 08:59 Acetaminophen (Ofirmev Inj) 1,000 mg in 100 mls @ 250 mls/hr IV Q6HR [facility] Stop: 05/30/25 06:23 Last Admin: 05/30/25 05:15 Dose: 250 mls/hr Lactated Ringer's (Lactated Ringers) 1,000 mls @ 999 mls/hr IV .Q1H1M ONE Stop: 05/29/25 17:20 Last Admin: 05/29/25 17:20 Dose: 999 mls/hr Vancomycin/Sodium Chloride (Vancomycin/Ns 1 Gm Ivpb) 200 mls @ 120 mls/hr IV X1 ONE Stop: 05/29/25 18:24 Last Admin: 05/29/25 18:34 Dose: 120 mls/hr Piperacillin/Tazobactam/Dextrose (Zosyn) 3.375 gm in 50 mls @ 12.5 mls/hr IV Q12HR [facility] Stop: 06/06/25 08:59 Last Admin: 05/31/25 20:00 Dose: 12.5 mls/hr Piperacillin/Tazobactam/Dextrose (Zosyn) 3.375 gm in 50 mls @ 100 mls/hr IV X1 ONE Stop: 05/29/25 17:59 Last Admin: 05/29/25 17:46 Dose: 100 mls/hr Lactated Ringer's (Lactated Ringers) 1,000 mls @ 75 mls/hr IV .[id number] [facility] Stop: 06/28/25 19:56 Last Admin: 05/30/25 10:46 Dose: 75 mls/hr Magnesium Sulfate (Magnesium Sulfate Ivpb) 2 gm in 50 mls @ 25 mls/hr IV X1 ONE Stop: 05/30/25 10:25 Last Admin: 05/30/25 09:28 Dose: 25 mls/hr Vancomycin/Sodium Chloride (Vancomycin/Ns 500 Mg Ivpb) 100 mls @ 120 mls/hr IV X1 ONE Stop: 05/30/25 17:49 Lactated Ringer's (Lactated Ringers) 1,000 mls @ 150 mls/hr IV .Q6H40M [facility] Stop: 06/29/25 14:04 Last Admin: 05/31/25 19:11 Dose: Not Given Fluconazole (Diflucan/Ns Ivpb) 400 mg in 200 mls @ 100 mls/hr IV X1 ONE Stop: 05/31/25 09:44 Last Admin: 05/31/25 09:51 Dose: 100 mls/hr Potassium Phosphate 22.5 mmol/ (Sodium Chloride) 507.5 mls @ 82.778 mls/hr IV X1 ONE Stop: 05/31/25 14:07 Last Admin: 05/31/25 09:55 Dose: 82.778 mls/hr Heparin Sodium/Dextrose (Heparin In D5w Ivpb) 25,000 unit in 250 mls @ 9.471 mls/hr IV .Q24H [facility]; Protocol Stop: 06/14/25 08:44 Last Admin: 05/31/25 19:11 Dose: Not Given Magnesium Sulfate (Magnesium Sulfate Ivpb) 4 gm in 50 mls @ 12.5 mls/hr IV X1 ONE Stop: 06/01/25 08:51 Last Admin: 06/01/25 05:05 Dose: 12.5 mls/hr Insulin Human Lispro (Insulin Lispro (Admelog) 1 Unit/0.01 Ml Unit) 0 unit SC Q6HR [facility]; Protocol Stop: 06/27/25 17:59 Last Admin: 05/29/25 18:13 Dose: Not Given Ipratropium [place] (Ipratropium Rt 0.5 Mg/ 2.5 Ml Nebu) 0.5 mg INH X1 ONE Stop: 05/31/25 01:21 Last Admin: 05/31/25 01:27 Dose: 0.5 mg Ketorolac Tromethamine (Ketorolac Inj 30 Mg/Ml Vial) 30 mg IM X1 ONE Stop: 05/28/25 10:15 Last Admin: 05/28/25 11:31 Dose: 30 mg Labetalol HCl (Labetalol Inj 5 Mg/Ml Vial 20 Ml) 10 mg IVP X1 ONE Stop: 05/31/25 02:09 Last Admin: 05/31/25 19:12 Dose: Not Given Levalbuterol HCl (Levalbuterol Rt 0.63 Mg/3 Ml Nebu) 0.63 mg INH X1 ONE Stop: 05/31/25 01:21 Last Admin: 05/31/25 01:27 Dose: 0.63 mg Lidocaine HCl (Lidocaine Inj Pf 1% 30 Ml Vial) 5 ml INFL X1 ONE Stop: 05/29/25 10:11 Last Admin: 05/29/25 10:35 Dose: 5 ml Metoprolol Tartrate (Metoprolol Tartrate 25 Mg Tablet) 25 mg PO DAILY [facility] Stop: 06/28/25 08:59 Last Admin: 05/29/25 09:32 Dose: Not Given Metoprolol Tartrate (Metoprolol Tartrate 25 Mg Tablet) 25 mg PO X1 ONE Stop: 06/01/25 04:33 Last Admin: 06/01/25 04:36 Dose: 25 mg Metoprolol Tartrate (Metoprolol Tartrate Inj 1 Mg/Ml Amp 5 Ml) 2.5 mg IVP X1 ONE Stop: 06/01/25 04:51 Last Admin: 06/01/25 05:03 Dose: 2.5 mg Metoprolol Tartrate (Metoprolol Tartrate Inj 1 Mg/Ml Amp 5 Ml) 2.5 mg IVP X1 ONE Stop: 06/01/25 05:09 Last Admin: 06/01/25 05:25 Dose: 2.5 mg Metoprolol Tartrate (Metoprolol Tartrate Inj 1 Mg/Ml Amp 5 Ml) 2 mg IVP X1 ONE Stop: 06/01/25 05:32 Morphine Sulfate (Morphine Sulf Inj 10 Mg/Ml Vial) 2 mg IVP Q2H PRN PRN Reason: PAIN SCALE 7-10 (Severe Stop: 06/02/25 16:34 Last Admin: 05/28/25 18:27 Dose: 2 mg Morphine Sulfate (Morphine Sulf Inj 10 Mg/Ml Vial) 2 mg IVP X1 ONE Stop: 05/29/25 12:12 Last Admin: 05/29/25 12:13 Dose: 2 mg Morphine Sulfate (Morphine Sulf Inj 10 Mg/Ml Vial) 3 mg IVP Q5M PRN PRN Reason: PAIN SCALE 4-6 (Moderate Stop: 05/29/25 17:59 Nitroglycerin (Nitroglycerin 0.4 Mg/Hr Patch.Td24) 0.4 mg TOP X1 ONE Stop: 05/31/25 02:17 Last Admin: 05/31/25 19:12 Dose: Not Given Nitroglycerin (Nitroglycerin Oint 2% 1 Inch Packet) 1 inch TOP X1 ONE Stop: 05/31/25 02:58 Last Admin: 05/31/25 03:04 Dose: 1 inch Non-Formulary Medication (Aspirin) 81 mg PO QDAY [facility] Stop: 07/01/25 08:59 Ondansetron HCl (Ondansetron Inj 2 Mg/Ml Inj 2 Ml) 4 mg IVP X1 ONE Stop: 05/29/25 15:59 Last Admin: 05/29/25 18:12 Dose: Not Given Pantoprazole Sodium (Pantoprazole Inj 40 Mg Vial) 40 mg IVP QDAY [facility] Stop: 06/27/25 17:59 Last Admin: 05/31/25 09:53 Dose: 40 mg Pharmacy Consult (Vancomycin Pharmacy To Dose 1 Each Each) 1 each IV QDAY PRN PRN Reason: CONSULT Stop: 06/28/25 16:29 Potassium Chloride (Potassium Chloride 20 Meq Tabcr) 40 meq PO X1 ONE Stop: 06/01/25 04:53 Last Admin: 06/01/25 05:26 Dose: 40 meq Potassium Chloride (Potassium Chloride 20 Meq Tabcr) 20 meq PO X1 ONE Stop: 06/01/25 07:51 Last Admin: 06/01/25 08:25 Dose: 20 meq Assessment & Plan Plan Ms. Roland is a 84-year-old female with past medical history significant for CVA (acute left cerebellar infarct). history of meningioma, hypertension, hyperlipidemia, gqb-vhvwtuv-eynqkzlpt type 2 diabetes, HFpEF and dementia presented to the ED 05/28/2025 complaining of nausea/vomiting and right flank pain and tenderness. Pt is admitted for management of pylonephritis and hydronephrosis in the setting of nephrolithiasis requiring ureteral stent. Cardiology is consulted due to recommendations regarding anticoagulation in the setting of paroxysmal A-fib (pt has remained rate controlled) as patient is currently on aspirin and Plavix due to history of CVA # Paroxysmal A-fib, rate controlled -Presented with new onset paroxysmal A-fib with rates in the 70's -Most likely cause is pt's acute infection (PE is ruled out by CTA) -Currently hemodynamically stable and rate is controlled -EKG: A-fib with RVR rate 133. QTc 465 ECHO done on 05/01/25: Normal LV size, wall thickness. Normal left ventricular diastolic filling pattern for age. Estimated EF at 60- 65%. Troponin 0.081 BNP 667 [id number] HAS-BLED 4 Plan: -Monitor telemetry -Keeo Potassium > 4 and Magnesium > 2 -Continue metoprolol XL 12.5mg BID (pt did not require amiodarone, has remained in sinus rhythm since starting metoprolol) -Anticoagulate with Eliquis 2.5mg due to Age and weight (Discontinue home plavix and continue home asprin) #Primary Hypertension -Hold home amlodipine and lisinopril due to normal BP for now, Pt is also started on metoprolol XL due to new onset afib which will have mild affect on the BP #Sepsis secondary to pyelonephritis #Right hydroureter and nephrolithiasis s/p right ureteral stent and ureteroscopy #GPC bacteremia #Fungemia #MARGIE on CKD, likely postrenal- resolved #Metabolic Acidosis, high anion gap #Diabetes Mellitus type II #History of acute left cerebellar hemisphere infarct management as per primary team Assessment and plan discussed with my attending physician Dr. Saeed Hawley (PGY-2)- Internal medicine resident
--- NOTE | 2025-06-01 17:23 | PD.RESPRO ---
Documentation for date of: 06/01/25 Subjective Subjective Interval history: Patient is evaluated bedside, oxygen requirements continue to decrease, on 2 L nasal, oxygen, saturating well, seen eating her breakfast at the bedside sitting upright. Patient clinically better after aggressive diuresis, urine output 6400 mL overnight, will hold off on further IV Lasix. Patient continues to stay afebrile, but she did have overnight events pertinent for rapid response was called for heart rate being in the 150s, noted to have A-fib with RVR. Requiring IV metoprolol pushes. Patient has no past medical history of atrial fibrillation, takes aspirin and clopidogrel for ischemic stroke. Likely paroxysmal A-fib, [id number] score 8, requiring anticoagulation, high risk for stroke. cardiology was consulted, Dr. Tipton recommended starting Eliquis 2.5 Mg and continuing aspirin recommend discontinuing clopidogrel due to increased bleeding risk. Of note, blood cultures from 05/30/2025 have been canceled by lab, tried to reach microbiology, but unable to speak to microbiologist. Will continue Diflucan for now, will clarify culture results which were reported as preliminary yeast with lab, if erroneous report can discontinue Diflucan. Pending infectious disease consult in the a.m. Looking forward to Dr López's consultation. Exam Vital Signs Temp Pulse Resp BP Pulse Ox O2 Del Method O2 Flow Rate 97.6 F 68 24 H 134/72 H 95 Nasal Cannula 2 06/01/25 16:00 06/01/25 16:00 06/01/25 16:00 06/01/25 16:00 06/01/25 16:00 06/01/25 16:00 06/01/25 16:00 FiO2 55 05/31/25 16:00 Narrative Exam General Appearance: Alert & Oriented X3, hard of hearing patient, in no acute discomfort, saturating well on2 L, low oxygen. HEENT: Skull symmetrical and atraumatic. Conjunctivae pink and moist. Pupils equal, round, reactive to light and accommodation (PERRL). External ear without lesion or discharge. Straight, nares patient, mucosa pink, no discharge. No thyroid nodule appreciated. No cervical lymphadenopathy. Cardio: Normal Rate and Rhythm with S1 and S2 heart sounds. possible murmur noted on mitral area. No bruits on carotid auscultation. No peripheral edema or cyanosis. Lungs: Symmetric with good expansion. Decreased breath sounds on the right side, likely pleural effusion. Abdomen: Non-tender, Non-distended, Normal Reactive Bowel Sounds. Denied supra-pubic tenderness, costovertebral tenderness, worse on right side. Neuro: Alert, cooperative, oriented to person, place, and time. Speech clear. CN grossly intact. Upper motor strength 5/5 and Lower motor strength 5/5. Sensation intact. Objective Labs 06/01/25 05:19 06/01/25 05:19 Labs: Laboratory Results - last 24 hr 05/31/25 06/01/25 19:51 05:19 WBC 9.1 RBC 3.85 L Hgb 11.3 L Hct 32.2 L MCV 84 MCH 29.4 MCHC 35.1 RDW Std Deviation 44.4 Plt Count 86 L Neut % (Auto) 61 Lymph % (Auto) 13 Waldo % (Auto) 18 H Eos % (Auto) 5 Baso % (Auto) 1 Neut # (Auto) 5.5 Lymph # (Auto) 1.1 Waldo # (Auto) 1.6 H Eos # (Auto) 0.4 Baso # (Auto) 0.1 Immature Gran # (Auto) 0.34 H Absolute Nucleated RBC 0.00 Immature Gran % 4 H Nucleated RBC % 0 Sodium 132 L Potassium 3.4 Chloride 94 L Carbon Dioxide 26.2 Anion Gap 12 BUN 22 Creatinine 1.3 Estim Creat Clear Calc 23.4 L eGFR 40 L BUN/Creatinine Ratio 17 Glucose 141 H D Calculated Osmolality 269 L Calcium 8.4 Corrected Calcium 9.0 Phosphorus 2.9 Magnesium 1.9 Total Bilirubin 0.9 AST 30 ALT 30 Alkaline Phosphatase 171 H D Troponin I 0.096 H* 0.081 H* Total Protein 5.8 Albumin 3.2 L Globulin 2.6 Albumin/Globulin Ratio 1.2 TSH 2.41 ABG Interpretation ABG results: 05/28/25 05/29/25 05/31/25 20:17 14:40 02:05 ABG pH 7.39 7.34 L 7.43 ABG pCO2 21 L 27 L 29 L ABG pO2 78 L 58 L* D 75 L ABG HCO3 13 L 15 L 19 L ABG O2 Saturation 97 91 97 ABG Base Excess -10 L -10 L -4 L Quality Measures Quality Measures VTE prophylaxis (SCDs only) Advance care planning discussed with:: patient Assessment & Plan Assessment Current Active Medications: Generic Name Dose Route Start Last Admin Trade Name Yuly PRN Reason Stop Dose Admin Acetaminophen 650 mg 05/28/25 16:30 05/31/25 10:06 Acetaminophen 325 Mg Tablet PO 06/27/25 16:29 650 mg Q6H PRN Administration Mild Pain 1-3 or Fever >100.3 Hydrocodone Bitart/Acetaminophen 1 tab 05/28/25 16:35 05/30/25 16:47 Hydrocodone/Apap 5/325 Tablet PO 06/02/25 16:34 1 tab Q4HR PRN Administration PAIN SCALE 4-6 (Moderate Amlodipine Besylate 5 mg 05/29/25 09:00 05/29/25 09:32 Amlodipine Besylate 5 Mg Tablet PO 06/28/25 08:59 Not Given QDAY GERHARD Apixaban 2.5 mg 06/01/25 21:00 Apixaban 2.5 Mg Tablet PO 07/01/25 20:59 BID GERHARD Aspirin 81 mg 06/01/25 09:00 06/01/25 08:24 Aspirin Ec 81 Mg Tabec PO 07/01/25 08:59 81 mg DAILY GERHARD Administration Dextrose 25 ml 05/28/25 16:35 Dextrose 50%-Water Inj 50 Ml Syringe IV 06/27/25 16:34 Q15MIN PRN BG 50-70 responsive npo pt Dextrose 50 ml 05/28/25 16:35 Dextrose 50%-Water Inj 50 Ml Syringe IV 06/27/25 16:34 Q15MIN PRN BG <50 OR BG <70 & pt unresponsive Docusate Sodium 100 mg 05/29/25 09:00 06/01/25 08:24 Docusate Sod 100 Mg Capsule PO 06/28/25 08:59 100 mg QDAY GERHARD Administration Protocol Donepezil HCl 5 mg 05/29/25 21:00 05/31/25 20:00 Donepezil Hcl 5 Mg Tablet PO 06/28/25 20:59 5 mg HS GERHARD Administration Fluoxetine HCl 20 mg 05/29/25 09:00 06/01/25 08:24 Fluoxetine Hcl 10 Mg Capsule PO 06/28/25 08:59 20 mg QDAY GERHARD Administration Glucagon 1 mg 05/28/25 16:35 Glucagon Inj 1 Mg Vial IM Q15MIN PRN BG <70, and no IV access Fluconazole 200 mg in 100 mls @ 100 mls/hr 06/01/25 09:00 06/01/25 08:21 Diflucan/Ns Ivpb IV 06/08/25 08:59 100 mls/hr QDAY GERHARD Administration Piperacillin/Tazobactam/Dextrose 3.375 gm in 50 mls @ 12.5 mls/hr 06/01/25 08:00 06/01/25 17:00 Zosyn IV 06/08/25 07:59 12.5 mls/hr Q8H GERHARD Administration Insulin Glargine 5 unit 06/01/25 21:00 Insulin Glargine (Lantus) 5 Unit/0.05 Ml (Per 5 Units) SC 07/01/25 20:59 HS GERHARD Insulin Human Lispro 0 unit 05/29/25 17:00 06/01/25 16:57 Insulin Lispro (Admelog) 1 Unit/0.01 Ml Unit SC 06/28/25 16:59 Not Given ACHS GERHARD Protocol Lisinopril 10 mg 05/29/25 09:00 Lisinopril 2.5 Mg Tablet PO 06/28/25 08:59 QDAY GERHARD Metoprolol Succinate 12.5 mg 06/01/25 09:00 06/01/25 08:23 Metoprolol Succinate Xl 25 Mg Tabcr PO 07/01/25 08:59 12.5 mg QDAY GERHARD Administration Morphine Sulfate 2 mg 05/31/25 07:42 Morphine Sulf Inj 10 Mg/Ml Vial IVP 06/02/25 16:34 Q4H PRN PAIN SCALE 7-10 (Severe Ondansetron HCl 4 mg 05/28/25 16:35 Ondansetron Inj 2 Mg/Ml Inj 2 Ml IVP 06/27/25 16:34 Q6H PRN NAUSEA OR VOMITING Protocol Pantoprazole Sodium 40 mg 06/01/25 09:00 06/01/25 08:23 Pantoprazole 40 Mg Tablet PO 07/01/25 08:59 40 mg QDAY GERHARD Administration Protocol Pharmacy Consult 1 each 05/28/25 16:43 Pharmacy To Consult Patient XX 06/27/25 16:42 PRN PRN CONSULT Pharmacy Consult 1 each 05/29/25 17:09 Pharmacy Renal Dose Adjustment 1 Ea XX 06/28/25 17:08 PRN PRN CONSULT Pravastatin Sodium 40 mg 05/29/25 09:00 06/01/25 08:23 Pravastatin Sodium 10 Mg Tablet PO 06/28/25 08:59 40 mg DAILY GERHARD Administration Tamsulosin HCl 0.4 mg 05/28/25 20:00 06/01/25 08:25 Tamsulosin Hcl 0.4 Mg Capsule PO 06/27/25 19:59 0.4 mg QDAY GERHARD Administration Plan Patient is an 84-year-old female with history of CVA-acute left cerebellar infarct, history of meningioma, hypertension, hyperlipidemia, diabetes mellitus type 2 [id number], grade 1 diastolic dysfunction and dementia. Mitchell was admitted on 05/28/2025 for pyelonephrititis with hydronephrosis secondary to nephrolithiasis and metabolic acidosis for nephrostomy tubes. #Sepsis secondary to pyelonephritis #Right hydroureter and nephrolithiasis s/p right ureteral stent and ureteroscopy #GPC bacteremia #Fungemia ? Patient presented with renal calculi 6 mm, moderate right hydronephrosis with nausea and costovertebral angle tenderness indicating pydelonephritis. CT abdomen: Moderate right hydronephrosis, 6 mm mid right ureteral calculus; UA: cloudy, RBC 61 H, WBC 826, bacteria 1+ . End organ damaged noted within increase total bibili, ,decreased platlets,rise in Cr, and MAP <70. Improving metabolic acidosis with serum bicarb 17.3 anion gap 12, continue to treat underlying condition. Ceftriaxone stopped. QSOFA 0-->SOFA 6 point 33% mortality on the following day of admission. He did not give any Complicated UTI in the presence of kidney stones, possible polymicrobial infection, leading to yeast and GPC in blood. Blood culture from 05/28/2025 grew GPC in 1/2 bottles, blood culture from 05/30/2025 grew yeast, urine culture from 05/28/2025 showed mixed soraida possible contamination. No growth on repeat urine culture. Repeat blood cultures ordered 05/31/2025. Plan ? IV antibiotics vancomycin and Zosyn started 05/29/2025? ? IV Diflucan 400 mg x 1, continue fluconazole 200 mg daily based on creatinine clearance. Started 05/31/2025? ? Tamsulosin 0.4 mg daily ? Urology consulted Dr. Cao orders placed, appreciate recommendations, per urology ? Found to have right hydroureteronephrosis, right pyelonephrosis, postprocedure cloudy urine was drained out of right ureteral collecting system. Stone was extracted and the double-J stent was placed under fluoroscopic examination. Per urology recommendations, patient will require laser stone fragmentation at a later time after discharge. #Paroxysmal A-fib [id number] score 8, high risk for stroke, rapid response overnight for A-fib with RVR heart rate in the 150s, requiring IV metoprolol pushes. Currently seen in sinus rhythm rate controlled. ? P[employer] Evis[employer]ator Dr. Dangelo Tipton was consulted, recommended starting patient on Eliquis 2.5 mg and aspirin, discontinue Plavix. ? Continue metoprolol succinate 12.5 mg daily #Acute hypoxic respiratory failure?resolving #Ruled out pulmonary embolism #Concern for volume overload secondary to CHF Patient did have rapid response overnight for hypoxia, requiring 10 to 11 L oxygen via oxime mask, chest x-ray showed worsening infiltrates on x-ray, likely fluid overload versus pneumonia. CT angiogram was ordered as patient's D-dimer levels were elevated > 3000. ? Negative CT angiogram in the morning, negative bilateral duplex venous ultrasound, holding off on heparin drip. ? Discontinued IV fluids, due to concern for volume overload, patient does have prior echocardiogram that shows HFpEF. Continue with diuresis, Lasix 40 mg twice daily. #Pleural effusion Noted large right-sided pleural effusion, moderate left-sided pleural effusion, bedside ultrasound was done which failed to identify safe pocket for thoracentesis. Will consider IR guided thoracentesis if pt symptomatic ? Will continue with IV diuresis, furosemide 40 mg twice daily. #MARGIE on CKD, likely postrenal- resolved #Metabolic Acidosis, high anion gap Patient presented with MARGIE likely obstructive given hydronephrosis and neprholithiais and hydronephrosis vs MARGIE on CKD as previous concern of CKD vs pre-renal. Elevate lactic acid, improving, concern for sepsis. Plan -Strict Ins and outs -Avoid nephrotoxins -renally dose medication #Hypertension Patient has a past medical history of hypertension. Patient home medication of hypertension including Lisinopril, amlodpine, and metoprolol tartrate. Plan -Given septic picture and soft blood pressure, holding any anti-hypertensive medication. #Diabetes Mellitus type II Patient has a past medical history of diabetes mellitus type II on metformin 500 mg bid. Plan -Sliding Scale -A1c AM -Hypoglycemic per protocol #Hyperlipidiemia Home medication of pravastatin 40 mg PO HS Plan -continue home med #History of acute left cerebellar hemisphere infarct Past medical history of acute left cerebellar hemisphere. Patient following Dr. Power. Patient continues to take Plavix and Aspirin. Plan -resume Aspirin and Plavix post procedure #Dementia Patient has a past medical history of dementia, home mediation on donepezil and fluoxetine Plan -Hold Donepzil due to risk for multiple drug interactions, risk for arrythmia #Grade I Diastolic Dysfucntion Health Maintenance: Disp: Status post ureteral stent FEN: Renal diet DVT: Eliquis Code: Full Code - The patient's plan was discussed with attending Dr. Anabell Hussein PGY3
[2025-06-01] MEDS: ACETAMINOPHEN 325 MG TABLET 650 MG PO (17:26)
[2025-06-01] MEDS: INSULIN GLARGINE (Lantus) 5 UNIT/0.05 ML (PER 5 UNITS) SC (20:29)
[2025-06-01] MEDS: APIXABAN 2.5 MG TABLET PO (20:33)
[2025-06-01] MEDS: DONEPEZIL HCL 5 MG TABLET PO (20:34)
[2025-06-02] VITALS (11 sets, daily range): BP systolic 123–146; BP diastolic 67–79; PULSE 57–83; RESP 13–21; TEMP 36–36.6; O2SAT 95–98
[2025-06-02] MEDS: HYDROcodone/APAP 5/325 TABLET 1 TAB PO (04:27)
[2025-06-02 06:25] LABS: Basophils # (Auto) 0.1 Thou/mm3 (0.0-0.2); Basophils % (Auto) 1 % (0-2.5); Eosinophils # (Auto) 0.3 Thou/mm3 (0.0-0.5); Eosinophils % (Auto) 4 % (0-10); Hematocrit 29.3 % (36.0-46.0); Hemoglobin 10.1 g/dL (12.0-16.0); Immature Granulocytes Auto 0.63 Thou/mm3 (0.00-0.00); Lymphocytes # (Auto) 1.3 Thou/mm3 (1.0-4.8); Lymphocytes % (Auto) 15 % (10-50); Mean Corpuscular HGB Conc 34.5 g/dl (31.0-37.0); Mean Corpuscular Hemoglobin 29.1 pg (25.0-35.0); Mean Corpuscular Volume 84 fL (80-100); Monocytes # (Auto) 1.6 Thou/mm3 (0.0-0.8); Monocytes % (Auto) 19 % (0-12); Neutrophils # (Auto) 4.5 Thou/mm3 (1.8-7.7); Neutrophils % (Auto) 54 % (37-80); Nucleated Red Blood Cell # 0.00 Thou/mm3 (0.00-0.00); Nucleated Red Blood Cell % 0 /100 WBC (0); Platelet Count 81 Thou/mm3 (140-440); RDW Standard Deviation 45.1 fL (36.4-46.3); Red Blood Count 3.47 Miln/mm3 (4.00-5.20); White Blood Count 8.4 Thou/mm3 (3.6-11.0)
[2025-06-02 06:34] LABS: INR 0.9 (0.9-1.3); Partial Thromboplastin Time 29.7 Seconds (22.0-36.0); Prothrombin Time 10.3 Seconds (9.0-12.2)
[2025-06-02 07:07] LABS: Alanine Aminotransferase 30 U/L (10-49); Albumin, Serum 2.9 gm/dL (3.4-4.8); Albumin/Globulin Ratio 1.2 (1.2-2.2); Alkaline Phosphatase 161 U/L (46-116); Anion Gap 11 (7-16); Aspartate Amino Transferase 25 U/L (0-34); BUN/Creatinine Ratio 18 Ratio (12-20); Bilirubin,Total 0.8 mg/dL (0.3-1.2); Blood Urea Nitrogen 23 mg/dL (9-23); Calcium 8.2 mg/dL (8.3-10.6); Calcium (Corrected) 9.1 mg/dL (8.5-10.1); Carbon Dioxide 28.3 mMol/L (20.0-31.0); Chloride 97 mMol/L (98-107); Creatinine (Component) 1.3 mg/dL (0.6-1.3); Estimated Creatinine Clearance 23.4 mL/min (>60); Globulin 2.4 gm/dL (2.3-3.5); Glucose 98 mg/dL (74-106); Magnesium 2.4 mg/dL (1.6-2.6); Osmolality,Calculated 275 (275-295); Phosphorous 4.5 mg/dL (2.4-5.1); Potassium 3.3 mMol/L (3.4-5.1); Sodium 136 mMol/L (136-145); Total Protein 5.3 gm/dL (5.7-8.2); eGFR 40 See Note
--- NOTE | 2025-06-02 08:28 | ESPR_ITS ---
Documentation for date of: 06/02/25 Senior resident attestation: Patient evaluated and examined at the bedside, plan of care discussed with rest of the team including my attending physician, except as noted. Noted hematuria in urine bag this a.m., spoke to urologist Dr. Cao, who recommended continuing Eliquis and aspirin on information technology assistant Dr. Dangelo Tipton's discretion. Per urology, patient will require Calixto's catheter for at least 10 days as she has history of neurogenic bladder, recommend following up with urologist after discharge. Recommended against continuous bladder irrigation while being on anticoagulation. Per cardiology, continue Eliquis but hold off on aspirin until hematuria resolves. Stable vitals, hemoglobin stable at 10.7, will continue to trend daily CBC and vitals. Anticipate discharge tomorrow. Quresh PGY3 Subjective Subjective Interval history: Overnight, patient noted to have hematuria. No interventions. Patient seen and examined at bedside this AM. Bright red blood noted in Calixto this AM. Per daughter, patient still complains of right flank tenderness. On exam, abdomen was mildly distended but nontender. Last bowel movement yesterday. KUB showed nonobstructive bowel gas pattern, stent still in place and 8mm stone. Labs and vitals were reviewed. WBC improving. Hgb stable at 10.7, baseline around 11. Potassium 3.3, repleted with 40 mEq potassium chloride. BUN and creatinine are within normal limits. No further complaints at this time. Review of systems otherwise negative except what is mentioned above. Exam Vital Signs Temp Pulse Resp BP Pulse Ox O2 Del Method O2 Flow Rate 97.8 F 60 20 137/70 H 97 Nasal Cannula 2 06/02/25 08:00 06/02/25 08:00 06/02/25 08:00 06/02/25 08:00 06/02/25 08:00 06/02/25 08:00 06/02/25 08:00 FiO2 55 05/31/25 16:00 Narrative Exam Physical Exam: General Appearance: Alert & Oriented X3 and in no acute discomfort. Hard of hearing at baseline. Saturating well on 1L O2 NC. HEENT: Normocephalic, atraumatic, mucous membranes moist. Heart: Regular rate and rhythm, normal S1 and S2. Possible mitral murmur appreciated. Lungs: Symmetric with good expansion. Decreased breath sounds on the right side, likely pleural effusion. Abdomen: Moderately distended but nontender. Normal Reactive Bowel Sounds. No guarding. Right sided CVA tenderness. No supra-pubic tenderness. Neurologic: Alert and oriented x3, no gross neurological deficit, and patient able to move all 4 extremities. Speech clear. Extremities: No edema. Skin: No rash or ecchymoses. Objective Labs 06/03/25 06:15 06/03/25 06:15 Labs: Laboratory Results - last 24 hr 06/02/25 04:49 WBC 8.4 RBC 3.47 L Hgb 10.1 L Hct 29.3 L MCV 84 MCH 29.1 MCHC 34.5 RDW Std Deviation 45.1 Plt Count 81 L Neut % (Auto) 54 Lymph % (Auto) 15 [place] % (Auto) 19 H Eos % (Auto) 4 Baso % (Auto) 1 Neut # (Auto) 4.5 Lymph # (Auto) 1.3 [place] # (Auto) 1.6 H Eos # (Auto) 0.3 Baso # (Auto) 0.1 Immature Gran # (Auto) 0.63 H Absolute Nucleated RBC 0.00 Immature Gran % 8 H Nucleated RBC % 0 PT 10.3 INR 0.9 APTT 29.7 Sodium 136 Potassium 3.3 L Chloride 97 L Carbon Dioxide 28.3 Anion Gap 11 BUN 23 Creatinine 1.3 Estim Creat Clear Calc 23.4 L eGFR 40 L BUN/Creatinine Ratio 18 Glucose 98 Calculated Osmolality 275 Calcium 8.2 L Corrected Calcium 9.1 Phosphorus 4.5 Magnesium 2.4 Total Bilirubin 0.8 AST 25 ALT 30 Alkaline Phosphatase 161 H Total Protein 5.3 L Albumin 2.9 L Globulin 2.4 Albumin/Globulin Ratio 1.2 ABG Interpretation ABG results: 05/28/25 05/29/25 05/31/25 20:17 14:40 02:05 ABG pH 7.39 7.34 L 7.43 ABG pCO2 21 L 27 L 29 L ABG pO2 78 L 58 L* D 75 L ABG HCO3 13 L 15 L 19 L ABG O2 Saturation 97 91 97 ABG Base Excess -10 L -10 L -4 L Quality Measures Quality Measures VTE prophylaxis (SCDs only) Advance care planning discussed with:: patient Assessment & Plan Assessment Current Active Medications: Generic Name Dose Route Start Last Admin Trade Name Yuly PRN Reason Stop Dose Admin Acetaminophen 650 mg 05/28/25 16:30 06/01/25 17:26 Acetaminophen 325 Mg Tablet PO 06/27/25 16:29 650 mg Q6H PRN Administration Mild Pain 1-3 or Fever >100.3 Hydrocodone Bitart/Acetaminophen 1 tab 05/28/25 16:35 06/02/25 04:27 Hydrocodone/Apap 5/325 Tablet PO 06/02/25 16:34 1 tab Q4HR PRN Administration PAIN SCALE 4-6 (Moderate Amlodipine Besylate 5 mg 05/29/25 09:00 05/29/25 09:32 Amlodipine Besylate 5 Mg Tablet PO 06/28/25 08:59 Not Given QDAY GERHARD Apixaban 2.5 mg 06/01/25 21:00 06/01/25 20:33 Apixaban 2.5 Mg Tablet PO 07/01/25 20:59 2.5 mg BID GERHARD Administration Aspirin 81 mg 06/01/25 09:00 06/01/25 08:24 Aspirin Ec 81 Mg Tabec PO 07/01/25 08:59 81 mg DAILY GERHARD Administration Dextrose 25 ml 05/28/25 16:35 Dextrose 50%-Water Inj 50 Ml Syringe IV 06/27/25 16:34 Q15MIN PRN BG 50-70 responsive npo pt Dextrose 50 ml 05/28/25 16:35 Dextrose 50%-Water Inj 50 Ml Syringe IV 06/27/25 16:34 Q15MIN PRN BG <50 OR BG <70 & pt unresponsive Docusate Sodium 100 mg 05/29/25 09:00 06/01/25 08:24 Docusate Sod 100 Mg Capsule PO 06/28/25 08:59 100 mg QDAY GERHARD Administration Protocol Donepezil HCl 5 mg 05/29/25 21:00 06/01/25 20:34 Donepezil Hcl 5 Mg Tablet PO 06/28/25 20:59 5 mg HS GERHARD Administration Fluoxetine HCl 20 mg 05/29/25 09:00 06/01/25 08:24 Fluoxetine Hcl 10 Mg Capsule PO 06/28/25 08:59 20 mg QDAY GERHARD Administration Glucagon 1 mg 05/28/25 16:35 Glucagon Inj 1 Mg Vial IM Q15MIN PRN BG <70, and no IV access Fluconazole 200 mg in 100 mls @ 100 mls/hr 06/01/25 09:00 06/01/25 08:21 Diflucan/Ns Ivpb IV 06/08/25 08:59 100 mls/hr QDAY GERHARD Administration Piperacillin/Tazobactam/Dextrose 3.375 gm in 50 mls @ 12.5 mls/hr 06/01/25 08:00 06/01/25 23:34 Zosyn IV 06/08/25 07:59 12.5 mls/hr Q8H GERHARD Administration Insulin Glargine 5 unit 06/01/25 21:00 06/01/25 20:29 Insulin Glargine (Lantus) 5 Unit/0.05 Ml (Per 5 Units) SC 07/01/25 20:59 5 unit HS GERHARD Administration Insulin Human Lispro 0 unit 05/29/25 17:00 06/02/25 07:57 Insulin Lispro (Admelog) 1 Unit/0.01 Ml Unit SC 06/28/25 16:59 Not Given ACHS [facility] Protocol Lisinopril 10 mg 05/29/25 09:00 Lisinopril 2.5 Mg Tablet PO 06/28/25 08:59 QDAY GERHARD Metoprolol Succinate 12.5 mg 06/01/25 09:00 06/01/25 08:23 Metoprolol Succinate Xl 25 Mg Tabcr PO 07/01/25 08:59 12.5 mg QDAY GERHARD Administration Morphine Sulfate 2 mg 05/31/25 07:42 Morphine Sulf Inj 10 Mg/Ml Vial IVP 06/02/25 16:34 Q4H PRN PAIN SCALE 7-10 (Severe Ondansetron HCl 4 mg 05/28/25 16:35 Ondansetron Inj 2 Mg/Ml Inj 2 Ml IVP 06/27/25 16:34 Q6H PRN NAUSEA OR VOMITING Protocol Pantoprazole Sodium 40 mg 06/01/25 09:00 06/01/25 08:23 Pantoprazole 40 Mg Tablet PO 07/01/25 08:59 40 mg QDAY GERHARD Administration Protocol Pharmacy Consult 1 each 05/28/25 16:43 Pharmacy To Consult Patient XX 06/27/25 16:42 PRN PRN CONSULT Pharmacy Consult 1 each 05/29/25 17:09 Pharmacy Renal Dose Adjustment 1 Ea XX 06/28/25 17:08 PRN PRN CONSULT Pravastatin Sodium 40 mg 05/29/25 09:00 06/01/25 08:23 Pravastatin Sodium 10 Mg Tablet PO 06/28/25 08:59 40 mg DAILY EGRHARD Administration Tamsulosin HCl 0.4 mg 05/28/25 20:00 06/01/25 08:25 Tamsulosin Hcl 0.4 Mg Capsule PO 06/27/25 19:59 0.4 mg QDAY GERHARD Administration Plan Patient is an 84-year-old female with history of CVA-acute left cerebellar infarct, history of meningioma, hypertension, hyperlipidemia, diabetes mellitus type 2 [id number]-bhoeynurk, grade 1 diastolic dysfunction and dementia. Mitchell was admitted on 05/28/2025 for pyelonephrititis with hydronephrosis secondary to nephrolithiasis and metabolic acidosis, s/p right uretetal stent placement and ureteroscopy on 05/29. Currently stable. #Hematuria Likely due to combination of post operative bleeding and restarting Eliquis 06/01/25. New complaint today, noted bright red blood in Calixto. Low concern for acute bleed as Hgb is stable at 10.7 today. KUB ordered, shows that stent is still in place and 8mm stone still present. - Continue to monitor Hgb and CBC - Urology consulted, appreaciate recommendations - Cardiology consulted, resume Eliquis and hold ASA #Sepsis secondary to pyelonephritis - resolved #Right hydroureter and nephrolithiasis s/p right ureteral stent and ureteroscopy #GPC bacteremia #Concern for fungemia Patient presented with renal calculi 6 mm, moderate right hydronephrosis with nausea and costovertebral angle tenderness indicating pydelonephritis. CT abdomen: Moderate right hydronephrosis, 6 mm mid right ureteral calculus; UA: cloudy, RBC 61 H, WBC 826, bacteria 1+ . End organ damaged noted within increase total bibili, ,decreased platlets,rise in Cr, and MAP <70. Improving metabolic acidosis with serum bicarb 17.3 anion gap 12, continue to treat underlying condition. Ceftriaxone stopped. QSOFA 0-->SOFA 6 point 33% mortality on the following day of admission. He did not give any Complicated UTI in the presence of kidney stones, possible polymicrobial infection, leading to yeast and GPC in blood. Found to have right hydroureteronephrosis, right pyelonephrosis, postprocedure cloudy urine was drained out of right ureteral collecting system. Stone was extracted and the double-J stent was placed under fluoroscopic examination. Blood culture from 05/28/2025 grew GPC in 1/2 bottles. Preliminary blood culture 05/30 revealed yeast however culture order was cancelled. Blood culture 05/31 negative for growth; however there is still concern for fungal infection, unconfirmed due to cancelled culture. Consulted ID Dr. López who agreed to continue empiric antifungal treatment. Repeat blood cultured ordered by ID today. Urine culture from 05/28/2025 showed mixed soraida possible contamination. No growth on repeat urine culture 05/29. Plan ? IV antibiotics vancomycin and Zosyn started 05/29/2025, continue 7 day course ? s/p IV Diflucan 400 mg x 1. Blood cultures as above. ID Dr. López consulted, per recommendations continue fluconazole 200 mg daily for 2 weeks (05/31/2025? ) for empiric treatment. ? Continue tamsulosin 0.4 mg daily ? Urology consulted Dr. Cao orders placed, appreciate recommendations - Laser stone fragmentation at a later time after discharge #Paroxysmal A-fib [id number] score 8, high risk for stroke, rapid response overnight for A-fib with RVR heart rate in the 150s, requiring IV metoprolol pushes. Currently seen in sinus rhythm rate controlled. Discontinued Plavix. ? Engineering Intern Dr. Dangelo Tipton consulted - Resume Eliquis 2.5 mg - Hold ASA ? Continue metoprolol succinate 12.5 mg daily #Acute hypoxic respiratory failure?resolved #Concern for volume overload secondary to CHF Patient did have rapid response 05/31 for hypoxia, requiring 10 to 11 L oxygen via oxime mask. Chest x-ray 06/01 showed worsening infiltrates on x-ray, likely fluid overload versus pneumonia. CT angiogram was ordered as patient's D-dimer levels were elevated > 3000. CTA 05/31 negative for pulmonary embolism. Bilateral duplex venous US 05/31 both negative. No prior echocardiogram that shows HFpEF, suspicious based on CXR. S/p Lasix 40 mg, output -6L. Discontinued. #Pleural effusion - resolved Noted large right-sided pleural effusion, moderate left-sided pleural effusion, bedside ultrasound was done which failed to identify safe pocket for thoracentesis. As above. Will consider IR guided thoracentesis if pt symptomatic. #MARGIE on CKD, likely postrenal- resolved #Metabolic Acidosis, high anion gap - resolved Patient presented with MARGIE likely obstructive given hydronephrosis and neprholithiais and hydronephrosis vs MARGIE on CKD as previous concern of CKD vs pre-renal. Elevate lactic acid on admission, resolved. S/p right uretal BUN and Cr now within normal limits. Plan -Strict Ins and outs -Avoid nephrotoxins -Renally dose medication #Hypertension Patient has a past medical history of hypertension. Patient home medication of hypertension including Lisinopril, amlodpine, and metoprolol tartrate. Plan -Normotensive without home anti-hypertensives #Diabetes Mellitus type II Patient has a past medical history of diabetes mellitus type II on metformin 500 mg bid. Plan -Sliding Scale -A1c AM -Hypoglycemic per protocol #Hyperlipidiemia Home medication of pravastatin 40 mg PO HS Plan -continue home med #History of acute left cerebellar hemisphere infarct Past medical history of acute left cerebellar hemisphere. Patient following Dr. Power. Patient continues to take Plavix and Aspirin. Plan -hold Aspirin and Plavix as above #Dementia Patient has a past medical history of dementia, home mediation on donepezil and fluoxetine Plan -Continue home Donepzil #Grade I Diastolic Dysfucntion Health Maintenance: Disp: Status post right ureteral stent FEN: Renal diet DVT: Eliquis Code: Full Code Patient plan of care was discussed with the senior resident, Dr. Hussein, and attending physician, Dr. Hung. Rosario Dominguez, PGY-1
[2025-06-02] MEDS: PIPER/TAZO 3.375 GM PREMIX 3.375 GM/50 ML BAG IV (08:49)
[2025-06-02] MEDS: FLUCONAZOLE/NS 200 MG IVPB 200 MG/100 ML BAG 100 MG IV (08:49)
[2025-06-02] MEDS: PANTOPRAZOLE 40 MG TABLET PO (08:50)
[2025-06-02] MEDS: PRAVASTATIN SODIUM 10 MG TABLET 40 MG PO (08:50)
[2025-06-02] MEDS: TAMSULOSIN HCL 0.4 MG CAPSULE PO (08:50)
[2025-06-02] MEDS: DOCUSATE SOD 100 MG CAPSULE PO (08:50)
[2025-06-02] MEDS: METOPROLOL SUCCINATE XL 25 MG TABCR 12.5 MG PO (08:51)
[2025-06-02] MEDS: POTASSIUM CHLORIDE 10% 20 MEQ/15 ML UDC 40 MEQ PO (09:05)
[2025-06-02] MEDS: MORPHINE SULF INJ 10 MG/ML VIAL 2 MG IVP ×2 (09:06→13:43)
--- NOTE | 2025-06-02 10:33 | ESPR_ITS ---
Subjective Subjective Interval history: possible fugal infection on bc cancelled on 05/30 urine 05/29 may be partially treated as cx neg but ua abnormal. Exam Vital Signs Temp Pulse Resp BP Pulse Ox O2 Del Method O2 Flow Rate 97.8 F 68 20 137/70 H 97 Nasal Cannula 2 06/02/25 08:00 06/02/25 08:51 06/02/25 08:00 06/02/25 08:51 06/02/25 08:00 06/02/25 08:00 06/02/25 08:00 FiO2 55 05/31/25 16:00 Narrative Exam pt with prior cva, 84 yoa. no goals of care discussion noted. full code status on O2 but echo with good ef noted. so will check cocci on O2 at 2lpm, so needs to wean off that before home. Objective - Internal Medicine Labs 06/02/25 04:49 06/02/25 04:49 Labs: Laboratory Results - last 24 hr 06/02/25 04:49 WBC 8.4 RBC 3.47 L Hgb 10.1 L Hct 29.3 L MCV 84 MCH 29.1 MCHC 34.5 RDW Std Deviation 45.1 Plt Count 81 L Neut % (Auto) 54 Lymph % (Auto) 15 [place] % (Auto) 19 H Eos % (Auto) 4 Baso % (Auto) 1 Neut # (Auto) 4.5 Lymph # (Auto) 1.3 [place] # (Auto) 1.6 H Eos # (Auto) 0.3 Baso # (Auto) 0.1 Immature Gran # (Auto) 0.63 H Absolute Nucleated RBC 0.00 Immature Gran % 8 H Nucleated RBC % 0 PT 10.3 INR 0.9 APTT 29.7 Sodium 136 Potassium 3.3 L Chloride 97 L Carbon Dioxide 28.3 Anion Gap 11 BUN 23 Creatinine 1.3 Estim Creat Clear Calc 23.4 L eGFR 40 L BUN/Creatinine Ratio 18 Glucose 98 Calculated Osmolality 275 Calcium 8.2 L Corrected Calcium 9.1 Phosphorus 4.5 Magnesium 2.4 Total Bilirubin 0.8 AST 25 ALT 30 Alkaline Phosphatase 161 H Total Protein 5.3 L Albumin 2.9 L Globulin 2.4 Albumin/Globulin Ratio 1.2 ABG Interpretation ABG results: 05/28/25 05/29/25 05/31/25 20:17 14:40 02:05 ABG pH 7.39 7.34 L 7.43 ABG pCO2 21 L 27 L 29 L ABG pO2 78 L 58 L* D 75 L ABG HCO3 13 L 15 L 19 L ABG O2 Saturation 97 91 97 ABG Base Excess -10 L -10 L -4 L Assessment & Plan A&P Narrative probable partially treated urine bc neg on admit chf by serial cxr with normal ef on echo possible fungemia. I called micro . nothing growing per micro go with all po regimen of augmentin for remainder of 7d and flucon 14d total. I will be away for about 10-14d, so you may be on your own moving forward for about 2 weeks Time Spent With Patient Time: Total time spent is greater than 50% in coordination of care (as documented) at patient's floor/unit and/or counseling patient:
[2025-06-02] MEDS: INSULIN LISPRO (AdmeLOG) 1 UNIT/0.01 ML UNIT SC ×3 (11:22→20:53)
--- NOTE | 2025-06-02 11:55 | XR_ITS ---
Examination: Abdomen AP single view Technique: AP portable supine abdomen, single view Exam date and time: June 02, 2025 1238 hours INDICATIONS: Distended abdomen FINDINGS: Right ureteral stent, lower end of the stent is not visible on this study 8mm lower pole right renal calculus Nonobstructive bowel gas pattern IMPRESSION: 8 mm lower pole right renal calculus
--- NOTE | 2025-06-02 13:39 | ESCONSULT_ITS ---
RE: GISELA DALE : [id number] DATE OF CONSULTATION: 06/02/2025 REFERRING PHYSICIAN: Dr. Hung. REASON FOR CONSULTATION: Pneumonia with respiratory failure in an 84-year-old. HISTORY OF PRESENT ILLNESS: The patient is severely ill with pneumonia. She reportedly has yeast in her blood cultures that were canceled, but I called lab and they responded suggesting that nothing was growing so far. I am not sure if they looked at the old blood cultures or not. Her other blood cultures were canceled, so as a precaution, I will switch her to oral fluconazole. Although, it has some arrhythmic properties, it is felt to be a short course of 2 weeks. The remainder of a week can be finished with Augmentin for pneumonia. This includes some anaerobic coverage, so no additional anaerobic coverage is necessary. She is suspicious to have heart failure, but has a normal ejection fraction and apparently had a UTI, but cultures were negative, but she was partially treated with Rocephin. Nothing grew, so Augmentin should be fine there. She is 2, para 2 with a son and daughter. She had a prior CVA noted by Neurology, but had one more recently that left her with mostly just a bit slow. She remains on full code nonetheless. PAST SURGICAL HISTORY: Includes hysterectomy, back surgery at [place] a couple of years ago and appendectomy in the distant past. Hysterectomy was also many years ago. ALLERGIES: NONE NOTED. IMMUNIZATIONS: Last tetanus is unknown. She does take flu shot every year. She has had two COVID vaccines and does not recall pneumococcal vaccination. FAMILY HISTORY: Positive for diabetes on her mother's side, cancer on her father's side. SOCIAL HISTORY: She lives at home with her son. She is never a smoker. PHYSICAL EXAMINATION: General: She is a pleasant, [id number] woman, on supplemental oxygen. HEENT: Grossly benign. Heart: Grossly benign. Lungs: Grossly benign. Abdomen: Grossly benign. IMAGING: Imaging is as noted. Please see the reports for details. I note that her ejection fraction is preserved despite the notation from Radiology that she appears to have heart failure with the bilateral nature of her chest x-rays. I will get [place] fever test before she goes. Hopefully, it will do it today. I will check on her again in a couple of weeks because I will be way out of town for a couple of weeks. Please have her follow up with her primary team for infectious disease. DT: 10:49:13 TT: 12:31:00 Ref: [id number] - TID: [id number]
[2025-06-02 13:44] LABS: Cocci Serology, IgM Negative (Negative)
--- NOTE | 2025-06-02 15:32 | ESPR_ITS ---
<Statement entered by Tonya Tipton MD - 06/04/25 00:13> I personally examined the patient evaluated with PGY 2 Dr. Hawley PGY 2 agree with the treatment plan recommendation patient has gross hematuria because of aspirin and Eliquis will continue to hold because of kidney stone she does have hematuria once her hematuria clears we will restart only Eliquis. She is clinically stable otherwise does not complain of any chest pain shortness of breath or cardiac limitations. Documentation for date of: 06/02/25 Subjective Subjective Interval history: Pt is seen at bedside, daughter is also at bedside. given updates. Pt overnight has gross hematuria therefore aspirin was held. Today pt continues to have hematuria noted in the steiner bag therefore decision is made to also hold the eliquis until hematuria resolved. Pt has remained in sinus rhythm with rate of 70's and BP 123/71. Pt denies any cardiac symptoms including chest pain, palpitations or chest pressure. Pt does complain of significant lower abdominal pain and on physical exam pt has tenderness to palpation. vitals are stable, pt is saturating on room air, labs are significant for mild anemia with Hgb 10.2, Hct 29.3 and plt 81. Exam Vital Signs Temp Pulse Resp BP Pulse Ox O2 Del Method O2 Flow Rate 97.5 F 73 21 H 123/71 95 Nasal Cannula 2 06/02/25 12:00 06/02/25 12:00 06/02/25 12:00 06/02/25 12:00 06/02/25 12:00 06/02/25 12:00 06/02/25 12:00 FiO2 55 05/31/25 16:00 Narrative Exam GENERAL: A&Ox3 . Awake, elderly female hard of hearing, well groomed, Not in acute distress NEURO: no focal neurological deficits HEENT: Atraumatic, Normocephalic. mucous membranes moist. Eyes open, symmetrical, & clear HEART: Normal Heart Sounds LUNGS: Clear to auscultation with no wheezing or crackles. ABDOMEN: soft, non-distended, Lower abdominal tenderness, bowel sounds heard SKIN: No Rash or ecchymoses EXTREMITIES: No edema, tenderness, able to move all 4 extremities, pedal pulses palpated Objective Labs 06/02/25 04:49 06/02/25 04:49 Labs: Laboratory Results - last 24 hr 06/02/25 06/02/25 04:49 11:00 WBC 8.4 RBC 3.47 L Hgb 10.1 L Hct 29.3 L MCV 84 MCH 29.1 MCHC 34.5 RDW Std Deviation 45.1 Plt Count 81 L Neut % (Auto) 54 Lymph % (Auto) 15 [place] % (Auto) 19 H Eos % (Auto) 4 Baso % (Auto) 1 Neut # (Auto) 4.5 Lymph # (Auto) 1.3 [place] # (Auto) 1.6 H Eos # (Auto) 0.3 Baso # (Auto) 0.1 Immature Gran # (Auto) 0.63 H Absolute Nucleated RBC 0.00 Immature Gran % 8 H Nucleated RBC % 0 PT 10.3 INR 0.9 APTT 29.7 Sodium 136 Potassium 3.3 L Chloride 97 L Carbon Dioxide 28.3 Anion Gap 11 BUN 23 Creatinine 1.3 Estim Creat Clear Calc 23.4 L eGFR 40 L BUN/Creatinine Ratio 18 Glucose 98 Calculated Osmolality 275 Calcium 8.2 L Corrected Calcium 9.1 Phosphorus 4.5 Magnesium 2.4 Total Bilirubin 0.8 AST 25 ALT 30 Alkaline Phosphatase 161 H Total Protein 5.3 L Albumin 2.9 L Globulin 2.4 Albumin/Globulin Ratio 1.2 Coccidioides IgM Ab Negative ABG Interpretation ABG results: 05/28/25 05/29/25 05/31/25 20:17 14:40 02:05 ABG pH 7.39 7.34 L 7.43 ABG pCO2 21 L 27 L 29 L ABG pO2 78 L 58 L* D 75 L ABG HCO3 13 L 15 L 19 L ABG O2 Saturation 97 91 97 ABG Base Excess -10 L -10 L -4 L Quality Measures Quality Measures VTE prophylaxis (SCDs only) Advance care planning discussed with:: patient and child (daughter) Assessment & Plan Assessment Current Active Medications: Generic Name Dose Route Start Last Admin Trade Name Freq PRN Reason Stop Dose Admin Acetaminophen 650 mg 05/28/25 16:30 06/01/25 17:26 Acetaminophen 325 Mg Tablet PO 06/27/25 16:29 650 mg Q6H PRN Administration Mild Pain 1-3 or Fever >100.3 Hydrocodone Bitart/Acetaminophen 1 tab 05/28/25 16:35 06/02/25 04:27 Hydrocodone/Apap 5/325 Tablet PO 06/02/25 16:34 1 tab Q4HR PRN Administration PAIN SCALE 4-6 (Moderate Amlodipine Besylate 5 mg 05/29/25 09:00 05/29/25 09:32 Amlodipine Besylate 5 Mg Tablet PO 06/28/25 08:59 Not Given QDAY GERHARD Amoxicillin/Clavulanate Potassium 1 tab 06/02/25 21:00 Amoxicillin/Pot Clav 875 Tablet PO 06/05/25 12:00 BID GERHARD Apixaban 2.5 mg 06/01/25 21:00 06/02/25 11:18 Apixaban 2.5 Mg Tablet PO 07/01/25 20:59 Not Given BID GERHARD Aspirin 81 mg 06/01/25 09:00 06/02/25 11:19 Aspirin Ec 81 Mg Tabec PO 07/01/25 08:59 Not Given DAILY GERHARD Dextrose 25 ml 05/28/25 16:35 Dextrose 50%-Water Inj 50 Ml Syringe IV 06/27/25 16:34 Q15MIN PRN BG 50-70 responsive npo pt Dextrose 50 ml 05/28/25 16:35 Dextrose 50%-Water Inj 50 Ml Syringe IV 06/27/25 16:34 Q15MIN PRN BG <50 OR BG <70 & pt unresponsive Docusate Sodium 100 mg 05/29/25 09:00 06/02/25 08:50 Docusate Sod 100 Mg Capsule PO 06/28/25 08:59 100 mg QDAY GERHARD Administration Protocol Donepezil HCl 5 mg 05/29/25 21:00 06/01/25 20:34 Donepezil Hcl 5 Mg Tablet PO 06/28/25 20:59 5 mg HS GERHARD Administration Fluconazole 200 mg 06/03/25 09:00 Fluconazole 100 Mg Tablet PO 06/10/25 08:59 QDAY GERHARD Fluoxetine HCl 20 mg 05/29/25 09:00 06/02/25 08:51 Fluoxetine Hcl 10 Mg Capsule PO 06/28/25 08:59 20 mg QDAY GERHARD Administration Glucagon 1 mg 05/28/25 16:35 Glucagon Inj 1 Mg Vial IM Q15MIN PRN BG <70, and no IV access Insulin Glargine 5 unit 06/01/25 21:00 06/01/25 20:29 Insulin Glargine (Lantus) 5 Unit/0.05 Ml (Per 5 Units) SC 07/01/25 20:59 5 unit HS GERHARD Administration Insulin Human Lispro 0 unit 05/29/25 17:00 06/02/25 11:22 Insulin Lispro (Admelog) 1 Unit/0.01 Ml Unit SC 06/28/25 16:59 2 unit ACHS GERHARD Administration Protocol Lisinopril 10 mg 05/29/25 09:00 Lisinopril 2.5 Mg Tablet PO 06/28/25 08:59 QDAY GERHARD Metoprolol Succinate 12.5 mg 06/01/25 09:00 06/02/25 08:51 Metoprolol Succinate Xl 25 Mg Tabcr PO 07/01/25 08:59 12.5 mg QDAY GERHARD Administration Morphine Sulfate 2 mg 05/31/25 07:42 06/02/25 13:43 Morphine Sulf Inj 10 Mg/Ml Vial IVP 06/02/25 16:34 2 mg Q4H PRN Administration PAIN SCALE 7-10 (Severe Ondansetron HCl 4 mg 05/28/25 16:35 Ondansetron Inj 2 Mg/Ml Inj 2 Ml IVP 06/27/25 16:34 Q6H PRN NAUSEA OR VOMITING Protocol Pantoprazole Sodium 40 mg 06/01/25 09:00 06/02/25 08:50 Pantoprazole 40 Mg Tablet PO 07/01/25 08:59 40 mg QDAY GERHARD Administration Protocol Pharmacy Consult 1 each 05/28/25 16:43 Pharmacy To Consult Patient XX 06/27/25 16:42 PRN PRN CONSULT Pharmacy Consult 1 each 05/29/25 17:09 Pharmacy Renal Dose Adjustment 1 Ea XX 06/28/25 17:08 PRN PRN CONSULT Pravastatin Sodium 40 mg 05/29/25 09:00 06/02/25 08:50 Pravastatin Sodium 10 Mg Tablet PO 06/28/25 08:59 40 mg DAILY GERHARD Administration Tamsulosin HCl 0.4 mg 05/28/25 20:00 06/02/25 08:50 Tamsulosin Hcl 0.4 Mg Capsule PO 06/27/25 19:59 0.4 mg QDAY GERHARD Administration Plan Ms. Roland is a 84-year-old female with past medical history significant for CVA (acute left cerebellar infarct). history of meningioma, hypertension, hyperlipidemia, [id number] type 2 diabetes, HFpEF and dementia presented to the ED 05/28/2025 complaining of nausea/vomiting and right flank pain and tenderness. Pt is admitted for management of pylonephritis and hydronephrosis in the setting of nephrolithiasis requiring ureteral stent. Cardiology is consulted due to recommendations regarding anticoagulation in the setting of paroxysmal A-fib (pt has remained rate controlled) as patient is currently on aspirin and Plavix due to history of CVA #Paroxysmal A-fib, rate controlled -Presented with new onset paroxysmal A-fib with rates in the 70's -Most likely cause is pt's acute infection (PE is ruled out by CTA) -Currently hemodynamically stable and rate is controlled -EKG: A-fib with RVR rate 133. QTc 465 ECHO done on 05/01/25: Normal LV size, wall thickness. Normal left ventricular diastolic filling pattern for age. Estimated EF at 60- 65%. Troponin 0.081 BNP 667 [id number] HAS-BLED 4 Plan: -Monitor telemetry -Keeo Potassium > 4 and Magnesium > 2 -Continue metoprolol XL 12.5mg BID (pt did not require amiodarone, has remained in sinus rhythm since starting metoprolol) -Hold all anticoagulation (including eliquis, aspirin) due to gross hematuria. Discontinue home plavix. On discharge once the hematuria resolves pt will need Eliquis 2.5mg BID (dosed for age and weight) and Aspirin 81mg QD. #Primary Hypertension -Hold home amlodipine and lisinopril due to normal BP for now, Pt is also started on metoprolol XL due to new onset afib which will have mild affect on the BP #Sepsis secondary to pyelonephritis #Right hydroureter and nephrolithiasis s/p right ureteral stent and ureteroscopy #GPC bacteremia #Fungemia #MARGIE on CKD, likely postrenal- resolved #Metabolic Acidosis, high anion gap #Diabetes Mellitus type II #History of acute left cerebellar hemisphere infarct management as per primary team Assessment and plan discussed with my attending physician Dr. Saeed Hawley (PGY-2)- Internal medicine resident
--- NOTE | 2025-06-02 16:59 | PC.SS ---
Rounding Note: Patient is receiving IV antibiotics. Dr. Ann is consulting. Possible d/c tomorrow.
[2025-06-02] MEDS: AMOXICILLIN/POT CLAV 500 MG TABLET PO (17:29)
[2025-06-02] MEDS: SIMETHICONE 80 MG CHEW PO (17:29)
[2025-06-02] MEDS: DONEPEZIL HCL 5 MG TABLET PO (20:52)
[2025-06-02] MEDS: INSULIN GLARGINE (Lantus) 5 UNIT/0.05 ML (PER 5 UNITS) SC (20:52)
[2025-06-03] VITALS (11 sets, daily range): BP systolic 104–165; BP diastolic 53–81; PULSE 66–89; RESP 12–19; TEMP 36.1–36.9; O2SAT 91–96; BMI 12.0
[2025-06-03 06:58] LABS: Basophils # (Auto) 0.0 Thou/mm3 (0.0-0.2); Basophils % (Auto) 0 % (0-2.5); Eosinophils # (Auto) 0.4 Thou/mm3 (0.0-0.5); Eosinophils % (Auto) 4 % (0-10); Hematocrit 30.0 % (36.0-46.0); Hemoglobin 10.2 g/dL (12.0-16.0); Immature Granulocytes Auto 0.85 Thou/mm3 (0.00-0.00); Lymphocytes # (Auto) 1.5 Thou/mm3 (1.0-4.8); Lymphocytes % (Auto) 16 % (10-50); Mean Corpuscular HGB Conc 34.0 g/dl (31.0-37.0); Mean Corpuscular Hemoglobin 29.1 pg (25.0-35.0); Mean Corpuscular Volume 86 fL (80-100); Monocytes # (Auto) 1.3 Thou/mm3 (0.0-0.8); Monocytes % (Auto) 15 % (0-12); Neutrophils # (Auto) 5.2 Thou/mm3 (1.8-7.7); Neutrophils % (Auto) 56 % (37-80); Nucleated Red Blood Cell # 0.00 Thou/mm3 (0.00-0.00); Nucleated Red Blood Cell % 0 /100 WBC (0); Platelet Count 96 Thou/mm3 (140-440); RDW Standard Deviation 47.5 fL (36.4-46.3); Red Blood Count 3.50 Miln/mm3 (4.00-5.20); White Blood Count 9.3 Thou/mm3 (3.6-11.0)
[2025-06-03 07:25] LABS: Alanine Aminotransferase 21 U/L (10-49); Albumin, Serum 3.0 gm/dL (3.4-4.8); Albumin/Globulin Ratio 1.3 (1.2-2.2); Alkaline Phosphatase 134 U/L (46-116); Anion Gap 10 (7-16); Aspartate Amino Transferase 16 U/L (0-34); BUN/Creatinine Ratio 17 Ratio (12-20); Bilirubin,Total 0.6 mg/dL (0.3-1.2); Blood Urea Nitrogen 20 mg/dL (9-23); Calcium 8.2 mg/dL (8.3-10.6); Calcium (Corrected) 9.0 mg/dL (8.5-10.1); Carbon Dioxide 26.5 mMol/L (20.0-31.0); Chloride 99 mMol/L (98-107); Creatinine (Component) 1.2 mg/dL (0.6-1.3); Estimated Creatinine Clearance 25.4 mL/min (>60); Globulin 2.4 gm/dL (2.3-3.5); Glucose 135 mg/dL (74-106); Magnesium 1.9 mg/dL (1.6-2.6); Osmolality,Calculated 274 (275-295); Phosphorous 3.6 mg/dL (2.4-5.1); Potassium 4.3 mMol/L (3.4-5.1); Sodium 135 mMol/L (136-145); Total Protein 5.4 gm/dL (5.7-8.2); eGFR 44 See Note
[2025-06-03] MEDS: AMOXICILLIN/POT CLAV 500 MG TABLET PO ×2 (08:08→17:37)
[2025-06-03] MEDS: PRAVASTATIN SODIUM 10 MG TABLET 40 MG PO (08:08)
[2025-06-03] MEDS: PANTOPRAZOLE 40 MG TABLET PO (08:08)
[2025-06-03] MEDS: TAMSULOSIN HCL 0.4 MG CAPSULE PO (08:08)
[2025-06-03] MEDS: DOCUSATE SOD 100 MG CAPSULE PO (08:08)
[2025-06-03] MEDS: FLUCONAZOLE 100 MG TABLET 200 MG PO (08:08)
[2025-06-03] MEDS: METOPROLOL SUCCINATE XL 25 MG TABCR 12.5 MG PO (08:09)
--- NOTE | 2025-06-03 08:52 | PC.SS ---
Update: Plan is to d/c the patient today.
--- NOTE | 2025-06-03 09:49 | PC.NURSE ---
Discharge orders received. Per Dr. Tarn, Patient will go home with a steiner catheter.
--- NOTE | 2025-06-03 10:22 | PC.NURSE ---
patient O2 sats at rest on room air is 86% Applied 02 at 2 liters 02 sats up to 91% will continue to monitor. --JA
--- NOTE | 2025-06-03 10:45 | PC.SS ---
COLLISION REPAIR TECHNICIAN met with patient and patient's daughter, Dianna Han; to confirm discharge plan. Discharge plan is now for the patient to transition to short term SNF. Preferred SNF is [facility].
--- NOTE | 2025-06-03 10:48 | PC.SS ---
PT evaluation conducted on behalf of the patient. PT recommendation is short term SNF placement.
--- NOTE | 2025-06-03 11:15 | PC.SS ---
PASSR completed, a Level II Mental Health Evaluation referral is not required due to a Categorical Condition.?PASSR online closure is pending.
--- NOTE | 2025-06-03 11:17 | PC.SS ---
SNF referrals submitted on [facility]. Results are pending.
[2025-06-03] MEDS: INSULIN LISPRO (AdmeLOG) 1 UNIT/0.01 ML UNIT SC ×2 (11:51→20:39)
[2025-06-03 12:42] LABS: Cocci Serology, IgG Negative (Negative)
--- NOTE | 2025-06-03 13:29 | ESPR_ITS ---
<Statement entered by Tonya Tipton MD - 06/04/25 00:28> I personally evaluated examined the patient appears to be clinically doing well still remains A-fib but hematuria completely cleared up we will try again low- dose Eliquis 2.5 mg twice daily agree with the treatment plan recommendation as documented by Dr. Hawley PGY 2 will continue to follow the patient Documentation for date of: 06/03/25 Subjective Subjective Interval history: Pt is seen at bedside, Denies any shortness of breath, chest pain or palpitations. Pt endorses to significant improvement of her lower abdominal pain. However there is still marked tenderness to palpation. when pt is seen again in the evening the steiner bag did not appear to have gross hematuria. Therefore, due to pt's Hx of stroke and afib, will resume eliquis 2.5mg BID for now. and Continue to monitor for acute bleeding or worsening hematuria. Pt's is pending [facility] authorization. Vitals are stable, pt is in sinus rhythm, labs are reviewed and are stable. Exam Vital Signs Temp Pulse Resp BP Pulse Ox O2 Del Method O2 Flow Rate 97.2 F 71 17 155/75 H 93 L Nasal Cannula 2 06/03/25 12:00 06/03/25 12:00 06/03/25 12:00 06/03/25 12:00 06/03/25 12:00 06/03/25 08:00 06/03/25 08:00 FiO2 55 05/31/25 16:00 Narrative Exam GENERAL: A&Ox3 . Awake, Not in acute distress NEURO: no focal neurological deficits HEENT: Atraumatic, Normocephalic. mucous membranes moist. Eyes open, symmetrical, & clear HEART: Normal Heart Sounds LUNGS: Clear to auscultation with no wheezing or crackles. ABDOMEN: soft, non-distended,right flank tenderness , bowel sounds heard, no guarding or rebound tenderness SKIN: No Rash or ecchymoses EXTREMITIES: No edema, tenderness, able to move all 4 extremities, pedal pulses palpated Objective Labs 06/03/25 06:15 06/03/25 06:15 Labs: Laboratory Results - last 24 hr 06/02/25 06/03/25 11:00 06:15 WBC 9.3 RBC 3.50 L Hgb 10.2 L Hct 30.0 L MCV 86 MCH 29.1 MCHC 34.0 RDW Std Deviation 47.5 H Plt Count 96 L Neut % (Auto) 56 Lymph % (Auto) 16 [place] % (Auto) 15 H Eos % (Auto) 4 Baso % (Auto) 0 Neut # (Auto) 5.2 Lymph # (Auto) 1.5 [place] # (Auto) 1.3 H Eos # (Auto) 0.4 Baso # (Auto) 0.0 Immature Gran # (Auto) 0.85 H Absolute Nucleated RBC 0.00 Immature Gran % 9 H Nucleated RBC % 0 Sodium 135 L Potassium 4.3 D Chloride 99 Carbon Dioxide 26.5 Anion Gap 10 BUN 20 Creatinine 1.2 Estim Creat Clear Calc 25.4 L eGFR 44 L BUN/Creatinine Ratio 17 Glucose 135 H Calculated Osmolality 274 L Calcium 8.2 L Corrected Calcium 9.0 Phosphorus 3.6 Magnesium 1.9 Total Bilirubin 0.6 AST 16 ALT 21 Alkaline Phosphatase 134 H D Total Protein 5.4 L Albumin 3.0 L Globulin 2.4 Albumin/Globulin Ratio 1.3 Coccidioides IgG Ab Negative Coccidioides IgM Ab Negative ABG Interpretation ABG results: 05/28/25 05/29/25 05/31/25 20:17 14:40 02:05 ABG pH 7.39 7.34 L 7.43 ABG pCO2 21 L 27 L 29 L ABG pO2 78 L 58 L* D 75 L ABG HCO3 13 L 15 L 19 L ABG O2 Saturation 97 91 97 ABG Base Excess -10 L -10 L -4 L Quality Measures Quality Measures VTE prophylaxis (SCDs only) Advance care planning discussed with:: patient and child Assessment & Plan Assessment Current Active Medications: Generic Name Dose Route Start Last Admin Trade Name Freq PRN Reason Stop Dose Admin Acetaminophen 650 mg 05/28/25 16:30 06/01/25 17:26 Acetaminophen 325 Mg Tablet PO 06/27/25 16:29 650 mg Q6H PRN Administration Mild Pain 1-3 or Fever >100.3 Hydrocodone Bitart/Acetaminophen 1 tab 06/02/25 18:03 06/03/25 09:18 Hydrocodone/Apap 10/325 Tab PO 06/07/25 18:02 1 tab Q6HR PRN Administration PAIN SCALE 4-6 (Moderate Amlodipine Besylate 5 mg 05/29/25 09:00 06/03/25 08:08 Amlodipine Besylate 5 Mg Tablet PO 06/28/25 08:59 5 mg QDAY GERHARD Administration Amoxicillin/Clavulanate Potassium 500 mg 06/02/25 17:30 06/03/25 08:08 Amoxicillin/Pot Clav 500 Mg Tablet PO 06/05/25 12:00 500 mg BIDWM GERHARD Administration Apixaban 2.5 mg 06/01/25 21:00 06/02/25 11:18 Apixaban 2.5 Mg Tablet PO 07/01/25 20:59 Not Given BID GERHARD Aspirin 81 mg 06/01/25 09:00 06/02/25 11:19 Aspirin Ec 81 Mg Tabec PO 07/01/25 08:59 Not Given DAILY GERHARD Dextrose 25 ml 05/28/25 16:35 Dextrose 50%-Water Inj 50 Ml Syringe IV 06/27/25 16:34 Q15MIN PRN BG 50-70 responsive npo pt Dextrose 50 ml 05/28/25 16:35 Dextrose 50%-Water Inj 50 Ml Syringe IV 06/27/25 16:34 Q15MIN PRN BG <50 OR BG <70 & pt unresponsive Docusate Sodium 100 mg 05/29/25 09:00 06/03/25 08:08 Docusate Sod 100 Mg Capsule PO 06/28/25 08:59 100 mg QDAY GERHARD Administration Protocol Donepezil HCl 5 mg 05/29/25 21:00 06/02/25 20:52 Donepezil Hcl 5 Mg Tablet PO 06/28/25 20:59 5 mg HS GERHARD Administration Fluconazole 200 mg 06/03/25 09:00 06/03/25 08:08 Fluconazole 100 Mg Tablet PO 06/10/25 08:59 200 mg QDAY GERHARD Administration Fluoxetine HCl 20 mg 05/29/25 09:00 06/03/25 08:08 Fluoxetine Hcl 10 Mg Capsule PO 06/28/25 08:59 20 mg QDAY GERHARD Administration Glucagon 1 mg 05/28/25 16:35 Glucagon Inj 1 Mg Vial IM Q15MIN PRN BG <70, and no IV access Insulin Glargine 5 unit 06/01/25 21:00 06/02/25 20:52 Insulin Glargine (Lantus) 5 Unit/0.05 Ml (Per 5 Units) SC 07/01/25 20:59 5 unit HS GERHARD Administration Insulin Human Lispro 0 unit 05/29/25 17:00 06/03/25 11:51 Insulin Lispro (Admelog) 1 Unit/0.01 Ml Unit SC 06/28/25 16:59 1 unit ACHS GERHARD Administration Protocol Lisinopril 10 mg 05/29/25 09:00 Lisinopril 2.5 Mg Tablet PO 06/28/25 08:59 QDAY GERHARD Metoprolol Succinate 12.5 mg 06/01/25 09:00 06/03/25 08:09 Metoprolol Succinate Xl 25 Mg Tabcr PO 07/01/25 08:59 12.5 mg QDAY GERHARD Administration Morphine Sulfate 1 mg 06/02/25 18:03 Morphine Sulf Inj 10 Mg/Ml Vial IVP 06/07/25 18:02 Q4HR PRN PAIN SCALE 7-10 (Severe Ondansetron HCl 4 mg 05/28/25 16:35 Ondansetron Inj 2 Mg/Ml Inj 2 Ml IVP 06/27/25 16:34 Q6H PRN NAUSEA OR VOMITING Protocol Pantoprazole Sodium 40 mg 06/01/25 09:00 06/03/25 08:08 Pantoprazole 40 Mg Tablet PO 07/01/25 08:59 40 mg QDAY GERHARD Administration Protocol Pharmacy Consult 1 each 05/28/25 16:43 Pharmacy To Consult Patient XX 06/27/25 16:42 PRN PRN CONSULT Pharmacy Consult 1 each 05/29/25 17:09 Pharmacy Renal Dose Adjustment 1 Ea XX 06/28/25 17:08 PRN PRN CONSULT Pravastatin Sodium 40 mg 05/29/25 09:00 06/03/25 08:08 Pravastatin Sodium 10 Mg Tablet PO 06/28/25 08:59 40 mg DAILY GERHARD Administration Tamsulosin HCl 0.4 mg 05/28/25 20:00 06/03/25 08:08 Tamsulosin Hcl 0.4 Mg Capsule PO 06/27/25 19:59 0.4 mg QDAY GERHARD Administration Plan Ms. Roland is a 84-year-old female with past medical history significant for CVA (acute left cerebellar infarct). history of meningioma, hypertension, hyperlipidemia, [id number] type 2 diabetes, HFpEF and dementia presented to the ED 05/28/2025 complaining of nausea/vomiting and right flank pain and tenderness. Pt is admitted for management of pylonephritis and hydronephrosis in the setting of nephrolithiasis requiring ureteral stent. Cardiology is consulted due to recommendations regarding anticoagulation in the setting of paroxysmal A-fib (pt has remained rate controlled) as patient is currently on aspirin and Plavix due to history of CVA #Paroxysmal A-fib, rate controlled -Presented with new onset paroxysmal A-fib with rates in the 70's -Most likely cause is pt's acute infection (PE is ruled out by CTA) -Currently hemodynamically stable and rate is controlled -EKG: A-fib with RVR rate 133. QTc 465 ECHO done on 05/01/25: Normal LV size, wall thickness. Normal left ventricular diastolic filling pattern for age. Estimated EF at 60- 65%. Troponin 0.081 BNP 667 [id number] HAS-BLED 4 Plan: -Monitor telemetry -Keeo Potassium > 4 and Magnesium > 2 -Continue metoprolol XL 12.5mg BID (pt did not require amiodarone, has remained in sinus rhythm since starting metoprolol) -Anticoagulate with Eliquis 2.5mg BID due to Age and weight (Discontinue home plavix and hold home aspirin) #Primary Hypertension -Hold home amlodipine and lisinopril due to normal BP for now, Pt is also started on metoprolol XL due to new onset afib which will have mild affect on the BP #Sepsis secondary to pyelonephritis #Right hydroureter and nephrolithiasis s/p right ureteral stent and ureteroscopy #GPC bacteremia #Fungemia #MARGIE on CKD, likely postrenal- resolved #Metabolic Acidosis, high anion gap #Diabetes Mellitus type II #History of acute left cerebellar hemisphere infarct management as per primary team Thank you for the consult and allowing us to participate in the care of the patient. Cardiology will continue to follow. Assessment and plan discussed with my attending physician Dr. Saeed Hawley (PGY-2)- Internal medicine resident
--- NOTE | 2025-06-03 13:31 | PD.RESDS ---
Planned Discharge Date 06/03/25 DS: Providers Provider Date of admission: 05/28/25 16:30 Primary care physician: Physician No Primary/Family Admitting Provider: Leonel Bernal DO Attending Provider on Admission: Loni Hnug MD Consults: 05/28/25 16:01 Consult to Urology Stat Comment: discussed 05/28 1550 Consulting Provider: Wesley Cao 05/28/25 21:37 Health Equity Referral - Knowledge Deficit Routine Comment: Positive screening for knowledge deficit needs. 05/29/25 13:26 Consult to Agriculture Science Teacher Stat Comment: Consulting Provider: Jocelyn Mendez 05/31/25 07:49 Consult to Infectious Diseases Routine Comment: Fungemia Consulting Provider: Shreyas López 06/01/25 10:48 Consult to Cardiology Stat Comment: paroxysmal afib, already on asa and plavix Consulting Provider: Tonya Tipton 06/02/25 18:06 Referral Physical Therapy Routine Comment: Physician Instructions: Attending Provider on DC: RESIDENT Gt Discharging Provider: RESIDENT Gt Hospital Course Hospital Course Hospital course: Summary: Patient is an 84-year-old female with history of CVA-acute left cerebellar infarct, history of meningioma, hypertension, hyperlipidemia, diabetes mellitus type 2 pnh-axyoffc-rroaeigos, grade 1 diastolic dysfunction and dementia. Mitchell was admitted on 05/28/2025 for pyelonephrititis with hydronephrosis secondary to nephrolithiasis and metabolic acidosis, s/p right uretetal stent placement and ureteroscopy on 05/29. Currently stable. ED Course: In the ED, vital signs were stable, patient was afebrile on arrival, significant labs included WBC of 19.3, normal hemoglobin, sodium 125, chloride 92, potassium 5, bicarb 18, lactic acid 7.3, T. bili 1.3, BNP 198, procalcitonin 5.83. UA was positive consisting of 826 WBCs, leukocyte Estrace positive nitrite negative, 1+ blood, [address] abdomen and pelvis was obtained demonstrated moderate right-sided hydronephrosis and a 6 mm mid right ureteral calculus. Chest x-ray demonstrated bronchitis, EKG demonstrated NSR with a rate of 66. The patient was given ceftriaxone and 1 L of NS. Reason for hospitalization: Discharge Recommendations: -Follow up with PCP within 1 week of discharge -Continue rest of medications as previously prescribed -Return to the ED or call EMS if symptoms return and/or worsen. Hospital Diagnoses: #Hematuria Likely due to combination of post operative bleeding and restarting Eliquis 06/01/25. New complaint today, noted bright red blood in Calixto. Low concern for acute bleed as Hgb is stable at 10.7 today. KUB ordered, shows that stent is still in place and 8mm stone still present. - Continue to monitor Hgb and CBC - Urology consulted, appreaciate recommendations - Cardiology consulted, resume Eliquis and hold ASA #Sepsis secondary to pyelonephritis - resolved #Right hydroureter and nephrolithiasis s/p right ureteral stent and ureteroscopy #GPC bacteremia #Concern for fungemia Patient presented with renal calculi 6 mm, moderate right hydronephrosis with nausea and costovertebral angle tenderness indicating pydelonephritis. CT abdomen: Moderate right hydronephrosis, 6 mm mid right ureteral calculus; UA: cloudy, RBC 61 H, WBC 826, bacteria 1+ . End organ damaged noted within increase total bibili, ,decreased platlets,rise in Cr, and MAP <70. Improving metabolic acidosis with serum bicarb 17.3 anion gap 12, continue to treat underlying condition. Ceftriaxone stopped. QSOFA 0-->SOFA 6 point 33% mortality on the following day of admission. He did not give any Complicated UTI in the presence of kidney stones, possible polymicrobial infection, leading to yeast and GPC in blood. Found to have right hydroureteronephrosis, right pyelonephrosis, postprocedure cloudy urine was drained out of right ureteral collecting system. Stone was extracted and the double-J stent was placed under fluoroscopic examination. Blood culture from 05/28/2025 grew GPC in 1/2 bottles. Preliminary blood culture 05/30 revealed yeast however culture order was cancelled. Blood culture 05/31 negative for growth; however there is still concern for fungal infection, unconfirmed due to cancelled culture. Consulted ID Dr. López who agreed to continue empiric antifungal treatment. Repeat blood cultured ordered by ID today. Urine culture from 05/28/2025 showed mixed soraida possible contamination. No growth on repeat urine culture 05/29. Plan ? IV antibiotics vancomycin and Zosyn started 05/29/2025, continue 7 day course ? s/p IV Diflucan 400 mg x 1. Blood cultures as above. ID Dr. López consulted, per recommendations continue fluconazole 200 mg daily for 2 weeks (05/31/2025? ) for empiric treatment. ? Continue tamsulosin 0.4 mg daily ? Urology consulted Dr. Cao orders placed, appreciate recommendations - Laser stone fragmentation at a later time after discharge #Paroxysmal A-fib [id number] score 8, high risk for stroke, rapid response overnight for A-fib with RVR heart rate in the 150s, requiring IV metoprolol pushes. Currently seen in sinus rhythm rate controlled. Discontinued Plavix. ? [employer] Attendant Dr. Dangelo Tipton consulted - Resume Eliquis 2.5 mg - Hold ASA ? Continue metoprolol succinate 12.5 mg daily #Acute hypoxic respiratory failure?resolved #Concern for volume overload secondary to CHF Patient did have rapid response 05/31 for hypoxia, requiring 10 to 11 L oxygen via oxime mask. Chest x-ray 06/01 showed worsening infiltrates on x-ray, likely fluid overload versus pneumonia. CT angiogram was ordered as patient's D-dimer levels were elevated > 3000. CTA 05/31 negative for pulmonary embolism. Bilateral duplex venous US 05/31 both negative. No prior echocardiogram that shows HFpEF, suspicious based on CXR. S/p Lasix 40 mg, output -6L. Discontinued. #Pleural effusion - resolved Noted large right-sided pleural effusion, moderate left-sided pleural effusion, bedside ultrasound was done which failed to identify safe pocket for thoracentesis. As above. Will consider IR guided thoracentesis if pt symptomatic. #MARGIE on CKD, likely postrenal- resolved #Metabolic Acidosis, high anion gap - resolved Patient presented with MARGIE likely obstructive given hydronephrosis and neprholithiais and hydronephrosis vs MARGIE on CKD as previous concern of CKD vs pre-renal. Elevate lactic acid on admission, resolved. S/p right uretal BUN and Cr now within normal limits. Plan -Strict Ins and outs -Avoid nephrotoxins -Renally dose medication #Hypertension Patient has a past medical history of hypertension. Patient home medication of hypertension including Lisinopril, amlodpine, and metoprolol tartrate. Plan -Normotensive without home anti-hypertensives #Diabetes Mellitus type II Patient has a past medical history of diabetes mellitus type II on metformin 500 mg bid. Plan -Sliding Scale -A1c AM -Hypoglycemic per protocol #Hyperlipidiemia Home medication of pravastatin 40 mg PO HS Plan -continue home med #History of acute left cerebellar hemisphere infarct Past medical history of acute left cerebellar hemisphere. Patient following Dr. Power. Patient continues to take Plavix and Aspirin. Plan -hold Aspirin and Plavix as above #Dementia Patient has a past medical history of dementia, home mediation on donepezil and fluoxetine Plan -Continue home Donepzil #Grade I Diastolic Dysfunction Disposition: Safe discharge to SNF Senior resident attestation: Patient evaluated and examined at the bedside, plan of care discussed with rest of the team including my attending physician, except as noted. Noted improvement in hematuria, clear urine in foleys., spoke to urologist Dr. Cao, who recommended continuing Eliquis and aspirin on [employer]s Dr. Dangelo Tipton's discretion. Per urology, patient will require Calixto's catheter for at least 10 days as she has history of neurogenic bladder, recommend following up with urologist after discharge. Recommended against continuous bladder irrigation while being on anticoagulation. Per cardiology, hold off on anticoagulation until hematuria resolves but continue Eliquis and aspirin on discharge, discontinue plavix Quresh PGY3 Time Spent with Patient Time attestation: Total time spent providing and/or coordinating discharge services: at least 30 minutes of care coordination Time spent: Greater than 30 minutes Exam Vital Signs Temp Pulse Resp BP Pulse Ox O2 Del Method O2 Flow Rate 97.2 F 71 17 155/75 H 93 L Nasal Cannula 2 06/03/25 12:00 06/03/25 12:00 06/03/25 12:00 06/03/25 12:00 06/03/25 12:00 06/03/25 08:00 06/03/25 08:00 FiO2 55 05/31/25 16:00 Narrative Exam Physical Exam: General Appearance: Alert & Oriented X3 and in no acute discomfort. Hard of hearing at baseline. Saturating well on 1L O2 NC. HEENT: Normocephalic, atraumatic, mucous membranes moist. Heart: Regular rate and rhythm, normal S1 and S2. Possible mitral murmur appreciated. Lungs: Symmetric with good expansion. Clear to auscultation bilaterally. Abdomen: Normal Reactive Bowel Sounds. No guarding. Right sided CVA tenderness. No supra-pubic tenderness. Neurologic: Alert and oriented x3, no gross neurological deficit, and patient able to move all 4 extremities. Speech clear. Extremities: No edema. Skin: No rash or ecchymoses. Discharge Plan Plan Patient Disposition: HOME (Self Care) Patient condition on transfer: Stable Care Plan Goals: Instructions -Please complete antibiotic course of Augmentin 1 tablet twice for 8 more days. -Please take fluconazole 200 milligrams orally for the next 10 days -Please take tamsulosin 0.4 mg once daily for kidney stone, please follow-up with urology for further recommendations - Please take aspirin 81 mg once daily and Eliquis 2.5 mg twice daily - Stop taking Plavix - Continue rest of medication as prescribed -Please follow up with your primary care provider within one week of discharge , Follow with infectious disease specialist dr López within 2 weeks of discharge from hospital and Urologist Dr Friend within 1 week of discharge from hospital. You will need to call the doctors office to schedule an early appointment following discharge form hospital. -If your symptoms worsen,please seek immediate medical attention and return to your nearest emergency room -If you do not have a primary care provider, you may follow up at the [facility] [address], [place] [address], Prescriptions/Referrals Prescriptions/Med Rec: New Eliquis 2.5 mg Tablet 2.5 mg PO BID 30 Days Qty: 60 0RF aspirin 81 mg Tablet,Delayed Release (Dr/Ec) 81 mg PO DAILY 30 Days Qty: 30 0RF tamsulosin 0.4 mg Capsule 0.4 mg PO QDAY 30 Days Qty: 30 0RF fluconazole 200 mg tablet 200 mg PO QDAY 10 Days Qty: 10 0RF amoxicillin-pot clavulanate 500-125 mg tablet 1 tab PO BID 8 Days Qty: 16 0RF metoprolol succinate 25 mg tablet extended release 24 hr 12.5 mg PO QDAY 30 Days Qty: 15 0RF Continued metformin 500 mg tablet 1,000 mg PO QDAY lisinopril 10 mg tablet 10 mg PO QDAY amlodipine 5 mg tablet 5 mg PO QDAY pravastatin 40 mg tablet 40 mg PO QDAY donepezil 5 mg tablet 5 mg PO HS Patient Comments: TAKE 1 TABLET BY MOUTH EVERY DAY AT BEDTIME 30 DAYS Renuka-Casey 0.8 mg tablet 1 tab PO DAILY Patient Comments: TAKE 1 TABLET BY MOUTH EVERY DAY oxybutynin chloride 5 mg tablet 5 mg PO QDAY Patient Comments: TAKE 1 TABLET BY MOUTH TWICE A DAY FOR 90 DAYS fluoxetine 10 mg capsule 20 mg PO DAILY Patient Comments: TAKE 1 CAPSULE BY MOUTH EVERY DAY FOR 30 DAYS Discontinued aspirin 81 mg tablet 81 mg PO QDAY clopidogrel 75 mg tablet 75 mg PO QDAY nitrofurantoin macrocrystal 50 mg capsule 50 mg PO QDAY Rx Instructions: must administer with a meal/food metoprolol tartrate 25 mg tablet 25 mg PO QDAY Referrals: No Primary/Family,Physician [Primary Care Provider] - Patient/Caregiver Discharge Instructions Education Materials: AFL/Afib, ED Kidney Stone w/ Colic Print Language: Malagasy Stand Alone Forms: Letty Award Info., Patient Portal Info Letter Discharge Order Discharge Orders: Discharge (Routine); Ordered 06/03/25 Ordered By: Aster Barker
--- NOTE | 2025-06-03 15:21 | PC.SS ---
STRAW HAT BRUSHER attempted phone contact with [facility] staff, Ramsey Alonzo ; to conduct follow up on patient's [facility] case. No response. STRAW HAT BRUSHER left voicemail requesting return call.
--- NOTE | 2025-06-03 15:27 | PC.SS ---
STEM ROLLER OPERATOR informed by [facility] admissions staff that [facility] is not currently accepting patient's for placement. [facility] staff informed STEM ROLLER OPERATOR that if patient is receptive patient can transition to [facility] sister facilities ([facility] or [facility]) and once a bed is available patient can transition to ST from sister facility of choice. STEM ROLLER OPERATOR to contact patient's daughter to discuss option.
--- NOTE | 2025-06-03 15:30 | PC.SS ---
PAPETERIE TABLE ASSEMBLER conducted phone contact with patient's daughter, Dianna; to discuss discharge plan. Daughter in agreement to have patient discharge to [facility] and then to have patient transition to ST once facility has bed available. PAPETERIE TABLE ASSEMBLER spoke to [facility] staff, Digna; who has agreed to plan. PAPETERIE TABLE ASSEMBLER updated ST staff, Maricarmen; with plan.
--- NOTE | 2025-06-03 15:48 | PC.SS ---
SS received call from [facility] Product Marketing ConsultantRamsey who explained he will attempt close case this evening. Pt can d/c tomorrow once [facility] assessment is closed
--- NOTE | 2025-06-03 16:53 | PD.RESPRO ---
Documentation for date of: 06/03/25 Senior resident attestation: Patient evaluated and examined at the bedside, plan of care discussed with rest of the team including my attending physician, except as noted. Noted improvement in hematuria, clear urine in foleys., spoke to urologist Dr. Cao, who recommended continuing Eliquis and aspirin on sales ledger clerk Dr. Dangelo Tipton's discretion. Per urology, patient will require Calixto's catheter for at least 10 days as she has history of neurogenic bladder, recommend following up with urologist after discharge. Recommended against continuous bladder irrigation while being on anticoagulation. Per cardiology, hold off on anticoagulation until hematuria resolves but continue Eliquis and aspirin on discharge, discontinue plavix Regarding anemia, likely due to hematuria, follow iron studies and followup with repeat cbc in 1 week with PCP Quresh PGY3 Subjective Subjective Interval history: No acute events overnight. Patient seen and examined at bedside this AM. No hematuria noted in Calixto bag. Patient was still complaining of right-sided flank pain, gave [place] X1. Labs and vitals were reviewed. WBC stable at 9. Hemoglobin stable at 10.2. Planned to discharge home with HH today with Calixto but patient decided she wanted to be discharged to SNF. Anticipate discharge tomorrow. No further complaints at this time. Review of systems otherwise negative except what is mentioned above. Exam Vital Signs Temp Pulse Resp BP Pulse Ox O2 Del Method O2 Flow Rate 97.9 F 70 19 145/71 H 94 L Nasal Cannula 3 06/03/25 16:00 06/03/25 16:06/03/25 16:06/03/25 16:06/03/25 16:06/03/25 16:06/03/25 16:00 FiO2 55 05/31/25 16:00 Narrative Exam Physical Exam: General Appearance: Alert & Oriented X3 and in no acute discomfort. Hard of hearing at baseline. Saturating well on 2L O2 NC. HEENT: Normocephalic, atraumatic, mucous membranes moist. Heart: Regular rate and rhythm, normal S1 and S2. Possible mitral murmur appreciated. Lungs: Symmetric with good expansion. Decreased breath sounds on the right side, likely pleural effusion. Abdomen: Moderately distended but nontender. Normal Reactive Bowel Sounds. No guarding. Right sided CVA tenderness. No supra-pubic tenderness. Neurologic: Alert and oriented x3, no gross neurological deficit, and patient able to move all 4 extremities. Speech clear. Extremities: No edema. Skin: No rash or ecchymoses. Objective Labs 06/04/25 06:00 06/04/25 06:00 Labs: Laboratory Results - last 24 hr 06/02/25 06/03/25 11:00 06:15 WBC 9.3 RBC 3.50 L Hgb 10.2 L Hct 30.0 L MCV 86 MCH 29.1 MCHC 34.0 RDW Std Deviation 47.5 H Plt Count 96 L Neut % (Auto) 56 Lymph % (Auto) 16 Sutter % (Auto) 15 H Eos % (Auto) 4 Baso % (Auto) 0 Neut # (Auto) 5.2 Lymph # (Auto) 1.5 Sutter # (Auto) 1.3 H Eos # (Auto) 0.4 Baso # (Auto) 0.0 Immature Gran # (Auto) 0.85 H Absolute Nucleated RBC 0.00 Immature Gran % 9 H Nucleated RBC % 0 Sodium 135 L Potassium 4.3 D Chloride 99 Carbon Dioxide 26.5 Anion Gap 10 BUN 20 Creatinine 1.2 Estim Creat Clear Calc 25.4 L eGFR 44 L BUN/Creatinine Ratio 17 Glucose 135 H Calculated Osmolality 274 L Calcium 8.2 L Corrected Calcium 9.0 Phosphorus 3.6 Magnesium 1.9 Total Bilirubin 0.6 AST 16 ALT 21 Alkaline Phosphatase 134 H D Total Protein 5.4 L Albumin 3.0 L Globulin 2.4 Albumin/Globulin Ratio 1.3 Coccidioides IgG Ab Negative ABG Interpretation ABG results: 05/28/25 05/29/25 05/31/25 20:17 14:40 02:05 ABG pH 7.39 7.34 L 7.43 ABG pCO2 21 L 27 L 29 L ABG pO2 78 L 58 L* D 75 L ABG HCO3 13 L 15 L 19 L ABG O2 Saturation 97 91 97 ABG Base Excess -10 L -10 L -4 L Quality Measures Quality Measures VTE prophylaxis (SCDs only) Advance care planning discussed with:: patient Assessment & Plan Assessment Current Active Medications: Generic Name Dose Route Start Last Admin Trade Name Freq PRN Reason Stop Dose Admin Acetaminophen 650 mg 05/28/25 16:30 06/01/25 17:26 Acetaminophen 325 Mg Tablet PO 06/27/25 16:29 650 mg Q6H PRN Administration Mild Pain 1-3 or Fever >100.3 Hydrocodone Bitart/Acetaminophen 1 tab 06/02/25 18:03 06/03/25 09:18 Hydrocodone/Apap 10/325 Tab PO 06/07/25 18:02 1 tab Q6HR PRN Administration PAIN SCALE 4-6 (Moderate Amlodipine Besylate 5 mg 05/29/25 09:00 06/03/25 08:08 Amlodipine Besylate 5 Mg Tablet PO 06/28/25 08:59 5 mg QDAY GERHARD Administration Amoxicillin/Clavulanate Potassium 500 mg 06/02/25 17:30 06/03/25 08:08 Amoxicillin/Pot Clav 500 Mg Tablet PO 06/05/25 12:00 500 mg BIDWM GERHARD Administration Apixaban 2.5 mg 06/01/25 21:00 06/02/25 11:18 Apixaban 2.5 Mg Tablet PO 07/01/25 20:59 Not Given BID GERHARD Aspirin 81 mg 06/01/25 09:00 06/02/25 11:19 Aspirin Ec 81 Mg Tabec PO 07/01/25 08:59 Not Given DAILY GERHARD Dextrose 25 ml 05/28/25 16:35 Dextrose 50%-Water Inj 50 Ml Syringe IV 06/27/25 16:34 Q15MIN PRN BG 50-70 responsive npo pt Dextrose 50 ml 05/28/25 16:35 Dextrose 50%-Water Inj 50 Ml Syringe IV 06/27/25 16:34 Q15MIN PRN BG <50 OR BG <70 & pt unresponsive Docusate Sodium 100 mg 05/29/25 09:00 06/03/25 08:08 Docusate Sod 100 Mg Capsule PO 06/28/25 08:59 100 mg QDAY GERHARD Administration Protocol Donepezil HCl 5 mg 05/29/25 21:00 06/02/25 20:52 Donepezil Hcl 5 Mg Tablet PO 06/28/25 20:59 5 mg HS GERHARD Administration Fluconazole 200 mg 06/03/25 09:00 06/03/25 08:08 Fluconazole 100 Mg Tablet PO 06/10/25 08:59 200 mg QDAY GERHARD Administration Fluoxetine HCl 20 mg 05/29/25 09:00 06/03/25 08:08 Fluoxetine Hcl 10 Mg Capsule PO 06/28/25 08:59 20 mg QDAY GERHARD Administration Glucagon 1 mg 05/28/25 16:35 Glucagon Inj 1 Mg Vial IM Q15MIN PRN BG <70, and no IV access Insulin Glargine 5 unit 06/01/25 21:00 06/02/25 20:52 Insulin Glargine (Lantus) 5 Unit/0.05 Ml (Per 5 Units) SC 07/01/25 20:59 5 unit HS GERHARD Administration Insulin Human Lispro 0 unit 05/29/25 17:00 06/03/25 11:51 Insulin Lispro (Admelog) 1 Unit/0.01 Ml Unit SC 06/28/25 16:59 1 unit ACHS GERHARD Administration Protocol Lisinopril 10 mg 05/29/25 09:00 Lisinopril 2.5 Mg Tablet PO 06/28/25 08:59 QDAY GERHARD Metoprolol Succinate 12.5 mg 06/01/25 09:00 06/03/25 08:09 Metoprolol Succinate Xl 25 Mg Tabcr PO 07/01/25 08:59 12.5 mg QDAY GERHARD Administration Morphine Sulfate 1 mg 06/02/25 18:03 Morphine Sulf Inj 10 Mg/Ml Vial IVP 06/07/25 18:02 Q4HR PRN PAIN SCALE 7-10 (Severe Ondansetron HCl 4 mg 05/28/25 16:35 Ondansetron Inj 2 Mg/Ml Inj 2 Ml IVP 06/27/25 16:34 Q6H PRN NAUSEA OR VOMITING Protocol Pantoprazole Sodium 40 mg 06/01/25 09:00 06/03/25 08:08 Pantoprazole 40 Mg Tablet PO 07/01/25 08:59 40 mg QDAY GERHARD Administration Protocol Pharmacy Consult 1 each 05/28/25 16:43 Pharmacy To Consult Patient XX 06/27/25 16:42 PRN PRN CONSULT Pharmacy Consult 1 each 05/29/25 17:09 Pharmacy Renal Dose Adjustment 1 Ea XX 06/28/25 17:08 PRN PRN CONSULT Pravastatin Sodium 40 mg 05/29/25 09:00 06/03/25 08:08 Pravastatin Sodium 10 Mg Tablet PO 06/28/25 08:59 40 mg DAILY GERHARD Administration Tamsulosin HCl 0.4 mg 05/28/25 20:00 06/03/25 08:08 Tamsulosin Hcl 0.4 Mg Capsule PO 06/27/25 19:59 0.4 mg QDAY GERHARD Administration Plan Patient is an 84-year-old female with history of CVA-acute left cerebellar infarct, history of meningioma, hypertension, hyperlipidemia, diabetes mellitus type 2 [id number], grade 1 diastolic dysfunction and dementia. Patinet was admitted on 05/28/2025 for pyelonephrititis with hydronephrosis secondary to nephrolithiasis and metabolic acidosis, s/p right uretetal stent placement and ureteroscopy on 05/29. Anticipating discharge to SNF tomorrow. #Sepsis secondary to pyelonephritis - resolved #Right hydroureter and nephrolithiasis s/p right ureteral stent and ureteroscopy #GPC bacteremia - resolving #Concern for fungemia Patient presented with renal calculi 6 mm, moderate right hydronephrosis with nausea and costovertebral angle tenderness indicating pydelonephritis. CT abdomen: Moderate right hydronephrosis, 6 mm mid right ureteral calculus; UA: cloudy, RBC 61 H, WBC 826, bacteria 1+ . End organ damaged noted within increase total bibili, ,decreased platlets,rise in Cr, and MAP <70. Improving metabolic acidosis with serum bicarb 17.3 anion gap 12, continue to treat underlying condition. Ceftriaxone stopped. QSOFA 0-->SOFA 6 point 33% mortality on the following day of admission. He did not give any Complicated UTI in the presence of kidney stones, possible polymicrobial infection, leading to yeast and GPC in blood. Found to have right hydroureteronephrosis, right pyelonephrosis, postprocedure cloudy urine was drained out of right ureteral collecting system. Stone was extracted and the double-J stent was placed under fluoroscopic examination. Blood culture from 05/28/2025 grew GPC in 1/2 bottles. Preliminary blood culture 05/30 revealed yeast however culture order was cancelled. Blood culture 05/31 negative for growth; however there is still concern for fungal infection, unconfirmed due to cancelled culture. Consulted ID Dr. López who agreed to continue empiric antifungal treatment. Urine culture from 05/28/2025 showed mixed soraida possible contamination. No growth on repeat urine culture 05/29. Pending urine culture 06/02. Plan ? IV antibiotics vancomycin and Zosyn started 05/29/2025, will continue for 2 week course ? s/p IV Diflucan 400 mg x 1. Blood cultures as above. ID Dr. López consulted, per recommendations continue fluconazole 200 mg daily for 2 weeks (05/31/2025? ) for empiric treatment. ? Continue tamsulosin 0.4 mg daily ? Urology consulted Dr. Cao orders placed, appreciate recommendations - Laser stone fragmentation at a later time after discharge #Hematuria - resolved #Anemia Likely due to combination of post operative bleeding and restarting Eliquis 06/01/25. New complaint today, noted bright red blood in Calixto. Low concern for acute bleed as Hgb is stable at 10.7 today. KUB ordered, shows that stent is still in place and 8mm stone still present. No hematuria noted in Calixto bag this morning. Hgb continues to be stable. Per urology, patient will require Calixto's catheter for at least 10 days as she has history of neurogenic bladder, recommend following up with urologist after discharge. Recommended against continuous bladder irrigation while being on anticoagulation. - Continue to monitor Hgb and CBC - Urology consulted, appreciate recommendations - Cardiology consulted, resume Eliquis and ASA - follow iron studies and followup with repeat cbc in 1 week with PCP #Paroxysmal A-fib [id number] score 8, high risk for stroke, rapid response overnight for A-fib with RVR heart rate in the 150s, requiring IV metoprolol pushes. Currently seen in sinus rhythm rate controlled. Discontinued Plavix. ? Medical Aides Teacher Dr. Dangelo Tipton consulted - Resume Eliquis 2.5 mg - Resume ASA ? Continue metoprolol succinate 12.5 mg daily #Acute hypoxic respiratory failure?resolved #Concern for volume overload secondary to HFpEF #HFpEF, EF 60-65% Patient did have rapid response 05/31 for hypoxia, requiring 10 to 11 L oxygen via oxime mask. Chest x-ray 06/01 showed worsening infiltrates on x-ray, likely fluid overload versus pneumonia. CT angiogram was ordered as patient's D-dimer levels were elevated > 3000. CTA 05/31 negative for pulmonary embolism. Bilateral duplex venous US 05/31 both negative. Echo 05/31 showed normal LV size and wall thickness with normal LV diastolic filling pattern. EF 60-65%. Moderate aortic valve sclerosis without stenosis. Mild MR. Trace TR. S/p Lasix 40 mg, output -6L. Discontinued. - Metoprolol as above. - Monitor blood pressure #Pleural effusion - resolved Noted large right-sided pleural effusion, moderate left-sided pleural effusion, bedside ultrasound was done which failed to identify safe pocket for thoracentesis. As above. Will consider IR guided thoracentesis if pt symptomatic. #MARGIE on CKD, likely postrenal- resolved #Metabolic Acidosis, high anion gap - resolved Patient presented with MARGIE likely obstructive given hydronephrosis and neprholithiais and hydronephrosis vs MARGIE on CKD as previous concern of CKD vs pre-renal. Elevate lactic acid on admission, resolved. S/p right uretal BUN and Cr now within normal limits. Plan -Strict Ins and outs -Avoid nephrotoxins -Renally dose medication #Hypertension Patient has a past medical history of hypertension. Patient home medication of hypertension including Lisinopril, amlodpine, and metoprolol tartrate. Plan -Normotensive without home anti-hypertensives #Diabetes Mellitus type II Patient has a past medical history of diabetes mellitus type II on metformin 500 mg bid. Plan -Sliding Scale -A1c AM -Hypoglycemic per protocol #Hyperlipidiemia Home medication of pravastatin 40 mg PO HS Plan -continue home med #History of acute left cerebellar hemisphere infarct Past medical history of acute left cerebellar hemisphere. Patient following Dr. Power. Patient continues to take Plavix and Aspirin. Plan -can restart ASA as no hematuria noted today -hold Plavix as above #Dementia Patient has a past medical history of dementia, home mediation on donepezil and fluoxetine Plan -Continue home Donepzil Health Maintenance: Disp: Discharge to SNF tomorrow, follow out outpatient with urology FEN: Renal diet DVT: Eliquis Code: Full Code Patient plan of care was discussed with the senior resident, Dr. Hussein, and attending physician, Dr. Hung. Rosario Dominguez, PGY-1
[2025-06-03] MEDS: DONEPEZIL HCL 5 MG TABLET PO (20:18)
[2025-06-03] MEDS: INSULIN GLARGINE (Lantus) 5 UNIT/0.05 ML (PER 5 UNITS) SC (20:39)
[2025-06-04] VITALS (10 sets, daily range): BP systolic 135–262; BP diastolic 66–81; PULSE 67–82; RESP 15–20; TEMP 36.1–36.6; O2SAT 93–95
[2025-06-04 06:33] LABS: Basophils # (Auto) 0.1 Thou/mm3 (0.0-0.2); Basophils % (Auto) 1 % (0-2.5); Eosinophils # (Auto) 0.4 Thou/mm3 (0.0-0.5); Eosinophils % (Auto) 4 % (0-10); Hematocrit 29.9 % (36.0-46.0); Hemoglobin 10.4 g/dL (12.0-16.0); Immature Granulocytes Auto 0.77 Thou/mm3 (0.00-0.00); Lymphocytes # (Auto) 1.6 Thou/mm3 (1.0-4.8); Lymphocytes % (Auto) 16 % (10-50); Mean Corpuscular HGB Conc 34.8 g/dl (31.0-37.0); Mean Corpuscular Hemoglobin 29.0 pg (25.0-35.0); Mean Corpuscular Volume 83 fL (80-100); Monocytes # (Auto) 1.1 Thou/mm3 (0.0-0.8); Monocytes % (Auto) 11 % (0-12); Neutrophils # (Auto) 6.4 Thou/mm3 (1.8-7.7); Neutrophils % (Auto) 62 % (37-80); Nucleated Red Blood Cell # 0.00 Thou/mm3 (0.00-0.00); Nucleated Red Blood Cell % 0 /100 WBC (0); Platelet Count 129 Thou/mm3 (140-440); RDW Standard Deviation 44.9 fL (36.4-46.3); Red Blood Count 3.59 Miln/mm3 (4.00-5.20); White Blood Count 10.4 Thou/mm3 (3.6-11.0)
[2025-06-04 07:02] LABS: Alanine Aminotransferase 21 U/L (10-49); Albumin, Serum 3.2 gm/dL (3.4-4.8); Albumin/Globulin Ratio 1.2 (1.2-2.2); Alkaline Phosphatase 149 U/L (46-116); Anion Gap 7 (7-16); Aspartate Amino Transferase 17 U/L (0-34); BUN/Creatinine Ratio 17 Ratio (12-20); Bilirubin,Total 0.8 mg/dL (0.3-1.2); Blood Urea Nitrogen 17 mg/dL (9-23); Calcium 8.5 mg/dL (8.3-10.6); Calcium (Corrected) 9.1 mg/dL (8.5-10.1); Carbon Dioxide 26.2 mMol/L (20.0-31.0); Chloride 99 mMol/L (98-107); Creatinine (Component) 1.0 mg/dL (0.6-1.3); Estimated Creatinine Clearance 30.5 mL/min (>60); Globulin 2.6 gm/dL (2.3-3.5); Glucose 122 mg/dL (74-106); Magnesium 1.7 mg/dL (1.6-2.6); Osmolality,Calculated 267 (275-295); Phosphorous 3.4 mg/dL (2.4-5.1); Potassium 4.0 mMol/L (3.4-5.1); Sodium 132 mMol/L (136-145); Total Protein 5.8 gm/dL (5.7-8.2); eGFR 55 See Note
--- NOTE | 2025-06-04 07:14 | CHAP ---
Patient was visited by a Spiritual Care Volunteer on 06/03/2025 between 1350 and 1654 and received comfort, encouragement and/or prayer.
[2025-06-04] MEDS: MORPHINE SULF INJ 10 MG/ML VIAL IVP ×2 (07:23→11:25)
--- NOTE | 2025-06-04 07:37 | EKG_ITS ---
[facility] Test Date: 2025-06-04 Pat Name: GISELA DALE Department: Room: S263A Gender: Female Rooter Operator: CAMRON : 1940 Requested By: Aster Barker Order Number: [id number] Reading MD: Aster Barker Measurements Intervals [place] Rate: 68 P: 29 RI: 144 QRS: 33 QRSD: 80 T: 31 QT: 401 QTc: 428 Interpretive Statements SINUS RHYTHM LOW QRS VOLTAGE IN PRECORDIAL LEADS ANTEROSEPTAL MYOCARDIAL INFARCTION , OF INDETERMINATE AGE Compared to ECG 06/01/2025 05:01:10 Atrial fibrillation no longer present Myocardial infarct finding still present /store/S0/[id number]
--- NOTE | 2025-06-04 07:53 | PD.RESDS ---
Planned Discharge Date 06/04/25 DS: Providers Provider Date of admission: 05/28/25 16:30 Primary care physician: Physician No Primary/Family Admitting Provider: Leonel Bernal DO Attending Provider on Admission: Loni Hung MD Consults: 05/28/25 16:01 Consult to Urology Stat Comment: discussed 05/28 1550 Consulting Provider: Wesley Cao 05/28/25 21:37 Health Equity Referral - Knowledge Deficit Routine Comment: Positive screening for knowledge deficit needs. 05/29/25 13:26 Consult to Shank Tapper Stat Comment: Consulting Provider: Jocelyn Mendez 05/31/25 07:49 Consult to Infectious Diseases Routine Comment: Fungemia Consulting Provider: Shreyas López 06/01/25 10:48 Consult to Cardiology Stat Comment: paroxysmal afib, already on asa and plavix Consulting Provider: Tonya Tipton 06/02/25 18:06 Referral Physical Therapy Routine Comment: Physician Instructions: Attending Provider on DC: RESIDENT Gt Discharging Provider: RESIDENT Gt DS: Diagnosis Problem List Completed Was Problem List Reviewed/Reconciled?: Yes Hospital Course Hospital Course Hospital course: Summary: Patient is an 84-year-old female with history of CVA-acute left cerebellar infarct, history of meningioma, hypertension, hyperlipidemia, diabetes mellitus type 2 [id number], grade 1 diastolic dysfunction and dementia presenting on 05/28/25 with worsening right sided flank pain. Patient was admitted for pyelonephrititis with hydronephrosis secondary to nephrolithiasis and metabolic acidosis, s/p right uretetal stent placement and ureteroscopy on 05/29. Anticipating discharge to SNF tomorrow. ED Course: In the ED, vital signs were stable, afebrile on arrival, significant labs included WBC of 19.3, normal hemoglobin, sodium 125, chloride 92, potassium 5, bicarb 18, lactic acid 7.3, T. bili 1.3, BNP 198, procalcitonin 5.83. UA was positive consisting of 826 WBCs, leukocyte Estrace positive nitrite negative, 1+ blood, [address] abdomen and pelvis was obtained demonstrated moderate right-sided hydronephrosis and a 6 mm mid right ureteral calculus. Chest x-ray demonstrated bronchitis, EKG demonstrated NSR with a rate of 66. Given ceftriaxone and 1 L of NS. Reason for hospitalization: Tarik was admitted for pyelonephritis with hydronephrosis secondary to nephrolithiasis and metabolic acidosis, s/p right uretetal stent placement and ureteroscopy on 05/29. Patient presented with renal calculi 6 mm, moderate right hydronephrosis with nausea and costovertebral angle tenderness indicating pydelonephritis. CT abdomen: Moderate right hydronephrosis, 6 mm mid right ureteral calculus; UA: cloudy, RBC 61 H, WBC 826, bacteria 1+ . End organ damaged noted with initial labs and MARGIE, improved with antibiotics and IV fluid resuscitation. Planned to do double-J stent was placed under fluoroscopic examination but was unsuccessful, opted to execute ureteroscopy and placed right uretetal stent. Procedure was successful and patient tolerated it well. Plan to do laser fragmentation outpatient at a later time. Of note, patient has history of neurogenic bladder and per urology, patient will require Calixto's catheter for at least 10 days, recommend following up with urologist after discharge. Blood culture from 05/28/2025 grew GPC in 1/2 bottles. Preliminary blood culture 05/30 revealed yeast however culture order was cancelled. Blood culture 05/31 negative for growth; however there is still concern for fungal infection, unconfirmed due to cancelled culture. Consulted ID Dr. López who agreed to continue empiric antifungal treatment. Urine culture was negative. Treated with IV Zosyn and vancomycin from 05/29. Per ID, recommended discharge on 2 week course of Augmentin and Fluconazole. Patient also started having hematuria, likely due to combination of post operative bleeding and restarting Eliquis 06/01/25 for her atrial fibrillation. Urology deferred management to cardiology who recommended continuing Eliquis and aspirin but to discontinue Plavix. Hemoglobin remained stable, which supports that patient unlikely had an acute bleed. Hematuria resolved without intervention. Continued home dose metoprolol, statin, and donepezil. Of note, patient was complaining of right upper chest pain this morning. EKG showed normal sinus rhythm without noted ST changes. Patient was tender at right upper chest on physical exam, less likely cardiac related. Patient was safely discharged to SNF, per patient request, with Calixto in place. Discharge Recommendations: - Please complete antibiotic course of Augmentin 1 tablet twice for 8 more days. - Please take fluconazole 200 milligrams orally for the next 10 days - Please take tamsulosin 0.4 mg once daily for kidney stone, please follow-up with urology for further recommendations - Please take aspirin 81 mg once daily and Eliquis 2.5 mg twice daily - Stop taking Plavix - Continue rest of medication as prescribed - Please follow up with your primary care provider within one week of discharge , follow up with CBC in 1 week to evaluate for anemia. - Follow with infectious disease specialist dr López within 2 weeks of discharge from hospital and Urologist Dr Friend within 1 week of discharge from hospital. You will need to call the doctors office to schedule an early appointment following discharge form hospital. - If your symptoms worsen,please seek immediate medical attention and return to your nearest emergency room - If you do not have a primary care provider, you may follow up at the [facility] at [address] [place] [address] [address], [place] [address], Hospital Diagnoses: #Sepsis secondary to pyelonephritis - resolved #Right hydroureter and nephrolithiasis s/p right ureteral stent and ureteroscopy #GPC bacteremia - resolving #Concern for fungemia #Hematuria - resolved #Anemia #Paroxysmal A-fib #Acute hypoxic respiratory failure?resolved #Concern for volume overload secondary to HFpEF #HFpEF, EF 60-65% #Pleural effusion - resolved #MARGIE on CKD, likely postrenal- resolved #Metabolic Acidosis, high anion gap - resolved #Hypertension #Diabetes Mellitus type II #Hyperlipidiemia #History of acute left cerebellar hemisphere infarct #Dementia Disposition: Safe discharge to SNF. Senior resident attestation: Patient evaluated and examined at the bedside, plan of care discussed with rest of the team including my attending physician, except as noted. Jovita PGY3 Time Spent with Patient Time attestation: Total time spent providing and/or coordinating discharge services: at least 30 minutes of care coordination Time spent: Greater than 30 minutes Exam Vital Signs Temp Pulse Resp BP Pulse Ox O2 Del Method O2 Flow Rate 96.9 F 69 19 142/66 H 95 Nasal Cannula 3 06/04/25 04:00 06/04/25 04:00 06/04/25 04:00 06/04/25 04:00 06/04/25 04:00 06/04/25 04:00 06/04/25 04:00 FiO2 55 05/31/25 16:00 Narrative Exam Physical Exam: General Appearance: Alert & Oriented X3 and in no acute discomfort. Hard of hearing at baseline. Saturating well on 2L O2 NC. HEENT: Normocephalic, atraumatic, mucous membranes moist. Heart: Regular rate and rhythm, normal S1 and S2. Possible mitral murmur appreciated. Tenderness at right upper chest. Lungs: Symmetric with good expansion. Decreased breath sounds on the right side, likely pleural effusion. Abdomen: Moderately distended but nontender. Normal Reactive Bowel Sounds. No guarding. Right sided CVA tenderness. No supra-pubic tenderness. Neurologic: Alert and oriented x3, no gross neurological deficit, and patient able to move all 4 extremities. Speech clear. Extremities: No edema. Skin: No rash or ecchymoses. Discharge Plan Plan Patient Disposition: [facility] [place] Patient condition on transfer: Stable Care Plan Goals: Instructions - Please complete antibiotic course of Augmentin 1 tablet twice for 8 more days. - Please take fluconazole 200 milligrams orally for the next 10 days - Please take tamsulosin 0.4 mg once daily for kidney stone, please follow-up with urology for further recommendations - Please take aspirin 81 mg once daily and Eliquis 2.5 mg twice daily - Stop taking Plavix - Continue rest of medication as prescribed - Please follow up with your primary care provider within one week of discharge , follow up with CBC in 1 week to evaluate for anemia. - Follow with infectious disease specialist dr López within 2 weeks of discharge from hospital and Urologist Dr Friend within 1 week of discharge from hospital. You will need to call the doctors office to schedule an early appointment following discharge form hospital. - If your symptoms worsen,please seek immediate medical attention and return to your nearest emergency room - If you do not have a primary care provider, you may follow up at the [facility] at [address], [place] [address], Prescriptions/Referrals Prescriptions/Med Rec: New Eliquis 2.5 mg Tablet 2.5 mg PO BID 30 Days Qty: 60 0RF aspirin 81 mg Tablet,Delayed Release (Dr/Ec) 81 mg PO DAILY 30 Days Qty: 30 0RF tamsulosin 0.4 mg Capsule 0.4 mg PO QDAY 30 Days Qty: 30 0RF fluconazole 200 mg tablet 200 mg PO QDAY 10 Days Qty: 10 0RF amoxicillin-pot clavulanate 500-125 mg tablet 1 tab PO BID 8 Days Qty: 16 0RF metoprolol succinate 25 mg tablet extended release 24 hr 12.5 mg PO QDAY 30 Days Qty: 15 0RF acetaminophen [Tylenol] 325 mg tablet 325 mg PO QID PRN (Reason: mild pain (scale score 1-6)) 30 Days Qty: 90 0RF hydrocodone-acetaminophen 2.5-325 mg tablet 1 tab PO QDAY MDD one tablet per day 10 Days Qty: 10 0RF Continued metformin 500 mg tablet 1,000 mg PO QDAY lisinopril 10 mg tablet 10 mg PO QDAY amlodipine 5 mg tablet 5 mg PO QDAY pravastatin 40 mg tablet 40 mg PO QDAY donepezil 5 mg tablet 5 mg PO HS Patient Comments: TAKE 1 TABLET BY MOUTH EVERY DAY AT BEDTIME 30 DAYS Renuka-Casey 0.8 mg tablet 1 tab PO DAILY Patient Comments: TAKE 1 TABLET BY MOUTH EVERY DAY oxybutynin chloride 5 mg tablet 5 mg PO QDAY Patient Comments: TAKE 1 TABLET BY MOUTH TWICE A DAY FOR 90 DAYS fluoxetine 10 mg capsule 20 mg PO DAILY Patient Comments: TAKE 1 CAPSULE BY MOUTH EVERY DAY FOR 30 DAYS Discontinued aspirin 81 mg tablet 81 mg PO QDAY clopidogrel 75 mg tablet 75 mg PO QDAY nitrofurantoin macrocrystal 50 mg capsule 50 mg PO QDAY Rx Instructions: must administer with a meal/food metoprolol tartrate 25 mg tablet 25 mg PO QDAY Referrals: No Primary/Family,Physician [Primary Care Provider] - Outpatient Orders (i.e. Home Health, Labs, Imaging): CBC (Routine) Location: None Selected Ordered By: Mary Hussein Patient/Caregiver Discharge Instructions Education Materials: AFL/Afib, ED Kidney Stone w/ Colic Print Language: Irish Stand Alone Forms: Letty Award Info., Patient Portal Info Letter Discharge Order Discharge Orders: Discharge (Routine); Ordered 06/04/25 Ordered By: Aster Barker Quality Discharge Quality Measures VTE prophylaxis
[2025-06-04 08:18] LABS: Iron 20 mcg/dL (50-170); Percent Iron Saturation 8 % (20-55); Total Iron Binding Capacity 227 mcg/dL (250-425); Unsaturated Iron Binding 207 (225-295)
[2025-06-04] MEDS: DOCUSATE SOD 100 MG CAPSULE PO (08:39)
[2025-06-04] MEDS: AMOXICILLIN/POT CLAV 500 MG TABLET PO ×2 (08:39→17:45)
[2025-06-04] MEDS: PANTOPRAZOLE 40 MG TABLET PO (08:39)
[2025-06-04] MEDS: TAMSULOSIN HCL 0.4 MG CAPSULE PO (08:39)
[2025-06-04] MEDS: METOPROLOL SUCCINATE XL 25 MG TABCR 12.5 MG PO (08:39)
[2025-06-04] MEDS: PRAVASTATIN SODIUM 10 MG TABLET 40 MG PO (08:41)
[2025-06-04] MEDS: FLUCONAZOLE 100 MG TABLET 200 MG PO (08:41)
[2025-06-04] MEDS: INSULIN LISPRO (AdmeLOG) 1 UNIT/0.01 ML UNIT SC (11:22)
[2025-06-04] MEDS: APIXABAN 2.5 MG TABLET PO (11:23)
[2025-06-04] MEDS: DICLOFENAC 1% TOP GEL 100 GM TUBE TOP (11:24)
--- NOTE | 2025-06-04 14:33 | PC.SS ---
PASSR closed on line. PASSR submitted to [facility] via file exchange.
--- NOTE | 2025-06-04 14:34 | PC.SS ---
Rounding Note: Plan is to d/c the patient to SNF today.
--- NOTE | 2025-06-04 14:42 | PC.SS ---
Ambulance transport scheduled for 05:30 pm. LINE ERECTOR APPRENTICE notified SNF, bedside nurse and patient's family.
--- NOTE | 2025-06-04 15:17 | PD.RESPRO ---
Documentation for date of: 06/04/25 Subjective Subjective Interval history: Pt is seen at bedside, Denies any shortness of breath, chest pain or palpitations. Telemetry is reviewed, pt is in sinus rhythm. Pt continues to have left flank pain, but much better today. Calixto bag apears to be cola colored rather than bright. Hematuria has improved. Therefore, due to pt's Hx of stroke and afib, continue eliquis 2.5mg BID for now. and Continue to monitor for acute bleeding or worsening hematuria. Pt will need a close follow up with urologist. Vitals are stable, labs are reviewed and are stable. Exam Vital Signs Temp Pulse Resp BP Pulse Ox O2 Del Method O2 Flow Rate 97.9 F 77 15 135/67 H 93 L Nasal Cannula 3 06/04/25 11:55 06/04/25 12:00 06/04/25 11:55 06/04/25 11:55 06/04/25 11:55 06/04/25 11:55 06/04/25 11:55 FiO2 55 05/31/25 16:00 Narrative Exam GENERAL: A&Ox3 . Awake, Not in acute distress NEURO: no focal neurological deficits HEENT: Atraumatic, Normocephalic. mucous membranes moist. Eyes open, symmetrical, & clear HEART: Normal Heart Sounds, regular rate and rhythm LUNGS: Clear to auscultation with no wheezing or crackles. ABDOMEN: soft, non-distended,right flank tenderness , bowel sounds heard, no guarding or rebound tenderness SKIN: No Rash or ecchymoses EXTREMITIES: No edema, tenderness, able to move all 4 extremities, pedal pulses palpated Objective Labs 06/04/25 06:00 06/04/25 06:00 Labs: Laboratory Results - last 24 hr 05/31/25 06/04/25 07:50 06:00 WBC 10.4 RBC 3.59 L Hgb 10.4 L Hct 29.9 L MCV 83 MCH 29.0 MCHC 34.8 RDW Std Deviation 44.9 Plt Count 129 L D Neut % (Auto) 62 Lymph % (Auto) 16 [place] % (Auto) 11 Eos % (Auto) 4 Baso % (Auto) 1 Neut # (Auto) 6.4 Lymph # (Auto) 1.6 [place] # (Auto) 1.1 H Eos # (Auto) 0.4 Baso # (Auto) 0.1 Immature Gran # (Auto) 0.77 H Absolute Nucleated RBC 0.00 Immature Gran % 7 H Nucleated RBC % 0 Sodium 132 L Potassium 4.0 Chloride 99 Carbon Dioxide 26.2 Anion Gap 7 BUN 17 Creatinine 1.0 Estim Creat Clear Calc 30.5 L eGFR 55 L BUN/Creatinine Ratio 17 Glucose 122 H Calculated Osmolality 267 L Calcium 8.5 Corrected Calcium 9.1 Phosphorus 3.4 Magnesium 1.7 Iron 20 L TIBC 227 L Iron Saturation 8 L Unsat Iron Binding 207 L Total Bilirubin 0.8 AST 17 ALT 21 Alkaline Phosphatase 149 H Total Protein 5.8 Albumin 3.2 L Globulin 2.6 Albumin/Globulin Ratio 1.2 Heparin-Ind Plt Ab Scrn NEGATIVE Heparin Dep Plt Ab OD 0.091 ABG Interpretation ABG results: 05/28/25 05/29/25 05/31/25 20:17 14:40 02:05 ABG pH 7.39 7.34 L 7.43 ABG pCO2 21 L 27 L 29 L ABG pO2 78 L 58 L* D 75 L ABG HCO3 13 L 15 L 19 L ABG O2 Saturation 97 91 97 ABG Base Excess -10 L -10 L -4 L Quality Measures Quality Measures VTE prophylaxis (SCDs only) Advance care planning discussed with:: patient and child Assessment & Plan Assessment Current Active Medications: Generic Name Dose Route Start Last Admin Trade Name Freq PRN Reason Stop Dose Admin Acetaminophen 650 mg 05/28/25 16:30 06/01/25 17:26 Acetaminophen 325 Mg Tablet PO 06/27/25 16:29 650 mg Q6H PRN Administration Mild Pain 1-3 or Fever >100.3 Hydrocodone Bitart/Acetaminophen 1 tab 06/02/25 18:03 06/03/25 20:18 Hydrocodone/Apap 10/325 Tab PO 06/07/25 18:02 1 tab Q6HR PRN Administration PAIN SCALE 4-6 (Moderate Amlodipine Besylate 5 mg 05/29/25 09:00 06/04/25 08:41 Amlodipine Besylate 5 Mg Tablet PO 06/28/25 08:59 5 mg QDAY GERHARD Administration Amoxicillin/Clavulanate Potassium 500 mg 06/02/25 17:30 06/04/25 08:39 Amoxicillin/Pot Clav 500 Mg Tablet PO 06/05/25 12:00 500 mg BIDWM GERHARD Administration Apixaban 2.5 mg 06/01/25 21:00 06/04/25 11:23 Apixaban 2.5 Mg Tablet PO 07/01/25 20:59 2.5 mg BID GERHARD Administration Aspirin 81 mg 06/01/25 09:00 06/02/25 11:19 Aspirin Ec 81 Mg Tabec PO 07/01/25 08:59 Not Given DAILY GERHARD Dextrose 25 ml 05/28/25 16:35 Dextrose 50%-Water Inj 50 Ml Syringe IV 06/27/25 16:34 Q15MIN PRN BG 50-70 responsive npo pt Dextrose 50 ml 05/28/25 16:35 Dextrose 50%-Water Inj 50 Ml Syringe IV 06/27/25 16:34 Q15MIN PRN BG <50 OR BG <70 & pt unresponsive Diclofenac Sodium 2 gm 06/04/25 10:15 06/04/25 11:24 Diclofenac 1% Top Gel 100 Gm Tube TOP 07/04/25 10:14 2 gm BID GERHARD Administration Docusate Sodium 100 mg 05/29/25 09:00 06/04/25 08:39 Docusate Sod 100 Mg Capsule PO 06/28/25 08:59 100 mg QDAY GERHARD Administration Protocol Donepezil HCl 5 mg 05/29/25 21:00 06/03/25 20:18 Donepezil Hcl 5 Mg Tablet PO 06/28/25 20:59 5 mg HS GERHARD Administration Fluconazole 200 mg 06/03/25 09:00 06/04/25 08:41 Fluconazole 100 Mg Tablet PO 06/10/25 08:59 200 mg QDAY GERHARD Administration Fluoxetine HCl 20 mg 05/29/25 09:00 06/04/25 08:39 Fluoxetine Hcl 10 Mg Capsule PO 06/28/25 08:59 20 mg QDAY GERHARD Administration Glucagon 1 mg 05/28/25 16:35 Glucagon Inj 1 Mg Vial IM Q15MIN PRN BG <70, and no IV access Insulin Glargine 5 unit 06/01/25 21:00 06/03/25 20:39 Insulin Glargine (Lantus) 5 Unit/0.05 Ml (Per 5 Units) SC 07/01/25 20:59 5 unit HS GERHARD Administration Insulin Human Lispro 0 unit 05/29/25 17:00 06/04/25 11:22 Insulin Lispro (Admelog) 1 Unit/0.01 Ml Unit SC 06/28/25 16:59 3 unit ACHS GERHARD Administration Protocol Lisinopril 10 mg 05/29/25 09:00 Lisinopril 2.5 Mg Tablet PO 06/28/25 08:59 QDAY GERHARD Metoprolol Succinate 12.5 mg 06/01/25 09:00 06/04/25 08:39 Metoprolol Succinate Xl 25 Mg Tabcr PO 07/01/25 08:59 12.5 mg QDAY GERHARD Administration Morphine Sulfate 1 mg 06/02/25 18:03 06/04/25 11:25 Morphine Sulf Inj 10 Mg/Ml Vial IVP 06/07/25 18:02 1 mg Q4HR PRN Administration PAIN SCALE 7-10 (Severe Ondansetron HCl 4 mg 05/28/25 16:35 Ondansetron Inj 2 Mg/Ml Inj 2 Ml IVP 06/27/25 16:34 Q6H PRN NAUSEA OR VOMITING Protocol Pantoprazole Sodium 40 mg 06/01/25 09:00 06/04/25 08:39 Pantoprazole 40 Mg Tablet PO 07/01/25 08:59 40 mg QDAY GERHARD Administration Protocol Pharmacy Consult 1 each 05/28/25 16:43 Pharmacy To Consult Patient XX 06/27/25 16:42 PRN PRN CONSULT Pharmacy Consult 1 each 05/29/25 17:09 Pharmacy Renal Dose Adjustment 1 Ea XX 06/28/25 17:08 PRN PRN CONSULT Pravastatin Sodium 40 mg 05/29/25 09:00 06/04/25 08:41 Pravastatin Sodium 10 Mg Tablet PO 06/28/25 08:59 40 mg DAILY GERHARD Administration Tamsulosin HCl 0.4 mg 05/28/25 20:00 06/04/25 08:39 Tamsulosin Hcl 0.4 Mg Capsule PO 06/27/25 19:59 0.4 mg QDAY GERHARD Administration Plan Ms. Roland is a 84-year-old female with past medical history significant for CVA (acute left cerebellar infarct). history of meningioma, hypertension, hyperlipidemia, aph-oqqecmo-cwfkvzbff type 2 diabetes, HFpEF and dementia presented to the ED 05/28/2025 complaining of nausea/vomiting and right flank pain and tenderness. Pt is admitted for management of pylonephritis and hydronephrosis in the setting of nephrolithiasis requiring ureteral stent. Cardiology is consulted due to recommendations regarding anticoagulation in the setting of paroxysmal A-fib (pt has remained rate controlled) as patient is currently on aspirin and Plavix due to history of CVA #Paroxysmal A-fib, rate controlled -Presented with new onset paroxysmal A-fib with rates in the 70's -Most likely cause is pt's acute infection (PE is ruled out by CTA) -Currently hemodynamically stable and rate is controlled -EKG: A-fib with RVR rate 133. QTc 465 ECHO done on 05/01/25: Normal LV size, wall thickness. Normal left ventricular diastolic filling pattern for age. Estimated EF at 60- 65%. Troponin 0.081 BNP 667 [id number] HAS-BLED 4 Plan: -Monitor telemetry -Keep Potassium > 4 and Magnesium > 2 -Continue metoprolol XL 12.5mg BID (pt did not require amiodarone, has remained in sinus rhythm since starting metoprolol) -Anticoagulate with Eliquis 2.5mg BID due to Age and weight (Discontinue home plavix and hold home aspirin) #Primary Hypertension -Hold home amlodipine and lisinopril due to normal BP for now, Pt is also started on metoprolol XL due to new onset afib which will have mild affect on the BP #Sepsis secondary to pyelonephritis #Right hydroureter and nephrolithiasis s/p right ureteral stent and ureteroscopy #GPC bacteremia #Fungemia #MARGIE on CKD, likely postrenal- resolved #Metabolic Acidosis, high anion gap #Diabetes Mellitus type II #History of acute left cerebellar hemisphere infarct management as per primary team Assessment and plan discussed with my attending physician Dr. Saeed Hawley (PGY-2)- Internal medicine resident
== END 2025-06-04 17:47 | disposition skilled nursing facility (03) | DRG 853 ==
LOC: SERX 11:05 → SERHOLD 17:08 → S3SX 19:47 → S3NX 05-29 18:57 → S2SX 05-31 02:46 → S2NX 05-31 05:41
PROVIDERS: Internal Medicine Infectious Disease; Nurse Practitioner Family; Student in an Organized Health Care Education/Training Program; Urology; Admitting Provider Student in an Organized Health Care Education/Training Program; Emergency Provider Emergency Medicine; Visit Provider Internal Medicine
PROC: 0TJB8ZZ Inspection of Bladder, Via Natural or Artificial Opening Endoscopic (ICD-10-PCS; CPT 52000; principal; 2025-05-29 14:30)
DX: A41.9 Sepsis, unspecified organism (principal); J18.9 Pneumonia, unspecified organism; J96.01 Acute respiratory failure with hypoxia; N20.2 Calculus of kidney with calculus of ureter; E87.1 Hypo-osmolality and hyponatremia; N13.6 Pyonephrosis; E87.4 Mixed disorder of acid-base balance; I13.0 Hypertensive heart and chronic kidney disease with heart failure and stage 1 through stage 4 chronic kidney disease, or unspecified chronic kidney disease; N17.9 Acute kidney failure, unspecified; I50.32 Chronic diastolic (congestive) heart failure; B49 Unspecified mycosis; E78.5 Hyperlipidemia, unspecified; E11.22 Type 2 diabetes mellitus with diabetic chronic kidney disease; N18.31 Chronic kidney disease, stage 3a; I48.0 Paroxysmal atrial fibrillation; D63.1 Anemia in chronic kidney disease; F03.90 Unspecified dementia, unspecified severity, without behavioral disturbance, psychotic disturbance, mood disturbance, and anxiety; Z86.73 Personal history of transient ischemic attack (TIA), and cerebral infarction without residual deficits; Z87.440 Personal history of urinary (tract) infections; Z79.84 Long term (current) use of oral hypoglycemic drugs; Z79.01 Long term (current) use of anticoagulants; Z79.02 Long term (current) use of antithrombotics/antiplatelets; Z79.82 Long term (current) use of aspirin; Z79.899 Other long term (current) drug therapy; Z87.442 Personal history of urinary calculi; Z90.710 Acquired absence of both cervix and uterus; I35.8 Other nonrheumatic aortic valve disorders; R31.0 Gross hematuria; N31.9 Neuromuscular dysfunction of bladder, unspecified
CPT/HCPCS: 36415; 36600; 71045; 71046; 71275; 74018; 74176; 74420; 74425; 80053; 80069; 80202; 81001; 82150; 82803; 82945; 83036; 83540; 83550; 83605; 83615; 83690; 83735; 83880; 84100; 84145; 84157; 84443; 84484; 85025; 85610; 85730; 86022; 86331; 86635; 87040; 87081; 87086; 89051; 93005; 93225; 93306; 93970; 94640; 96365; 96372; 96375; 97162; 99285; A4217; A4649; A9270; C1729; C1769; C1894; C2617; J0131; J0696; J1100; J1450; J1815; J1885; J1938; J2270; J2371; J2405; J2470; J2543; J2704; J3010; J3370; J3475; J3490; J7030; J7050; J7120; J7999; Q9958; Q9967

== ENCOUNTER → 2025-07-08 | Outpatient (BNVA) | payer MEDICARE, BC, SELFPAY | END | disposition home or self-care (01) | PROVIDERS: PCP Hospitalist; Referring Provider Hospitalist; Visit Provider Urology | DX: N39.0 Urinary tract infection, site not specified (principal); N20.2 Calculus of kidney with calculus of ureter; I10 Essential (primary) hypertension; E78.5 Hyperlipidemia, unspecified; E11.9 Type 2 diabetes mellitus without complications; Z86.73 Personal history of transient ischemic attack (TIA), and cerebral infarction without residual deficits; D32.9 Benign neoplasm of meninges, unspecified; E78.00 Pure hypercholesterolemia, unspecified; F03.90 Unspecified dementia, unspecified severity, without behavioral disturbance, psychotic disturbance, mood disturbance, and anxiety | CPT/HCPCS: 99212; G0463 ==

== ENCOUNTER 2025-07-25 05:40 | Day surgery (SDC) | payer MEDICARE, BC, SELFPAY ==
--- NOTE | 2025-07-21 13:47 | SUR.PREOP ---
Pt had a Echocardiogram and EKG on file from her last admission on May 2025, records reviewed with Dr Mcknight. Pt also takes Eliquis 2.5 BID last dose this morning, Dr Mcknight asked to have pt stop eliquis today, pt's procedure in on Monday. Spoke with Connie DURHAM at and informed her to hold Eloquis until after procedure.
[2025-07-23 10:39] VITALS: BMI 22.0
[2025-07-23 11:27] LABS: Alanine Aminotransferase 11 U/L (10-49); Albumin, Serum 3.9 gm/dL (3.4-4.8); Albumin/Globulin Ratio 1.3 (1.2-2.2); Alkaline Phosphatase 68 U/L (46-116); Anion Gap 8 (7-16); Aspartate Amino Transferase 15 U/L (0-34); BUN/Creatinine Ratio 19 Ratio (12-20); Bilirubin,Total 0.5 mg/dL (0.3-1.2); Blood Urea Nitrogen 23 mg/dL (9-23); Calcium 10.4 mg/dL (8.3-10.6); Calcium (Corrected) 10.5 mg/dL (8.5-10.1); Carbon Dioxide 26.9 mMol/L (20.0-31.0); Chloride 102 mMol/L (98-107); Creatinine (Component) 1.2 mg/dL (0.6-1.3); Estimated Creatinine Clearance 24.2 mL/min (>60); Globulin 3.1 gm/dL (2.3-3.5); Glucose 116 mg/dL (74-106); Osmolality,Calculated 278 (275-295); Potassium 5.0 mMol/L (3.4-5.1); Sodium 137 mMol/L (136-145); Total Protein 7.0 gm/dL (5.7-8.2); eGFR 44 See Note
--- NOTE | 2025-07-23 11:34 | SUR.PREOP ---
Pt is a resident at [facility], Instructions given over phone to Frank milan's nurse for today. Pt to keep NPO after MN on Thrusday, Pt to be here Fridat at 0545.
[2025-07-25] VITALS (9 sets, daily range): BP systolic 127–150; BP diastolic 51–71; PULSE 60–73; RESP 15–21; TEMP 36.7–36.9; O2SAT 95–100; BMI 22.7
--- NOTE | 2025-07-25 07:26 | SUR.PREOP ---
Patient's family expressed gratitude for prayer before the procedure.
--- NOTE | 2025-07-25 07:26 | SUR.PREOP ---
Patient's family expressed gratitude for prayer before the procedure.
--- NOTE | 2025-07-25 07:30 | XR_ITS ---
Examination: Retrograde pyelogram right with without KUB 7 spot fluoroscopic films of the abdomen Fluoroscopy Date and time: July 25, 2025 0955 hours INDICATIONS: History flank pain, history right ureteral stent 8 mm lower pole right renal calculus, ureteral stent replacement today TECHNIQUE AND FINDINGS: 7 spot fluoroscopic films of the abdomen with opacification of the right pelvicalyceal system Right ureteral stent satisfactory position Fluoroscopy 27 seconds radiation dose 3.35 milligray IMPRESSION: Retrograde pyelogram as above
[2025-07-25] MEDS: VANCOMYCIN/NS 1 GM IVPB 200 ML IV (07:40)
--- NOTE | 2025-07-25 10:01 | SUR.PHASEI ---
0939: Pt received in [facility] via gurney. Report from Anibal DIAMOND and Eliceo ANGULO. Pt obtunded. Oral airway in place. Resp even, unlabored. VS stable. 0948: Pt more responsive. Follows simple commands. Oral airway dc'd. Resp even, unlabored. 1003: Pt resting with no complaints voiced. Resp even, unlabored. VS stable. Denies pain.
--- NOTE | 2025-07-25 10:05 | ESOP_ITS ---
RE: GISELA DALE : 1940 DATE OF OPERATION: 07/25/2025 PREPROCEDURE DIAGNOSES: Upper pole stone, right kidney, status post obstructing proximal ureteral stone with septic complication and placement of indwelling ureteral stent for renal decompression. POSTPROCEDURE DIAGNOSIS: Status post retrograde intrarenal surgery, right. PROCEDURE PERFORMED: Fluoroscopic imaging of upper urinary tract; cystoscopy; retrograde pyelogram under fluoroscopic control, right; retrograde intrarenal surgery, right with laser stone fragmentation and stone basketing; placement of indwelling ureteral stent, right. SURGEON: Elvis Bains MD STRAIN TECHNICIAN SURGEON: Wesley Cao MD ANESTHESIA: General. INDICATIONS: This patient is an 84-year-old lady who comes for treatment of a 10 mm stone, which is now located in the upper pole of the right kidney. The patient in May had a septic complication with a 10 mm stone being in the proximal ureter and causing obstructive pyelonephritis necessitating renal drainage with an indwelling ureteral stent. The patient subsequently was managed with IV antibiotics and now comes for treatment of the stone, which is now resides in the upper pole, 10 mm size, Hounsfield units 960-1100. We had discussed with the patient the indications for treatment along with risks, benefits, and alternatives and appropriate consent was obtained. DESCRIPTION OF FINDINGS: Fluoroscopically, the stone is identified overlying the upper aspect of the right kidney. The indwelling ureteral stent is in correct position. Endoscopically, the bladder mucosa is unremarkable. The stent is seen protruding from the right ureteral orifice. Retrograde pyelogram shows bilaterally distended renal collecting system. Otherwise, no abnormalities are noted. The stone in the upper pole was fragmented with laser and the resultant pieces are removed with approximately 20 passages with stone baskets. DESCRIPTION OF PROCEDURE: Prior to the initiation of anesthesia, the patient was appropriately identified by the surgeon in the operating room personnel. Indication for surgery, site and scope of surgery are reconfirmed with the patient. The patient was seen preoperatively for antibiotics intravenously. After induction of general anesthesia, the patient was positioned on the endoscopy table in the lithotomy position. The outer genitalia was prepped and draped in a sterile fashion. Cystoscopy was performed using a 21-Canadian instrument. This showed the aforementioned findings. A 5-Canadian angiographic catheter was introduced into the right ureteral orifice over a guidewire under fluoroscopic control. The guidewire was advanced up into the kidney to serve as a safety wire. At this point, the patient received 20 mg of Lasix intravenously to induce diuresis and reduce the risk of pyelovenous reflux and infectious complications during the intrarenal surgical procedure. Next, the stent was removed and checked for completeness. Following this, a flexible digital ureteroscope was advanced into the ureter alongside a safety wire. The course of the ureter was traversed under endoscopic control without evidence for abnormalities. Retrograde pyelogram was obtained with the aforementioned findings. The stone in the upper pole was widely identified. Selective visualization of the remainder of the renal collecting system does not show any abnormalities. The stone was then fragmented and the resultant pieces are removed with approximately 20 passages with stone baskets to clear out all stone material large 1-2 mm actively. Contrast was then again injected confirming the integrity of the upper urinary tract. An indwelling stent was placed over the safety wire and under fluoroscopic and endoscopic control position correcting the kidney and the bladder. The bladder was emptied. The patient was awakened and returned to recovery where she arrived in satisfactory condition. ESTIMATED BLOOD LOSS: Minimal. COMPLICATIONS: None. SPECIMENS: Stone for chemical analysis and for culture and sensitivity testing. DISPOSITION: The patient will be discharged home from the outpatient surgical area. She will return to the office within a week's time for renal ultrasound examination and possible removal of the indwelling ureteral stents in the office setting under local anesthesia. DT: 09:36:44 TT: 10:03:00 Ref: [id number] - TID: [id number] [facility]ITALDimitris
--- NOTE | 2025-07-25 11:04 | SUR.PHASEII ---
1025: Pt more awake, alert. VS stable. Denies pain. Sitting up tolerating po fluids with no difficulty swallowing and no n/v. Daughter at bedside. 1100: Pt fully awake, oriented x3. VS stable. Denies pain. Pt voided on self. Pt cleaned and brief placed on pt. Pt dressed and assisted to transport chair. Ambulation steady. Pt provided articles to strain urine at home. Verbal and written instruction provided. Pt and daughter stated understanding of discharge instruction. Pt also instructed to bead picker her medication from [facility]. Pt discharged from [facility] in stable condition.
== END 2025-07-25 11:00 | disposition home or self-care (01) ==
PROVIDERS: Anesthesiology; PCP Hospitalist; Referring Provider Specialist; Visit Provider Urology
PROC: 0TJB8ZZ Inspection of Bladder, Via Natural or Artificial Opening Endoscopic (ICD-10-PCS; CPT 52000; principal; 2025-07-25 07:30)
DX: N20.0 Calculus of kidney (principal)
CPT/HCPCS: 52356; 36415; 74420; 80053; 82365; A4217; A4314; A4649; C1769; C1889; C1894; C2617; J0131; J1100; J1580; J1938; J2371; J2405; J2704; J3010; J3373; J3490; C1893

== ENCOUNTER → 2025-08-15 | Outpatient (BNVA) | payer MEDICARE, BC, SELFPAY | END | disposition home or self-care (01) | PROVIDERS: PCP Hospitalist; Referring Provider Hospitalist; Visit Provider Urology | DX: N20.0 Calculus of kidney (principal); Z96.0 Presence of urogenital implants; I13.0 Hypertensive heart and chronic kidney disease with heart failure and stage 1 through stage 4 chronic kidney disease, or unspecified chronic kidney disease; E11.22 Type 2 diabetes mellitus with diabetic chronic kidney disease; N18.30 Chronic kidney disease, stage 3 unspecified; F03.90 Unspecified dementia, unspecified severity, without behavioral disturbance, psychotic disturbance, mood disturbance, and anxiety; I50.9 Heart failure, unspecified; I48.91 Unspecified atrial fibrillation; E78.00 Pure hypercholesterolemia, unspecified; K21.9 Gastro-esophageal reflux disease without esophagitis; Z86.711 Personal history of pulmonary embolism | CPT/HCPCS: 52310; 81003; 96372; A4217; A4649; C1894; J1580; A9270 ==

== ENCOUNTER 2025-09-09 14:27 | Emergency (ER) | payer MEDICARE, BC, SELFPAY ==
[2025-09-09] VITALS (8 sets, daily range): BP systolic 138–184; BP diastolic 69–85; PULSE 64–73; RESP 16–21; TEMP 36.6–37.1; O2SAT 95–99; BMI 22.1
--- NOTE | 2025-09-09 14:34 | PD.EDCHEST ---
ED Chest Pain RME/HPI General Chief Complaint: Chest Pain Stated Complaint: CHEST PAIN Time Seen by Provider: 09/09/25 14:31 Arrival date/time: 09/09/25 14:27 Limitations: no limitations RME / HPI RME / HPI narrative: 84 year old female with history of CVA, menangioma, hypertension, atrial fibrillation, diabetes, hyperlipidemia, CKD, presents to the ED BIBA from PCP office for evaluation of chest pain today. Per medics report, on their assessment the patient was having 8/10 aching left sided chest pain. Was given 162mg Aspirin, 0.4mg SL Nitro, and 1 nitro paste on chest with improvement in pain, now rating 6/10. Prehospital V/S HR 73, blood pressure 148/88, and saturating 99% on 6L nasal cannula. In the ED, patients family member reports the patient was discharged from from [facility] 09/03/[facility]. States she was sent home prescribed Eliquis for newly diagnosed atrial fibrillation. However, patient was unable to afford the medications and had yet to start any blood thinners. Family state on 09/06/2025 the patient was complaining of difficulty urinating and had an at-home Azo UTI test performed that was positive, though not started on any antibiotics. Denies any fevers, chills, cough, shortness of breath, abdominal pain, n/v/d. Related Data Home Medications ?Medication ?Instructions ?Recorded ?Confirmed metformin 500 mg tablet 1,000 mg PO BID 03/28/23 08/15/25 donepezil 5 mg tablet 5 mg PO HS 09/12/23 08/15/25 vitamin B complex-vitamin C-folic 1 tab PO DAILY 09/12/23 08/15/25 acid 0.8 mg tablet (Renuka-Casey) fluoxetine 10 mg capsule 10 mg PO DAILY 02/18/25 08/15/25 oxybutynin chloride 5 mg tablet 5 mg PO QDAY 02/18/25 08/15/25 amlodipine 5 mg tablet 5 mg PO QDAY 05/23/25 08/15/25 lisinopril 10 mg tablet 10 mg PO QDAY 05/23/25 08/15/25 pravastatin 40 mg tablet 40 mg PO QDAY 05/23/25 08/15/25 apixaban 2.5 mg tablet (Eliquis) 2.5 mg PO BID 07/08/25 08/15/25 bisacodyl 10 mg rectal suppository 10 mg CO QDAY PRN constipation 07/08/25 08/15/25 (Dulcolax (bisacodyl)) hydrocodone 5 mg-acetaminophen 325 1 tab PO Q6H PRN pain 07/08/25 08/15/25 mg tablet metoprolol succinate 25 mg 25 mg PO QDAY 07/08/25 08/15/25 tablet,extended release 24 hr tamsulosin 0.4 mg capsule (Flomax) 0.4 mg PO QDAY 07/08/25 08/15/25 sennosides 8.6 mg capsule (senna) 8.6 mg PO QDAY 07/23/25 08/15/25 Previous Rx's ?Medication ?Instructions ?Recorded tramadol 50 mg tablet 50 mg PO TID PRN pain #10 tabs 07/25/25 Allergies Allergy/AdvReac Type Severity Reaction Status Date / Time No Known Allergies Allergy Verified 08/15/25 10:21 Review of Systems Review of Systems Systems Reviewed: All systems reviewed, normal except as documented Past Medical History Past Medical History NEUROLOGIC: Positive Neurological Disorders (benign neoplasm of meninges) and Dementia (mild) CARDIAC: Positive Cardiac Disorders, Atrial Fibrillation (paroxidal), Hypercholesterolemia, Congestive Heart Failure and Hypertension RESPIRATORY: Positive Pulmonary Edema GASTROINTESTINAL: Positive Gastrointestinal Disorders and Gastroesophageal Reflux Disease GENITOURINARY: Positive Genitourinary Disorders (Pt has a steiner), Renal Disease (stage3) and Kidney Stones REPRODUCTIVE: Positive Previous Pregnancies MUSCULOSKELETAL: Positive Musculoskeletal Disorders, Arthritis, Rheumatoid Arthritis and Fractures ENT: Positive Deafness (TORRES MARTINEZ no hearing aids) ENDOCRINE: Positive Endocrine Disorders and Diabetes Mellitus Type 2 PSYCHO/SOCIAL: Positive Depression OTHER HISTORY: Positive Hospitalization, Falls and Chicken Pox Family History FAMILY HISTORY: Positive Family Cardiac Disorders and Family Cancer Surgical History SURGICAL: Positive Abdominal Surgery, Joint Replacement (left ankle repair) and Hysterectomy Social History SMOKING STATUS: Never smoker SECOND HAND EXPOSURE: No SUBSTANCE USE: does not use ED Exam General Limitations: Present no limitations General appearance: Present alert and other (Appears mildly shortness of breath. ) Head Head exam: Present atraumatic, normocephalic and normal inspection Eye Eye exam: Present normal appearance, PERRL and EOMI ENT ENT exam: Present normal exam, normal oropharynx and mucous membranes moist Neck Neck exam: Present normal inspection, full ROM and trachea midline Chest Chest inspection: Present normal inspection and symmetric chest wall rise Respiratory Respiratory exam: Present normal lung sounds bilaterally Cardiovascular Cardiovascular exam: Present regular rate, normal rhythm and normal heart sounds Abdominal Exam Abdominal exam: Present soft and normal bowel sounds Extremities Exam Extremities exam: Present normal inspection and full ROM Back Exam Back exam: Present normal inspection and full ROM; Absent CVA tenderness (R) or CVA tenderness (L) Neurological Exam Neurological exam: Present alert, oriented X3 and CN II-XII intact Psychiatric Psychiatric exam: Present normal affect and normal mood Skin Skin exam: Present warm, dry, intact and normal color Course Quality Measures none Orders Category Date Time Status EKG (ED ONLY) *Do not use* NOW Care 09/09/25 14:36 Completed EKG (ED ONLY) *Do not use* NOW Care 09/09/25 17:40 Completed CXRP [XR chest 1V portable] Stat Exams 09/09/25 14:37 Completed EKG (ED Only) Stat Exams 09/09/25 14:36 Draft EKG (ED Only) Stat Exams 09/09/25 17:40 Draft BNP [B-Type Natriuretic Peptide] Stat Lab 09/09/25 15:04 Completed CBC Stat Lab 09/09/25 15:04 Completed CMP [Comprehensive Metabolic Panel] Stat Lab 09/09/25 15:04 Completed PT [Prothrombin Time with INR] Stat Lab 09/09/25 15:04 Completed PTT [Partial Thromboplastin Time] Stat Lab 09/09/25 15:04 Completed Troponin I Stat Lab 09/09/25 15:04 Completed Troponin I Stat Lab 09/09/25 18:18 Received Urinalysis, C/S if Indicated Stat Lab 09/09/25 17:03 Completed Urine Culture Stat Lab 09/09/25 17:03 Received Furosemide [Lasix Inj] Med 09/09/25 15:40 Discontinued 20 mg IVP X1 ONE Morphine* Inj Med 09/09/25 15:37 Discontinued 4 mg IVP X1 ONE Vital Signs Vital signs: Vital Signs Temperature 98.7 F 09/09/25 14:45 Pulse Rate 64 09/09/25 14:45 Respiratory Rate 20 09/09/25 14:45 Blood Pressure 154/69 H 09/09/25 14:45 Pulse Oximetry (%) 98 09/09/25 14:45 Oxygen Delivery Method Room Air 09/09/25 14:45 Pulse ox is 98% on room air which is adequate. PROCEDURES: EKG Interpretation #1: Date of EK09/09/25 Time of EK:42 Rate: 78 Interpretation: Interpreted by me (Reviewed by me.) EKG Impression: Normal sinus rhythm Additional EKG comment: No ST elevations or depressions. Normal sinus rhythm. Heart rate 63. CO interval 182. QTc 405 Chest Pain MDM Narrative MDM Narrative:: 84-year-old female with a history of multiple medical problems to include CHF, dysuria, UTI, sepsis in May 2025, atrial fibrillation, who recently left [facility] and released home on September 04, 2025. At that time she was discharged with Eliquis but on the she was told that she could not afford it and did not pick it up and is not taking her Eliquis. She also started having dysuria and difficulty urinating on September 06. She started Azo patient is not on UTI symptoms. Today she is coming in with chest discomfort and difficulty urinating. In the emergency department the patient otherwise is on oxygen, on 6 L nasal cannula, heart rate is 66 with a respiration of 21. She is afebrile. On exam the patient does not appear toxic. She has some mild shortness of breath. Her is normal without CVA tenderness and abdomen is soft nontender nondistended. Plan will be to send labs to rule out for ACS, CHF, UTI, sepsis, pneumonia, dehydration, and electrolyte abnormality. At this time the patient does not meet SIRS criteria. Chest x-ray shows increased vascular markings which may be consistent with increased CHF. No infiltrate and no cardiomegaly. Labs do not show leukocytosis, and otherwise no electrolyte abnormality, BUN and creatinine are normal. Troponin is negative x 1. And BNP is 57. The patient's previous echo shows EF of 60 to 65%. May 2025 trace MR trace TR. Patient could have some mild underlying CHF that is diastolic and function. Urine is pending. 1735p: I spoke with band top maker Dr. Mayer. Discussed patients PMHx, HPI, ED course, exam findings, labs, EKG, and radiology results. Recommend starting the patient on Warfarin if the patient cannot afford Eliquis and will come evaluate the patient. 1800: Care transferred Dr. Mir, past medical, surgical, social and family history reviewed. Vitals and home medications reviewed. Results and treatment plan discussed. They will assume the care of the patient at this time and will follow the patient, pending second troponin and evaluation by cardiology prior to discharge. Patient data External records reviewed:: [facility] previous records, EMS form and [facility] (I reviewed [facility] records from recent admission at [facility] from 06/04/2025 through 09/03/2025 ) Clinical information provided by:: patient, EMS and family Social determinants that could affect healthcare access:: none Patient has the following chronic illnesses:: CVA, menangioma, hypertension, atrial fibrillation, diabetes, hyperlipidemia, CKD How is presenting disease/condition affected by chronic disease/condition?: exacerbated by Evaluation data The following diagnostics were reviewed and interpreted by me:: lab results, radiology exam(s) and EKG tracing(s) (EKG #1 @ 14:41h. NSR, HR 63, CO interval 182ms, QTC 406ms, no STEMI. EKG #2 @ 17:53p. Normal sinus rhythm, rate 67, nonspecific ST-T wave changes, no ST elevation or depression, CO 191ms, QTc 401ms) Lab and/or radiology exams considered but not ordered:: None Interpretation Summary: Ordering Physician: Felicia Marquez MD Date of Service: 09/09/25 Procedure(s): XR chest 1V portable Accession Number(s): [id number] cc: Keenan Harrison MD; NO PRIMARY/FAMILY,PHYSICIAN; Felicia Marquez MD~ EXAMINATION: AP chest single view TECHNIQUE: AP portable sitting chest single view Date and time: September 09, 2025, 1451 hours, comparison June 01, 2025 INDICATIONS: Chest pain today. FINDINGS: Normal heart size Ectatic thoracic aorta Moderate vascular congestion Severe osteopenia IMPRESSION: Moderate vascular congestion Dictated By: Keenan Harrison MD Signed By: <Electronically signed by Keenan Harrison MD in OV> 09/09/25 1521 Medications / Prescriptions Medications or Prescriptions considered but not ordered:: None Medication administrations:: Medication Administration History Discontinued Medications Furosemide (Furosemide Inj 10 Mg/Ml Vial 2 Ml) 20 mg IVP X1 ONE Stop: 09/09/25 15:41 Last Admin: 09/09/25 15:46 Dose: 20 mg Documented By: SHILPI Morphine Sulfate (Morphine Sulf Inj 4 Mg/Ml Vial) 4 mg IVP X1 ONE Stop: 09/09/25 15:38 Last Admin: 09/09/25 15:45 Dose: 4 mg Documented By: SHILPI See above Consultations Consultation(s) initiated? (list below): Yes Consultation #1 (Physician, Specialty, Details): See above Diagnosis Chest Pain Differential Diagnosis: other (ACS, CHF, UTI, sepsis, pneumonia, dehydration, and electrolyte abnormality.) Most likely diagnosis given after review of the tests above:: Atypical chest pain. Admission Indicated Admission indicated?: not indicated Explain why admission is indicated or not indicated:: Signed out pending final disposition. Admission Request Was there a request for admission?: No Disposition Plan Disposition Plan: other (specify) (signed out to Dr. Mir ) Discharge Plan Plan Discharge Disposition comment: Stable at sign-out Prescriptions/Referrals Prescriptions/Med Rec: No Action metformin 500 mg tablet 1,000 mg PO BID lisinopril 10 mg tablet 10 mg PO QDAY amlodipine 5 mg tablet 5 mg PO QDAY pravastatin 40 mg tablet 40 mg PO QDAY bisacodyl [Dulcolax (bisacodyl)] 10 mg suppository 10 mg CO QDAY PRN (Reason: constipation) Eliquis 2.5 mg tablet 2.5 mg PO BID tamsulosin [Flomax] 0.4 mg capsule 0.4 mg PO QDAY hydrocodone-acetaminophen 5-325 mg tablet 1 tab PO Q6H PRN (Reason: pain) metoprolol succinate 25 mg tablet extended release 24 hr 25 mg PO QDAY donepezil 5 mg tablet 5 mg PO HS Patient Comments: TAKE 1 TABLET BY MOUTH EVERY DAY AT BEDTIME 30 DAYS Renuka-Casey 0.8 mg tablet 1 tab PO DAILY Patient Comments: TAKE 1 TABLET BY MOUTH EVERY DAY oxybutynin chloride 5 mg tablet 5 mg PO QDAY Patient Comments: TAKE 1 TABLET BY MOUTH TWICE A DAY FOR 90 DAYS fluoxetine 10 mg capsule 10 mg PO DAILY Patient Comments: TAKE 1 CAPSULE BY MOUTH EVERY DAY FOR 30 DAYS senna 8.6 mg capsule 8.6 mg PO QDAY tramadol 50 mg tablet 50 mg PO TID PRN (Reason: pain) Qty: 10 0RF Referrals: No Primary/Family,Physician [Primary Care Provider] - In 1 week Problem List Clinical Impression: Atypical chest pain Patient/Caregiver Discharge Instructions Print Language: Iraqi
--- NOTE | 2025-09-09 14:36 | EKG_ITS ---
[facility] Test Date: 2025-09-09 Pat Name: GISELA DALE Department: Room: - Gender: Female Resident Service Coordinator: : 1940 Requested By: Felicia Moser Order Number: [id number] Reading MD: Felicia Moser Measurements Intervals [place] Rate: 63 P: 61 MI: 182 QRS: -30 QRSD: 99 T: 57 QT: 398 QTc: 408 Interpretive Statements SINUS RHYTHM BORDERLINE LEFT AXIS DEVIATION [QRS AXIS < -20] Compared to ECG 06/04/2025 07:48:37 Myocardial infarct finding no longer present /[id number].pdf
--- NOTE | 2025-09-09 14:37 | XR_ITS ---
EXAMINATION: AP chest single view TECHNIQUE: AP portable sitting chest single view Date and time: September 09, 2025, 1451 hours, comparison June 01, 2025 INDICATIONS: Chest pain today. FINDINGS: Normal heart size Ectatic thoracic aorta Moderate vascular congestion Severe osteopenia IMPRESSION: Moderate vascular congestion
[2025-09-09 15:24] LABS: Basophils # (Auto) 0.0 Thou/mm3 (0.0-0.2); Basophils % (Auto) 0 % (0-2.5); Eosinophils # (Auto) 0.2 Thou/mm3 (0.0-0.5); Eosinophils % (Auto) 2 % (0-10); Hematocrit 39.8 % (36.0-46.0); Hemoglobin 13.1 g/dL (12.0-16.0); Immature Granulocytes Auto 0.07 Thou/mm3 (0.00-0.00); Lymphocytes # (Auto) 2.2 Thou/mm3 (1.0-4.8); Lymphocytes % (Auto) 24 % (10-50); Mean Corpuscular HGB Conc 32.9 g/dl (31.0-37.0); Mean Corpuscular Hemoglobin 27.7 pg (25.0-35.0); Mean Corpuscular Volume 84 fL (80-100); Monocytes # (Auto) 1.3 Thou/mm3 (0.0-0.8); Monocytes % (Auto) 14 % (0-12); Neutrophils # (Auto) 5.6 Thou/mm3 (1.8-7.7); Neutrophils % (Auto) 60 % (37-80); Nucleated Red Blood Cell # 0.00 Thou/mm3 (0.00-0.00); Nucleated Red Blood Cell % 0 /100 WBC (0); Platelet Count 314 Thou/mm3 (140-440); RDW Standard Deviation 44.5 fL (36.4-46.3); Red Blood Count 4.73 Miln/mm3 (4.00-5.20); White Blood Count 9.4 Thou/mm3 (3.6-11.0)
[2025-09-09 15:37] LABS: B-Type Natriuretic Peptide 57 pg/mL (0-100)
[2025-09-09 15:40] LABS: Alanine Aminotransferase 11 U/L (10-49); Albumin, Serum 4.1 gm/dL (3.4-4.8); Albumin/Globulin Ratio 1.3 (1.2-2.2); Alkaline Phosphatase 86 U/L (46-116); Anion Gap 12 (7-16); Aspartate Amino Transferase 19 U/L (0-34); BUN/Creatinine Ratio 13 Ratio (12-20); Bilirubin,Total 0.5 mg/dL (0.3-1.2); Blood Urea Nitrogen 15 mg/dL (9-23); Calcium 9.5 mg/dL (8.3-10.6); Calcium (Corrected) 9.5 mg/dL (8.5-10.1); Carbon Dioxide 20.5 mMol/L (20.0-31.0); Chloride 102 mMol/L (98-107); Creatinine (Component) 1.2 mg/dL (0.6-1.3); Estimated Creatinine Clearance 27.8 mL/min (>60); Globulin 3.1 gm/dL (2.3-3.5); Glucose 90 mg/dL (74-106); Osmolality,Calculated 269 (275-295); Potassium 5.0 mMol/L (3.4-5.1); Sodium 134 mMol/L (136-145); Total Protein 7.2 gm/dL (5.7-8.2); Troponin I < 0.002 ng/mL (0.0-0.045); eGFR 44 See Note
[2025-09-09] MEDS: MORPHINE SULF INJ 4 MG/ML VIAL IVP (15:45)
[2025-09-09] MEDS: FUROSEMIDE INJ 10 MG/ML VIAL 2 ML 20 MG IVP (15:46)
[2025-09-09 15:52] LABS: INR 0.9 (0.9-1.3); Partial Thromboplastin Time 26.6 Seconds (22.0-36.0); Prothrombin Time 9.9 Seconds (9.0-12.2)
[2025-09-09 17:10] LABS: Collection Type, Urine Voided
[2025-09-09 17:23] LABS: Bacteria,Urine Rare; Bilirubin,Urine Negative (Negative); Blood,Urine Trace (Negative); Clarity,Urine Turbid (Clear/Hazy); Color,Urine Drk-Yellow (Lt Yel-Yel); Glucose, Urine 1+ (Negative); Ketones,Urine Negative (Negative); Leukocyte Esterase,Urine Positive (Negative); Nitrite,Urine Positive (Negative); PH,Urine 6.0 (5.0-7.0); Protein,Urine Negative (Neg - Trace); RBC,Urine 2 /hpf (0-3); Specific Gravity,Urine 1.009 (1.001-1.035); Squamous Epithelial Cell,Urine 2 /hpf (0-5); Urobilinogen,Urine Negative mg/dL (0.0-1.0); WBC,Urine 72 /hpf (0-5)
[2025-09-09 17:24] LABS: Culture Indicated,Urine Yes
--- NOTE | 2025-09-09 17:40 | EKG_ITS ---
[facility] Test Date: 2025-09-09 Pat Name: GISELA DALE Department: Room: - Gender: Female Cadd Drafter: : 1940 Requested By: Felicia Moser Order Number: [id number] Reading MD: Felicia Moser Measurements Intervals [place] Rate: 65 P: 59 MT: 196 QRS: -33 QRSD: 86 T: 69 QT: 400 QTc: 417 Interpretive Statements SINUS RHYTHM LEFT AXIS DEVIATION [QRS AXIS < -30] Compared to ECG 09/09/2025 14:41:12 No significant changes /[id number].pdf
[2025-09-09 18:43] LABS: Troponin I < 0.002 ng/mL (0.0-0.045)
--- NOTE | 2025-09-09 18:43 | PD.EDADDENDU ---
Emergency Room Addendum <Sandra Weinberg - Last Filed: 09/09/25 18:45> Addendum Narrative: 1800: Care assumed from Dr. Marquez (emergency physician). Past medical, surgical, social and family history reviewed. Vitals and home medications reviewed. Results and treatment plan discussed. I will assume the care of the patient at this time and will follow the patient, pending d-Troponin I and Dr. Mayer to see. The following addendum documentation note is intended to reflect any pending information, findings, or radiology results not included in the patient?s initial chart by the previous shift scribe. <Enrique MirDO - Last Filed: 09/09/25 20:31> Addendum Narrative: 1800: Care assumed from Dr. Marquez (emergency physician). Past medical, surgical, social and family history reviewed. Vitals and home medications reviewed. Results and treatment plan discussed. I will assume the care of the patient at this time and will follow the patient, pending d-Troponin I and Dr. Mayer to see. The following addendum documentation note is intended to reflect any pending information, findings, or radiology results not included in the patient?s initial chart by the previous shift scribe. Coating Mixer, Dr. Mayer has come by and seen the patient. He states patient can be discharged after being given Eliquis 5 mg p.o. Patient will go to his office to get samples of the Eliquis tomorrow. I reviewed the patient's labs. Troponin is not elevated. EKG is nonischemic. Patient is in normal sinus rhythm and not in atrial fibrillation at this time.
--- NOTE | 2025-09-09 19:33 | PD.RESCONSUL ---
HPI Data of Consult Primary Care Provider: Physician No Primary/Family Consult Narrative History of present illness: Patient is an 84 year old female with PMH of left cerebellar CVA, paroxysmal afib, history of meningioma, HTN, HLD, NIDDM2, hard of hearing,?and dementia?who present on 09/09 for chest pain for the past few days. Troponins were negative.??EKG showed sinus rhythm with no ST or T wave abnormalities. Echo 05/01/25 showed normal LV size, wall thickness. Normal LV diastolic filling pattern for age. EF 60-65%.?Pain resolved with aspirin and nitro. Patient has not been taking Eliquis 2.5 mg BID (met criteria for lower dose based on her age and weight <60 kg) prescribed after being diagnosed with afib on previous hospitalization in 05/2025. Not taking it due to high cost and lack of insurance coverage.? Cardiology consulted for alternative anticoagulation options. Given patient's circumstances, recommend to continue patient on Eliquis 2.5 mg as she would not be able to keep up with weekly warfarin checks and Xarelto is also not covered by her insurance. Will follow up outpatient after discharge. Past Medical History: as above Family History:Father had heart problems , history limited as patient has dementia Surgical History: Hysterectomy, right uretal stent placement 06/2025 s/p stone removal Social History: Denies history of smoking, denies current alcohol use, denies recreational drug use Current Medications: Metformin 500 mg 2 tablets once a day, metoprolol 25 mg daily, fluoxetine 20 mg daily, pravastatin 40 mg daily, donepezil 5 mg daily, amlodipine 5 mg daily, lisinopril 10 mg daily, Renuka-Casey 1 tablet daily. Allergies: No known drug allergies cc:: cc: Exam Vital Signs Temp Pulse Resp BP Pulse Ox O2 Del Method O2 Flow Rate 98 F 69 19 161/74 H 97 Room Air 6 09/09/25 19:13 09/09/25 19:13 09/09/25 19:13 09/09/25 19:13 09/09/25 19:13 09/09/25 19:13 09/09/25 15:34 Narrative Exam Physical Exam General: Awake and in no acute distress. Conversational and non-toxic appearing. Pleasant elderly lady, hard of hearing. HEENT: Normocephalic, atraumatic, mucous membranes moist. Heart: Regular rate and rhythm, normal S1 and S2, no murmurs appreciated. Lungs: Clear to auscultation with no wheezing or crackles. Abdomen: Soft, nondistended, nontender, positive bowel sounds. No guarding or rebound tenderness. Neurologic: Alert and oriented x3, no gross neurological deficit, and patient able to move all 4 extremities. Extremities: No edema. Skin: No rash or ecchymoses. Results Labs 09/09/25 15:04 09/09/25 15:04 Labs: Short CBC 09/09/25 Range/Units 15:04 WBC 9.4 (3.6-11.0) Thou/mm3 Hgb 13.1 (12.0-16.0) g/dL Hct 39.8 (36.0-46.0) % Plt Count 314 (140-440) Thou/mm3 BMP 09/09/25 15:04 Sodium 134 L Potassium 5.0 Chloride 102 Carbon Dioxide 20.5 BUN 15 Creatinine 1.2 Glucose 90 Calcium 9.5 Cardiac Enzymes 09/09/25 09/09/25 Range/Units 15:04 18:18 Troponin I < 0.002 < 0.002 (0.0-0.045) ng/mL Liver Function 09/09/25 Range/Units 15:04 Total Bilirubin 0.5 (0.3-1.2) mg/dL AST 19 (0-34) U/L ALT 11 (10-49) U/L Alkaline Phosphatase 86 (46-116) U/L Albumin 4.1 (3.4-4.8) gm/dL Urine 09/09/25 Range/Units 17:03 Urine Color Drk-Yellow A (Lt Yel-Yel) Urine Clarity Turbid A (Clear/Hazy) Urine pH 6.0 (5.0-7.0) Ur Specific [place] 1.009 (1.001-1.035) Urine Protein Negative (Neg - Trace) Urine Glucose (UA) 1+ A (Negative) Quality Measures Quality Measures none Advance care planning discussed with:: patient Medications Home Medications and Allergies Home Medications ?Medication ?Instructions ?Recorded ?Confirmed ?Type metformin 500 mg tablet 1,000 mg PO BID 03/28/23 08/15/25 History donepezil 5 mg tablet 5 mg PO HS 09/12/23 08/15/25 History vitamin B complex-vitamin C-folic 1 tab PO DAILY 09/12/23 08/15/25 History acid 0.8 mg tablet (Renuka-Casey) fluoxetine 10 mg capsule 10 mg PO DAILY 02/18/25 08/15/25 History oxybutynin chloride 5 mg tablet 5 mg PO QDAY 02/18/25 08/15/25 History amlodipine 5 mg tablet 5 mg PO QDAY 05/23/25 08/15/25 History lisinopril 10 mg tablet 10 mg PO QDAY 05/23/25 08/15/25 History pravastatin 40 mg tablet 40 mg PO QDAY 05/23/25 08/15/25 History apixaban 2.5 mg tablet (Eliquis) 2.5 mg PO BID 07/08/25 08/15/25 History bisacodyl 10 mg rectal suppository 10 mg [place] QDAY PRN constipation 07/08/25 08/15/25 History (Dulcolax (bisacodyl)) hydrocodone 5 mg-acetaminophen 325 1 tab PO Q6H PRN pain 07/08/25 08/15/25 History mg tablet metoprolol succinate 25 mg 25 mg PO QDAY 07/08/25 08/15/25 History tablet,extended release 24 hr tamsulosin 0.4 mg capsule (Flomax) 0.4 mg PO QDAY 07/08/25 08/15/25 History sennosides 8.6 mg capsule (senna) 8.6 mg PO QDAY 07/23/25 08/15/25 History Allergies Allergy/AdvReac Type Severity Reaction Status Date / Time No Known Allergies Allergy Verified 08/15/25 10:21 Visit Medications Discontinued Medications Furosemide (Furosemide Inj 10 Mg/Ml Vial 2 Ml) 20 mg IVP X1 ONE Stop: 09/09/25 15:41 Last Admin: 09/09/25 15:46 Dose: 20 mg Morphine Sulfate (Morphine Sulf Inj 4 Mg/Ml Vial) 4 mg IVP X1 ONE Stop: 09/09/25 15:38 Last Admin: 09/09/25 15:45 Dose: 4 mg Assessment & Plan Plan Patient is an 84 year old female with PMH of left cerebellar CVA, paroxysmal afib, history of meningioma, HTN, HLD, NIDDM2, hard of hearing,?and dementia?who presents for chest pain, resolved with aspirin and Nitropaste. Cardiology consulted for anticoagulation options for history of afib. #Chest pain Presented for persistent chest pressure for the past few days. Troponins negative. EKG showed sinus rhythm with no ST or T wave abnormalities. Improved after given aspirin and Nitropaste. - Continue aspirin 81 mg daily - Follow-up outpatient for further ischemic cardiac workup #Hx of paroxysmal afib Denies palpitations. EKG showed sinus rhythm with no ST or T wave abnormalities. Echo 05/01/25 showed normal LV size, wall thickness. Normal LV diastolic filling pattern for age. EF 60-65%. Patient has not been taking Eliquis 2.5 mg BID (met criteria for lower dose based on her age and weight <60 kg) prescribed after being diagnosed with afib on previous hospitalization in 05/2025. Not taking it due to high cost and lack of insurance coverage.? - Continue metoprolol XL 25 mg daily - Given patient's circumstances, recommend to continue patient on Eliquis 2.5 mg as she would not be able to keep up with weekly warfarin checks and Xarelto is also not covered by her insurance. Recommended to come to my clinic tomorrow to brick picker Eliquis samples for the next 2 months. Discussed with the family and they will change their prescription drug coverage by November. Will follow up outpatient after discharge. #Hypertension #HLD #NIDDM2 #Hard of hearing #History of meningioma #Dementia Thank you for your consultation, please do not hesitate to reach out if you have any question or concern Patient plan of care was discussed with the attending physician, Dr. Mayer. Rosario Dominguez, PGY-1 Attending Provider Attestation/Addendum I have personally seen and examined the patient separately on the above date of service and discussed the plan of care with the resident. I reviewed the resident Dr. Rosario Dominguez consultation progress note and agree with the resident findings and plan in the note above and have also edited the documentation to reflect my findings and plan. Lester Mayer M.D. Interventional Cardiology
[2025-09-09] MEDS: APIXABAN 2.5 MG TABLET 5 MG PO (20:40)
== END 2025-09-09 21:08 | disposition home or self-care (01) ==
PROVIDERS: Emergency Provider Emergency Medicine
DX: R07.89 Other chest pain (principal); E11.22 Type 2 diabetes mellitus with diabetic chronic kidney disease; E78.5 Hyperlipidemia, unspecified; F03.90 Unspecified dementia, unspecified severity, without behavioral disturbance, psychotic disturbance, mood disturbance, and anxiety; I12.9 Hypertensive chronic kidney disease with stage 1 through stage 4 chronic kidney disease, or unspecified chronic kidney disease; I48.0 Paroxysmal atrial fibrillation; N18.9 Chronic kidney disease, unspecified; Z59.71 Insufficient health insurance coverage; Z79.01 Long term (current) use of anticoagulants; Z79.82 Long term (current) use of aspirin; Z79.84 Long term (current) use of oral hypoglycemic drugs; Z79.899 Other long term (current) drug therapy; Z96.60 Presence of unspecified orthopedic joint implant; Z90.710 Acquired absence of both cervix and uterus; Z86.73 Personal history of transient ischemic attack (TIA), and cerebral infarction without residual deficits; Z86.011 Personal history of benign neoplasm of the brain
CPT/HCPCS: 36415; 71045; 80053; 81001; 83880; 84484; 85025; 85610; 85730; 87077; 87086; 87186; 93005; 96374; 96375; 99283; J1938; J2270; A9270

== ENCOUNTER → 2025-09-10 | Outpatient (CLI) | payer MEDICARE, BC, SELFPAY | END | disposition home or self-care (01) | LOC: SLDO 14:58 | PROVIDERS: PCP Nurse Practitioner Family; Referring Provider Nurse Practitioner Family; Visit Provider Nurse Practitioner Family | DX: N30.00 Acute cystitis without hematuria (principal) | CPT/HCPCS: 87077; 87086; 87186 ==